=== PATIENT | female | born 1955 | race Caucasian/White ===

== ENCOUNTER → 2024-04-27 | Outpatient (CLI) | payer MEDICARE, SELFPAY ==
--- NOTE | 2024-04-27 08:59 | RAD_ITS ---
EXAM: XR Chest, 2 Views CLINICAL INDICATION: TECHNIQUE: Frontal and lateral views of the chest. COMPARISON: No relevant prior studies available. FINDINGS: LUNGS AND PLEURAL SPACES: Unremarkable. No consolidation. No pneumothorax. HEART: Unremarkable. No cardiomegaly. MEDIASTINUM: Unremarkable. Normal mediastinal contour. BONES/JOINTS: Unremarkable. No acute fracture. RAD/Chest PA and Lateral IMPRESSION: No acute cardiopulmonary process. Reading Location[facility]
[2024-04-27 10:05] LABS: EXAGEN MAILED SPECIMEN
[2024-04-27 12:51] LABS: Absolute Lymphocyte Count 1.99 X10^3/uL (0.83-4.51); Absolute Neutrophil Count 2.5 X10^3/uL (2.0-7.7); Basophil# 0.09 X10^3/uL; Basophil% 1.7 % (0-1); Eosinophil# 0.18 X10^3/uL; Eosinophils% 3.4 % (0-5); Hematocrit 43.6 % (37-47); Hemoglobin 14.1 g/dL (12.0-15.0); Lymphocyte # 1.99 X10^3/ul (0.83-4.51); Lymphocyte % 37.1 % (19-41); Mean Corp Hgb Conc 32.3 g/dL (32-36); Mean Corpuscular Hgb 29.9 pg (27.0-32.0); Mean Corpuscular Volume 92.4 fL (81-99); Mean Platelet Vol. 10.6 fl (6.2-12.0); Monocyte# 0.57 X10^3/uL; Monocyte% 10.6 % (0-10); NRBC Flagged by Analyzer 0 % (0-5); Neutrophil # 2.51 X10^3/uL (2.7-7.7); Neutrophil % 46.8 % (47-70); Platelet Count 326 K/mm3 (150-450); RBC Distribution Width CV 12.9 % (11.6-14.6); RBC Distribution Width SD 43.9 fl (35.1-43.9); Red Blood Count 4.72 M/mm3 (4.2-5.4); White Blood Count 5.4 K/mm3 (4.4-11.0)
[2024-04-27 13:10] LABS: Color, Urine Yellow (Yellow); Glucose, Dipstick Normal (Normal); Ketone-Dipstick Negative (Negative); Leukocyte Esterase-Dipstick 500 /ul (Negative); Nitrite-Dipstick Negative (Negative); Occult Blood-Urine 25 /ul (Negative); Protein-Dipstick 30 mg/dl (Negative); Urine Bilirubin Dipstick Negative (Negative); Urine Clarity Clear (Clear); Urine Urobilinogen Normal (Normal)
[2024-04-27 13:34] LABS: ALB/GLOB Ratio 1.3 RATIO (0.9-2.4); AST(SGOT) 33 U/L (<=31); Alanine Aminotransfer ALT/SGPT 17 U/L (<=34); Albumin, Serum 4.5 g/dL (3.4-4.8); Alkaline Phosphatase 99 U/L (35-104); Anion Gap 12 (5-15); BUN 18 mg/dL (4-19); BUN/Creat Ratio 18.8 RATIO (10-20); Calcium,Total 9.3 mg/dL (7.6-11.0); Carbon Dioxide 24.3 mmol/L (21.0-32.0); Chloride 101 mmol/L (98-108); Creatinine, Serum 0.95 mg/dL (0.70-1.20); EST Glomerular Filtration Rate 66 (>60); Globulin 3.4 g/dL (2.2-4.2); Glucose 89 mg/dL (70-99); Hepatitis B Surface Antigen Nonreactive (Nonreactive); Hepatitis C Antibody Nonreactive (Nonreactive); Potassium 4.1 mmol/L (3.3-5.1); Protein, Total 7.9 g/dL (5.9-8.4); Sodium Level 137 mmol/L (133-145); Total Bilirubin 0.37 mg/dL (0.00-1.30)
[2024-04-27 13:54] LABS: Hepatitis B Surface Antibody Indetermin
[2024-04-27 15:18] LABS: Protein, Urine (Random) 13.9 mg/dL (0.0-12.0); Protein:Creat Ratio 118 mg/g CRE (0-200)
[2024-04-28 16:09] LABS: Angiotensin Convert Enzyme 75 U/L (14-82)
== END | disposition home or self-care (01) ==
LOC: MTLAB 08:57
PROVIDERS: PCP Family Medicine; Referring Provider Internal Medicine Rheumatology; Visit Provider Internal Medicine Rheumatology
DX: R76.8 Other specified abnormal immunological findings in serum (principal); M06.4 Inflammatory polyarthropathy
CPT/HCPCS: 36415; 71046; 80053; 81002; 82164; 82570; 84156; 85025; 86706; 86803; 87340

== ENCOUNTER → 2024-05-13 | Outpatient (CLI) | payer MEDICARE, SELFPAY ==
[2024-05-13 12:32] LABS: EXAGEN MAILED SPECIMEN
[2024-05-13 16:21] LABS: Color, Urine Yellow (Yellow); Glucose, Dipstick Normal (Normal); Ketone-Dipstick Negative (Negative); Leukocyte Esterase-Dipstick 100 /ul (Negative); Nitrite-Dipstick Negative (Negative); Occult Blood-Urine Negative /ul (Negative); Protein-Dipstick 15 mg/dl (Negative); Urine Bilirubin Dipstick Negative (Negative); Urine Clarity Clear (Clear); Urine Urobilinogen Normal (Normal); Urine pH 6.5 (5.0 - 8.0)
[2024-05-13 16:47] LABS: Protein, Urine (Random) < 6.0 mg/dL (0.0-12.0); Protein:Creat Ratio UNABLE TO CALCULATE mg/g CRE (0-200)
== END | disposition home or self-care (01) ==
LOC: MTLAB 11:11
PROVIDERS: PCP Family Medicine; Referring Provider Internal Medicine Rheumatology; Visit Provider Internal Medicine Rheumatology
DX: R76.8 Other specified abnormal immunological findings in serum (principal); M06.4 Inflammatory polyarthropathy; M18.0 Bilateral primary osteoarthritis of first carpometacarpal joints; M47.897 Other spondylosis, lumbosacral region; K21.9 Gastro-esophageal reflux disease without esophagitis; L71.9 Rosacea, unspecified
CPT/HCPCS: 81002; 82570; 84156

== ENCOUNTER → 2024-08-11 | Outpatient (CLI) | payer MEDICARE, SELFPAY ==
[2024-08-11 10:11] LABS: Absolute Lymphocyte Count 1.68 X10^3/uL (0.83-4.51); Absolute Neutrophil Count 3.4 X10^3/uL (2.0-7.7); Basophil# 0.07 X10^3/uL; Basophil% 1.2 % (0-1); Eosinophil# 0.21 X10^3/uL; Eosinophils% 3.5 % (0-5); Hematocrit 39.5 % (37-47); Lymphocyte # 1.68 X10^3/ul (0.83-4.51); Lymphocyte % 28.1 % (19-41); Mean Corp Hgb Conc 32.9 g/dL (32-36); Mean Corpuscular Hgb 30.7 pg (27.0-32.0); Mean Corpuscular Volume 93.2 fL (81-99); Mean Platelet Vol. 8.9 fl (6.2-12.0); Monocyte# 0.63 X10^3/uL; Monocyte% 10.6 % (0-10); NRBC Flagged by Analyzer 0 % (0-5); Neutrophil # 3.35 X10^3/uL (2.7-7.7); Neutrophil % 56.1 % (47-70); Platelet Count 362 K/mm3 (150-450); RBC Distribution Width CV 14.2 % (11.6-14.6); RBC Distribution Width SD 47.5 fl (35.1-43.9); Red Blood Count 4.24 M/mm3 (4.2-5.4)
[2024-08-11 10:36] LABS: ALB/GLOB Ratio 1.4 RATIO (0.9-2.4); AST(SGOT) 33 U/L (<=31); Alanine Aminotransfer ALT/SGPT 20 U/L (<=34); Albumin, Serum 4.2 g/dL (3.4-4.8); Alkaline Phosphatase 91 U/L (35-104); Anion Gap 11 (5-15); BUN 19 mg/dL (4-19); BUN/Creat Ratio 20.4 RATIO (10-20); Calcium,Total 9.3 mg/dL (7.6-11.0); Carbon Dioxide 23.5 mmol/L (21.0-32.0); Chloride 104 mmol/L (98-108); Creatinine, Serum 0.91 mg/dL (0.70-1.20); EST Glomerular Filtration Rate 69 (>60); Globulin 2.9 g/dL (2.2-4.2); Glucose 97 mg/dL (70-99); Potassium 4.6 mmol/L (3.3-5.1); Protein, Total 7.1 g/dL (5.9-8.4); Sodium Level 138 mmol/L (133-145); Total Bilirubin 0.37 mg/dL (0.00-1.30)
== END | disposition home or self-care (01) ==
LOC: MTLAB 07:58
PROVIDERS: PCP Family Medicine; Referring Provider Internal Medicine Rheumatology; Visit Provider Internal Medicine Rheumatology
DX: M06.4 Inflammatory polyarthropathy (principal); M18.0 Bilateral primary osteoarthritis of first carpometacarpal joints; R76.8 Other specified abnormal immunological findings in serum; Z79.899 Other long term (current) drug therapy
CPT/HCPCS: 36415; 80053; 85025

== ENCOUNTER → 2024-11-11 | Outpatient (CLI) | payer MEDICARE, SELFPAY ==
[2024-11-11 12:27] LABS: Hematocrit 42.8 % (37-47); Hemoglobin 14.4 g/dL (12.0-15.0); Immature Granulocytes Count 0.030 X10^3/uL (0.0-0.0); Mean Corp Hgb Conc 33.6 g/dL (32-36); Mean Corpuscular Volume 94.5 fL (81-99); Mean Platelet Vol. 9.9 fl (6.2-12.0); NRBC Flagged by Analyzer 0 % (0-5); Platelet Count 334 K/mm3 (150-450); RBC Distribution Width CV 12.7 % (11.6-14.6); RBC Distribution Width SD 44.1 fl (35.1-43.9); Red Blood Count 4.53 M/mm3 (4.2-5.4); White Blood Count 6.4 K/mm3 (4.4-11.0)
[2024-11-11 12:41] LABS: AST(SGOT) 35 U/L (<=31); Alanine Aminotransfer ALT/SGPT 13 U/L (<=34); Albumin, Serum 4.3 g/dL (3.4-4.8); Alkaline Phosphatase 88 U/L (35-104); Anion Gap 11 (5-15); BUN 15 mg/dL (4-19); BUN/Creat Ratio 15.7 RATIO (10-20); Calcium,Total 9.3 mg/dL (7.6-11.0); Carbon Dioxide 23.1 mmol/L (21.0-32.0); Chloride 103 mmol/L (98-108); Globulin 3.0 g/dL (2.2-4.2); Glucose 89 mg/dL (70-99); Potassium 4.0 mmol/L (3.3-5.1)
== END | disposition home or self-care (01) ==
LOC: MTLAB 10:43
PROVIDERS: PCP Family Medicine; Referring Provider Internal Medicine Rheumatology; Visit Provider Internal Medicine Rheumatology
DX: M06.4 Inflammatory polyarthropathy (principal); R76.8 Other specified abnormal immunological findings in serum; M18.0 Bilateral primary osteoarthritis of first carpometacarpal joints; Z79.899 Other long term (current) drug therapy
CPT/HCPCS: 36415; 80053; 85025

== ENCOUNTER → 2025-01-02 | Outpatient (CLI) | payer MEDICARE, SELFPAY ==
--- NOTE | 2025-01-02 08:52 | US_ITS ---
PROCEDURE: ABD LIMITED W/ ELASTOGRAPHY REASON FOR EXAM: FATTY LIVER COMPARISON: None TECHNIQUE: Procedure Code: [id number] Modality: US Procedure: ABD LIMITED W/ ELASTOGRAPHY Right upper quadrant abdominal ultrasound. Bright ElastQ Imaging shear wave elastography for non-invasive assessment of liver tissue stiffness. Bright EPIQ Elite. FINDINGS: LIVER: Size: Borderline hepatomegaly. Length: 17.9 cm Echotexture: Coarsened Contour: Normal Lesions: None identified Elastography: EQI Med: 5.3 kPa EQI Med Dell: 1.3 m/s IQR/Med: 24.6 %* GALLBLADDER: No stones sludge wall thickening or tenderness. COMMON BILE DUCT: Normal measuring 2.7 mm . PANCREAS: Normal Visualized portions of the right kidney are unremarkable. No right upper quadrant ascites. US/ABD Limited w/ Elastography IMPRESSION: NO TO MILD HEPATIC FIBROSIS Borderline hepatomegaly. Fatty infiltration of the liver. Reference Values: SRU <1.37 m/s (5.7kPa): No to mild fibrosis 1.37 m/s - 2.2 m/s: Moderate to severe fibrosis >2.2 m/s (15kPa): Significant fibrosis / cirrhosis METAVIR Score F2 or higher: 1.34 m/s (5.7kPa) F3 or higher: 1.55 m/s (7.3kPa) F4: 1.80 m/s (10kPa) * If the IQR/Med is >30%, the variance in the measurements is a large and the a ccuracy of the measurement may be in question. Reading Location: [id number]
--- OUTSIDE RECORDS SUMMARY | 2025-01-02 08:53 | XMS RPT_ITS | CCD ---
Author Organization [facility] Care Team Providers Care Agricultural [employer] Inspector Name Role Phone Sue Wolf Unavailable Unavailable Robbie Laura Unavailable Unavailable Stencel, Sue Soto Unavailable Unavailable Mariela Fuentes Unavailable Unavailabl e Luciano, Sue Unavailable Unavailable Dannielle Zuniga Unavailable Unavailable Krystalcel , Sue Pascual Primary Care Provider Luciano ROBERTS, Sue Pascual Primary Care Provider SHELBY LANGLEY Attending Unavailable STENSHERWIN, SUE PASCUAL Primary Care Unavailab le STENCEL, SUE PASCUAL Primary Care Unavailab le CIDNY, ELMA ARCHIBALD Admitting Unavailab le CINDY, ELMA ARCHIBALD Attending Unavailab le RYAN, CRISTOBAL ARANGO Admitting Unavailable VINCENT, GREGOR Attending Unavailable RYANCRISTOBAL Referring Unavailable STENCEL, SUE PASCUAL Primary Care Unavailab le STENCEL, SUE PASCUAL Admitting Unavailab le ODOM, MOE Attending Unavailable RYAN, CRISTOBAL ARANGO Referring Unavailable STENCEL, SUE PASCUAL Primary Care Unavailab le STENCEL, SUE PASCUAL Admitting Unavailab le SUSANA, KEVEN Attending Unavailable RYAN, CRISTOBAL ARANGO Referring Unavailable STENCEL, SUE PASCUAL Primary Care Unavailab le STENCEL, SUE PASCUAL Admitting Unavailab le WARNES, ELIZABETH Attending Unavailable RYAN, CRISTOBAL ARANGO Referring Unavailable STENCEL, SUE PASCUAL Primary Care Unavailab le STENCEL, SUE PASCUAL Admitting Unavailab le ODOM, MOE Attending Unavailable RYANCRISTOBAL Referring Unavailable STENCEL, SUE PASCUAL Primary Care Unavailab le STENCEL, SUE PASCUAL Admitting Unavailab le ODOM, MOE Attending Unavailable RYAN, CRISTOBAL ARANGO Referring Unavailable STENCEL, SUE PASCUAL Primary Care Unavailab le STENCEL, SUE PASCUAL Admitting Unavailab le VINCENT, GREGOR Attending Unavailable RYANCRISTOBAL Referring Unavailable STENCEL, SUE PASCUAL Primary Care Unavailab le RYAN, CRISTOBAL ARANGO Admitting Unavailable STENCEL, SUE PASCUAL Primary Care Unavailab le CINDY, ELMA ARCHIBALD Attending Unavailab le CINDY, ELMA ARCHIBALD Referring Unavailab le STENSHERWIN, SUE PASCUAL Primary Care Unavailab le Luciano, Sue Soto Unavailable Unavailable Unavailable Unavailable Unavailable Sue Wolf MD Primary Care Provider Sue Wolf Primary Care Provider Sue Wolf MD Primary Care Provider Дмитрий, Juan Attending Unavailable Stencel, Dr. Sue Pascual Primary Care Unava ilable Leb, Juan Attending Unavailable Stencel, Dr. Sue Pascual Primary Care Unava ilable Stencel, Dr. Sue Pascual Referring Unava ilable Stencel, Dr. Sue Pascual Primary Care Unava ilable Stencel, Dr. Sue Pascual Attending Unava ilable Stencel, Dr. Sue Pascual Referring Unava ilable Stencel, Dr. Sue Pascual Primary Care Unava ilable Stencel, Dr. Sue Pascual Attending Unava ilable Stencel, Dr. Sue Pascual Referring Unava ilable Leb, Juan Attending Unavailable Stencel, Dr. Sue Pascual Primary Care Unava ilable Sue Wolf MD Primary Care Provider [phone] Sue Wolf MD Unavailable Sue Wolf MD Primary Care Provider [phone] SUE WOLF Primary Care Unavailable Sue Wolf MD Primary Care Provider Sue Wolf MD Primary Care Provider SUE WOLF Primary Care Unavailable BURAK MEDINA Attending Unavailable EMERSON ROSSI Referring Unavailabl e Dr. Sue Wolf MD Primary Care Provider [phone] Dr. Sylvie Orosco MD Attending Provider Dr. Sylvie Orosco MD Referring Provider Sue Wolf MD Primary Care Provider [phone] SYLVIE OROSCO Referring Unavailable STENSUE COURTNEY Primary Care Unavailable STENSUE COURTNEY Referring Unavailable STENSUE COURTNEY Primary Care Unavailable Sue Wolf MD Primary Care Provider Dr. Sue Wolf MD Primary Care Physician Kwesi ROBERTS, Dr. Mercer Attending Physician Dr. Sylvie Orosco MD Referring Provider LUCIANO, SUE PASCUAL Primary Care Unavailab le RAO, SUSSY FELDMAN Attending Unavailable RAO, SUSSY FELDMAN Admitting Unavailable STENCEL, SUE PASCUAL Primary Care Unavailab le RAO, SUSSY FELDMAN Referring Unavailable RAO, SUSSY FELDMAN Attending Unavailable STENCEL, SUE PASCUAL Primary Care Unavailab brayden Wolf MD, Sue Soto Primary Care Provider ROBBIE LAURA Attending Unavailable STENCEL, SUE Soto Primary Care Unavailable STENCEL, SUE Soto Attending Unavailable STENCEL, SUE Soto Primary Care Unavailable STENCEL, SUE Soto Attending Unavailable STENCEL, SUE Soto Primary Care Unavailable STENCEL, SUE Soto Attending Unavailable STENCEL, SUE Soto Referring Unavailable STENCEL, SUE Soto Primary Care Unavailable STENCEL, SUE Soto Attending Unavailable STENCEL, SUE Soto Primary Care Unavailable Vellanki, Sylvie Attending Unavailable Stencel, Sue Primary Care Unavailable Vellanki, Sylvie Referring Unavailable Vellanki, Sylvie Referring Unavailable Stencel, Sue Primary Care Unavailable Vellanki, Sylvie Attending Unavailable Stencel, Sue Primary Care Unavailable Stencel, Sue Attending Unavailable Stencel, Sue Referring Unavailable Stencel, Sue Primary Care Unavailable Vellanki, Sylvie Attending Unavailable Vellanki, Sylvie Referring Unavailable Stencel, Sue Primary Care Unavailable Vellanki, Sylvie Attending Unavailable Vellanki, Sylvie Referring Unavailable Medications Current Medications Medication Drug Class(es) Dates Sig (Normalized) Sig (Original) acetaminophen 500 mg oral tablet (13 sources) take 1 tablet by mouth every six hours as needed for pain acetaminophen (TYLENOL) 500 MG tablet Take 500 mg by mouth every 6 (six) hours as needed for pain . Active acetaminophen 325 mg / HYDROcodone bitartrate 5 mg oral tablet (4 sources) Opioid Agonist Start: 08-16-2020 End: 11-15-2020 HYDROcodone-Acetami nophen 5-325 MG Oral Tablet Quantity: 40 Refills: 0 Ordered: 16-Aug-2020 DO Start : 16-Aug-2020 End : 15-Nov-2020 Complete Start: 08-16-2020 End: 08-23-2020 take 1 tablet by mouth once as needed, then take 2 tablets by mouth every four hours as needed HYDROcodone-acetaminophen (NORCO) 5-325 mg per tablet Indications: Status post total replacement of right hip Take 1 (one) tablet to 2 (two) tablets by mouth every 4 (four) hours as needed 7 days . 40 tablet 0 08/16/2020 08/23/2020 Active alendronic acid 70 mg oral tablet (5 sources) Bisphosphonate Start: 08-16-2020 End: 11-15-2020 take 1 tablet by mouth every week Alendronate Sodium 70 MG Oral Tablet TAKE 1 TABLET BY MOUTH ONCE A WEEK Quantity: 4 Refills: 0 Ordered: 12-Sep-2020 DO Start : 16-Aug-2020 End : 15-Nov-2020 Complete Start: 08-16-2020 End: 09-15-2020 alendronate (FOSAMAX) 70 MG tablet Take 1 (one) tablet (70 mg total) by mouth every 7 days (full glass of water on an empty stomach). Remain upright and do not eat for next 30 min . 4 tablet 2 08/16/2020 09/15/2020 Active aspirin 325 mg delayed release oral tablet (20 sources) Platelet Aggregation Inhibitor, Nonsteroidal Anti-inflammatory Drug Start: 08-16-2020 End: 11-15-2020 Aspirin 325 MG Oral Tablet Delayed Release Quantity: 60 Refills: 0 Ordered: 16-Aug-2020 DO Start : 16-Aug-2020 End : 15-Nov-2020 Complete Start: 08-16-2020 End: 09-15-2020 take 1 tablet by mouth twice daily aspirin 325 MG EC tablet Take 1 (one) tablet (325 mg total) by mouth 2 (two) times a day . 60 tablet 0 08/16/2020 09/15/2020 Active End: 08-16-2020 take 1 tablet by mouth once daily aspirin 81 MG EC tablet Take 1 (one) tablet (81 mg total) by mouth daily . Active aspirin (ASPIR-8 1 ORAL) Take by mouth once daily. Active Aspirin 81 MG TA BS TAKE 1 TABLET DAILY. Quantity: 0 Refills: 0 Ordered: 05-Feb-2019 DO Active aspirin (ASPIR-8 1 ORAL) Take by mouth once daily. 0 Active Comment on above: Take by mouth once d aily. aspirin 81 mg / calcium carbonate 777 mg oral tablet (12 sources) Platelet Aggregation Inhibitor, Nonsteroidal Anti-inflammatory Drug take 1 tablet by mouth once daily aspirin-calcium carbonate 81 mg-300 mg calcium(777 mg) tablet Take 1 tablet by mouth once daily. Active Calcium (4 sources) Phosphate Binder, Calcium Start: CALCIUM 500 MG TAB Take one(1) tablet daily. 0 03/31/2008 Active Comment on above: Take one(1) tablet d aily. cholecalciferol 0.025 mg oral tablet (20 sources) Vitamin D Start: 021 take 2 tablets by mouth once daily cholecalciferol (Vitamin D-3) 25 MCG (1000 UT) tablet Take 2 tablets (50 mcg) by mouth once daily. 03/23/2020 Active Start: 03-23-2020 take 2 tablets by mo uth once daily Vitamin D 25 MCG (1000 UT) Oral Tablet TAKE 2 TABLET Daily Quantity: 180 Refills: 0 Ordered: 08-Dec-2021 DO Start : 23-Mar-2020 Active cholecalciferol, vitamin D3, 10 mcg/drop (400 unit/drop) Drop Take by mouth daily . 0 Active cholecalciferol, vitamin D3, (VITAMIN D3 ORAL) (4 sources) cholecalciferol, vitamin D3, (VITAMIN D3 ORAL) Take by mouth once daily. Active cholecalciferol, vitamin D3, (VITAMIN D3 ORAL) Take by mouth once daily. 0 Active Comment on above: Take by mouth once d aily. cyclobenzaprine hydrochloride 10 mg oral tablet (4 sources) Muscle Relaxant Start: 08-16-2020 End: 11-15-2020 Cyclobenzaprine HCl - 10 MG Oral Tablet Quantity: 30 Refills: 0 Ordered: 16-Aug-2020 DO Start : 16-Aug-2020 End : 15-Nov-2020 Complete Start: 08-16-2020 End: 08-26-2020 take 1 tablet by mouth three times daily as needed for muscle spasms cyclobenzaprine (FLEXERIL) 10 MG tablet Take 1 (one) tablet (10 mg total) by mouth 3 (three) times a day as needed for muscle spasms . 30 tablet 0 08/16/2020 08/26/2020 Active docusate sodium 250 mg oral capsule (20 sources) Start: 03-23-2020 docusate sodiu m 250 mg capsule Take by mouth. 03/23/2020 Active Start: 03-23-2020 SM Stool Softe ner 250 MG Oral Capsule Quantity: 0 Refills: 0 Ordered: 23-Mar-2020 DO Start : 23-Mar-2020 Active Start: 03-31-2008 docusate sodiu m(COLACE 100 MG CAP) Take one(1) tablet twice daily. 0 03/31/2008 Active take 1 capsule by [facility] once daily docusate sodium (COLACE) 100 MG capsule Take 100 mg by mouth daily . Active Comment on above: Take one(1) tablet t wice daily. doxycycline monohydrate 100 mg oral capsule (1 source) Tetracycline-class Drug Start: 11-15-19 End: 11-29-19 take 1 capsule by mouth once daily doxycycline monohydrate (MONODOX) 100 mg capsule Take 1 capsule by mouth once daily for 14 days. 14 capsule 0 11/14/2021 11/28/2021 Active Comment on above: Take 1 capsule by [facility] once daily for 14 days. erythromycin 0.005 mg/mg ophthalmic ointment (4 sources) Macrolide, Macrolide Antimicrobial Start: 11-15-19 erythromycin (ROMYCIN) 5 mg/gram (0.5 %) ophthalmic ointment Use 1 application in the right eye daily at bedtime. 3.5 g 11/14/2021 Active Comment on above: Use 1 application in the right eye daily at bedtime. fluconazole 200 mg oral tablet (2 sources) Azole Antifungal Start: 12-11-19 End: 12-18-19 take 1 tablet by mouth once daily fluconazole (Diflucan) 200 mg tablet Indications: Thrush Take 1 tablet (200 mg) by mouth once daily for 7 days. 7 tablet 1 12/10/2024 12/17/2024 Active folic acid 1 mg oral tablet (2 sources) Start: 07-04-19 take 1 tablet by mouth once daily folic acid (FOLVITE) 1 MG tablet Take 2 (two) tablets (2,000 mcg total) by mouth daily . 07/03/2024 Active gabapentin 300 mg oral capsule (20 sources) Anti-epileptic Agent Start: 08-29-19 24 End: 06-03-19 26 take 1 capsule by mouth three times daily gabapentin (Neurontin) 300 mg capsule Indications: Lumbosacral radiculopathy at L5 , Peripheral polyneuropathy Take 1 capsule (300 mg) by mouth 3 times a day. 270 capsule 3 06/02/2024 06/02/2025 Active Start: 08-07-2022 End: 08-07-2023 take 1 capsule by mouth three times daily gabapentin (Neurontin) 300 mg capsule Indications: Lumbosacral radiculopathy at L5 , Peripheral polyneuropathy Take 1 capsule (300 mg) by mouth 3 times a day. 270 capsule 3 08/07/2022 08/07/2023 Active Start: 12-03-2019 End: 11-15-2020 Gabapentin 100 MG Oral Capsu le Quantity: 360 Refills: 0 Ordered: 11-Mar-2020 DO Start : 03-Dec-2019 End : 15-Nov-2020 Complete Start: 09-08-2019 gabapentin (NE URONTIN) 300 MG capsule 300 mg 2 (two) times a day . 05/12/2020 Active Start: 09-08-2019 take 1-2 capsules by mouth at bedtime Gabapentin 100 MG Oral Capsule TAKE 1 TO 2 CAPSULES AT BEDTIME Quantity: 60 Refills: 11 Sue Wolf MD Start : 08-Sep-2019 Active Start: 09-08-2019 take 2 capsules by m outh twice daily Gabapentin 100 MG Oral Capsule take 2 po bid Quantity: 120 Refills: 3 Mariela Fuentes DO Start : 08-Sep-2019 Active take 2 capsules by m outh three times daily gabapentin (NEURONTIN) 100 mg capsule Take 200 mg by mouth three times a day. Active Comment on above: Take 100 mg by mouth daily at bedtime. Take 200 mg by mouth three times a day. hydroxychloroquine sulfate 200 mg oral tablet (20 sources) Antimalarial, Antirheumatic Agent Start: 2024 take 1 tablet by mouth twice daily hydroxychloroquine (Plaquenil) 200 mg tablet Indications: Systemic lupus erythematosus, unspecified SLE type, unspecified organ involvement status (Multi) Take 1 tablet (200 mg) by mouth 2 times a day. 180 tablet 3 12/10/2024 Active Start: 08-07-2022 End: 12-10-2024 take 1 tablet by mouth twice daily hydroxychloroquine (Plaquenil) 200 mg tablet Indications: Systemic lupus erythematosus, unspecified SLE type, unspecified organ involvement status (Multi) Take 1 tablet (200 mg) by mouth 2 times a day. 180 tablet 3 12/03/2023 12/10/2024 Discontinued (Reorder) Start: 06-15-2022 take 1 tablet by leesa th twice daily hydroxychloroquine (Plaquenil) 200 mg tablet Indications: Lupus (CMS/HCC) Take 1 tablet (200 mg) by mouth 2 times a day. 180 tablet 3 06/15/2022 Active Start: 03-31-2008 take 1 tablet by leesa th once daily hydrOXYchloroQUINE (PLAQUENIL) 200 mg tablet Take 200 mg by mouth daily . 05/12/2020 Active Start: 03-31-2008 End: 06-15-2022 hydroxychloroquine sulfate(P LAQUENIL 200 MG TAB) Take one(1) tablet twice daily. 0 03/31/2008 Active Comment on above: Take one(1) tablet t wice daily. ibuprofen 400 mg oral tablet (10 sources) Nonsteroidal Anti-inflammatory Drug Start: 04-09-2008 ibuprofen(MOTRIN 400 MG TAB) 2-3 times daily 0 04/09/2008 Active End: 08-16-2020 take 1 tablet by mouth every six hours as needed ibuprofen (ADVIL,MOTRIN) 200 MG tablet Take 200 mg by mouth every 6 (six) hours as needed for pain . 0 08/16/2020 Discontinued (Stop Taking at Discharge) Comment on above: 2-3 times daily levoFLOXacin 750 mg oral tablet (2 sources) Quinolone Antimicrobial Start: 09-28-19 End: 10-08-19 take 1 tablet by mouth once daily levoFLOXacin (Levaquin) 750 MG tablet Indications: Status post right hip replacement Take 1 (one) tablet (750 mg total) by mouth daily for 10 days . 10 tablet 0 09/27/2020 10/07/2020 Active meloxicam 7.5 mg oral tablet (20 sources) Nonsteroidal Anti-inflammatory Drug Start: 07-30-19 End: 12-03-19 take 1 tablet by mouth once daily meloxicam (MOBIC) 7.5 MG tablet Take 7.5 mg by mouth daily . 05/12/2020 Active Comment on above: Take 1 tablet by leesa th once daily. multivitamins(DAILY MULTI-VITAMIN TAB) (4 sources) Start: 03-31-19 multivitamins(DAILY MULTI-VITAMIN TAB) Take one(1) tablet daily. 0 03/31/2008 Active Comment on above: Take one(1) tablet d aily. omeprazole 20 mg delayed release oral tablet (20 sources) Proton Pump Inhibitor Start: 03-31-19 09 End: 08-04-19 21 omeprazole magnesium(PRILOSEC OTC 20 MG TAB) Indications: Erythema nodosum Take one(1) tablet daily at bedtime. 90 3 03/31/2008 Active OMEPRAZOLE ORAL Take by mouth . Active Comment on above: Take one(1) tablet d aily at bedtime. phenylephrine hydrochloride 25 mg/ml ophthalmic solution (4 sources) alpha-1 Adrenergic Agonist Start: 03-25-2024 End: 03-25-2024 PHENYLephrine 2.5 % 1 Drop (AK-DILATE, ELAINA-SYNEPHRINE) Start: 03-25-2024 End: 03-25-2024 1 Drop, BOTH EYES, DIRECT ED, Starting on Sat03/25/24 at 1030, Until Sat03/25/24 at 2229, Administer for dilation PROTECT FROM LIGHT, OPHT CLINIC MED ORDERS Start: 12-04-2022 End: 12-05-2022 PHENYLephrine 2.5 % 1 Drop ( AK-DILATE, ELAINA-SYNEPHRINE) Start: 11-14-2021 End: 11-15-2021 PHENYLephrine 2.5 % 1 Drop ( AK-DILATE, ELAINA-SYNEPHRINE) predniSONE 50 mg oral tablet (2 sources) Start: 07-15-2024 take 1 tablet by mouth once daily predniSONE (DELTASONE) 50 MG tablet Take 1 (one) tablet (50 mg total) by mouth daily . 5 tablet 07/15/2024 Active proparacaine hydrochloride 5 mg/ml ophthalmic solution (2 sources) Local Anesthetic Start: 12-04-2022 End: 12-05-2022 proparacaine 0.5 % 1 Drop (ALCAINE) Start: 11-14-2021 End: 11-15-2021 proparacaine 0.5 % 1 Drop (A LCAINE) psyllium 3400 mg powder for oral suspension (17 sources) take 1 dose by mouth two times weekly as needed psyllium (METAMUCIL) 3.4 gram packet Take 1 packet by mouth as needed 2 times a week as needed . Active triamcinolone acetonide 1 mg/ml topical cream (4 sources) Corticosteroid Start: 12-10-2024 triamcinolone (Kenalog) 0.1 % cream Indications: Rash , Thrush Apply topically 2 times a day. 80 g 11 12/10/2024 Active Start: 11-19-2024 End: 11-19-2024 40 mg, Intra-articular, Once as needed Procedure, Starting on Sari 11/19/24 at 1226, For 1 dose Start: 07-15-2024 End: 07-15-2024 40 mg, Intra-articular, Once as needed Procedure, Starting on Sat07/15/24 at 0825, For 1 dose tropicamide 10 mg/ml ophthalmic solution (4 sources) Anticholinergic Start: 03-25-2024 End: 03-25-2024 tropicamide 1 % 1 Drop (MYDRIACYL) Start: 03-25-2024 End: 03-25-2024 1 Drop, BOTH EYES, DIRECT ED, Starting on Sat03/25/24 at 1030, Until Sat03/25/24 at 2229, Administer for dilation, OPHT CLINIC MED ORDERS Start: 12-04-2022 End: 12-05-2022 tropicamide 1 % 1 Drop (MYDR IACYL) Start: 11-14-2021 End: 11-15-2021 tropicamide 1 % 1 Drop (MYDR IACYL) VITAMIN E, BULK, MISC (1 source) VITAMIN E, BULK, MISC by Miscellaneous route . Active Completed/Discontinued Medications Medication Drug Class(es) Dates Sig (Normalized) Sig (Original) amoxicillin 500 mg oral capsule (2 sources) Penicillin-class Antibacterial Start: 08-10-2021 End: 07-15-2024 amoxicillin (AMOXIL) 500 MG capsule Indications: Status post right hip replacement Take all 4 tabs one hour before your dental work . 4 capsule 08/10/2021 07/15/2024 Discontinued (Patient's Request) ciprofloxacin 250 mg oral tablet (7 sources) Quinolone Antimicrobial Start: 05-01-2021 take 1 tablet by mouth once daily Ciprofloxacin HCl - 250 MG Oral Tablet TAKE 1 TABLET EVERY 12 HOURS DAILY. Quantity: 14 Refills: 3 Ordered: 10-May-2021 Sue Wolf MD Start : 01-May-2021 Active diclofenac sodium 0.01 mg/mg topical gel (2 sources) Nonsteroidal Anti-inflammatory Drug Start: 07-24-2022 Diclofenac Sodium 1 % External Gel apply 2 gram topically QID for pain Quantity: 1 Refills: 1 Ordered: 24-Jul-2022 Juan Choe MD Start : 24-Jul-2022 Active hydroCHLOROthiazide 12.5 mg / lisinopril 10 mg oral tablet (20 sources) Thiazide Diuretic, Angiotensin Converting Enzyme Inhibitor Start: 04-07-2020 End: 07-15-2024 lisinopriL-hydroc hlorothiazide (PRINZIDE,ZESTORE TIC) 10-12.5 mg per tablet daily 1/2 tablet daily . 04/07/2020 07/15/2024 Discontinued (Patient's Request) Start: 01-28-2018 End: 06-15-2022 take 0.5 tablet by mouth once daily, then take 10-12.5 mg by mouth once lisinopril-hydrochlorothiazide (PRINZIDE,ZESTORETIC) 10-12.5 mg per tablet Take by mouth once daily. Patient reports currently only taking 1/2 daily 07/17/2018 Active Comment on above: Take by mouth once d aily. Patient reports currently only taking 1/2 daily methotrexate 2.5 mg oral tablet (2 sources) Folate Analog Metabolic Inhibitor Start: 07-04-19 End: 11-20-19 take 4 tablets by mouth every week methoTREXate (TREXALL) 2.5 MG tablet Take 4 (four) tablets (10 mg total) by mouth once a week . 07/03/2024 11/19/2024 Discontinued (Discontinued by another clinician) nitrofurantoin, macrocrystals 25 mg / nitrofurantoin, monohydrate 75 mg oral capsule (11 sources) Nitrofuran Antibacterial Start: 08-03-19 End: 08-10-19 take 1 capsule by mouth twice daily Nitrofurantoin Monohyd Macro 100 MG Oral Capsule TAKE 1 CAPSULE TWICE DAILY. Quantity: 14 Refills: 1 Ordered: 09-May-2021 Sue Wolf MD Start : 02-Aug-2020 Active Start: 02-19-2019 take 1 capsule by mo [facility] once daily Nitrofurantoin Monohyd Macro 100 MG Oral Capsule TAKE 1 CAPSULE EVERY 12 HOURS DAILY. Quantity: 10 Refills: 3 Sue Wolf Start : 19-Feb-2019 Active pantoprazole 20 mg delayed release oral tablet (7 sources) Proton Pump Inhibitor Start: 08-17-2020 End: 07-15-2024 take 1 tablet by mouth once daily in the evening pantoprazole (PROTONIX) 20 MG tablet Take 1 (one) tablet (20 mg total) by mouth daily Start: 08/17/20. 30 tablet 08/16/2020 3:37 PM EDT 08/17/2020 07/15/2024 Discontinued (Patient's Request) phenazopyridine hydrochloride 100 mg oral tablet (7 sources) Start: 05-11-2021 End: 12-08-2021 take 1 tablet by mouth three times daily after mealtime Pyridium 100 MG Oral Tablet TAKE 1 TABLET 3 TIMES DAILY AFTER MEALS. Quantity: 9 Refills: 3 Ordered: 11-May-2021 Sue Wolf MD Start : 11-May-2021 End : 08-Dec-2021 Complete sulfamethoxazole 800 mg / trimethoprim 160 mg oral tablet (12 sources) Dihydrofolate Reductase Inhibitor Antibacterial, Sulfonamide Antimicrobial Start: 05-15-2021 End: 07-24-2022 take 1 tablet by mouth twice daily Sulfamethoxazole- Trimethoprim 800-160 MG Oral Tablet TAKE 1 TABLET TWICE DAILY UNTIL FINISHED. Quantity: 14 Refills: 3 Ordered: 08-Dec-2021 Sue Wolf MD Start : 08-Dec-2021 End : 24-Jul-2022 Complete Start: 02-05-2019 take 1 tablet by [facility] twice daily Sulfamethoxazole-Trimethoprim 800-160 MG Oral Tablet TAKE 1 TABLET TWICE DAILY. Quantity: 14 Refills: 0 Omar MENAGLEN Robbie Start : 05-Feb-2019 Active Problems Active Problems Problem Classification Problem Date Documented Date Episodic/Chronic Cataract (2 sources) Bilateral senile combined form cataracts of eyes; Translations: [Combined forms of age-related cataract, bilateral] 12-04-2022 Chronic Disorders of lipid metabolism (3 sources) Mixed hyperlipidemia; Translations: [Mixed hyperlipidemia] Onset: 05-24-2023 11-28-2022 Chronic Essential hypertension (20 sources) Hypertensive disorder; Translations: [Essential (primary) hypertension] Onset: 09-17-2018 Chronic Genitourinary symptoms and ill-defined conditions (20 sources) Dysuria; Translations: [Dysuria] Onset: 06-14-2022 Resolved: 06-14-2022 06-14-2022 Episodic Immunity disorders (20 sources) Sarcoidosis; Translations: [Sarcoidosis] Onset: 06-14-2022 06-14-2022 Chronic Mycoses (5 sources) Candidiasis of mouth; Translations: [Candidal stomatitis] Onset: 11-19-2024 12-10-2024 Episodic Nutritional deficiencies (1 source) Decreased vitamin D 12-14-2024 Chronic Osteoarthritis (20 sources) Primary coxarthrosis, bilateral; Translations: [Bilateral primary osteoarthritis of hip] Onset: 06-27-2020 Chronic Other aftercare (8 sources) Drug therapy finding; Translations: [Other terminal worker (current) drug therapy] Onset: 06-07-2014 Episodic Other connective tissue disease (4 sources) History of repair of hip joint; Translations: [Presence of right artificial hip joint] Chronic Other connective tissue disease (7 sources) Foot pain; Translations: [Pain in limb] Episodic Other connective tissue disease (2 sources) Triggering of digit; Translations: [Trigger finger, right ring finger] 06-15-2022 Episodic Other connective tissue disease (4 sources) Metatarsalgia of right foot; Translations: [Metatarsalgia, right foot] 06-15-2022 Episodic Other connective tissue disease (2 sources) Hand pain; Translations: [Pain in limb] Episodic Other connective tissue disease (3 sources) Pain in right hand; Translations: [Pain in right hand] Onset: 07-24-2022 Episodic Other connective tissue disease (2 sources) Trigger finger, right ring finger; Translations: [Trigger finger, right ring finger] Onset: 07-24-2022 Episodic Other eye disorders (16 sources) Vitreous degeneration; Translations: [Vitreous degeneration, unspecified eye] Onset: 06-07-2014 06-07-2014 Chronic Other eye disorders (4 sources) Vitreous opacities; Translations: [Other vitreous opacities, unspecified eye] Onset: 06-07-2014 06-07-2014 Chronic Other eye disorders (2 sources) Bilateral posterior vitreous detachment; Translations: [Vitreous degeneration, bilateral] 12-04-2022 Chronic Other eye disorders (1 source) Bilateral vitreous floaters; Translations: [Other vitreous opacities, bilateral] 12-04-2022 Chronic Other eye disorders (1 source) Chorioretinal scar of left eye; Translations: [Unspecified chorioretinal scars, left eye] 12-04-2022 Chronic Other eye disorders (1 source) Excess skin of eyelid; Translations: [Dermatochalasis of right upper eyelid] Episodic Other eye disorders (2 sources) Dry eyes; Translations: [Dry eye syndrome of bilateral lacrimal glands] 12-04-2022 Episodic Other eye disorders (2 sources) Dermatochalasis of right upper eyelid; Translations: [Dermatochalasis] 12-04-2022 Episodic Other inflammatory condition of skin (20 sources) Lupus erythematosus; Translations: [Systemic lupus erythematosus] Onset: 09-23-2019 09-23-2019 Chronic Other inflammatory condition of skin (20 sources) Rosacea; Translations: [Rosacea] Onset: 06-14-2022 06-14-2022 Chronic Other liver diseases (4 sources) Steatosis of liver; Translations: [Fatty (change of) liver, not elsewhere classified] 12-14-2024 Chronic Other liver diseases (3 sources) Fatty (change of) liver, not elsewhere classified; Translations: [Fatty (change of) liver, not elsewhere classified] Onset: 12-14-2024 Chronic Other liver diseases (2 sources) Elevated liver enzymes level; Translations: [Abnormal levels of other serum enzymes] 06-03-2024 Episodic Other liver diseases (2 sources) Abnormal levels of other serum enzymes; Translations: [Abnormal levels of other serum enzymes] Onset: 06-02-2024 Episodic Other nervous system disorders (20 sources) Polyneuropathy; Translations: [Unspecified hereditary and idiopathic peripheral neuropathy] Onset: 06-14-2022 06-15-2022 Chronic Other nervous system disorders (2 sources) Polyneuropathy, unspecified; Translations: [Polyneuropathy, unspecified] Onset: 06-14-2022 Chronic Other nutritional; endocrine; and metabolic disorders (4 sources) Overweight in adulthood with body mass index of 25 or more but less than 30; Translations: [Overweight] Episodic Other screening for suspected conditions (not mental disorders or infectious disease) (20 sources) Decreased vitamin D; Translations: [Other abnormal blood chemistry] Onset: 04-17-2022 06-14-2022 Episodic Other skin disorders (1 source) Eruption; Translations: [Rash and other nonspecific skin eruption] 12-10-2024 Episodic Other skin disorders (2 sources) Rash and other nonspecific skin eruption; Translations: [Rash and other nonspecific skin eruption] Onset: 12-10-2024 Episodic Residual codes; unclassified (20 sources) Menopause present; Translations: [Symptomatic menopausal or female climacteric states] Episodic Rheumatoid arthritis and related disease (20 sources) Rheumatoid arthritis; Translations: [Rheumatoid arthritis of elbow] Onset: 10-26-2020 Chronic Spondylosis; intervertebral disc disorders; other back problems (20 sources) Prolapsed lumbar intervertebral disc; Translations: [Displacement of lumbar intervertebral disc without myelopathy] Onset: 06-14-2022 06-14-2022 Chronic Systemic lupus erythematosus and connective tissue disorders (20 sources) Systemic lupus erythematosus; Translations: [Systemic lupus erythematosus, unspecified] Onset: 06-07-2014 Chronic Unclassified (5 sources) Patient encounter status 06-02-2024 Past or Other Problems Problem Classification Problem Date Documented Da te Episodic/Chronic Blindness and vision defects (16 sources) Severe myopia; Translations: [Myopia, bilateral] Onset: 09-17-2018 09-17-2018 Episodic Immunizations and screening for infectious disease (20 sources) Patient encounter status; Translations: [Other specified vaccination] Onset: 05-17-2024 11-28-2022 Episodic Other aftercare (6 sources) Taking high risk medication; Translations: [Other alf (current) drug therapy] Onset: 09-23-2019 Episodic Other aftercare (1 source) Other terminal worker (current) drug therapy; Translations: [Long-term use of Plaquenil] Onset: 06-07-2014 Episodic Other connective tissue disease (20 sources) H/O: rheumatoid arthritis; Translations: [Personal history of arthritis] Resolved: 09-21-2020 Episodic Other connective tissue disease (12 sources) Pain in left foot; Translations: [Pain in left foot] Onset: 06-14-2022 06-14-2022 Episodic Other connective tissue disease (7 sources) Metatarsalgia, right foot; Translations: [Metatarsalgia, right foot] Onset: 06-15-2022 Episodic Other eye disorders (18 sources) Chalazion of right upper eyelid; Translations: [Chalazion right upper eyelid] Onset: 11-14-2021 Episodic Residual codes; unclassified (2 sources) Pain, unspecified; Translations: [Pain, unspecified] Onset: 07-15-2024 Episodic Residual codes; unclassified (2 sources) Pain Onset: 07-15-2024 Episodic Spondylosis; intervertebral disc disorders; other back problems (20 sources) Low back pain; Translations: [Lumbosacral radiculopathy] Onset: 06-14-2022 06-14-2022 Episodic Unclassified (12 sources) Onset: 06-15-2022 Resolved: 11-19-2024 06-15-2022 Urinary tract infections (20 sources) Acute cystitis; Translations: [Urinary tract infectious disease] Onset: 06-14-2022 Resolved: 06-14-2022 06-14-2022 Episodic NEGATED: Highlighted row has not occurred!Residual codes; unclassified (20 sources) Disease Episodic Results Test Name Value Interpretation Reference Range Facility CULTURE, URINE, ROUTINEon CULTURE, URINE, ROUTINE SEE NOTE Normal [facility] Comment on above: Result Comment: CULTURE, URINE, ROUTINE Micro Number: [id number] Test Status: Final Specimen Source: Not given Specimen Quality: Adequate Result: Mixed genital sofia isolated. These superficial bacteria are not indicative of a urinary tract infection. No further organism identification is warranted on this specimen. If clinically indicated, recollect clean-catch, mid-stream urine and transfer immediately to Urine Culture Transport Tube. Performed By: #### 3 95 #### [address], [address] [place] [id number] Public Message Service Supervisor: Tashi Downing MD, LG Jt Injection/Arthrocentes is: Giovanna kneeon 11-19-2024 Sussy Rao CNP 11/19/2024 12:28 PM GANGA Jt Injection/Arthrocente sis: L knee Performed by: Sussy Rao CNP Authorized by: Sussy Rao CNP Consent given by: Patient Time out: Immediately prior to the procedure a time out was called Physician or proceduralist has discussed critical or nonroutine steps, procedure duration and anticipated blood loss: Yes Supporting Documentation: Indications: Pain and diagnostic evaluation Procedure Details: Location: Knee Site: L knee Prep: patient was prepped and draped in usual sterile fashion Needle size: 22 G Approach: Anterolateral Medications: 40 mg triamcinolone acetonide 40 mg/mL Anesthetic used: Lidocaine 1% Anesthetic amount (mL): 2 Patient tolerance: Patient tolerated the procedure well with no immediate complications [facility] POCT UA Automated manually r esultedon 11-19-2024 Appearance (U) Clear Clear [facility] Work Phone: [phone] Glucose Test strip (U) [Mass/Vol] Negative NEGATIVE mg/dl [facility] Work Phone: [phone] Hemoglobin Ql (U) TRACE-Intact Abnormal NEGATIVE [facility] Work Phone: [phone] Interpretation and review of laboratory results Abnormal [facility] Work Phone: [phone] Leukocyte esterase Test strip Ql (U) SMALL (1+) Abnormal NEGATIVE [facility] Work Phone: [phone] Nitrite Ql (U) Negative NEGATIVE [facility] Work Phone: [phone] pH (U) 6.5 [pH] No Reference Range Established [facility] Work Phone: [phone] POC Bilirubin, Urine Negative NEGATIVE [facility] Work Phone: [phone] POC Color, Urine Yellow Straw, Yellow, Light-Yellow [facility] Work Phone: [phone] POC Ketones, Urine Negative NEGATIVE mg/dl [facility] Work Phone: [phone] POC Protein, Urine Negative NEGATIVE mg/dl [facility] Work Phone: [phone] POC Specific [place], Urine 1.025 1.005 - 1.035 [facility] Work Phone: [phone] POC Urobilinogen, Urine 0.2 0.2, 1.0 EU/DL [facility] Work Phone: [phone] [facility] Work Phone: [phone] Absolute lymphocyte countOrd ered By: Sylvie Orosco on 11-11-2024 Lymphocytes Auto (Unsp spec) [#/Vol] 2.04 10*3/uL 0.83-4.51 [facility] Absolute neutrophil countOrd ered By: Sylvie Orosco on 11-11-2024 Neutrophils (Bld) [#/Vol] 3.4 10*3/uL 2.0-7.7 [facility] Anion gap in Serum or Plasma Ordered By: Sylvie Orosco on 11-11-2024 Anion gap [Moles/Vol] 11 mmol/L 5- [facility] Automated lymphocyte count a s percentage of total leukocytesOrdered By: Sylvie Orosco on 11-11-2024 Lymphocytes/100 WBC Auto (Unsp spec) 32.1 % - [facility] BUN/creatinine ratioOrdered By: Sylviearmida Orosco on 11-11-2024 Urea nitrogen/Creatinine [Mass ratio] 15.7 mg/mg 10- [facility] Basophil percentageOrdered B y: Sylvie Orosco on 11-11-2024 Basophils/100 WBC (Bld) 1.3 % High 0-1 [facility] Bilirubin, totalOrdered By: Sylvie Orosco on 11-11-2024 Bilirubin [Mass/Vol] 0.34 mg/dL 0.00-1.30 [facility] CBC W/Diff, Automatedon 10-20 Absolute Lymph 2.04 X10 3/uL Normal 0.83-4.51 [facility] Comment on above: Performed By: #### L 500.4050, L100.0100 #### [facility] [address] [place], [address] Absolute Neut 3.4 X10 3/uL Normal 2.0-7.7 [facility] Comment on above: Performed By: #### L 500.4050, L100.0100 #### [facility] [address] [place], [address] Basophils/100 WBC (Bld) 1.3 % High 0-1 [facility] Comment on above: Performed By: #### L 500.4050, L100.0100 #### [facility] [address] [place], [address] Eosinophils/100 WBC (Bld) 2.7 % Normal 0-5 [facility] Comment on above: Performed By: #### L [id number], L100.0100 #### [facility] [address] [place], [address] Erythrocyte distribution width (RBC) [Ratio] 12.7 % Normal 11.6-14.6 [facility] Comment on above: Performed By: #### L [id number], L100.0100 #### [facility] [address] [place], [address] Hematocrit (Bld) [Volume fraction] 42.8 % Normal 37-47 [facility] Comment on above: Performed By: #### L [id number], L100.0100 #### [facility] [address] [place], [address] Hemoglobin (Bld) [Mass/Vol] 14.4 g/dL Normal 12.0-15.0 [facility] Comment on above: Performed By: #### L 500.4050, L100.0100 #### [facility] [address] [place], [address] IG% 0.500 Normal 0.0-0.9 [facility] Comment on above: Result Comment: IG% - Immature Granulocytes (promyelocytes, myelocytes and metamyelocytes) > 1% indicates that a LEFT SHIFT is Present. Performed By: #### L 500.4050, L100.0100 #### [facility] [address] [place], [address] Lymphocytes/100 WBC (Bld) 32.1 % Normal 19-41 [facility] Comment on above: Performed By: #### L 500.4050, L100.0100 #### [facility] [address] [place], [address] MCH (RBC) [Entitic mass] 31.8 pg Normal 27.0-32.0 [facility] Comment on above: Performed By: #### L 500.4050, L100.0100 #### [facility] [address] [place], [address] MCHC (RBC) [Mass/Vol] 33.6 g/dL Normal 32-36 [facility] Comment on above: Performed By: #### L [id number], L100.0100 #### [facility] [address] [place], [address] MCV (RBC) [Entitic vol] 94.5 fL Normal 81-99 [facility] Comment on above: Performed By: #### L [id number], L100.0100 #### [facility] [address] [place], [address] Monocytes/100 WBC (Bld) 9.6 % Normal 0-10 [facility] Comment on above: Performed By: #### L 500.4050, L100.0100 #### [facility] [address] [place], [address] Neutrophils/100 WBC (Bld) 53.8 % Normal 47-70 [facility] Comment on above: Performed By: #### L 500.4050, L100.0100 #### [facility] [address] [place], [address] Nucleated RBC (Bld) [#/Vol] 0 10*3/uL Normal 0-5 [facility] Comment on above: Performed By: #### L 500.4050, L100.0100 #### [facility] [address] [place], [address] Platelet mean volume (Bld) [Entitic vol] 9.9 fL Normal 6.2-12.0 [facility] Comment on above: Performed By: #### L 500.4050, L100.0100 #### [facility] [address] [place], [address] Platelets (Bld) [#/Vol] 334 10*3/uL Normal 150-450 [facility] Comment on above: Performed By: #### L [id number], L100.0100 #### [facility] [address] [place], [address] RBC (Bld) [#/Vol] 4.53 10*6/uL Normal 4.2-5.4 [facility] Comment on above: Performed By: #### L 500.4050, L100.0100 #### [facility] [address] [place], [address] RDW SD 44.1 fl High 35.1-43.9 [facility] Comment on above: Performed By: #### L 500.4050, L100.0100 #### [facility] [address] [place], [address] WBC (Bld) [#/Vol] 6.4 10*3/uL Normal 4.4-11.0 [facility] Comment on above: Performed By: #### L 500.4050, L100.0100 #### [facility] [address] [place], [address] Carbon dioxide, total [Moles /volume] in Central venous bloodOrdered By: Sylvie Orosco on 11-11-2024 CO2 [Moles/Vol] 23.1 mmol/L 21.0-32.0 [facility] Chloride assayOrdered By: Gregg Orosco on 11-11-2024 Chloride [Moles/Vol] 103 mmol/L 98-108 [facility] Comprehensive Metabolic Prof ilon 11-11-2024 Albumin [Mass/Vol] 4.3 g/dL Normal 3.4-4.8 [facility] Comment on above: Performed By: #### L 500.4050, L100.0100 #### [facility] [address] [place], [address] Albumin/Globulin [Mass ratio] 1.5 {ratio} Normal 0.9-2.4 [facility] Comment on above: Performed By: #### L 500.4050, L100.0100 #### [facility] [address] [place], [address] ALK PHOS 88 U/L Normal 35-104 [facility] Comment on above: Performed By: #### L 500.4050, L100.0100 #### [facility] [address] [place], [address] ALT [Catalytic activity/Vol] 13 U/L Normal <=34 [facility] Comment on above: Performed By: #### L 500.4050, L100.0100 #### [facility] [address] [place], [address] AST [Catalytic activity/Vol] 35 U/L High <=31 [facility] Comment on above: Performed By: #### L 500.4050, L100.0100 #### [facility] [address] [place], [address] Bilirubin [Mass/Vol] 0.34 mg/dL Normal 0.00-1.30 [facility] Comment on above: Performed By: #### L 500.4050, L100.0100 #### [facility] [address] [place], [address] BUN/CRE 15.7 RATIO Normal 10-20 [facility] Comment on above: Performed By: #### L 500.4050, L100.0100 #### [facility] [address] [place], [address] Calcium [Mass/Vol] 9.3 mg/dL Normal 7.6-11.0 [facility] Comment on above: Performed By: #### L 500.4050, L100.0100 #### [facility] [address] [place], [address] Chloride [Moles/Vol] 103 mmol/L Normal 98-108 [facility] Comment on above: Performed By: #### L 500.4050, L100.0100 #### [facility] [address] [place], [address] CO2 [Moles/Vol] 23.1 mmol/L Normal 21.0-32.0 [facility] Comment on above: Performed By: #### L 500.4050, L100.0100 #### [facility] [address] [place], [address] Creatinine [Mass/Vol] 0.93 mg/dL Normal 0.70-1.20 [facility] Comment on above: Performed By: #### L 500.4050, L100.0100 #### [facility] [address] [place], [address] GAP 11 Normal 5-15 [facility] Comment on above: Performed By: #### L 500.4050, L100.0100 #### [facility] [address] [place], [address] GFR/1.73 sq M.predicted among non-blacks MDRD (S/P/Bld) [Vol rate/Area] 67 mL/min/{1.73_m2} Normal >60 [facility] Comment on above: Result Comment: mL/m in/1.73m2 CKD-EPI Creatinine Equation (2020) Performed By: #### L 500.4050, L100.0100 #### [facility] [address] [place], [address] Globulin (S) [Mass/Vol] 3.0 g/dL Normal 2.2-4.2 [facility] Comment on above: Performed By: #### L 500.4050, L100.0100 #### [facility] [address] [place], [address] Glucose [Mass/Vol] 89 mg/dL Normal 70-99 [facility] Comment on above: Performed By: #### L 500.4050, L100.0100 #### [facility] [address] [place], [address] Potassium [Moles/Vol] 4.0 mmol/L Normal 3.3-5.1 [facility] Comment on above: Performed By: #### L 500.4050, L100.0100 #### [facility] [address] [place], [address] Sodium [Moles/Vol] 137 mmol/L Normal 133-145 [facility] Comment on above: Performed By: #### L 500.4050, L100.0100 #### [facility] [address] [place], [address] T PROT 7.3 g/dL Normal 5.9-8.4 [facility] Comment on above: Performed By: #### L 500.4050, L100.0100 #### [facility] [address] [place], [address] Urea nitrogen [Mass/Vol] 15 mg/dL Normal 4-19 [facility] Comment on above: Performed By: #### L 500.4050, L100.0100 #### [facility] [address] [place], [address] Eosinophil percentageOrdered By: Sylvie Orosco on 11-11-2024 Eosinophils/100 WBC (Bld) 2.7 % 0-5 [facility] Erythrocyte distribution wid th ratioOrdered By: Sylvie Orosco on 11-11-2024 Erythrocyte distribution width (RBC) [Ratio] 12.7 % 11.6-14.6 [facility] Erythrocyte distribution wid th standard deviationOrdered By: Sylvie Orosco on 11-11-2024 Erythrocyte distribution width (RBC) [Ratio] 44.1 fl High 35.1-43.9 [facility] Glomerular filtration rate ( GFR) estimation/1.73 sq m using serum, plasma, or whole bOrdered By: Sylvie Orosco on 11-11-2024 GFR/1.73 sq M.predicted among non-blacks MDRD (S/P/Bld) [Vol rate/Area] 67 mL/min/{1.73_m2} >60 [facility] Comment on above: mL/min/1.73m2 CKD-EP I Creatinine Equation (2020) Hematocrit Auto (Bld) [Volum e fraction]Ordered By: Sylvie Orosco on 11-11-2024 Hematocrit (Bld) [Volume fraction] 42.8 % 37-47 [facility] Hemoglobin measurementOrdere d By: Sylvie Orosco on 11-11-2024 Hemoglobin (Bld) [Mass/Vol] 14.4 g/dL 12.0-15.0 [facility] Immature granulocytes/100 WB C Auto (Bld)Ordered By: Sylvie Orosco on 11-11-2024 Immature granulocytes/100 WBC (Bld) 0.500 % 0.0-0.9 [facility] Comment on above: IG% - Immature Granu locytes (promyelocytes, myelocytes and metamyelocytes) > 1% indicates that a LEFT SHIFT is Present. Laboratory - Chemistry and C hemistry - challengeOrdered By: Sylvie Orosco on 11-11-2024 AST [Catalytic activity/Vol] 35 U/L High <32 [facility] MCV (mean corpuscular volume ) determinationOrdered By: Sylvie Orosco on 11-11-2024 MCV (RBC) [Entitic vol] 94.5 fL 81-99 [facility] Mean corpuscular hemoglobin (MCH) determinationOrdered By: Sylvie Orosco on 11-11-2024 MCH (RBC) [Entitic mass] 31.8 pg 27.0-32.0 [facility] Mean corpuscular hemoglobin concentration (MCHC) determinationOrdered By: Sylvie Orosco on 11-11-2024 MCHC (RBC) [Mass/Vol] 33.6 g/dL 32-36 [facility] Mean platelet volume determi nationOrdered By: Sylvie Orosco on 11-11-2024 Platelet mean volume (Bld) [Entitic vol] 9.9 fL 6.2-12.0 [facility] Monocyte percentageOrdered B y: Sylvie Orosco on 11-11-2024 Monocytes/100 WBC (Bld) 9.6 % 0-10 [facility] Neutrophil percentageOrdered By: Sylvie Orosco on 11-11-2024 Neutrophils/100 WBC (Bld) 53.8 % 47-70 [facility] Nucleated red blood cell per centageOrdered By: Sylvie Orosco on 11-11-2024 Nucleated RBC/100 WBC (Bld) [Ratio] 0 % 0-5 [facility] Platelet countOrdered By: Gregg Orosco on 11-11-2024 Platelets (Bld) [#/Vol] 334 10*3/uL 150-450 [facility] Potassium measurement (mass/ volume)Ordered By: Sylvie Orosco on 11-11-2024 Potassium (Unsp spec) [Mass/Vol] 4.0 mmol/L 3.3-5.1 [facility] RBC Auto (Bld) [#/Vol]Ordere d By: Sylvie Orosco on 11-11-2024 RBC (Bld) [#/Vol] 4.53 10*6/uL 4.2-5.4 [facility] Serum creatinine measurement (mass/volume)Ordered By: Sylvie Orosco on 11-11-2024 Creatinine [Mass/Vol] 0.93 mg/dL 0.70-1.20 [facility] Serum globulin measurementOr dered By: Sylvie Orosco on 11-11-2024 Globulin (S) [Mass/Vol] 3.0 g/dL 2.2-4.2 [facility] Serum glucose measurement (m ass/volume)Ordered By: Sylvie Orosco on 11-11-2024 Glucose [Mass/Vol] 89 mg/dL 70-99 [facility] Serum or plasma alanine valdivia otransferase (ALT) measurementOrdered By: Sylvie Orosco on 11-11-2024 ALT [Catalytic activity/Vol] 13 U/L <35 [facility] Serum or plasma albumin laura urement (mass/volume)Ordered By: Sylvie Orosco on 11-11-2024 Albumin [Mass/Vol] 4.3 g/dL 3.4-4.8 [facility] Serum or plasma albumin/glob ulin mass ratioOrdered By: Sylvie Orosco on 11-11-2024 Albumin/Globulin [Mass ratio] 1.5 {ratio} 0.9-2.4 [facility] Serum or plasma alkaline ghada sphatase measurementOrdered By: Sylvie Orosco on 11-11-2024 ALP [Catalytic activity/Vol] 88 U/L 35-104 [facility] Serum or plasma calcium laura urement (mass/volume)Ordered By: Sylvie Orosco on 11-11-2024 Calcium [Mass/Vol] 9.3 mg/dL 7.6-11.0 [facility] Serum or plasma urea nitroge n measurement (mass/volume)Ordered By: Sylvie Orosco on 11-11-2024 Urea nitrogen [Mass/Vol] 15 mg/dL 4-19 [facility] Sodium levelOrdered By: Yan Orosco on 11-11-2024 Sodium [Moles/Vol] 137 mmol/L 133-145 [facility] Total proteinOrdered By: Vic Orosco on 11-11-2024 Protein [Mass/Vol] 7.3 g/dL 5.9-8.4 [facility] White blood cell (WBC) count Ordered By: Sylvie Orosco on 11-11-2024 WBC (Bld) [#/Vol] 6.4 10*3/uL 4.4-11.0 [facility] Absolute lymphocyte countOrd ered By: Sylvie Orosco on 08-11-2024 Lymphocytes Auto (Unsp spec) [#/Vol] 1.68 10*3/uL 0.83-4.51 [facility] Absolute neutrophil countOrd ered By: Sylvie Orosco on 08-11-2024 Neutrophils (Bld) [#/Vol] 3.4 10*3/uL 2.0-7.7 [facility] Anion gap in Serum or Plasma Ordered By: Sylvie Orosco on 08-11-2024 Anion gap [Moles/Vol] 11 mmol/L 5-15 [facility] Automated lymphocyte count a s percentage of total leukocytesOrdered By: Sylvie Orosco on 08-11-2024 Lymphocytes/100 WBC Auto (Unsp spec) 28.1 % 19-41 [facility] BUN/creatinine ratioOrdered By: Sylvie Orosco on 08-11-2024 Urea nitrogen/Creatinine [Mass ratio] 20.4 mg/mg High 10-20 [facility] Basophil percentageOrdered B y: Sylvie Orosco on 08-11-2024 Basophils/100 WBC (Bld) 1.2 % High 0-1 [facility] Bilirubin, totalOrdered By: Sylvie Orosco on 08-11-2024 Bilirubin [Mass/Vol] 0.37 mg/dL 0.00-1.30 [facility] CBC W/Diff, Automatedon 07-20 Absolute Lymph 1.68 X10 3/uL Normal 0.83-4.51 [facility] Comment on above: Performed By: #### L 3890.6202, L3890.6301, L500.4050, L400.2010, L100.0100, L501.0900, L3100.6900, L3890.6102 #### [facility] [address] [place], [address] Absolute Neut 3.4 X10 3/uL Normal 2.0-7.7 [facility] Comment on above: Performed By: #### L 3890.6202, L3890.6301, L500.4050, L400.2010, L100.0100, L501.0900, L3100.6900, L3890.6102 #### [facility] [address] [place], [address] Basophils/100 WBC (Bld) 1.2 % High 0-1 [facility] Comment on above: Performed By: #### L 3890.6202, L3890.6301, L500.4050, L400.2010, L100.0100, L501.0900, L3100.6900, L3890.6102 #### [facility] [address] [place], [address] Eosinophils/100 WBC (Bld) 3.5 % Normal 0-5 [facility] Comment on above: Performed By: #### L 3890.6202, L3890.6301, L500.4050, L400.2010, L100.0100, L501.0900, L3100.6900, L3890.6102 #### [facility] [address] [place], [address] Erythrocyte distribution width (RBC) [Ratio] 14.2 % Normal 11.6-14.6 [facility] Comment on above: Performed By: #### L 3890.6202, L3890.6301, L500.4050, L400.2010, L100.0100, L501.0900, L3100.6900, L3890.6102 #### [facility] [address] [place], [address] Hematocrit (Bld) [Volume fraction] 39.5 % Normal 37-47 [facility] Comment on above: Performed By: #### L 3890.6202, L3890.6301, L500.4050, L400.2010, L100.0100, L501.0900, L3100.6900, L3890.6102 #### [facility] [address] [place], [address] Hemoglobin (Bld) [Mass/Vol] 13.0 g/dL Normal 12.0-15.0 [facility] Comment on above: Performed By: #### L 3890.6202, L3890.6301, L500.4050, L400.2010, L100.0100, L501.0900, L3100.6900, L3890.6102 #### [facility] [address] [place], [address] IG% 0.500 Normal 0.0-0.9 [facility] Comment on above: Result Comment: IG% - Immature Granulocytes (promyelocytes, myelocytes and metamyelocytes) > 1% indicates that a LEFT SHIFT is Present. Performed By: #### L 3890.6202, L3890.6301, L500.4050, L400.2011, L100.0100, L501.0900, L3100.6900, L3890.6102 #### [facility] [address] [place], [address] Lymphocytes/100 WBC (Bld) 28.1 % Normal 19-41 [facility] Comment on above: Performed By: #### L 3890.6202, L3890.6301, L500.4050, L400.2010, L100.0100, L501.0900, L3100.6900, L3890.6102 #### [facility] [address] [place], [address] MCH (RBC) [Entitic mass] 30.7 pg Normal 27.0-32.0 [facility] Comment on above: Performed By: #### L 3890.6202, L3890.6301, L500.4050, L400.2010, L100.0100, L501.0900, L3100.6900, L3890.6102 #### [facility] [address] [place], [address] MCHC (RBC) [Mass/Vol] 32.9 g/dL Normal 32-36 [facility] Comment on above: Performed By: #### L 3890.6202, L3890.6301, L500.4050, L400.2011, L100.0100, L501.0900, L3100.6900, L3890.6102 #### [facility] [address] [place], [address] MCV (RBC) [Entitic vol] 93.2 fL Normal 81-99 [facility] Comment on above: Performed By: #### L 3890.6202, L3890.6301, L500.4050, L400.2011, L100.0100, L501.0900, L3100.6900, L3890.6102 #### [facility] [address] [place], [address] Monocytes/100 WBC (Bld) 10.6 % High 0-10 [facility] Comment on above: Performed By: #### L 3890.6202, L3890.6301, L500.4050, L400.2010, L100.0100, L501.0900, L3100.6900, L3890.6102 #### [facility] [address] [place], [address] Neutrophils/100 WBC (Bld) 56.1 % Normal 47-70 [facility] Comment on above: Performed By: #### L 3890.6202, L3890.6301, L500.4050, L400.2011, L100.0100, L501.0900, L3100.6900, L3890.6102 #### [facility] [address] [place], [address] Nucleated RBC (Bld) [#/Vol] 0 10*3/uL Normal 0-5 [facility] Comment on above: Performed By: #### L 3890.6202, L3890.6301, L500.4050, L400.2010, L100.0100, L501.0900, L3100.6900, L3890.6102 #### [facility] [address] [place], [address] Platelet mean volume (Bld) [Entitic vol] 8.9 fL Normal 6.2-12.0 [facility] Comment on above: Performed By: #### L 3890.6202, L3890.6301, L500.4050, L400.2011, L100.0100, L501.0900, L3100.6900, L3890.6102 #### [facility] [address] [place], [address] Platelets (Bld) [#/Vol] 362 10*3/uL Normal 150-450 [facility] Comment on above: Performed By: #### L 3890.6202, L3890.6301, L500.4050, L400.2011, L100.0100, L501.0900, L3100.6900, L3890.6102 #### [facility] [address] [place], [address] RBC (Bld) [#/Vol] 4.24 10*6/uL Normal 4.2-5.4 [facility] Comment on above: Performed By: #### L 3890.6202, L3890.6301, L500.4050, L400.2010, L100.0100, L501.0900, L3100.6900, L3890.6102 #### [facility] [address] [place], [address] RDW SD 47.5 fl High 35.1-43.9 [facility] Comment on above: Performed By: #### L 3890.6202, L3890.6301, L500.4050, L400.2010, L100.0100, L501.0900, L3100.6900, L3890.6102 #### [facility] [address] [place], [address] WBC (Bld) [#/Vol] 6.0 10*3/uL Normal 4.4-11.0 [facility] Comment on above: Performed By: #### L 3890.6202, L3890.6301, L500.4050, L400.2010, L100.0100, L501.0900, L3100.6900, L3890.6102 #### [facility] [address] [place], [address] Carbon dioxide, total [Moles /volume] in Central venous bloodOrdered By: Sylvie Orosco on 08-11-2024 CO2 [Moles/Vol] 23.5 mmol/L 21.0-32.0 [facility] Chloride assayOrdered By: Gregg Orosco on 08-11-2024 Chloride [Moles/Vol] 104 mmol/L 98-108 [facility] Comprehensive Metabolic Prof ilon 08-11-2024 Albumin [Mass/Vol] 4.2 g/dL Normal 3.4-4.8 [facility] Comment on above: Performed By: #### L 3890.6202, L3890.6301, L500.4050, L400.2010, L100.0100, L501.0900, L3100.6900, L3890.6102 #### [facility] [address] [place], [address] Albumin/Globulin [Mass ratio] 1.4 {ratio} Normal 0.9-2.4 [facility] Comment on above: Performed By: #### L 3890.6202, L3890.6301, L500.4050, L400.2010, L100.0100, L501.0900, L3100.6900, L3890.6102 #### [facility] [address] [place], [address] ALK PHOS 91 U/L Normal 35-104 [facility] Comment on above: Performed By: #### L 3890.6202, L3890.6301, L500.4050, L400.2010, L100.0100, L501.0900, L3100.6900, L3890.6102 #### [facility] [address] [place], [address] ALT [Catalytic activity/Vol] 20 U/L Normal <=34 [facility] Comment on above: Performed By: #### L 3890.6202, L3890.6301, L500.4050, L400.2011, L100.0100, L501.0900, L3100.6900, L3890.6102 #### [facility] [address] [place], [address] AST [Catalytic activity/Vol] 33 U/L High <=31 [facility] Comment on above: Performed By: #### L 3890.6202, L3890.6301, L500.4050, L400.2010, L100.0100, L501.0900, L3100.6900, L3890.6102 #### [facility] [address] [place], [address] Bilirubin [Mass/Vol] 0.37 mg/dL Normal 0.00-1.30 [facility] Comment on above: Performed By: #### L 3890.6202, L3890.6301, L500.4050, L400.2010, L100.0100, L501.0900, L3100.6900, L3890.6102 #### [facility] [address] [place], [address] BUN/CRE 20.4 RATIO High 10-20 [facility] Comment on above: Performed By: #### L 3890.6202, L3890.6301, L500.4050, L400.2010, L100.0100, L501.0900, L3100.6900, L3890.6102 #### [facility] [address] [place], [address] Calcium [Mass/Vol] 9.3 mg/dL Normal 7.6-11.0 [facility] Comment on above: Performed By: #### L 3890.6202, L3890.6301, L500.4050, L400.2010, L100.0100, L501.0900, L3100.6900, L3890.6102 #### [facility] [address] [place], [address] Chloride [Moles/Vol] 104 mmol/L Normal 98-108 [facility] Comment on above: Performed By: #### L 3890.6202, L3890.6301, L500.4050, L400.2011, L100.0100, L501.0900, L3100.6900, L3890.6102 #### [facility] [address] [place], [address] CO2 [Moles/Vol] 23.5 mmol/L Normal 21.0-32.0 [facility] Comment on above: Performed By: #### L 3890.6202, L3890.6301, L500.4050, L400.2011, L100.0100, L501.0900, L3100.6900, L3890.6102 #### [facility] [address] [place], [address] Creatinine [Mass/Vol] 0.91 mg/dL Normal 0.70-1.20 [facility] Comment on above: Performed By: #### L 3890.6202, L3890.6301, L500.4050, L400.2010, L100.0100, L501.0900, L3100.6900, L3890.6102 #### [facility] [address] [place], [address] GAP 11 Normal 5-15 [facility] Comment on above: Performed By: #### L 3890.6202, L3890.6301, L500.4050, L400.2011, L100.0100, L501.0900, L3100.6900, L3890.6102 #### [facility] [address] [place], [address] GFR/1.73 sq M.predicted among non-blacks MDRD (S/P/Bld) [Vol rate/Area] 69 mL/min/{1.73_m2} Normal >60 [facility] Comment on above: Result Comment: mL/m in/1.73m2 CKD-EPI Creatinine Equation (2020) Performed By: #### L 3890.6202, L3890.6301, L500.4050, L400.2011, L100.0100, L501.0900, L3100.6900, L3890.6102 #### [facility] [address] [place], [address] Globulin (S) [Mass/Vol] 2.9 g/dL Normal 2.2-4.2 [facility] Comment on above: Performed By: #### L 3890.6202, L3890.6301, L500.4050, L400.2010, L100.0100, L501.0900, L3100.6900, L3890.6102 #### [facility] [address] [place], [address] Glucose [Mass/Vol] 97 mg/dL Normal 70-99 [facility] Comment on above: Performed By: #### L 3890.6202, L3890.6301, L500.4050, L400.2010, L100.0100, L501.0900, L3100.6900, L3890.6102 #### [facility] [address] [place], [address] Potassium [Moles/Vol] 4.6 mmol/L Normal 3.3-5.1 [facility] Comment on above: Performed By: #### L 3890.6202, L3890.6301, L500.4050, L400.2010, L100.0100, L501.0900, L3100.6900, L3890.6102 #### [facility] [address] [place], [address] Sodium [Moles/Vol] 138 mmol/L Normal 133-145 [facility] Comment on above: Performed By: #### L 3890.6202, L3890.6301, L500.4050, L400.2011, L100.0100, L501.0900, L3100.6900, L3890.6102 #### [facility] [address] [place], [address] T PROT 7.1 g/dL Normal 5.9-8.4 [facility] Comment on above: Performed By: #### L 3890.6202, L3890.6301, L500.4050, L400.2011, L100.0100, L501.0900, L3100.6900, L3890.6102 #### [facility] [address] [place], [address] Urea nitrogen [Mass/Vol] 19 mg/dL Normal 4-19 [facility] Comment on above: Performed By: #### L 3890.6202, L3890.6301, L500.4050, L400.2010, L100.0100, L501.0900, L3100.6900, L3890.6102 #### [facility] [address] [place], [address] Eosinophil percentageOrdered By: Sylvie Orosco on 08-11-2024 Eosinophils/100 WBC (Bld) 3.5 % 0-5 [facility] Erythrocyte distribution wid th ratioOrdered By: Sylvie Orosco on 08-11-2024 Erythrocyte distribution width (RBC) [Ratio] 14.2 % 11.6-14.6 [facility] Erythrocyte distribution wid th standard deviationOrdered By: Sylvie Orosco on 08-11-2024 Erythrocyte distribution width (RBC) [Ratio] 47.5 fl High 35.1-43.9 [facility] Glomerular filtration rate ( GFR) estimation/1.73 sq m using serum, plasma, or whole bOrdered By: Sylvie Orosco on 08-11-2024 GFR/1.73 sq M.predicted among non-blacks MDRD (S/P/Bld) [Vol rate/Area] 69 mL/min/{1.73_m2} >60 [facility] Comment on above: mL/min/1.73m2 CKD-EP I Creatinine Equation (2020) Hematocrit Auto (Bld) [Volum e fraction]Ordered By: Sylvie Orosco on 08-11-2024 Hematocrit (Bld) [Volume fraction] 39.5 % 37-47 [facility] Hemoglobin measurementOrdere d By: Sylvie Orosco on 08-11-2024 Hemoglobin (Bld) [Mass/Vol] 13.0 g/dL 12.0-15.0 [facility] Immature granulocytes/100 WB C Auto (Bld)Ordered By: Sylvie Orosco on 08-11-2024 Immature granulocytes/100 WBC (Bld) 0.500 % 0.0-0.9 [facility] Comment on above: IG% - Immature Granu locytes (promyelocytes, myelocytes and metamyelocytes) > 1% indicates that a LEFT SHIFT is Present. Laboratory - Chemistry and C hemistry - challengeOrdered By: Sylvie Orosco on 08-11-2024 AST [Catalytic activity/Vol] 33 U/L High <32 [facility] MCV (mean corpuscular volume ) determinationOrdered By: Sylvie Orosco on 08-11-2024 MCV (RBC) [Entitic vol] 93.2 fL 81-99 [facility] Mean corpuscular hemoglobin (MCH) determinationOrdered By: Sylvie Orosco on 08-11-2024 MCH (RBC) [Entitic mass] 30.7 pg 27.0-32.0 [facility] Mean corpuscular hemoglobin concentration (MCHC) determinationOrdered By: Sylvie Orosco on 08-11-2024 MCHC (RBC) [Mass/Vol] 32.9 g/dL 32-36 [facility] Mean platelet volume determi nationOrdered By: Sylvie Orosco on 08-11-2024 Platelet mean volume (Bld) [Entitic vol] 8.9 fL 6.2-12.0 [facility] Monocyte percentageOrdered B y: Sylvie Orosco on 08-11-2024 Monocytes/100 WBC (Bld) 10.6 % High 0-10 [facility] Neutrophil percentageOrdered By: Sylvie Orosco on 08-11-2024 Neutrophils/100 WBC (Bld) 56.1 % 47-70 [facility] Nucleated red blood cell per centageOrdered By: Sylvie Orosco on 08-11-2024 Nucleated RBC/100 WBC (Bld) [Ratio] 0 % 0-5 [facility] Platelet countOrdered By: Gregg Orosco on 08-11-2024 Platelets (Bld) [#/Vol] 362 10*3/uL 150-450 [facility] Potassium measurement (mass/ volume)Ordered By: Sylvie Orosco on 08-11-2024 Potassium (Unsp spec) [Mass/Vol] 4.6 mmol/L 3.3-5.1 [facility] RBC Auto (Bld) [#/Vol]Ordere d By: Sylvie Orosco on 08-11-2024 RBC (Bld) [#/Vol] 4.24 10*6/uL 4.2-5.4 [facility] Serum creatinine measurement (mass/volume)Ordered By: Sylvie Orosco on 08-11-2024 Creatinine [Mass/Vol] 0.91 mg/dL 0.70-1.20 [facility] Serum globulin measurementOr dered By: Sylvie Orosco on 08-11-2024 Globulin (S) [Mass/Vol] 2.9 g/dL 2.2-4.2 [facility] Serum glucose measurement (m ass/volume)Ordered By: Sylvie Orosco on 08-11-2024 Glucose [Mass/Vol] 97 mg/dL 70-99 [facility] Serum or plasma alanine valdivia otransferase (ALT) measurementOrdered By: Sylvie Orosco on 08-11-2024 ALT [Catalytic activity/Vol] 20 U/L <35 [facility] Serum or plasma albumin laura urement (mass/volume)Ordered By: Sylvie Orosco on 08-11-2024 Albumin [Mass/Vol] 4.2 g/dL 3.4-4.8 [facility] Serum or plasma albumin/glob ulin mass ratioOrdered By: Sylvie Orosco on 08-11-2024 Albumin/Globulin [Mass ratio] 1.4 {ratio} 0.9-2.4 [facility] Serum or plasma alkaline ghada sphatase measurementOrdered By: Sylvie Orosco on 08-11-2024 ALP [Catalytic activity/Vol] 91 U/L 35-104 [facility] Serum or plasma calcium laura urement (mass/volume)Ordered By: Sylvie Orosco on 08-11-2024 Calcium [Mass/Vol] 9.3 mg/dL 7.6-11.0 [facility] Serum or plasma urea nitroge n measurement (mass/volume)Ordered By: Sylvie Orosco on 08-11-2024 Urea nitrogen [Mass/Vol] 19 mg/dL 4-19 [facility] Sodium levelOrdered By: Yan Orosco on 08-11-2024 Sodium [Moles/Vol] 138 mmol/L 133-145 [facility] Total proteinOrdered By: Vic Orosco on 08-11-2024 Protein [Mass/Vol] 7.1 g/dL 5.9-8.4 [facility] White blood cell (WBC) count Ordered By: Sylvie Orosco on 08-11-2024 WBC (Bld) [#/Vol] 6.0 10*3/uL 4.4-11.0 [facility] LG Jt Injection/Arthrocentes is: L kneeon 07-15-2024 Sussy Rao CNP 07/20/2024 4:40 PM LG Jt Injection/Arthrocente sis: L knee Performed by: Sussy Rao CNP Authorized by: Sussy Rao CNP Consent given by: Patient Time out: Immediately prior to the procedure a time out was called Physician or proceduralist has discussed critical or nonroutine steps, procedure duration and anticipated blood loss: Yes Supporting Documentation: Indications: Pain and diagnostic evaluation Procedure Details: Location: Knee Site: L knee Prep: patient was prepped and draped in usual sterile fashion Needle size: 22 G Approach: Anterolateral Medications: 40 mg triamcinolone acetonide 40 mg/mL Anesthetic used: Lidocaine 1% Anesthetic amount (mL): 2 Patient tolerance: Patient tolerated the procedure well with no immediate complications [facility] XR KNEE LEFT 4+ VIEWS (SPECI FY VIEWS IN COMMENTS)on 07-15-2024 XR KNEE LEFT 4+ VIEWS (SPECIFY VIEWS IN COMMENTS) EXAMINATION: XR KNEE LEFT 4+ VIEWS (SPECIFY VIEWS IN COMMENTS) 07/15/2024 8:19 am HISTORY: ORDERING SYSTEM PROVIDED HISTORY: Pain, TECHNOLOGIST PROVIDED HISTORY: Illness/Other Reason for exam: Posterior left knee pain x 6 days after getting out of a car and knee locking up. Cancer History: u Surgery, RadiationHistory: u Encounter Type: Initial Additional signs and symptoms: None ORDERING SYSTEM PROVIDED DIAGNOSIS CODES: R52 Pain COMPARISON: None. FINDINGS: Four views of the left knee were obtained including standing views of both knees. There is mild joint space narrowing with marginal osteophyte formation, lateral greater than medial. Articular surface appears smooth in contour. No acute fracture or dislocation. The patella is appropriately positioned. There is suggestion of small joint effusion. Mild degenerative changes in the right knee. IMPRESSION: Tricompartmental osteoarthritis of the left knee with lateral compartment predominance. Suspected small joint effusion. [facility]/madeline Workstation ID: [id number] Dictated by: BENJAMIN COOK on SatJuly 15, 2024 3:10:46 PM EDT Transcribed by: JING NICKERSON on SatJuly 15, 2024 3:56:49 PM EDT Finalized by: BENJAMIN COOK on SatJuly 15, 2024 4:02:18 PM EDT Normal [facility] Comment on above: Order Comment: Injur y/Trauma or Illness?:Illness/Other How long have you had these symptoms (acute/chronic)?:Acute Reason for exam?:Posterior left knee pain x 6 days after getting out of a car and knee locking up. History of cancer?:u Surgeries, chemotherapy, or radiation?:u Type of Exam?:Initial Additional signs and symptoms?:None COMPREHENSIVE METABOLIC PANE Rajinder 06-27-2024 Albumin [Mass/Vol] 4.3 g/dL Normal 3.6-5.1 [facility] Comment on above: Order Comment: FASTI NG:YES FASTING: YES Performed By: #### 1 0231 #### [facility] [address], [address] [place] [address] Public Message Service Supervisor: Tashi Downing MD Albumin/Globulin [Mass ratio] 1.6 {ratio} Normal 1.0-2.5 [facility] Comment on above: Order Comment: FASTI NG:YES FASTING: YES Performed By: #### 1 0231 #### [facility] [address], [address] [place] [address] Public Message Service Supervisor: Tashi Downing MD ALP [Catalytic activity/Vol] 77 U/L Normal 37-153 [facility] Comment on above: Order Comment: FASTI NG:YES FASTING: YES Performed By: #### 1 0231 #### [facility] [address], [address] [place] [address] Public Message Service Supervisor: Tashi Downing MD ALT [Catalytic activity/Vol] 14 U/L Normal 6-29 [facility] Comment on above: Order Comment: FASTI NG:YES FASTING: YES Performed By: #### 1 0231 #### [facility] [place] [address] Public Message Service Supervisor: Tashi Downing MD AST [Catalytic activity/Vol] 28 U/L Normal 10-35 [facility] Comment on above: Order Comment: FASTI NG:YES FASTING: YES Performed By: #### 1 0231 #### [facility] [place] [address] Public Message Service Supervisor: Tashi Downing MD Bilirubin [Mass/Vol] 0.4 mg/dL Normal 0.2-1.2 [facility] Comment on above: Order Comment: FASTI NG:YES FASTING: YES Performed By: #### 1 0231 #### [facility] [place] [address] Public Message Service Supervisor: Tashi Downing MD BUN/CREATININE RATIO SEE NOTE: Normal 6-22 [facility] Comment on above: Order Comment: FASTI NG:YES FASTING: YES Result Comment: Not Reported: BUN and Creatinine are within reference range. Performed By: #### 1 0231 #### [facility] [address], [address] [place] [address] Public Message Service Supervisor: Tashi Downing MD Calcium [Mass/Vol] 9.1 mg/dL Normal 8.6-10.4 [facility] Comment on above: Order Comment: FASTI NG:YES FASTING: YES Performed By: #### 1 0231 #### [facility] [address], [address] [place] [address] Public Message Service Supervisor: Tashi Downing MD Chloride [Moles/Vol] 105 mmol/L Normal 98-110 [facility] Comment on above: Order Comment: FASTI NG:YES FASTING: YES Performed By: #### 1 0231 #### [facility] [address], [address] [place] [address] Public Message Service Supervisor: Tashi Downing MD CO2 [Moles/Vol] 25 mmol/L Normal 20-32 [facility] Comment on above: Order Comment: FASTI NG:YES FASTING: YES Performed By: #### 1 0231 #### [facility] [address], [address] [place] [address] Public Message Service Supervisor: Tashi Downing MD Creatinine [Mass/Vol] 0.86 mg/dL Normal 0.50-1.[address] [facility] Comment on above: Order Comment: FASTI NG:YES FASTING: YES Performed By: #### 1 0231 #### [facility] [place] [address] Public Message Service Supervisor: Tashi Downing MD GFR/1.73 sq M.predicted among non-blacks MDRD (S/P/Bld) [Vol rate/Area] 74 mL/min/{1.73_m2} Normal > OR = 60 [facility] Comment on above: Order Comment: FASTI NG:YES FASTING: YES Performed By: #### 1 0231 #### [facility] [address], [address] [place] [address] Public Message Service Supervisor: Tashi Downing MD Globulin (S) [Mass/Vol] 2.7 g/dL Normal 1.9-3.7 [facility] Comment on above: Order Comment: FASTI NG:YES FASTING: YES Performed By: #### 1 0231 #### [facility] [address], [address] [place], [place] [address] Public Message Service Supervisor: Tashi Downing MD Glucose [Mass/Vol] 84 mg/dL Normal 65-99 [facility] Comment on above: Order Comment: FASTI NG:YES FASTING: YES Result Comment: Fasting reference interval Performed By: #### 1 0231 #### [facility] [address], [address] [place] [address] Public Message Service Supervisor: Tashi Downing MD Potassium [Moles/Vol] 4.6 mmol/L Normal 3.5-5.[address] [facility] Comment on above: Order Comment: FASTI NG:YES FASTING: YES Performed By: #### 1 0231 #### [facility] [address], [address] [place] [address] Public Message Service Supervisor: Tashi Downing MD Protein [Mass/Vol] 7.0 g/dL Normal 6.1-8.1 [facility] Comment on above: Order Comment: FASTI NG:YES FASTING: YES Performed By: #### 1 0231 #### [facility] [address], [address] [place] [address] Public Message Service Supervisor: Tashi Downing MD Sodium [Moles/Vol] 140 mmol/L Normal 135-146 [facility] Comment on above: Order Comment: FASTI NG:YES FASTING: YES Performed By: #### 1 0231 #### [facility] [place] [address] Public Message Service Supervisor: Tashi Downing MD Urea nitrogen [Mass/Vol] 16 mg/dL Normal 7-25 [facility] Comment on above: Order Comment: FASTI NG:YES FASTING: YES Performed By: #### 1 0231 #### [facility] [place] [address] Public Message Service Supervisor: Tashi Downing MD DBT Breast - bilateralon Suggestion of slight left nipple retraction. No associated mass lesion. Clinical correlation is recommended. BI-RADS CATEGORY: BI-RADS Category: 2 Benign. Recommendation: Clinical Follow-up and Continued Annual Screening. Recommended Date: 1 Year. Laterality: Bilateral. For any future breast imaging appointments, please call [phone] MACRO: None Signed by: Luis Fernando Guzman 06/09/2024 2:28 PM Dictation workstation: [id number] Interpreted By: Luis Fernando Guzman, STUDY: BI MAMMO BILATERAL SCREENING TOMOSYNTHESIS; 06/09/2024 10:03 am ACCESSION NUMBER(S): [id number] ORDERING CLINICIAN: SUE WOLF INDICATION: Screening. ,Z12.39 Encounter for other screening for malignant neoplasm of breast,Z12.31 Encounter for screening mammogram for malignant neoplasm of breast COMPARISON: 06/07/2021, 04/17/2022 FINDINGS: 2D and tomosynthesis images were reviewed at 1 mm slice thickness. Density: There are scattered areas of fibroglandular density. No suspicious masses or calcifications are identified. There is slight retraction of the left nipple on both the CC and MLO projections compared to the previous examination. This may be positional but should be correlated with clinical examination. No skin thickening. CAD was utilized. [facility] Luis Fernando Guzman MD - 06/09/2024 Interpreted By: Luis Fernando Guzman, STUDY: BI MAMMO BILATERAL SCREENING TOMOSYNTHESIS; 06/09/2024 10:03 am ACCESSION NUMBER(S): [id number] ORDERING CLINICIAN: SUE WOLF INDICATION: Screening. ,Z12.39 Encounter for other screening for malignant neoplasm of breast,Z12.31 Encounter for screening mammogram for malignant neoplasm of breast COMPARISON: 06/07/2021, 04/17/2022 FINDINGS: 2D and tomosynthesis images were reviewed at 1 mm slice thickness. Density: There are scattered areas of fibroglandular density. No suspicious masses or calcifications are identified. There is slight retraction of the left nipple on both the CC and MLO projections compared to the previous examination. This may be positional but should be correlated with clinical examination. No skin thickening. CAD was utilized. IMPRESSION: Suggestion of slight left nipple retraction. No associated mass lesion. Clinical correlation is recommended. BI-RADS CATEGORY: BI-RADS Category: 2 Benign. Recommendation: Clinical Follow-up and Continued Annual Screening. Recommended Date: 1 Year. Laterality: Bilateral. For any future breast imaging appointments, please call [phone] MACRO: None Signed by: Luis Fernando Guzman 06/09/2024 2:28 PM Dictation workstation: [id number] [facility] Work Phone: Radiology Study observation (narrative) [facility] Work Phone: DBT Breast - bilateralOrdere d By: Luis Fernando Guzman on 06-09-2024 [facility] Work Phone: US Liver limitedon 5 Hepatic steatosis. Otherwise, grossly unremarkable right upper quadrant ultrasound. MACRO: None Signed by: Ryan Shaw 06/03/2024 6:14 AM Dictation workstation: [id number] [facility] Interpreted By: Ryan Shaw, STUDY: US ABDOMEN LIMITED LIVER; 06/02/2024 11:52 am INDICATION: Signs/Symptoms:ELEVAT ED LIVER ENZYME. ,R74.8 Abnormal levels of other serum enzymes COMPARISON: None. ACCESSION NUMBER(S): [id number] ORDERING CLINICIAN: SYLVIE OROSCO TECHNIQUE: Multiple images of the right upper quadrant were obtained. FINDINGS: LIVER: The liver measures 12.3 cm and is diffusely echogenic in appearance, consistent with diffuse fatty infiltration. The resulting increased beam attenuation thereby limiting evaluation of the liver for focal lesions. Within the limitations, no focal lesions are seen. GALLBLADDER: The gallbladder is nondistended, and demonstrates no evidence of gallstones, wall thickening or surrounding fluid. The gallbladder wall thickness is 0.1 cm. Sonographic Steen's sign is negative. BILE DUCTS: No evidence of intra or extrahepatic biliary dilatation is identified; the common bile duct measures 0.4 cm. PANCREAS: The visualized pancreas is unremarkable in appearance. RIGHT KIDNEY: The right kidney measures 10.9 cm in length. No hydronephrosis or renal calculi are seen. [facility] Ryan Shaw MD - 06/03/2024 Interpreted By: Ryan Shaw, STUDY: US ABDOMEN LIMITED LIVER; 06/02/2024 11:52 am INDICATION: Signs/Symptoms:ELEVAT ED LIVER ENZYME. ,R74.8 Abnormal levels of other serum enzymes COMPARISON: None. ACCESSION NUMBER(S): [id number] ORDERING CLINICIAN: SYLVIE OROSCO TECHNIQUE: Multiple images of the right upper quadrant were obtained. FINDINGS: LIVER: The liver measures 12.3 cm and is diffusely echogenic in appearance, consistent with diffuse fatty infiltration. The resulting increased beam attenuation thereby limiting evaluation of the liver for focal lesions. Within the limitations, no focal lesions are seen. GALLBLADDER: The gallbladder is nondistended, and demonstrates no evidence of gallstones, wall thickening or surrounding fluid. The gallbladder wall thickness is 0.1 cm. Sonographic Steen's sign is negative. BILE DUCTS: No evidence of intra or extrahepatic biliary dilatation is identified; the common bile duct measures 0.4 cm. PANCREAS: The visualized pancreas is unremarkable in appearance. RIGHT KIDNEY: The right kidney measures 10.9 cm in length. No hydronephrosis or renal calculi are seen. IMPRESSION: Hepatic steatosis. Otherwise, grossly unremarkable right upper quadrant ultrasound. MACRO: None Signed by: Ryan Shaw 06/03/2024 6:14 AM Dictation workstation: [id number] [facility] Work Phone: US Liver limitedOrdered By: Ryan Shaw on 06-03-2024 [facility] Work Phone: US ABDOMEN LIMITED LIVERon 0 06-02-2024 US ABDOMEN LIMITED LIVER Interpreted By: Ryan Shaw, STUDY: US ABDOMEN LIMITED LIVER; 06/02/2024 11:52 am INDICATION: Signs/Symptoms:ELEVAT ED LIVER ENZYME. ,R74.8 Abnormal levels of other serum enzymes COMPARISON: None. ACCESSION NUMBER(S): [id number] ORDERING CLINICIAN: SYLVIE OROSCO TECHNIQUE: Multiple images of the right upper quadrant were obtained. FINDINGS: LIVER: The liver measures 12.3 cm and is diffusely echogenic in appearance, consistent with diffuse fatty infiltration. The resulting increased beam attenuation thereby limiting evaluation of the liver for focal lesions. Within the limitations, no focal lesions are seen. GALLBLADDER: The gallbladder is nondistended, and demonstrates no evidence of gallstones, wall thickening or surrounding fluid. The gallbladder wall thickness is 0.1 cm. Sonographic Steen's sign is negative. BILE DUCTS: No evidence of intra or extrahepatic biliary dilatation is identified; the common bile duct measures 0.4 cm. PANCREAS: The visualized pancreas is unremarkable in appearance. RIGHT KIDNEY: The right kidney measures 10.9 cm in length. No hydronephrosis or renal calculi are seen. IMPRESSION: Hepatic steatosis. Otherwise, grossly unremarkable right upper quadrant ultrasound. MACRO: None Signed by: Ryan Shaw 06/03/2024 6:14 AM Dictation workstation: [id number] [facility] Liver limitedon Radiology Study observation (narrative) [facility] Work Phone: Bilirubin Test strip Ql (U)O rdered By: Sylvie Orosco on 05-13-2024 Bilirubin Ql (U) Negative Negative [facility] Creatinine Unsp time (U) [Ma ss/Vol]Ordered By: Sylvie Orosco on 05-13-2024 Creatinine (U) [Mass/Vol] 47.50 mg/dL 28.00-217.00 [facility] EXAGENon 05-13-2024 EXAGEN MAILED SPECIMEN Normal [facility] Comment on above: Performed By: #### L 3890.6202, L3890.6301, L500.4050, L400.2011, L100.0100, L501.0900, L3100.6900, L3890.6102 #### [facility] [address] [place] [address]. [place], [address] Glucose Ql (U)Ordered By: Gregg Orosco on 05-13-2024 Urine Glucose (UA) Normal mg/dl Normal [facility] Ketones Test strip Ql (U)Ord ered By: Sylvie Orosco on 05-13-2024 Ketones Ql (U) Negative Negative [facility] Miscellaneous procedureOrder ed By: Sylvie Orosco on 05-13-2024 Miscellaneous Test Comment MAILED SPECIMEN [facility] Nitrite Test strip Ql (U)Ord ered By: Sylvie Orosco on 05-13-2024 Nitrite Ql (U) Negative Negative [facility] Protein (U) [Mass/Vol]Ordere d By: Sylvie Orosco on 05-13-2024 Urine Random Total Protein < 6.0 mg/dL 0.0-12.0 [facility] Protein Test strip Ql (U)Ord ered By: Sylvie Orosco on 05-13-2024 Protein Ql (U) 15 mg/dl High Negative [facility] Protein+Creatinine Ratio,Uri neon 05-13-2024 PROT:CRE RATIO UNABLE TO CALCULATE Normal 0-200 [facility] Comment on above: Performed By: #### L 3890.6202, L3890.6301, L500.4050, L400.2010, L100.0100, L501.0900, L3100.6900, L3890.6102 #### [facility] [address] [place], [address] PROTEIN,UR.RAN. < 6.0 Normal 0.0-12.0 [facility] Comment on above: Performed By: #### L 3890.6202, L3890.6301, L500.4050, L400.2010, L100.0100, L501.0900, L3100.6900, L3890.6102 #### [facility] [address] [place], [address] UR CREAT 47.50 mg/dL Normal 28.00-217.00 [facility] Comment on above: Performed By: #### L 3890.6202, L3890.6301, L500.4050, L400.2010, L100.0100, L501.0900, L3100.6900, L3890.6102 #### [facility] [address] [place], [address] Protein/Creatinine (U) [Mass ratio]Ordered By: Sylvie Orosco on 05-13-2024 Urine Protein/Creatinine Ratio UNABLE TO CALCULATE mg/g CRE 0-200 [facility] Random urine creatinine laura urement (mass/volume)Ordered By: Sylvie Orosco on 05-13-2024 Creatinine Unsp time (U) [Mass/Vol] 47.50 mg/dL 28.00-217.00 [facility] Urinalysis, Routine (Dipstic k)on 05-13-2024 BILIRUBIN URINE Negative Normal Negative [facility] Comment on above: Order Comment: Urine , Random Performed By: #### L 3890.6202, L3890.6301, L500.4050, L400.2011, L100.0100, L501.0900, L3100.6900, L3890.6102 #### [facility] [address] [place], [place], [id number] Clarity (U) Clear Normal Clear [facility] Comment on above: Order Comment: Urine , Random Performed By: #### L 3890.6202, L3890.6301, L500.4050, L400.2010, L100.0100, L501.0900, L3100.6900, L3890.6102 #### [facility] [address] [place], [place], [id number] Color (U) Yellow Normal Yellow [facility] Comment on above: Order Comment: Urine , Random Performed By: #### L 3890.6202, L3890.6301, L500.4050, L400.2010, L100.0100, L501.0900, L3100.6900, L3890.6102 #### [facility] [address] [place], [place], [id number] GLUCOSE, UR Normal Normal Normal [facility] Comment on above: Order Comment: Urine , Random Performed By: #### L 3890.6202, L3890.6301, L500.4050, L400.2010, L100.0100, L501.0900, L3100.6900, L3890.6102 #### [facility] [address] [place], [address] KETONE UR Negative Normal Negative [facility] Comment on above: Order Comment: Urine , Random Performed By: #### L 3890.6202, L3890.6301, L500.4050, L400.2010, L100.0100, L501.0900, L3100.6900, L3890.6102 #### [facility] [address] [place], [address] LEUK ESTERASE 100 /ul Abnormal Negative [facility] Comment on above: Order Comment: Urine , Random Performed By: #### L 3890.6202, L3890.6301, L500.4050, L400.2011, L100.0100, L501.0900, L3100.6900, L3890.6102 #### [facility] [address] [place], [address] Nitrite Ql (U) Negative Normal Negative [facility] Comment on above: Order Comment: Urine , Random Performed By: #### L 3890.6202, L3890.6301, L500.4050, L400.2010, L100.0100, L501.0900, L3100.6900, L3890.6102 #### [facility] [address] [place], [address] OCCULT BLOOD-UR Negative Normal Negative [facility] Comment on above: Order Comment: Urine , Random Performed By: #### L 3890.6202, L3890.6301, L500.4050, L400.2010, L100.0100, L501.0900, L3100.6900, L3890.6102 #### [facility] [address] [place], [address] pH UR 6.5 Normal 5.0 - 8.0 [facility] Comment on above: Order Comment: Urine , Random Performed By: #### L 3890.6202, L3890.6301, L500.4050, L400.2011, L100.0100, L501.0900, L3100.6900, L3890.6102 #### [facility] [address] [place], [address] PROT DIPSTX 15 mg/dl Abnormal Negative [facility] Comment on above: Order Comment: Urine , Random Performed By: #### L 3890.6202, L3890.6301, L500.4050, L400.2011, L100.0100, L501.0900, L3100.6900, L3890.6102 #### [facility] [address] [facility], [address] SP.GR. DIPSTX 1.010 Normal 1.002-1.030 [facility] Comment on above: Order Comment: Urine , Random Performed By: #### L 3890.6202, L3890.6301, L500.4050, L400.2011, L100.0100, L501.0900, L3100.6900, L3890.6102 #### [facility] [address] [place], [address] UROBILI Normal Normal Normal [facility] Comment on above: Order Comment: Urine , Random Performed By: #### L 3890.6202, L3890.6301, L500.4050, L400.2010, L100.0100, L501.0900, L3100.6900, L3890.6102 #### [facility] [address] [place], [place], [address] Urine blood detectionOrdered By: Sylvie Orosco on 05-13-2024 Urine Occult Blood Negative Negative [facility] Urine clarityOrdered By: Vic Orosco on 05-13-2024 Clarity (U) Clear Clear [facility] Urine color determinationOrd ered By: Sylvie Orosco on 05-13-2024 Color (U) Yellow Yellow [facility] Urine glucose detectionOrder ed By: Sylvie Orosco on 05-13-2024 Glucose Ql (U) Normal mg/dl Normal [facility] Urine leukocyte esterase det ection by dipstickOrdered By: Sylvie Orosco on 05-13-2024 Leukocyte esterase Test strip Ql (U) 100 /ul High Negative [facility] Urine pHOrdered By: Sylvie dunlap on 05-13-2024 pH (U) 6.5 [pH] 5.0 - 8.0 [facility] Urine protein measurement (m ass/volume)Ordered By: Sylvie Orosco on 05-13-2024 Protein (U) [Mass/Vol] mg/dL 0.0-12.[address] [facility] Urine protein/creatinine mas s ratioOrdered By: Sylvie Orosco on 05-13-2024 Protein/Creatinine (U) [Mass ratio] UNABLE TO CALCULATE mg/g CRE 0-200 [facility] Urine specific gravity measu rementOrdered By: [facility] on 05-13-2024 Specific gravity (U) [Rel density] 1.010 1.002-1.030 [facility] Urine urobilinogen measureme ntOrdered By: Sylviearmida Orosco on 05-13-2024 Urobilinogen Ql (U) Normal mg/dl Normal [facility] Urobilinogen Ql (U)Ordered B y: Sylvie Orosco on 05-13-2024 Urine Urobilinogen Normal mg/dl Normal [facility] Angiotensin Convert Enzymeon 04-28-2024 ANGIOT-CONV.ENZ 75 U/L Normal 14-82 [facility] Comment on above: Result Comment: Perf ormed at: - [facility] [address] [id number] Tax Agent: Pelon Garcia PhD, Phone: [phone] Performed By: #### L 3890.6202, L3890.6301, L500.4050, L400.2011, L100.0100, L501.0900, L3100.6900, L3890.6102 #### [facility] [address] [place], [address] Absolute lymphocyte countOrd ered By: Sylvie Orsoco on 04-27-2024 Lymphocytes Auto (Unsp spec) [#/Vol] 1.99 10*3/uL 0.83-4.51 [facility] Absolute neutrophil countOrd ered By: Sylvie Orosco on 04-27-2024 Neutrophils (Bld) [#/Vol] 2.5 10*3/uL 2.0-7.7 [facility] Anion gap in Serum or Plasma Ordered By: Sylvie Orosco on 04-27-2024 Anion gap [Moles/Vol] 12 mmol/L 07-02 [facility] Automated lymphocyte count a s percentage of total leukocytesOrdered By: Sylvie Orosco on 04-27-2024 Lymphocytes/100 WBC Auto (Unsp spec) 37.1 % [facility] BUN/creatinine ratioOrdered By: [facility] Kwesi on 04-27-2024 Urea nitrogen/Creatinine [Mass ratio] 18.8 mg/mg 12-07 [facility] Basophil percentageOrdered B y: Sylvie Orosco on 04-27-2024 Basophils/100 WBC (Bld) 1.7 % High 0- [facility] Bilirubin Test strip Ql (U)O rdered By: Sylvie Orosco on 04-27-2024 Bilirubin Ql (U) Negative Negative [facility] Bilirubin, totalOrdered By: Sylvie Orosco on 04-27-2024 Bilirubin [Mass/Vol] 0.37 mg/dL 0.00-1.30 [facility] CBC W/Diff, Automatedon 04-18 Absolute Lymph 1.99 X10 3/uL Normal 0.83-4.51 [facility] Comment on above: Performed By: #### L 3890.6202, L3890.6301, L500.4050, L400.2010, L100.0100, L501.0900, L3100.6900, L3890.6102 #### [facility] [address] [place], [address] Absolute Neut 2.5 X10 3/uL Normal 2.0-7.7 [facility] Comment on above: Performed By: #### L 3890.6202, L3890.6301, L500.4050, L400.2010, L100.0100, L501.0900, L3100.6900, L3890.6102 #### [facility] [address] [place], [address] Basophils/100 WBC (Bld) 1.7 % High 0-1 [facility] Comment on above: Performed By: #### L 3890.6202, L3890.6301, L500.4050, L400.2011, L100.0100, L501.0900, L3100.6900, L3890.6102 #### [facility] [address] [place], [address] Eosinophils/100 WBC (Bld) 3.4 % Normal 0-5 [facility] Comment on above: Performed By: #### L 3890.6202, L3890.6301, L500.4050, L400.2010, L100.0100, L501.0900, L3100.6900, L3890.6102 #### [facility] [address] [place], [address] Erythrocyte distribution width (RBC) [Ratio] 12.9 % Normal 11.6-14.6 [facility] Comment on above: Performed By: #### L 3890.6202, L3890.6301, L500.4050, L400.2010, L100.0100, L501.0900, L3100.6900, L3890.6102 #### [facility] [address] [place], [address] Hematocrit (Bld) [Volume fraction] 43.6 % Normal 37-47 [facility] Comment on above: Performed By: #### L 3890.6202, L3890.6301, L500.4050, L400.2010, L100.0100, L501.0900, L3100.6900, L3890.6102 #### [facility] [address] [place], [address] Hemoglobin (Bld) [Mass/Vol] 14.1 g/dL Normal 12.0-15.0 [facility] Comment on above: Performed By: #### L 3890.6202, L3890.6301, L500.4050, L400.2011, L100.0100, L501.0900, L3100.6900, L3890.6102 #### [facility] [address] [place], [address] IG% 0.400 Normal 0.0-0.9 [facility] Comment on above: Result Comment: IG% - Immature Granulocytes (promyelocytes, myelocytes and metamyelocytes) > 1% indicates that a LEFT SHIFT is Present. Performed By: #### L 3890.6202, L3890.6301, L500.4050, L400.2011, L100.0100, L501.0900, L3100.6900, L3890.6102 #### [facility] [address] [place], [address] Lymphocytes/100 WBC (Bld) 37.1 % Normal 19-41 [facility] Comment on above: Performed By: #### L 3890.6202, L3890.6301, L500.4050, L400.2011, L100.0100, L501.0900, L3100.6900, L3890.6102 #### [facility] [address] [place], [address] MCH (RBC) [Entitic mass] 29.9 pg Normal 27.0-32.0 [facility] Comment on above: Performed By: #### L 3890.6202, L3890.6301, L500.4050, L400.2011, L100.0100, L501.0900, L3100.6900, L3890.6102 #### [facility] [address] [place], [address] MCHC (RBC) [Mass/Vol] 32.3 g/dL Normal 32-36 [facility] Comment on above: Performed By: #### L 3890.6202, L3890.6301, L500.4050, L400.2010, L100.0100, L501.0900, L3100.6900, L3890.6102 #### [facility] [address] [place], [address] MCV (RBC) [Entitic vol] 92.4 fL Normal 81-99 [facility] Comment on above: Performed By: #### L 3890.6202, L3890.6301, L500.4050, L400.2010, L100.0100, L501.0900, L3100.6900, L3890.6102 #### [facility] [address] [place], [address] Monocytes/100 WBC (Bld) 10.6 % High 0-10 [facility] Comment on above: Performed By: #### L 3890.6202, L3890.6301, L500.4050, L400.2010, L100.0100, L501.0900, L3100.6900, L3890.6102 #### [facility] [address] [place], [address] Neutrophils/100 WBC (Bld) 46.8 % Low 47-70 [facility] Comment on above: Performed By: #### L 3890.6202, L3890.6301, L500.4050, L400.2010, L100.0100, L501.0900, L3100.6900, L3890.6102 #### [facility] [address] [place], [address] Nucleated RBC (Bld) [#/Vol] 0 10*3/uL Normal 0-5 [facility] Comment on above: Performed By: #### L 3890.6202, L3890.6301, L500.4050, L400.2010, L100.0100, L501.0900, L3100.6900, L3890.6102 #### [facility] [address] [place], [address] Platelet mean volume (Bld) [Entitic vol] 10.6 fL Normal 6.2-12.0 [facility] Comment on above: Performed By: #### L 3890.6202, L3890.6301, L500.4050, L400.2011, L100.0100, L501.0900, L3100.6900, L3890.6102 #### [facility] [address] [place], [address] Platelets (Bld) [#/Vol] 326 10*3/uL Normal 150-450 [facility] Comment on above: Performed By: #### L 3890.6202, L3890.6301, L500.4050, L400.2010, L100.0100, L501.0900, L3100.6900, L3890.6102 #### [facility] [address] [place], [address] RBC (Bld) [#/Vol] 4.72 10*6/uL Normal 4.2-5.4 [facility] Comment on above: Performed By: #### L 3890.6202, L3890.6301, L500.4050, L400.2010, L100.0100, L501.0900, L3100.6900, L3890.6102 #### [facility] [address] [place], [address] RDW SD 43.9 fl Normal 35.1-43.9 [facility] Comment on above: Performed By: #### L 3890.6202, L3890.6301, L500.4050, L400.2010, L100.0100, L501.0900, L3100.6900, L3890.6102 #### [facility] [address] [place], [address] WBC (Bld) [#/Vol] 5.4 10*3/uL Normal 4.4-11.0 [facility] Comment on above: Performed By: #### L 3890.6202, L3890.6301, L500.4050, L400.2011, L100.0100, L501.0900, L3100.6900, L3890.6102 #### [facility] [address] [place], [address] Carbon dioxide, total [Moles /volume] in Central venous bloodOrdered By: Sylvie Orosco on 04-27-2024 CO2 [Moles/Vol] 24.3 mmol/L 21.0-32.0 [facility] Chest PA and Lateralon 04-27 Chest PA and Lateral [facility] Services [address] [place], [place] [address] Chest PA and Lateral MR#: [id number] Acct: [id number] Name: MELI FARIAS Rep #: [id number] : [id number] F [id number] From: Timmy Leon MD PCP: Dr. Sue Wolf MD Status: REG CLI Study: Chest PA and Lateral Date of Exam: 04/27/24 Exam# [id number] Ordering Dr: Sylvie Orosco MD EXAM: XR Chest, 2 Views CLINICAL INDICATION: TECHNIQUE: Frontal and lateral views of the chest. COMPARISON: No relevant prior studies available. FINDINGS: LUNGS AND PLEURAL SPACES: Unremarkable. No consolidation. No pneumothorax. HEART: Unremarkable. No cardiomegaly. MEDIASTINUM: Unremarkable. Normal mediastinal contour. BONES/JOINTS: Unremarkable. No acute fracture. RAD/Chest PA and Lateral IMPRESSION: No acute cardiopulmonary process. Reading Location: [facility]- CC: Dr. Sue Wolf MD; Dr. 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 Comment on above: Performed By: #### L 3890.6202, L3890.6301, L500.4050, L400.2011, L100.0100, L501.0900, L3100.6900, L3890.6102 #### [facility] [address] [place], [address] Albumin/Globulin [Mass ratio] 1.3 {ratio} Normal 0.9-2.4 [facility] Comment on above: Performed By: #### L 3890.6202, L3890.6301, L500.4050, L400.2010, L100.0100, L501.0900, L3100.6900, L3890.6102 #### [facility] [address] [place], [address] ALK PHOS 99 U/L Normal 35-104 [facility] Comment on above: Performed By: #### L 3890.6202, L3890.6301, L500.4050, L400.2010, L100.0100, L501.0900, L3100.6900, L3890.6102 #### [facility] [address] [place], [address] ALT [Catalytic activity/Vol] 17 U/L Normal <=34 [facility] Comment on above: Performed By: #### L 3890.6202, L3890.6301, L500.4050, L400.2010, L100.0100, L501.0900, L3100.6900, L3890.6102 #### [facility] [address] [place], [address] AST [Catalytic activity/Vol] 33 U/L High <=31 [facility] Comment on above: Performed By: #### L 3890.6202, L3890.6301, L500.4050, L400.2010, L100.0100, L501.0900, L3100.6900, L3890.6102 #### [facility] [address] [place], [address] Bilirubin [Mass/Vol] 0.37 mg/dL Normal 0.00-1.30 [facility] Comment on above: Performed By: #### L 3890.6202, L3890.6301, L500.4050, L400.2010, L100.0100, L501.0900, L3100.6900, L3890.6102 #### [facility] [address] [place], [address] BUN/CRE 18.8 RATIO Normal 10-20 [facility] Comment on above: Performed By: #### L 3890.6202, L3890.6301, L500.4050, L400.2010, L100.0100, L501.0900, L3100.6900, L3890.6102 #### [facility] [address] [place], [address] Calcium [Mass/Vol] 9.3 mg/dL Normal 7.6-11.0 [facility] Comment on above: Performed By: #### L 3890.6202, L3890.6301, L500.4050, L400.2010, L100.0100, L501.0900, L3100.6900, L3890.6102 #### [facility] [address] [place], [address] Chloride [Moles/Vol] 101 mmol/L Normal 98-108 [facility] Comment on above: Performed By: #### L 3890.6202, L3890.6301, L500.4050, L400.2011, L100.0100, L501.0900, L3100.6900, L3890.6102 #### [facility] [address] [place], [address] CO2 [Moles/Vol] 24.3 mmol/L Normal 21.0-32.0 [facility] Comment on above: Performed By: #### L 3890.6202, L3890.6301, L500.4050, L400.2011, L100.0100, L501.0900, L3100.6900, L3890.6102 #### [facility] [address] [place], [address] Creatinine [Mass/Vol] 0.95 mg/dL Normal 0.70-1.20 [facility] Comment on above: Performed By: #### L 3890.6202, L3890.6301, L500.4050, L400.2010, L100.0100, L501.0900, L3100.6900, L3890.6102 #### [facility] [address] [place], [address] GAP 12 Normal 5-15 [facility] Comment on above: Performed By: #### L 3890.6202, L3890.6301, L500.4050, L400.2010, L100.0100, L501.0900, L3100.6900, L3890.6102 #### [facility] [address] [place], [address] GFR/1.73 sq M.predicted among non-blacks MDRD (S/P/Bld) [Vol rate/Area] 66 mL/min/{1.73_m2} Normal >60 [facility] Comment on above: Result Comment: mL/m in/1.73m2 CKD-EPI Creatinine Equation (2020) Performed By: #### L 3890.6202, L3890.6301, L500.4050, L400.2010, L100.0100, L501.0900, L3100.6900, L3890.6102 #### [facility] [address] [place], [address] Globulin (S) [Mass/Vol] 3.4 g/dL Normal 2.2-4.2 [facility] Comment on above: Performed By: #### L 3890.6202, L3890.6301, L500.4050, L400.2011, L100.0100, L501.0900, L3100.6900, L3890.6102 #### [facility] [address] [place], [address] Glucose [Mass/Vol] 89 mg/dL Normal 70-99 [facility] Comment on above: Performed By: #### L 3890.6202, L3890.6301, L500.4050, L400.2010, L100.0100, L501.0900, L3100.6900, L3890.6102 #### [facility] [address] [place], [address] Potassium [Moles/Vol] 4.1 mmol/L Normal 3.3-5.1 [facility] Comment on above: Performed By: #### L 3890.6202, L3890.6301, L500.4050, L400.2010, L100.0100, L501.0900, L3100.6900, L3890.6102 #### [facility] [address] [place], [address] Sodium [Moles/Vol] 137 mmol/L Normal 133-145 [facility] Comment on above: Performed By: #### L 3890.6202, L3890.6301, L500.4050, L400.2010, L100.0100, L501.0900, L3100.6900, L3890.6102 #### [facility] [address] [place], [address] T PROT 7.9 g/dL Normal 5.9-8.4 [facility] Comment on above: Performed By: #### L 3890.6202, L3890.6301, L500.4050, L400.2010, L100.0100, L501.0900, L3100.6900, L3890.6102 #### [facility] [address] [place], [address] Urea nitrogen [Mass/Vol] 18 mg/dL Normal 4-19 [facility] Comment on above: Performed By: #### L 3890.6202, L3890.6301, L500.4050, L400.2011, L100.0100, L501.0900, L3100.6900, L3890.6102 #### [facility] [address] [place], [address] Creatinine Unsp time (U) [Ma ss/Vol]Ordered By: Sylvie Orosco on 04-27-2024 Creatinine (U) [Mass/Vol] 118.00 mg/dL 28-217 [facility] EXAGENon 04-27-2024 EXAGEN MAILED SPECIMEN Normal [facility] Comment on above: Performed By: #### L 3890.6202, L3890.6301, L500.4050, L400.2010, L100.0100, L501.0900, L3100.6900, L3890.6102 #### [facility] [address] [place], [address] Eosinophil percentageOrdered By: Sylvie Orosco on 04-27-2024 Eosinophils/100 WBC (Bld) 3.4 % 0-5 [facility] Erythrocyte distribution wid th ratioOrdered By: Sylvie Orosco on 04-27-2024 Erythrocyte distribution width (RBC) [Ratio] 12.9 % 11.6-14.6 [facility] Erythrocyte distribution wid th standard deviationOrdered By: Sylvie Orosco on 04-27-2024 Erythrocyte distribution width (RBC) [Entitic vol] 43.9 fL 35.1-43.9 [facility] Erythrocyte distribution width (RBC) [Ratio] 43.9 fl 35.1-43.9 [facility] GFR/1.73 sq M.predicted marisol g non-blacks MDRD (S/P/Bld) [Vol rate/Area]Ordered By: Sylvie Orosco on 04-27-2024 Estimated GFR (MDRD) Non-Af Amer 66 >60 [facility] Comment on above: mL/min/1.73m2 CKD-EP I Creatinine Equation (2020) Glomerular filtration rate ( GFR) estimation/1.73 sq m using serum, plasma, or whole bOrdered By: Sylvie Orosco on 04-27-2024 GFR/1.73 sq M.predicted among non-blacks MDRD (S/P/Bld) [Vol rate/Area] 66 mL/min/{1.73_m2} >60 [facility] Comment on above: mL/min/1.73m2 CKD-EP I Creatinine Equation (2020) Glucose Ql (U)Ordered By: Gregg Orosco on 04-27-2024 Urine Glucose (UA) Normal mg/dl Normal [facility] HBV surface Ab Ql (S)Ordered By: Sylvie Orosco on 04-27-2024 Hepatitis B Surface Antibody Indetermin [facility] Comment on above: <8.5 mIU/mL: Non-[place] ctive8.5<= x <11.5 mIU/mL: Indeterminate>=11.5 mIU/mL: Reactive Non Reactive: Inconsistent with immunity less than <10 mIU/mL Reactive: Consistent with immunity greater than or equal to 10 mIU/mL HBV surface Ag Ql (S)Ordered By: Sylvie Orosco on 04-27-2024 Hepatitis B Surface Antigen Non-Reactive Nonreactive [facility] Comment on above: Reactive: Presumptiv e evidence of HBV. Repeatedly reactive samples must be confirmed using a neutralization test ([employer] HBsAg Confirmatory Test)Non-Reactive: HBsAg not detected; does not exclude the possibility of exposure to HBV Hematocrit Auto (Bld) [Volum e fraction]Ordered By: Sylvie Orosco on 04-27-2024 Hematocrit (Bld) [Volume fraction] 43.6 % 37-47 [facility] Hemoglobin measurementOrdere d By: Sylvie Orosco on 04-27-2024 Hemoglobin (Bld) [Mass/Vol] 14.1 g/dL 12.0-15.0 [facility] Hepatitis C antibodyOrdered By: Sylvie Orosco on 04-27-2024 Hepatitis C Antibody Non-Reactive Nonreactive [facility] Comment on above: Reactive: Presumptiv e evidence of antibodies to HCV. Follow CDC recommendations for supplemental testing.Non-Reactive: Antibodies to HCV were not detected; does not exclude the possibility of exposure to HCVReactive Results are presumptive evidence of antibodies to HCV. Follow CDC recommendations for supplemental testing.Order confirmation testing: HCV Quant by PCR testing - HCVPCR #[id number] Non Reactive: < 0.8 Equivocal: >/= 0.8 to < 1.0 Reactive: >/= 1.0The CDC requires that a reactive/equivocal HCV antibody result be sent out for confirmation. HCV Quant by PCR testing. Immature granulocytes/100 WB C Auto (Bld)Ordered By: Sylvie Orosco on 04-27-2024 Immature granulocytes/100 WBC (Bld) 0.400 % 0.0-0.9 [facility] Comment on above: IG% - Immature Granu locytes (promyelocytes, myelocytes and metamyelocytes) > 1% indicates that a LEFT SHIFT is Present. Ketones Test strip Ql (U)Ord ered By: Sylvie Orosco on 04-27-2024 Ketones Ql (U) Negative Negative [facility] L3890.6102on 04-27-2024 HEP B Surf Ag Non-Reactive Normal Nonreactive [facility] Comment on above: Result Comment: Reac tive: Presumptive evidence of HBV. Repeatedly reactive samples must be confirmed using a neutralization test ([employer] HBsAg Confirmatory Test) Non-Reactive: HBsAg not detected; does not exclude the possibility of exposure to HBV Performed By: #### L 3890.6202, L3890.6301, L500.4050, L400.2011, L100.0100, L501.0900, L3100.6900, L3890.6102 #### [facility] [address] [place], [address] L3890.6202on 04-27-2024 HEP B Surf Ab Indetermin Normal [facility] Comment on above: Result Comment: <8.5 mIU/mL: Non-Reactive 8.5<= x <11.5 mIU/mL: Indeterminate >=11.5 mIU/mL: Reactive Non Reactive: Inconsistent with immunity less than <10 mIU/mL Reactive: Consistent with immunity greater than or equal to 10 mIU/mL Performed By: #### L 3890.6202, L3890.6301, L500.4050, L400.2011, L100.0100, L501.0900, L3100.6900, L3890.6102 #### [facility] [address] [place], [address] L3890.6301on 04-27-2024 Hepatitis C Ab Non-Reactive Normal Nonreactive [facility] Comment on above: Result Comment: Reac tive: Presumptive evidence of antibodies to HCV. Follow CDC recommendations for supplemental testing. Non-Reactive: Antibodies to HCV were not detected; does not exclude the possibility of exposure to HCV Reactive Results are presumptive evidence of antibodies to HCV. Follow CDC recommendations for supplemental testing. Order confirmation testing: HCV Quant by PCR testing - HCVPCR #[id number] Non Reactive: < 0.8 Equivocal: >/= 0.8 to < 1.0 Reactive: >/= 1.0 The CDC requires that a reactive/equivocal HCV antibody result be sent out for confirmation. HCV Quant by PCR testing. Performed By: #### L 3890.6202, L3890.6301, L500.4050, L400.2011, L100.0100, L501.0900, L3100.6900, L3890.6102 #### [facility] [address] [place], [address] Laboratory - Chemistry and C hemistry - challengeOrdered By: Sylvie Orosco on 04-27-2024 AST [Catalytic activity/Vol] 33 U/L High <32 [facility] - Microbiology an d Antimicrobial susceptibilityOrdered By: Sylvie Orosco on 04-27-2024 HBV surface Ag Ql (S) Non-Reactive Nonreactive [facility] Comment on above: Reactive: Presumptiv e evidence of HBV. Repeatedly reactive samples must be confirmed using a neutralization test ([employer] HBsAg Confirmatory Test)Non-Reactive: HBsAg not detected; does not exclude the possibility of exposure to HBV Lymphocytes Auto (Unsp spec) [#/Vol]Ordered By: Sylvie Orosco on 04-27-2024 Lymphocytes (Bld) [#/Vol] 1.99 10*3/uL 0.83-4.51 [facility] Lymphocytes/100 WBC Auto (Un sp spec)Ordered By: Sylvie Orosco on 04-27-2024 Lymphocytes/100 WBC (Bld) 37.1 % 19-41 [facility] MCV (mean corpuscular volume ) determinationOrdered By: Sylvie Orosco on 04-27-2024 MCV (RBC) [Entitic vol] 92.4 fL 81-99 [facility] Mean corpuscular hemoglobin (MCH) determinationOrdered By: Sylvie Orosco on 04-27-2024 MCH (RBC) [Entitic mass] 29.9 pg 27.0-32.0 [facility] Mean corpuscular hemoglobin concentration (MCHC) determinationOrdered By: Sylvie Orosco on 04-27-2024 MCHC (RBC) [Mass/Vol] 32.3 g/dL 32-36 [facility] Mean platelet volume determi nationOrdered By: Sylvie Orosco on 04-27-2024 Platelet mean volume (Bld) [Entitic vol] 10.6 fL 6.2-12.0 [facility] Miscellaneous procedureOrder ed By: Sylvie Orosco on 04-27-2024 Miscellaneous Test Comment MAILED SPECIMEN [facility] Monocyte percentageOrdered B y: Sylvie Orosco on 04-27-2024 Monocytes/100 WBC (Bld) 10.6 % High 0-10 [facility] Neutrophil percentageOrdered By: Sylvie Orosco on 04-27-2024 Neutrophils/100 WBC (Bld) 46.8 % Low 47-70 [facility] Nitrite Test strip Ql (U)Ord ered By: Sylvie Orosco on 04-27-2024 Nitrite Ql (U) Negative Negative [facility] Nucleated red blood cell per centageOrdered By: Sylvie Orosco on 04-27-2024 Nucleated RBC/100 WBC (Bld) [Ratio] 0 % 0-5 [facility] Platelet countOrdered By: Gregg Orosco on 04-27-2024 Platelets (Bld) [#/Vol] 326 10*3/uL 150-450 [facility] Potassium (Unsp spec) [Mass/ Vol]Ordered By: Sylvie Orosco on 04-27-2024 Potassium [Moles/Vol] 4.1 mmol/L 3.3-5.1 [facility] Potassium measurement (mass/ volume)Ordered By: Sylvie Orosco on 04-27-2024 Potassium (Unsp spec) [Mass/Vol] 4.1 mmol/L 3.3-5.1 [facility] Protein Test strip Ql (U)Ord ered By: Sylvie Orosco on 04-27-2024 Protein Ql (U) 30 mg/dl High Negative [facility] Protein+Creatinine Ratio,Uri neon 04-27-2024 PROT:CRE RATIO 118 mg/g CRE Normal 0-200 [facility] Comment on above: Performed By: #### L 3890.6202, L3890.6301, L500.4050, L400.2010, L100.0100, L501.0900, L3100.6900, L3890.6102 #### [facility] [address] [place], [address] Protein (U) [Mass/Vol] 13.9 mg/dL High 0.0-12.[address] [facility] Comment on above: Performed By: #### L 3890.6202, L3890.6301, L500.4050, L400.2010, L100.0100, L501.0900, L3100.6900, L3890.6102 #### [facility] [address] [place], [address] UR CREAT 118.00 mg/dL Normal 28-217 [facility] Comment on above: Performed By: #### L 3890.6202, L3890.6301, L500.4050, L400.2010, L100.0100, L501.0900, L3100.6900, L3890.6102 #### [facility] [address] [place], [address] Protein/Creatinine (U) [Mass ratio]Ordered By: Sylvie Orosco on 04-27-2024 Urine Protein/Creatinine Ratio 118 mg/g CRE 0-200 [facility] RBC Auto (Bld) [#/Vol]Ordere d By: Sylvie Orosco on 04-27-2024 RBC (Bld) [#/Vol] 4.72 10*6/uL 4.2-5.4 [facility] Random urine creatinine laura urement (mass/volume)Ordered By: Sylvie Orosco on 04-27-2024 Creatinine Unsp time (U) [Mass/Vol] 118.00 mg/dL 28-217 [facility] Serum creatinine measurement (mass/volume)Ordered By: Sylvie Orosco on 04-27-2024 Creatinine [Mass/Vol] 0.95 mg/dL 0.70-1.20 [facility] Serum globulin measurementOr dered By: Sylvie Orosco on 04-27-2024 Globulin (S) [Mass/Vol] 3.4 g/dL 2.2-4.2 [facility] Serum glucose measurement (m ass/volume)Ordered By: Sylvie Orosco on 04-27-2024 Glucose [Mass/Vol] 89 mg/dL 70-99 [facility] Serum hepatitis B virus surf ashia antibody detectionOrdered By: Sylvie Orosco on 04-27-2024 HBV surface Ab Ql (S) Indetermin [facility] Comment on above: <8.5 mIU/mL: Non-[place] ctive8.5<= x <11.5 mIU/mL: Indeterminate>=11.5 mIU/mL: Reactive Non Reactive: Inconsistent with immunity less than <10 mIU/mL Reactive: Consistent with immunity greater than or equal to 10 mIU/mL Serum or plasma alanine valdivia otransferase (ALT) measurementOrdered By: Sylvie Orosco on 04-27-2024 ALT [Catalytic activity/Vol] 17 U/L <35 [facility] Serum or plasma albumin laura urement (mass/volume)Ordered By: Sylvie Orosco on 04-27-2024 Albumin [Mass/Vol] 4.5 g/dL 3.4-4.8 [facility] Serum or plasma albumin/glob ulin mass ratioOrdered By: Sylvie Orosco on 04-27-2024 Albumin/Globulin [Mass ratio] 1.3 {ratio} 0.9-2.4 [facility] Serum or plasma alkaline ghada sphatase measurementOrdered By: Sylvie Orosco on 04-27-2024 ALP [Catalytic activity/Vol] 99 U/L 35-104 [facility] Serum or plasma angiotensin converting enzyme measurement (enzymatic activity/volume)Ordered By: Sylvie Orosco on 04-27-2024 Angiotensin converting enzyme [Catalytic activity/Vol] 75 U/L 14-82 [facility] Comment on above: Performed at: [place] [id number] Director: Pelon Garcia PhD, Phone: [phone] Serum or plasma calcium laura urement (mass/volume)Ordered By: Sylvie Orosco on 04-27-2024 Calcium [Mass/Vol] 9.3 mg/dL 7.6-11.0 [facility] Serum or plasma urea nitroge n measurement (mass/volume)Ordered By: Sylvie Orosco on 04-27-2024 Urea nitrogen [Mass/Vol] 18 mg/dL 4-19 [facility] Sodium levelOrdered By: Yan Orosco on 04-27-2024 Sodium [Moles/Vol] 137 mmol/L 133-145 [facility] Total proteinOrdered By: Vic Orosco on 04-27-2024 Protein [Mass/Vol] 7.9 g/dL 5.9-8.4 [facility] Urinalysis, Routine (Dipstic k)on 04-27-2024 BILIRUBIN URINE Negative Normal Negative [facility] Comment on above: Order Comment: Urine , Random Performed By: #### L 3890.6202, L3890.6301, L500.4050, L400.2011, L100.0100, L501.0900, L3100.6900, L3890.6102 #### [facility] [address] [place], [address] Clarity (U) Clear Normal Clear [facility] Comment on above: Order Comment: Urine , Random Performed By: #### L 3890.6202, L3890.6301, L500.4050, L400.2011, L100.0100, L501.0900, L3100.6900, L3890.6102 #### [facility] [address] [place], [address] Color (U) Yellow Normal Yellow [facility] Comment on above: Order Comment: Urine , Random Performed By: #### L 3890.6202, L3890.6301, L500.4050, L400.2011, L100.0100, L501.0900, L3100.6900, L3890.6102 #### [facility] [address] [place], [address] GLUCOSE, UR Normal Normal Normal [facility] Comment on above: Order Comment: Urine , Random Performed By: #### L 3890.6202, L3890.6301, L500.4050, L400.2010, L100.0100, L501.0900, L3100.6900, L3890.6102 #### [facility] [address] [place], [address] KETONE UR Negative Normal Negative [facility] Comment on above: Order Comment: Urine , Random Performed By: #### L 3890.6202, L3890.6301, L500.4050, L400.2010, L100.0100, L501.0900, L3100.6900, L3890.6102 #### [facility] [address] [place], [address] LEUK ESTERASE 500 /ul Abnormal Negative [facility] Comment on above: Order Comment: Urine , Random Performed By: #### L 3890.6202, L3890.6301, L500.4050, L400.2011, L100.0100, L501.0900, L3100.6900, L3890.6102 #### [facility] [address] [place], [address] Nitrite Ql (U) Negative Normal Negative [facility] Comment on above: Order Comment: Urine , Random Performed By: #### L 3890.6202, L3890.6301, L500.4050, L400.2011, L100.0100, L501.0900, L3100.6900, L3890.6102 #### [facility] [address] [place], [address] OCCULT BLOOD-UR 25 /ul Abnormal Negative [facility] Comment on above: Order Comment: Urine , Random Performed By: #### L 3890.6202, L3890.6301, L500.4050, L400.2010, L100.0100, L501.0900, L3100.6900, L3890.6102 #### [facility] [address] [place], [address] pH UR 7.0 Normal 5.0 - 8.0 [facility] Comment on above: Order Comment: Urine , Random Performed By: #### L 3890.6202, L3890.6301, L500.4050, L400.2010, L100.0100, L501.0900, L3100.6900, L3890.6102 #### [facility] [address] [place], [address] PROT DIPSTX 30 mg/dl Abnormal Negative [facility] Comment on above: Order Comment: Urine , Random Performed By: #### L 3890.6202, L3890.6301, L500.4050, L400.2010, L100.0100, L501.0900, L3100.6900, L3890.6102 #### [facility] [address] [place], [address] SP.GR. DIPSTX 1.010 Normal 1.002-1.030 [facility] Comment on above: Order Comment: Urine , Random Performed By: #### L 3890.6202, L3890.6301, L500.4050, L400.2011, L100.0100, L501.0900, L3100.6900, L3890.6102 #### [facility] [address] [place], [place], [address] UROBILI Normal Normal Normal [facility] Comment on above: Order Comment: Urine , Random Performed By: #### L 3890.6202, L3890.6301, L500.4050, L400.2011, L100.0100, L501.0900, L3100.6900, L3890.6102 #### [facility] [address] [place], [place], [address] Urine blood detectionOrdered By: Sylvie Orosco on 04-27-2024 Urine Occult Blood 25 /ul High Negative [facility] Urine clarityOrdered By: Vic Orosco on 04-27-2024 Clarity (U) Clear Clear [facility] Urine color determinationOrd ered By: Sylvie Orosco on 04-27-2024 Color (U) Yellow Yellow [facility] Urine glucose detectionOrder ed By: Sylvie Orosco on 04-27-2024 Glucose Ql (U) Normal mg/dl Normal [facility] Urine leukocyte esterase det ection by dipstickOrdered By: Sylvie Orosco on 04-27-2024 Leukocyte esterase Test strip Ql (U) 500 /ul High Negative [facility] Urine pHOrdered By: Sylvie dunlap on 04-27-2024 pH (U) 7.0 [pH] 5.0 - 8.0 [facility] Urine protein measurement (m ass/volume)Ordered By: Sylvie Orosco on 04-27-2024 Protein (U) [Mass/Vol] 13.9 mg/dL High 0.0-12.[address] [facility] Urine protein/creatinine mas s ratioOrdered By: Sylvie Orosco on 04-27-2024 Protein/Creatinine (U) [Mass ratio] 118 mg/g CRE 0-200 [facility] Urine specific gravity measu rementOrdered By: Sylvie Orosco on 04-27-2024 Specific gravity (U) [Rel density] 1.010 1.002-1.030 [facility] Urine urobilinogen measureme ntOrdered By: Sylvie Orosco on 04-27-2024 Urobilinogen Ql (U) Normal mg/dl Normal [facility] Urobilinogen Ql (U)Ordered B y: Sylvie Orosco on 04-27-2024 Urine Urobilinogen Normal mg/dl Normal [facility] White blood cell (WBC) count Ordered By: Sylvie Orosco on 04-27-2024 WBC (Bld) [#/Vol] 5.4 10*3/uL 4.4-11.0 [facility] OCT MACULA CIRRUS OU (BOTH E YES)on 03-25-2024 [facility] Radiology Study observation (narrative) [facility] VISUAL FIELD 10-2 OU (BOTH E YES)on 03-25-2024 [facility] Radiology Study observation (narrative) [facility] NICKO CASCADE(NICKO,IFA W/RFL AN D REFL 11 AB CASCADE)on 03-19-2024 NICKO SCREEN, IFA Positive Abnormal NEGATIVE [facility] Comment on above: Result Comment: NICKO IFA is a first line screen for detecting the presence of up to approximately 150 autoantibodies in various autoimmune diseases. A positive NICKO IFA result is suggestive of autoimmune disease and reflexes to titer, pattern and the 3 tiered Multiplex 11 Antibody Beadle. Testing in the Beadle stops at the first positive result, and does not preclude additional positive results. Further laboratory testing may be considered if clinically indicated. For additional information, please refer to http://education.[employer]/faq/EJC885 (This link is being provided for informational/ educational purposes only.) Performed By: #### 1 0231 #### [facility] [address], [address] [place] [address] Public Message Service Supervisor: Tashi Downing MD ANTINUCLEAR ANTIBODIES TITER AND PATTERNon 03-19-2024 NICKO PATTERN Nuclear, Speckled Abnormal [facility] Comment on above: Result Comment: Spec kled pattern is associated with mixed connective tissue disease (MCTD), systemic lupus erythematosus (SLE), Sjogren's syndrome, dermatomyositis, and systemic sclerosis/polymyositis overlap. AC-2,4,5,29: Speckled International Consensus on NICKO Patterns (https://doi.org/10.1515/ygoz-9251-1832) Performed By: #### 1 0231 #### [facility] of [address], [address] [place] [address] Public Message Service Supervisor: Tashi Downing MD NICKO TITER 1:80 High [facility] Comment on above: Result Comment: A lo w level NICKO titer may be present in pre-clinical autoimmune diseases and normal individuals. Reference Range <1:40 Negative 1:40-1:80 Low Antibody Level >1:80 Elevated Antibody Level Performed By: #### 1 0231 #### [facility] of [address], [address] [place] [address] Public Message Service Supervisor: Tashi Downing MD C-REACTIVE PROTEINon 025 CRP [Mass/Vol] mg/L Normal <8.0 [facility] Comment on above: Performed By: #### 9 2665, 809, %IN9, 1759, 7600, 34974, [address], %78922, 905, %15826, 4420, 4418, %82728 #### [facility] of [address], [address] [place] [address] Public Message Service Supervisor: Tashi Downing MD CBC (H/H, RBC, INDICES, WBC, PLT)on 03-19-2024 Erythrocyte distribution width (RBC) [Ratio] 12.3 % Normal 11.0-15.0 [facility] Comment on above: Performed By: #### 9 2665, 809, %IN9, 1759, 7600, [address]1234, [address], %82232, 905, %71892, 4420, 4418, %00569 #### [facility] [address], [address] [place], [place] [address] Public Message Service Supervisor: Tashi Downing MD Hematocrit (Bld) [Volume fraction] 44.8 % Normal 35.0-45.0 [facility] Comment on above: Performed By: #### 9 2665, 809, %IN9, 1759, 7600, 26110, 25268, %13559, 905, %71652, 4420, 4418, %98930 #### [facility] [place] [address] Public Message Service Supervisor: Tashi Downing MD Hemoglobin (Bld) [Mass/Vol] 14.7 g/dL Normal 11.7-15.5 [facility] Comment on above: Performed By: #### 9 2665, 809, %IN9, 1759, 7600, 33881, 78358, %75072, 905, %10419, 4420, 4418, %95381 #### [facility] [place] [address] Public Message Service Supervisor: Tashi Downing MD MCH (RBC) [Entitic mass] 30.1 pg Normal 27.0-33.0 [facility] Comment on above: Performed By: #### 9 2665, 809, %IN9, 1759, 7600, 93032, 56399, %87158, 905, %71092, 4420, 4418, %92427 #### [facility] [place] [address] Public Message Service Supervisor: Tashi Downing MD MCHC (RBC) [Mass/Vol] 32.8 g/dL Normal 32.0-36.[address] [facility] Comment on above: Result Comment: For adults, a slight decrease in the calculated MCHC value (in the range of 30 to 32 g/dL) is most likely not clinically significant; however, it should be interpreted with caution in correlation with other red cell parameters and the patient's clinical condition. Performed By: #### 9 2665, 809, %IN9, 1759, 7600, 05323, 58213, %60428, 905, %98071, 4420, 4418, %12270 #### [facility] [place] [address] Public Message Service Supervisor: Tashi Downing MD MCV (RBC) [Entitic vol] 91.8 fL Normal 80.0-100.0 [facility] Comment on above: Performed By: #### 9 2665, 809, %IN9, 1759, 7600, 16767, 82520, %82427, 905, %67773, 4420, 4418, %04907 #### [facility] [place] [phone] Public Message Service Supervisor: Tashi Downing MD Platelet mean volume (Bld) [Entitic vol] 9.3 fL Normal 7.5-12.5 [facility] Comment on above: Performed By: #### 9 2665, 809, %IN9, 1759, 7600, 83305, 16013, %57510, 905, %66317, 4420, 4418, %45579 #### [facility] [address] Public Message Service Supervisor: Tashi Downing MD Platelets (Bld) [#/Vol] 390 10*3/uL Normal 140-400 [facility] Comment on above: Performed By: #### 9 2665, 809, %IN9, 1759, 7600, 97883, 72663, %01898, 905, %71658, 4420, 4418, %05788 #### [facility] [place] [phone] Public Message Service Supervisor: Tashi Downing MD RBC (Bld) [#/Vol] 4.88 10*6/uL Normal 3.80-5.10 [facility] Comment on above: Performed By: #### 9 2665, 809, %IN9, 1759, 7600, 03528, 09757, %96402, 905, %65033, 4420, 4418, %38440 #### [facility] [place] [phone] Public Message Service Supervisor: Tashi Downing MD WBC (Bld) [#/Vol] 5.7 10*3/uL Normal 3.8-10.8 [facility] Comment on above: Performed By: #### 9 2665, 809, %IN9, 1759, 7600, 88114, 19493, %95528, 905, %85690, 4420, 4418, %18644 #### [facility] [place] [address] Public Message Service Supervisor: Tashi Downing MD COMPREHENSIVE METABOLIC PANE L W/ANION GAPon 03-19-2024 Albumin [Mass/Vol] 4.6 g/dL Normal 3.6-5.1 [facility] Comment on above: Performed By: #### 9 2665, 809, %IN9, 1759, 7600, 53753, 14585, %07684, 905, %21272, 4420, 4418, %89874 #### [facility] [place] [address] Public Message Service Supervisor: Tashi Downing MD ALP [Catalytic activity/Vol] 89 U/L Normal 37-153 [facility] Comment on above: Performed By: #### 9 2665, 809, %IN9, 1759, 7600, 44035, 02590, %81838, 905, %97970, 4420, 4418, %42282 #### [facility] [place] [address] Public Message Service Supervisor: Tashi Downing MD ALT [Catalytic activity/Vol] 13 U/L Normal 6-29 [facility] Comment on above: Performed By: #### 9 2665, 809, %IN9, 1759, 7600, 11025, 48680, %43816, 905, %79426, 4420, 4418, %29730 #### [facility] [place] [address] Public Message Service Supervisor: Tashi Downing MD AST [Catalytic activity/Vol] 22 U/L Normal 10-35 [facility] Comment on above: Performed By: #### 9 2665, 809, %IN9, 1759, 7600, 84508, 66997, %05174, 905, %11877, 4420, 4418, %46569 #### [facility] [address], [address] [place] [address] Public Message Service Supervisor: Tashi Downing MD Bilirubin [Mass/Vol] 0.4 mg/dL Normal 0.2-1.2 [facility] Comment on above: Performed By: #### 9 2665, 809, %IN9, 1759, 7600, 46930, 30896, %89769, 905, %08066, 4420, 4418, %89905 #### [facility] [place] [address] Public Message Service Supervisor: Tashi Downing MD Calcium [Mass/Vol] 9.4 mg/dL Normal 8.6-10.4 [facility] Comment on above: Performed By: #### 9 2665, 809, %IN9, 1759, 7600, 86713, 04272, %77885, 905, %37886, 4420, 4418, %65377 #### [facility] [place] [address] Public Message Service Supervisor: Tashi Downing MD Chloride [Moles/Vol] 102 mmol/L Normal 98-110 [facility] Comment on above: Performed By: #### 9 2665, 809, %IN9, 1759, 7600, 81781, 90393, %64948, 905, %02998, 4420, 4418, %54571 #### [facility] [place] [address] Public Message Service Supervisor: Tashi Downing MD CO2 [Moles/Vol] 30 mmol/L Normal 20-32 [facility] Comment on above: Performed By: #### 9 2665, 809, %IN9, 1759, 7600, 76049, 00725, %83405, 905, %62943, 4420, 4418, %77795 #### [facility] [place] [address] Public Message Service Supervisor: Tashi Downing MD Creatinine [Mass/Vol] 0.84 mg/dL Normal 0.50-1.[address] [facility] Comment on above: Performed By: #### 9 2665, 809, %IN9, 1759, 7600, 24574, 89331, %30704, 905, %97535, 4420, 4418, %27731 #### [facility] [address], [address] [place] [address] Public Message Service Supervisor: Tashi Downing MD ELECTROLYTE BALANCE 5 mmol/L (calc) Low 7-17 [facility] Comment on above: Performed By: #### 9 2665, 809, %IN9, 1759, 7600, 21631, 10187, %14938, 905, %81698, 4420, 4418, %90680 #### [facility] [place] [address] Public Message Service Supervisor: Tashi Downing MD GFR/1.73 sq M.predicted among non-blacks MDRD (S/P/Bld) [Vol rate/Area] 76 mL/min/{1.73_m2} Normal > OR = 60 [facility] Comment on above: Performed By: #### 9 2665, 809, %IN9, 1759, 7600, 86129, 92957, %90380, 905, %84324, 4420, 4418, %50866 #### [facility] [place] [address] Public Message Service Supervisor: Tashi Downing MD Glucose [Mass/Vol] 93 mg/dL Normal 65-99 [facility] Comment on above: Result Comment: Fasting reference interval Performed By: #### 9 2665, 809, %IN9, 1759, 7600, 45175, 77913, %45130, 905, %16317, 4420, 4418, %46054 #### [facility] [place] [address] Public Message Service Supervisor: Tashi Downing MD Potassium [Moles/Vol] 4.9 mmol/L Normal 3.5-5.[address] [facility] Comment on above: Performed By: #### 9 2665, 809, %IN9, 1759, 7600, 03648, 78552, %93996, 905, %20061, 4420, 4418, %72028 #### [facility] [place] [address] Public Message Service Supervisor: Tashi Downing MD Protein [Mass/Vol] 7.4 g/dL Normal 6.1-8.1 [facility] Comment on above: Performed By: #### 9 2665, 809, %IN9, 1759, 7600, 70496, 85516, %22268, 905, %78013, 4420, 4418, %45207 #### [facility] [place] [address] Public Message Service Supervisor: Tashi Downing MD Sodium [Moles/Vol] 137 mmol/L Normal 135-146 [facility] Comment on above: Performed By: #### 9 2665, 809, %IN9, 1759, 7600, 12403, 75522, %49475, 905, %93067, 4420, 4418, %43412 #### [facility] [place] [address] Public Message Service Supervisor: Tashi Downing MD Urea nitrogen [Mass/Vol] 17 mg/dL Normal 7-25 [facility] Comment on above: Performed By: #### 9 2665, 809, %IN9, 1759, 7600, 18969, 11020, %23582, 905, %98833, 4420, 4418, %63483 #### [facility] [place] [address] Public Message Service Supervisor: Tashi Downing MD CYCLIC CITRULLINATED PEPTIDE (CCP) AB (IGG)on 03-19-2024 CYCLIC CITRULLINATED PEPTIDE (CCP) AB (IGG) <16 Normal [facility] Comment on above: Result Comment: Refe rence Range Negative: <20 Weak Positive: 20-39 Moderate Positive: 40-59 Strong Positive: >59 Performed By: #### 9 2665, 809, %IN9, 1759, 7600, 79136, 92665, %40702, 905, %07866, 4420, 4418, %45500 #### [facility] [address], [address] [place] [address] Public Message Service Supervisor: Tashi Downing MD INTERPRETATIONon 03-19-2024 INTERPRETATION Normal [facility] Comment on above: Result Comment: Cent romere B antibody is associated with the CREST Syndrome: calcinosis, Raynaud's phenomenon, esophageal dysmotility, sclerodactyly, and telangiectasias. Performed By: #### 1 0231 #### [facility] [address], [address] [place], [place] [id number] Public Message Service Supervisor: Tashi Downing MD LIPID PANEL, STANDARDon 02-20 Cholesterol [Mass/Vol] 224 mg/dL High <200 [facility] Comment on above: Order Comment: FASTI NG:YES FASTING: YES Performed By: #### 9 2665, 809, %IN9, 1759, 7600, 70252, 40912, %69829, 905, %51290, 4420, 4418, %69986 #### [facility] of [address], [address] [place] [address] Public Message Service Supervisor: Tashi Downing MD Cholesterol in HDL [Mass/Vol] 56 mg/dL Normal > OR = 50 [facility] Comment on above: Order Comment: FASTI NG:YES FASTING: YES Performed By: #### 9 2665, 809, %IN9, 1759, 7600, 24013, 82456, %21724, 905, %36673, 4420, 4418, %47199 #### [facility] [address], [address] [place] [phone] Public Message Service Supervisor: Tashi Downing MD Cholesterol in LDL [Mass/Vol] 147 mg/dL High [facility] Comment on above: Order Comment: FASTI NG:YES FASTING: YES Result Comment: Refe rence range: <100 Desirable range <100 mg/dL for primary prevention; <70 mg/dL for patients with CHD or diabetic patients with > or = 2 CHD risk factors. LDL-C is now calculated using the Deacon-Lovett calculation, which is a validated novel method providing better accuracy than the Friedewald equation in the estimation of LDL-C. Deacon SS et al. FABBY. 2013;310(19): 8461-6076 (http://education.[employer]/faq/XLP399) Performed By: #### 9 2665, 809, %IN9, 1759, 7600, 82611, 11377, %16211, 905, %44042, 4420, 4418, %30884 #### [facility] [address], [address] [place] [address] Public Message Service Supervisor: Tashi Downing MD Cholesterol.total/Rosanna sterol in HDL [Mass ratio] 4.0 {ratio} Normal <5.0 [facility] Comment on above: Order Comment: FASTI NG:YES FASTING: YES Performed By: #### 9 2665, 809, %IN9, 1759, 7600, 42953, 76784, %42485, 905, %05294, 4420, 4418, %97907 #### [facility] [address], [address] [place] [address] Public Message Service Supervisor: Tashi Downing MD NON HDL CHOLESTEROL 168 mg/dL (calc) High <130 [facility] Comment on above: Order Comment: FASTI NG:YES FASTING: YES Result Comment: For patients with diabetes plus 1 major ASCVD risk factor, treating to a non-HDL-C goal of <100 mg/dL (LDL-C of <70 mg/dL) is considered a therapeutic option. Performed By: #### 9 2665, 809, %IN9, 1759, 7600, 26892, 06154, %26284, 905, %81555, 4420, 4418, %40368 #### [facility] [address], [address] [place] [address] Public Message Service Supervisor: Tashi Downing MD Triglyceride [Mass/Vol] 97 mg/dL Normal <150 [facility] Comment on above: Order Comment: FASTI NG:YES FASTING: YES Performed By: #### 9 2665, 809, %IN9, 1759, 7600, 33999, 73961, %58798, 905, %22331, 4420, 4418, %74990 #### [facility] [place] [address] Public Message Service Supervisor: Tashi Downing MD RHEUMATOID FACTORon 03-19-19 RHEUMATOID FACTOR <10 Normal <14 [facility] Comment on above: Performed By: #### 9 2665, 809, %IN9, 1759, 7600, 52437, 68629, %00351, 905, %41982, 4420, 4418, %89850 #### [facility] [place] [address] Public Message Service Supervisor: Tashi Downing MD SED RATE BY MODIFIED WESTERG RENon 03-19-2024 SED RATE BY MODIFIED WESTERGREN 9 mm/h Normal < OR = 30 [facility] Comment on above: Performed By: #### 9 2665, 809, %IN9, 1759, 7600, 09176, 76726, %01514, 905, %05781, 4420, 4418, %66929 #### [facility] [place] [address] Public Message Service Supervisor: Tashi Downing MD TIER 1on 03-19-2024 CHROMATIN (NUCLEOSOMAL) ANTIBODY <1.0 NEG Normal <1.0 NEG [facility] Comment on above: Performed By: #### 1 0231 #### [facility] [place] [address] Public Message Service Supervisor: Tashi Downing MD DNA (DS) ANTIBODY <1 Normal [facility] Comment on above: Result Comment: IU/m L Interpretation < or = 4 Negative 5-9 Indeterminate > or = 10 Positive Performed By: #### 1 0231 #### [facility] [place] [address] Public Message Service Supervisor: Tashi Dowinng MD STUDENT ACCOUNTS COORDINATOR ANTIBODY <1.0 NEG Normal <1.0 NEG [facility] Comment on above: Performed By: #### 1 0231 #### [facility] of [place] [address] Public Message Service Supervisor: Tashi Downing MD SM ANTIBODY <1.0 NEG Normal <1.0 NEG [facility] Comment on above: Performed By: #### 1 0231 #### [facility] [place] [address] Public Message Service Supervisor: Tashi Downing MD SM/STUDENT ACCOUNTS COORDINATOR ANTIBODY <1.0 NEG Normal <1.0 NEG [facility] Comment on above: Performed By: #### 1 0231 #### [facility] [place] [address] Public Message Service Supervisor: Tashi Downing MD [facility] 203-19-2024 ERASMO-1 ANTIBODY <1.0 NEG Normal <1.0 NEG [facility] Comment on above: Performed By: #### 1 0231 #### [facility] [place] [address] Public Message Service Supervisor: Tashi Downing MD SCL-70 ANTIBODY <1.0 NEG Normal <1.0 NEG [facility] Comment on above: Performed By: #### 1 0231 #### [facility] [place] [address] Public Message Service Supervisor: Tashi Downing MD SJOGREN'S ANTIBODY (SS-A) <1.0 NEG Normal <1.0 NEG [facility] Comment on above: Performed By: #### 1 0231 #### [facility] [place] [address] Public Message Service Supervisor: Tashi Downing MD SJOGREN'S ANTIBODY (SS-B) <1.0 NEG Normal <1.0 NEG [facility] Comment on above: Performed By: #### 1 0231 #### [facility] [place] [address] Public Message Service Supervisor: Tashi Downing MD TIER 303-19-2024 CENTROMERE B ANTIBODY 2.8 POS Abnormal <1.[address] [facility] Comment on above: Performed By: #### 1 0231 #### [facility] [address], [address] [place] [phone] Public Message Service Supervisor: Tashi Downing MD RIBOSOMAL P ANTIBODY <1.0 NEG Normal <1.0 NEG [facility] Comment on above: Result Comment: ANTIBODY PREVALENCE IN TIER 3 Tier 3 antibodies target centromere B and ribosomal P. Centromere B antibody is present in 27% systemic sclerosis (scleroderma), 66% CREST syndrome (Calcinosis, Raynaud's phenomenon, Esophageal dysmotility, Sclerodactyly, and Telangiectasia), 3% to 12% systemic lupus erythematosus (SLE), 7% mixed connective tissue disease (MCTD)(typically with features of polymyositis) and <2% Sjogren's syndrome, polymyositis and normal blood donors. Ribosomal P antibody is present in 9% to 30% SLE and is associated with neurological manifestations, 7% MCTD and <2% Sjogren's syndrome, systemic sclerosis, polymyositis and normal blood donors. The [facility] does not rule out autoimmune disease characterized by other autoantibody specificities such as rheumatoid arthritis, autoimmune hepatitis, primary biliary cholangitis, autoimmune thyroiditis, Ponder's disease, pernicious anemia, autoimmune neuropathies, vasculitis, celiac disease and bullous disease. Please contact your local [facility] laboratory if you are interested in additional testing. Performed By: #### 1 0231 #### [facility] [address], [address] [place], [place] [phone] Public Message Service Supervisor: Tashi Downing MD URIC ACIDon 03-19-2024 Urate [Mass/Vol] 4.6 mg/dL Normal 2.5-7.0 [facility] Comment on above: Result Comment: Ther apeutic target for gout patients: <6.0 mg/dL Performed By: #### 9 2665, 809, %IN9, 1759, 7600, 30254, 75732, %24322, 905, %72528, 4420, 4418, %64357 #### [facility] [address], [address] [place] [phone] Public Message Service Supervisor: Tashi Downing MD CBC panel Auto (Bld)on 05-23 Erythrocyte distribution width (RBC) [Ratio] 13.5 % Normal 11.5-14.5 [facility] Comment on above: Performed By: #### 5 8410-2 #### [facility] ([id number]) [facility] ([facility]) [address] [place] [address] Hematocrit (Bld) [Volume fraction] 45.5 % Normal 36.0-46.0 [facility] Comment on above: Performed By: #### 5 8410-2 #### [facility] AW[facility] ([id number]) [facility] ([facility]) [address] [place] [address] Hemoglobin (Bld) [Mass/Vol] 14.5 g/dL Normal 12.0-16.0 [facility] Comment on above: Performed By: #### 5 8410-2 #### [facility] (62349) [facility] ([facility]) [address] [place] [address] 27846 MCH (RBC) [Entitic mass] 29.8 pg Normal 26.0-34.0 [facility] Comment on above: Performed By: #### 5 8410-2 #### [facility] AW[facility] ([id number]) [facility] ([facility]) [address] [place] [address] MCHC (RBC) [Mass/Vol] 31.9 g/dL Low 32.0-36.0 [facility] Comment on above: Performed By: #### 5 8410-2 #### VJ AWAD (24531) [facility] ([facility]) [address] [place] [address] MCV (RBC) [Entitic vol] 93 fL Normal 80-100 U [facility] Comment on above: Performed By: #### 5 8410-2 #### VJ AWAD ([id number]) [facility] ([facility]) [address] [place] [address] 74157 Nucleated RBC/100 WBC (Bld) [Ratio] 0.0 /100 WBCs Normal 0.0-0.0 [facility] Comment on above: Performed By: #### 5 8410-2 #### [facility]J AWAD (61036) [facility] ([facility]) [address] [place] [address] Platelets (Bld) [#/Vol] 361 x10*3/uL Normal 150-450 [facility] Comment on above: Performed By: #### 5 8410-2 #### [facility] AWAD ([id number]) [facility] ([facility]) [address] [place] [address] RBC (Bld) [#/Vol] 4.87 x10*6/uL Normal 4.00-5.20 [facility] Comment on above: Performed By: #### 5 8410-2 #### VJ AWAD (57232) [facility] ([facility]) [address] [place] [address] WBC (Bld) [#/Vol] 6.3 x10*3/uL Normal 4.4-11.3 [facility] Comment on above: Performed By: #### 5 8410-2 #### VJ AWAD ([id number]) [facility] ([facility]) [address] [place] [address] Comprehensive metabolic 2000 panelon 05-24-2023 Albumin BCP dye [Mass/Vol] 4.6 g/dL Normal 3.4-5.0 [facility] Comment on above: Performed By: #### 2 4323-8 #### VJ AWAD ([id number]) [facility] ([facility]) [address] [place] [address] ALP [Catalytic activity/Vol] 91 U/L Normal 33-136 [facility] Comment on above: Performed By: #### 2 4323-8 #### [facility] AWAD (64627) [facility] ([facility]) [address] [place] [address] ALT With P-5'-P [Catalytic activity/Vol] 14 U/L Normal 7-45 [facility] Comment on above: Result Comment: Isamar ents treated with Sulfasalazine may generate falsely decreased results for ALT. Performed By: #### 2 0073-8 #### [facility] AWAD ([id number]) [facility] ([facility]) [address] [place] [address] Anion gap [Moles/Vol] 12 mmol/L Normal 10-20 [facility] Comment on above: Performed By: #### 2 4323-8 #### VJ AWAD ([id number]) [facility] ([facility]) [address] [place] [address] AST With P-5'-P [Catalytic activity/Vol] 26 U/L Normal 9-39 [facility] Comment on above: Performed By: #### 2 4323-8 #### VJ AWAD ([id number]) [facility] ([facility]) [address] [place] [address] Bilirubin [Mass/Vol] 0.4 mg/dL Normal 0.0-1.2 [facility] Comment on above: Performed By: #### 2 4322-8 #### VJ AWAD ([id number]) [facility] ([facility]) [address] [place] [address] Calcium [Mass/Vol] 9.4 mg/dL Normal 8.6-10.3 [facility] Comment on above: Performed By: #### 2 432-8 #### VJ AWAD ([id number]) [facility] ([facility]) [address] [place] [address] Chloride [Moles/Vol] 103 mmol/L Normal 98-107 [facility] Comment on above: Performed By: #### 2 432-8 #### VJ AWAD (62912) [facility] ([facility]) [address] [place] [address] CO2 [Moles/Vol] 28 mmol/L Normal 21-32 [facility] Comment on above: Performed By: #### 2 4323-8 #### VJ AWAD ([id number]) [facility] ([facility]) [address] [place] [address] Creatinine [Mass/Vol] 0.86 mg/dL Normal 0.50-1.05 [facility] Comment on above: Performed By: #### 2 4323-8 #### VJ AWAD (10223) [facility] ([facility]) [address] [place] [address] Glomerular filtration rate/1.73 sq M.predicted 74 mL/min/1.73m*2 Normal >60 [facility] Comment on above: Result Comment: Calc ulations of estimated GFR are performed using the 2020 CKD-EPI Study Refit equation without the race variable for the IDMS-Traceable creatinine methods. https://jasn.asnjournals.org/content/early//ASN.2020 634134 Performed By: #### 2 4323-8 #### VJ AWAD ([id number]) [facility] ([facility]) [address] [place] [address] Glucose [Mass/Vol] 89 mg/dL Normal 74-99 [facility] Comment on above: Performed By: #### 2 4323-8 #### VJ AWAD (51376) [facility] ([facility]) [address] [place] [address] Potassium [Moles/Vol] 4.6 mmol/L Normal 3.5-5.3 [facility] Comment on above: Performed By: #### 2 4323-8 #### VJ AWAD ([id number]) [facility] ([facility]) [address] [place] [address] 20344 Protein [Mass/Vol] 7.3 g/dL Normal 6.4-8.2 [facility] Comment on above: Performed By: #### 2 4323-8 #### VJ AWAD ([id number]) [facility] ([facility]) [address] [place] [address]43[address] Sodium [Moles/Vol] 138 mmol/L Normal 136-145 [facility] Comment on above: Performed By: #### 2 4323-8 #### VJ AWAD ([id number]) [facility] ([facility]) [address] [place] [address] 43656 Urea nitrogen [Mass/Vol] 13 mg/dL Normal 6-23 [facility] Comment on above: Performed By: #### 2 4323-8 #### VJ AWAD (77457) [facility] ([facility]) [address] [place] [address] Lipid 1996 panelon 4 Cholesterol [Mass/Vol] 208 mg/dL High 0-199 [facility] Comment on above: Result Comment: Age Desirable Borderline High High 0-19 Y 0 - 169 170 - 199 >/= 200 20-24 Y 0 - 189 190 - 224 >/= 225 >24 Y 0 - 199 200 - 239 >/= 240 All ranges are based on fasting samples. Specific therapeutic targets will vary based on patient-specific cardiac risk. Pediatric guidelines reference:Pediatrics 2011, 128(S5).Adult guidelines reference: NCEP ATPIII Guidelines,FABBY 2001, 258:2486-97 Venipuncture immediately after or during the administration of Metamizole may lead to falsely low results. Testing should be performed immediately prior to Metamizole dosing. Performed By: #### 2 4331-1 #### VJ AWAD (77029) [facility] ([facility]) [facility] [place] [address] Cholesterol in HDL [Mass/Vol] 51.0 mg/dL Normal [facility] Comment on above: Result Comment: Age Very Low Low Normal High 0-19 Y < 35 < 40 40-45 ---- 20-24 Y ---- < 40 >45 ---- >24 Y ---- < 40 40-60 >60 Performed By: #### 2 4331-1 #### VJ AWAD ([id number]) [facility] ([facility]) [facility] [place] [address] Cholesterol in LDL [Mass/Vol] 131 mg/dL High <=99 [facility] Comment on above: Result Comment: Near Borderline AGE Desirable Optimal High High Very High 0-19 Y 0 - 109 --- 110-129 >/= 130 ---- 20-24 Y 0 - 119 --- 120-159 >/= 160 ---- >24 Y 0 - 99 100-129 130-159 160-189 >/=190 Performed By: #### 2 4331-1 #### VJ AWAD ([id number]) [facility] ([facility]) [facility] [place] [address] Cholesterol in VLDL [Mass/Vol] 26 mg/dL Normal 0-40 [facility] Comment on above: Performed By: #### 2 4331-1 #### VJ AWAD ([id number]) [facility] ([facility]) [address] [place] [address] CHOLESTEROL/HDL RATIO 4.1 Normal [facility] Comment on above: Result Comment: Ref Values Desirable < 3.4 High Risk > 5.0 Performed By: #### 2 4331-1 #### VJ AWAD ([id number]) [facility] ([facility]) [address] [place] [address] NON HDL CHOLESTEROL 157 mg/dL High 0-149 [facility] Comment on above: Result Comment: Age Desirable Borderline High High Very High 0-19 Y 0 - 119 120 - 144 >/= 145 >/= 160 20-24 Y 0 - 149 150 - 189 >/= 190 ---- >24 Y 30 mg/dL above LDL Cholesterol goal Performed By: #### 2 4331-1 #### VJ AWAD ([id number]) [facility] ([facility]) [address] [place] [address] Triglyceride [Mass/Vol] 128 mg/dL Normal 0-149 [facility] Comment on above: Result Comment: Age Desirable Borderline High High Very High 0 D-90 D 19 - 174 ---- ---- ---- 91 D- 9 Y 0 - 74 75 - 99 >/= 100 ---- 10-19 Y 0 - 89 90 - 129 >/= 130 ---- 20-24 Y 0 - 114 115 - 149 >/= 150 ---- >24 Y 0 - 149 150 - 199 200- 499 >/= 500 Venipuncture immediately after or during the administration of Metamizole may lead to falsely low results. Testing should be performed immediately prior to Metamizole dosing. Performed By: #### 2 4331-1 #### ZABALA RITESH ([id number]) [facility] ([facility]) [address] [place] [address] CT for calcium scoring WO co ntrast and CTA W contrast IV Heart and coronary arterieson 12-05-2022 1. Coronary artery calcium score of 0*. *Coronary artery calcium scoring may be helpful in predicting the risk for future coronary heart disease events. According to the [employer] Clinical Expert Consensus Task Force, such testing provides important prognostic information in patients with more than one coronary heart disease risk factor. The coronary artery calcium score correlates with the annual risk of a non-fatal myocardial infarction or coronary heart disease . Coronary artery score Annual Risk 0-99 0.4% 100-399 1.3% >400 2.4% These three breakpoints correspond to lower, intermediate and high risk states for future coronary events. Such information should be used, along with appropriate clinical judgment, to make decisions regarding the intensity of risk factor management strategies to treat blood lipids and to modify other non-lipid coronary risk factors. Reference: [place] P et al. Circulation. 2007; 115:402-426 MACRO: None Signed by: Luis Fernando Guzman 12/05/2022 2:12 PM Dictation workstation: [id number] Interpreted By: Luis Fernando Guzman, STUDY: CT CARDIAC SCORING WO IV CONTRAST; 12/05/2022 1:46 pm INDICATION: Signs/Symptoms:screen for cardiovascular disease. COMPARISON: None. ACCESSION NUMBER(S): [id number] ORDERING CLINICIAN: SUE WOLF TECHNIQUE: Using prospective ECG gating, CT scan of the coronary arteries was performed without intravenous contrast. Coronary calcium scoring was performed according to the method of Agatston. FINDINGS: The score and distribution of calcium in the coronary arteries is as follows: LM 0 LAD 0 LCx 0 RCA 0 Total 0 The visualized mid/lower ascending thoracic aorta measures 3.3 cm in diameter. The heart is normal in size. No pericardial effusion is present. Multiple small nonenlarged mediastinal lymph nodes are seen at the level of the lenin and distal paratracheal region. The visualized segments of the lungs are normally expanded. The visualized subdiaphragmatic structures appear intact. A small hiatal hernia is present. MMODAL Luis Fernando Guzman MD - 12/05/2022 Interpreted By: Luis Fernando Guzman, STUDY: CT CARDIAC SCORING WO IV CONTRAST; 12/05/2022 1:46 pm INDICATION: Signs/Symptoms:screen for cardiovascular disease. COMPARISON: None. ACCESSION NUMBER(S): [id number] ORDERING CLINICIAN: SUE WOLF TECHNIQUE: Using prospective ECG gating, CT scan of the coronary arteries was performed without intravenous contrast. Coronary calcium scoring was performed according to the method of Agatston. FINDINGS: The score and distribution of calcium in the coronary arteries is as follows: LM 0 LAD 0 LCx 0 RCA 0 Total 0 The visualized mid/lower ascending thoracic aorta measures 3.3 cm in diameter. The heart is normal in size. No pericardial effusion is present. Multiple small nonenlarged mediastinal lymph nodes are seen at the level of the lenin and distal paratracheal region. The visualized segments of the lungs are normally expanded. The visualized subdiaphragmatic structures appear intact. A small hiatal hernia is present. IMPRESSION: 1. Coronary artery calcium score of 0*. *Coronary artery calcium scoring may be helpful in predicting the risk for future coronary heart disease events. According to the [place] [employer] Clinical Expert Consensus Task Force, such testing provides important prognostic information in patients with more than one coronary heart disease risk factor. The coronary artery calcium score correlates with the annual risk of a non-fatal myocardial infarction or coronary heart disease . Coronary artery score Annual Risk 0-99 0.4% 100-399 1.3% >400 2.4% These three breakpoints correspond to lower, intermediate and high risk states for future coronary events. Such information should be used, along with appropriate clinical judgment, to make decisions regarding the intensity of risk factor management strategies to treat blood lipids and to modify other non-lipid coronary risk factors. Reference: [place] P et al. Circulation. 2007; 115:402-426 MACRO: None Signed by: Luis Fernando Guzman 12/05/2022 2:12 PM Dictation workstation: [id number] [facility] Work Phone: Radiology Study observation (narrative) [facility] Work Phone: CT for calcium scoring WO co ntrast and CTA W contrast IV Heart and coronary arteriesOrdered By: Luis Fernando Guzman on 12-05-2022 [facility] Work Phone: HAND MIN 3 VIEWSon 3 HAND MIN 3 VIEWS Patient Name: MELI FARIAS STUDY: Right WRIST COMPLT; MIN 3 VIEWS; HAND MIN 3 VIEWS; 07/24/2022 8:03 am INDICATION: pain M79.641: Pain of right hand. COMPARISON: None. ACCESSION NUMBER(S): [id number]; [id number] ORDERING CLINICIAN: JUAN CHOE FINDINGS: Severe narrowing of the 1st carpometacarpal metacarpal joint is noted with associated sclerosis and spur formation. Narrowing of the radiocarpal joint is noted degenerative changes are seen at the triscaphe joint. Narrowing of the distal and proximal interphalangeal joints as well as metacarpophalangeal joints is also noted. No acute fracture or is seen IMPRESSION: Degenerative changes of the wrist, most severely affecting the 1st carpometacarpal joint. Electronically signed by: PARMJIT PHELAN MD [facility] Initial Visit (Orthopaedic S urgery)on 07-24-2022 Initial Visit (Orthopaedic Surgery) Diagnoses/Problems Assessed Pain of right hand (729.5) (M79.641) *Orders Pain of right hand Start: Diclofenac Sodium 1 % External Gel; apply 2 gram topically QID for pain Xray Hand Min 3 View; Status:Resulted - Preliminary; Done: 24Jul2022 08:03AM Laterality : Right Radiologist to Determine Optimal Study : Y What are the patient's signs and symptoms? : pain Xray Wrist Complete Min 3 View; Status:Resulted - Preliminary; Done: 24Jul2022 08:03AM Laterality : Right Radiologist to Determine Optimal Study : Y What are the patient's signs and symptoms? : pain Pain of right hand (729.5) (M79.641) Patient Discussion/Summary Assessment: Right hand pain. Ring finger stenosing tenosynovitis Plan: -Voltaren gel -She takes Mobic on a daily basis for her rheumatoid arthritis. -Avoidance of at risk activity. She felt that using a push mower may have aggravated this. I suggested using padded gloves or having someone else do this activity. Follow-up on a as needed basis. We talked about the risks of surgery versus injection versus other treatment options and she understands these. Her was with her and I were able to answer all of their questions. Chief Complaint PATIENT PRESENTS TO OFFICE FOR : Right Ring Trigger finger ONSET: 3 YRS DOI / DOS: NA IMPROVED: NO PAIN: 10 UPON USE PAIN MEDS TAKEN: GABAPENTIN ROM: NORM ICE / HEAT APPLIED: NO BRACE WORN: NO LAST INJECTION: NO REFERRAL: DR SALAS ACCOMPANIED BY: TWIN History of Present Illness 67-year-old female who comes in today for evaluation of her right ring finger. She describes pain over the A1 karely area with no locking of the finger. She points to the area of the A1 karely as where she is having the most pain. This was worse last week and has improved. She comes in today for evaluation but states if her hand was feeling the way it is now she may not have come. Active Problems Problems Acute cystitis with hematuria (595.0) (N30.01) Burning with urination (788.1) (R30.0) Dysuria (788.1) (R30.0) Encounter for immunization (V03.89) (Z23) Hypertension (401.9) (I10) Left foot pain (729.5) (M79.672) Low back pain (724.2) (M54.50) Low vitamin D level (790.6) (R79.89) Lumbosacral radiculopathy at L5 (724.4) (M54.17) Lumbosacral stenosis (724.02) (M48.07) Lupus (710.0) (M32.9) Menopause (627.2) (Z78.0) Other screening mammogram (V76.12) (Z12.31) Overweight with body mass index (BMI) of 29 to 29.9 in adult (278.02,V85.25) (E66.3,Z68.29) Peripheral polyneuropathy (356.9) (G62.9) Prolapsed lumbar disc (722.10) (M51.26) Rosacea (695.3) (L71.9) Sarcoidosis (135) (D86.9) Screening for breast cancer (V76.10) (Z12.39) Screening for colon cancer (V76.51) (Z12.11) UTI (urinary tract infection) (599.0) (N39.0) Past Medical History Problems History of rheumatoid arthritis (V13.4) (Z87.39) Resolved Date: 21 Sep 2020 Surgical History Problems History of Bladder surgery History of Epidural steroid injection Managed By: Ari Velasquez (Pain Medicine) Bilat L5 TFESI History of Hip replacement R hip 08-16-20 History of Hysterectomy History of Oral surgery History of Toe tenotomy right side Family History Mother Family history of leukemia (V16.6) (Z80.6) Father Family history of cerebrovascular accident (CVA) (V17.1) (Z82.3) Family history of coronary artery disease (V17.3) (Z82.49) Family history of hypertension (V17.49) (Z82.49) Family history of malignant neoplasm of skin (V16.8) (Z80.8) Family history of pulmonary fibrosis (V17.6) (Z83.6) Sister Family history of hypertension (V17.49) (Z82.49) Brother Family history of coronary artery disease (V17.3) (Z82.49) Family history of myocardial infarction (V17.3) (Z82.49) Social History Problems Minimum alcohol consumption Never chewed tobacco (V49.89) (Z78.9) Never smoked tobacco (V49.89) (Z78.9) Patient has healthcare proxy and living will (V49.89) (Z78.9) Allergies No Known Drug Allergies Recorded By: Abida Vega; 12/11/2018 2:51:06 PM Current Meds Medication NameInstruction Aspirin 81 MG TABSTAKE 1 TABLET DAILY. Gabapentin 300 MG Oral CapsuleTake 1 capsule twice daily Hydroxychloroquine Sulfate 200 MG Oral TabletTAKE 1 TABLET TWICE DAILY. Lisinopril-hydroCHLOR Othiazide 10-12.5 MG Oral TabletTAKE 0.5 TABLET Daily Meloxicam 7.5 MG Oral TabletTake 1 tablets daily. SM Stool Softener 250 MG Oral Capsule Vitamin D 25 MCG (1000 UT) Oral TabletTAKE 2 TABLET Daily Vitals Vital Signs Recorded: 24Jul2022 08:34AM Oswuttvpdbp64.1 F Lpxxvz326 lb BMI Vjitexmpef92.54 kg/m2 BSA Calculated2 Physical Exam Right wrist/hand: Skin healthy and intact Minimal fullness overlying the A1 karely of the ring finger. Most of her pain is distal to this at the metacarpal head area. Some minimal swelling is felt. She states she had a more discrete mass and swelling a week ago that this has disappeared. No locking of (more content not included)... Normal [facility] No Panel Informationon 07-24 Please click on the link to view the study images Normal [facility] Orthopedics and Sports [facility] [address] Work Phone: [phone] Radiologyon 07-24-2022 XR Hand 3 Views Please click on the link to view the study images Normal [facility] Orthopedics and Sports [facility] [address] Work Phone: [phone] XR Hand 3 Views Normal [facility] Orthopedics [facility] 300 Work Phone: [phone] XR Wrist - bilateral 3 Views Please click on the link to view the study images Normal [facility] Orthopedics [facility] Sports [facility] 300 Work Phone: [phone] XR Wrist - bilateral 3 Views Normal [facility] Sports [facility] 300 Work Phone: [phone] WRIST COMPLT MIN 3 VIEWSon 0 07-24-2022 WRIST COMPLT MIN 3 VIEWS Patient Name: MELI FARIAS STUDY: Right WRIST COMPLT; MIN 3 VIEWS; HAND MIN 3 VIEWS; 07/24/2022 8:03 am INDICATION: pain M79.641: Pain of right hand. COMPARISON: None. ACCESSION NUMBER(S): [id number]; [id number] ORDERING CLINICIAN: JUAN CHOE FINDINGS: Severe narrowing of the 1st carpometacarpal metacarpal joint is noted with associated sclerosis and spur formation. Narrowing of the radiocarpal joint is noted degenerative changes are seen at the triscaphe joint. Narrowing of the distal and proximal interphalangeal joints as well as metacarpophalangeal joints is also noted. No acute fracture or is seen IMPRESSION: Degenerative changes of the wrist, most severely affecting the 1st carpometacarpal joint. Electronically signed by: PARMJIT PHELAN MD [facility] FOOT COMPLETE, MIN 3 VIEWSon 06-15-2022 FOOT COMPLETE, MIN 3 VIEWS Patient Name: MELI FARIAS STUDY: FOOT; COMPLETE, MIN 3 VIEWS; 06/15/2022 9:40 am INDICATION: tarsal metatarsal fulllness. COMPARISON: None. ACCESSION NUMBER(S): [id number] ORDERING CLINICIAN: SUE WOLF FINDINGS: Right foot, three views There is no fracture. There is no dislocation. There is mild osteophytosis and sclerosis in the tarsometatarsal articulations. There is a prominent accessory navicular IMPRESSION: Mild midfoot osteoarthritis. No acute abnormality Electronically signed by: DULCE MOREJON MD Normal [facility] CBCon 06-04-2022 Erythrocyte distribution width (RBC) [Ratio] 13.2 % Normal 11.5 - 14.5 [facility] Comment on above: Performed By: #### C BC #### [place] [address] Hematocrit (Bld) [Volume fraction] 43.4 % Normal 36.0 - 46.0 [facility] Comment on above: Performed By: #### C BC #### [place] [id number] Hemoglobin (Bld) [Mass/Vol] 14.2 g/dL Normal 12.0 - 16.0 [facility] Comment on above: Performed By: #### C BC #### [address] [address] MCHC (RBC) [Mass/Vol] 32.7 g/dL Normal 32.0 - 36.0 [facility] Comment on above: Performed By: #### C BC #### [address] [address] MCV (RBC) [Entitic vol] 91 fL Normal 80 - 100 [facility] Comment on above: Performed By: #### C BC #### [address] [address] Platelets (Bld) [#/Vol] 341 10*3/uL Normal 150 - 450 [facility] Comment on above: Performed By: #### C BC #### [address] [address] RBC 4.76 x10E12/L Normal 4.00 - 5.20 [facility] Comment on above: Performed By: #### C BC #### [address] [address] WBC (Bld) [#/Vol] 5.9 10*3/uL Normal 4.4 - 11.3 [facility] [place] Comment on above: Performed By: #### C BC #### [address] [address] COMPREHENSIVE PANELon 2022 Albumin [Mass/Vol] 4.2 g/dL Normal 3.4 - 5.0 [facility] [place] Comment on above: Performed By: #### C MP #### [address] [address] ALP [Catalytic activity/Vol] 79 U/L Normal 33 - 136 [facility] Comment on above: Performed By: #### C MP #### [address] [address] ALT [Catalytic activity/Vol] 14 U/L Normal 7 - 45 [facility] Comment on above: Result Comment: Isamar ents treated with Sulfasalazine may generate falsely decreased results for ALT. Performed By: #### C MP #### [address] [address] Anion gap [Moles/Vol] 12 mmol/L Normal 10 - 20 [facility] Comment on above: Performed By: #### C MP #### [address] [address] AST [Catalytic activity/Vol] 23 U/L Normal 9 - 39 [facility] Comment on above: Performed By: #### C MP #### [address] [address] Bilirubin [Mass/Vol] 0.4 mg/dL Normal 0.0 - 1.2 [facility] [place] Comment on above: Performed By: #### C MP #### [address] [address] Calcium [Mass/Vol] 9.3 mg/dL Normal 8.6 - 10.3 [facility] [place] Comment on above: Performed By: #### C MP #### [address] [address] Creatinine [Mass/Vol] 0.81 mg/dL Normal 0.50 - 1.05 [facility] Comment on above: Performed By: #### C MP #### [address] [address] GFR/1.73 sq M.predicted among non-blacks MDRD (S/P/Bld) [Vol rate/Area] 80 mL/min/{1.73_m2} Normal >90 [facility] Comment on above: Result Comment: CALC ULATIONS OF ESTIMATED GFR ARE PERFORMED USING THE 2020 CKD-EPI STUDY REFIT EQUATION WITHOUT THE RACE VARIABLE FOR THE IDMS-TRACEABLE CREATININE METHODS. https://jasn.asnjournals.org/content/early//ASN.2020 477291 Performed By: #### C MP #### [address] [address] Glucose [Mass/Vol] 97 mg/dL Normal 74 - 99 [facility] [place] Comment on above: Performed By: #### C MP #### [address] [address] HCO3 (Bld) [Moles/Vol] 24 mmol/L Normal 21 - 32 [facility] Comment on above: Performed By: #### C MP #### [address] [address] Protein [Mass/Vol] 6.5 g/dL Normal 6.4 - 8.2 [facility] [place] Comment on above: Performed By: #### C MP #### [address] [address] Urea nitrogen [Mass/Vol] 18 mg/dL Normal 6 - 23 [facility] Comment on above: Performed By: #### C MP #### [address] [address] Chloride [Moles/Vol] 106 mmol/L Normal 98 - 107 [facility] [place] Comment on above: Performed By: #### C MP #### [address] [address] Potassium [Moles/Vol] 4.5 mmol/L Normal 3.5 - 5.3 [facility] Comment on above: Performed By: #### C MP #### [address] [address] Sodium [Moles/Vol] 137 mmol/L Normal 136 - 145 [facility] [place] Comment on above: Performed By: #### C MP #### [address] [address] Mamm - Screening Mammogram w / Tomosynthesison 04-17-2022 MG Breast Screening Normal [facility] Work Phone: Office Visit (Primary Care T xt/Forms)on 12-08-2021 Follow-up visit Diagnoses/Problems Assessed Dysuria (788.1) (R30.0) Hypertension (401.9) (I10) Lupus (710.0) (M32.9) Peripheral polyneuropathy (356.9) (G62.9) Other screening mammogram (V76.12) (Z12.31) Overweight with body mass index (BMI) of 29 to 29.9 in adult (278.02,V85.25) (E66.3,Z68.29) Orders Dysuria Start: Sulfamethoxazole-Trim ethoprim 800-160 MG Oral Tablet; TAKE 1 TABLET TWICE DAILY UNTIL FINISHED Other screening mammogram Complete Blood Count; Status:Active; Requested for:08Dec2021; Comprehensive Metabolic Panel; Status:Active; Requested for:08Dec2021; Mamm - Screening Mammogram w/ Tomosynthesis; Status:Hold For - Scheduling; Requested for:08Dec2021; Radiologist to Determine Optimal Study : Y What are the patient's signs and symptoms ? : Annual Screening Mammogram Patient Discussion/Summary 6 month appointment and labs. mmg in feb Chief Complaint 6 MO FU History of Present Illness LE sees eye and treated sandra, also had ana tub on breast which has cleared concomitant and reviewed staph HTN-Takes and tolerates meds without side effects. No alcohol. no tobacco. some exercise. low salt. Reviewed recommendation for 150 minutes of exercise per week including 2 days of weight training if over age 50 neuropathy 300 bid, generally effective. getting up toward knee but not in fingers, tho fingers were more sensitive to heat while derrell. feeti worse in am for a few steps Review of Systems General-no fatigue weight to within 10 pounds ENT no problems with vision swallowing Cardiac no chest pains palpitations change in exercise tolerance or capacity Pulmonary no cough shortness of breath GI no heartburn or abdominal pain Musculoskeletal no joint pains Active Problems Problems Acute cystitis with hematuria (595.0) (N30.01) Burning with urination (788.1) (R30.0) Dysuria (788.1) (R30.0) Encounter for immunization (V03.89) (Z23) Hypertension (401.9) (I10) Left foot pain (729.5) (M79.672) Low back pain (724.2) (M54.50) Low vitamin D level (790.6) (R79.89) Lumbosacral radiculopathy at L5 (724.4) (M54.17) Lumbosacral stenosis (724.02) (M48.07) Lupus (710.0) (M32.9) Menopause (627.2) (Z78.0) Peripheral polyneuropathy (356.9) (G62.9) Prolapsed lumbar disc (722.10) (M51.26) Rosacea (695.3) (L71.9) Sarcoidosis (135) (D86.9) Screening for breast cancer (V76.10) (Z12.39) Screening for colon cancer (V76.51) (Z12.11) UTI (urinary tract infection) (599.0) (N39.0) Past Medical History Problems History of rheumatoid arthritis (V13.4) (Z87.39) Surgical History Problems History of Bladder surgery History of Epidural steroid injection History of Hip replacement History of Hysterectomy History of Oral surgery History of Toe tenotomy Family History Mother Family history of leukemia (V16.6) (Z80.6) Father Family history of cerebrovascular accident (CVA) (V17.1) (Z82.3) Family history of coronary artery disease (V17.3) (Z82.49) Family history of hypertension (V17.49) (Z82.49) Family history of malignant neoplasm of skin (V16.8) (Z80.8) Family history of pulmonary fibrosis (V17.6) (Z83.6) Sister Family history of hypertension (V17.49) (Z82.49) Brother Family history of coronary artery disease (V17.3) (Z82.49) Family history of myocardial infarction (V17.3) (Z82.49) Social History Problems Minimum alcohol consumption Never chewed tobacco (V49.89) (Z78.9) Never smoked tobacco (V49.89) (Z78.9) Patient has healthcare proxy and living will (V49.89) (Z78.9) Current Meds Medication NameInstruction Aspirin 81 MG TABSTAKE 1 TABLET DAILY. Gabapentin 300 MG Oral CapsuleTake 1 capsule twice daily Hydroxychloroquine Sulfate 200 MG Oral TabletTAKE 1 TABLET TWICE DAILY. Lisinopril-hydroCHLOR Othiazide 10-12.5 MG Oral TabletTAKE 0.5 TABLET Daily Meloxicam 7.5 MG Oral TabletTake 1 tablets daily. SM Stool Softener 250 MG Oral Capsule Vitamin D 25 MCG (1000 UT) Oral TabletTAKE 2 TABLET Daily Allergies Medication No Known Drug Allergies Vitals Vital Signs Recorded: 08Dec2021 08:42AM Heart Rate: 61 Systolic: 120 Diastolic: 78 Height: 5 ft 7 in Weight: 191 lb BMI Calculated: 29.92 kg/m2 BSA Calculated: 1.98 Tobacco Use: b) No Falls Screening (Age 18+): a) No falls within the last year O2 Saturation: 98 Physical Exam General: Alert, No acute distress. Appears stated age Eye: Pupils are equal, round and reactive to light, Extraocular movements are intact, Normal conjunctiva. Neck: Supple, Non-tender, No carotid bruit, No jugular venous distention, No lymphadenopathy, No thyromegaly. Respiratory: Lungs are clear to auscultation, Respirations are non-labored, Breath sounds are equal. Cardiovascular: Normal rate, Regular rhythm, No murmur. Gastrointestinal: Soft, Non-tender, No organomegaly. No solid or pulsatile mass Integumentary: Warm, Dry. No concerning lesions on exposed areas Neurologic: Alert, Oriented. Gross and (more content not included)... Normal [employer] Tobacco Screening.on Fall risk assessment a) No falls within the last year [facility] Work Phone: [phone] Tobacco use status CPHS b) No M -[facility] Work Phone: Radiologyon 06-08-2021 XR Foot 2 Views Normal [facility] Work Phone: [phone] Tobacco Screening.on 022 Adult depression screening assessment No [facility] Work Phone: Fall risk assessment a) No falls within the last year [facility] Work Phone: Tobacco use status CPHS b) No M [facility] Work Phone: [phone] Uric Acid, Serumon Urate [Mass/Vol] 4.8 mg/dL 2.3 - 6.7 [place] [facility] Work Phone: [phone] Comment on above: Venipuncture immedia tely after or during the administration of Metamizole may lead to falsely low results. Testing should be performed immediately prior to Metamizole dosing. Laboratory - Chemistry and C hemistry - challengeon 05-24-2021 Albumin BCP dye [Mass/Vol] 4.3 g/dL 3.4 - 5.0 [facility] Work Phone: [phone] ALP [Catalytic activity/Vol] 77 U/L 33 - 136 [facility] Work Phone: [phone] ALT With P-5'-P [Catalytic activity/Vol] 17 U/L 7 - 45 [facility] Work Phone: Comment on above: Patients treated wit h Sulfasalazine may generate falsely decreased results for ALT. Anion gap [Moles/Vol] 10 mmol/L 10 - 20 [facility] Work Phone: AST With P-5'-P [Catalytic activity/Vol] 27 U/L 9 - 39 [facility] Work Phone: [phone] Bilirubin [Mass/Vol] 0.4 mg/dL 0.0 - 1.2 - [facility] Work Phone: Calcium [Mass/Vol] 9.5 mg/dL 8.6 - 10.3 -[facility] ical [facility] Work Phone: Chloride [Moles/Vol] 101 mmol/L 98 - 107 -[facility] Work Phone: CO2 [Moles/Vol] 29 mmol/L 21 - 32 -[facility] l [facility] Work Phone: Creatinine [Mass/Vol] 0.91 mg/dL See Below [facility] Work Phone: [phone] Comment on above: Reference Range: 0.5 0 - 1.05 Glucose [Mass/Vol] 92 mg/dL 74 - 99 -[facility] Work Phone: [phone] Potassium [Moles/Vol] 5.0 mmol/L 3.5 - 5.3 - [facility] Work Phone: Protein [Mass/Vol] 7.2 g/dL 6.4 - 8.2 -[facility] Work Phone: Sodium [Moles/Vol] 135 mmol/L below low threshold 136 - 145 [facility] Work Phone: Urea nitrogen [Mass/Vol] 17 mg/dL 6 - 23 [facility] Work Phone: [phone] Laboratory - Hematology and Cell countson 05-24-2021 Erythrocyte distribution width (RBC) [Ratio] 13.0 % See Below [facility] Work Phone: Comment on above: Reference Range: 11. 5 - 14.5 Hematocrit (Bld) [Volume fraction] 40.2 % See Below [facility] Work Phone: Comment on above: Reference Range: 36. 0 - 46.0 Hemoglobin (Bld) [Mass/Vol] 13.8 g/dL See Below [facility] Work Phone: [phone] Comment on above: Reference Range: 12. 0 - 16.0 MCHC (RBC) [Mass/Vol] 34.4 g/dL See Below [facility] Work Phone: [phone] Comment on above: Reference Range: 32. 0 - 36.0 MCV (RBC) [Entitic vol] 90 fL 80 - 100 M -[facility] Work Phone: [phone] Platelets (Bld) [#/Vol] 351 10*3/uL 150 - 450 [facility] Work Phone: [phone] RBC (Bld) [#/Vol] 4.49 {x10E12/L} See Below [facility] Work Phone: [phone] Comment on above: Reference Range: 4.0 0 - 5.20 WBC (Bld) [#/Vol] 4.8 10*3/uL 4.4 - 11.3 [facility] Work Phone: Lipid Panelon 05-24-2021 Cholesterol [Mass/Vol] 212 mg/dL above hig h threshold 0 - 199 [facility] Work Phone: [phone] Comment on above: . AGE DESIRABLE BORD MARYCHUY HIGH HIGH 0-19 Y 0 - 169 170 - 199 >/= 200 20-24 Y 0 - 189 190 - 224 >/= 225 >24 Y 0 - 199 200 - 239 >/= 240 All ranges are based on fasting samples. Specific therapeutic targets will vary based on patient-specific cardiac risk.. Pediatric guidelines reference:Pediatrics 2011, 128(S5). Adult guidelines reference: NCEP ATPIII Guidelines, FABBY 2001, 258:2486-97. Venipuncture immediately after or during the administration of Metamizole may lead to falsely low results. Testing should be performed immediately prior to Metamizole dosing. Cholesterol in HDL [Mass/Vol] 49.0 mg/dL [facility] Work Phone: Comment on above: . AGE VERY LOW LOW N ORMAL HIGH 0-19 Y < 35 < 40 40-45 ---- 20-24 Y ---- < 40 >45 ---- >24 Y ---- < 40 40-60 >60. Cholesterol in LDL [Mass/Vol] 139 mg/dL above high threshold 0 - 99 [facility] Work Phone: [phone] Comment on above: . NEAR BORD AGE ISADORA RABLE OPTIMAL HIGH HIGH VERY HIGH 0-19 Y 0 - 109 --- 110-129 >/= 130 ---- 20-24 Y 0 - 119 --- 120-159 >/= 160 ---- >24 Y 0 - 99 100-129 130-159 160-189 >/=190. Cholesterol.total/Rosanna sterol in HDL [Mass ratio] 4.3 {ratio} [facility] Work Phone: [phone] Comment on above: REF VALUESDESIRABLE < 3.4HIGH RISK > 5.0 Triglyceride [Mass/Vol] 119 mg/dL 0 - 149 M [facility] Work Phone: [phone] Comment on above: . AGE DESIRABLE BORD MARYCHUY HIGH HIGH VERY HIGH 0 D-90 D 19 - 174 ---- ---- ----91 D- 9 Y 0 - 74 75 - 99 >/= 100 ---- 10-19 Y 0 - 89 90 - 129 >/= 130 ---- 20-24 Y 0 - 114 115 - 149 >/= 150 ---- >24 Y 0 - 149 150 - 199 200- 499 >/= 500. Venipuncture immediately after or during the administration of Metamizole may lead to falsely low results. Testing should be performed immediately prior to Metamizole dosing. Lipid Panel 24 mg/dL 0 - 40 [facility] Work Phone: [phone] No Panel Informationon 05-24 70 {mL/min/1.73m2} >90 [employer] [facility] Work Phone: Comment on above: CALCULATIONS OF CHELLE MATED GFR ARE PERFORMED USING THE 2020 CKD-EPI STUDY REFIT EQUATION WITHOUT THE RACE VARIABLE FOR THE IDMS-TRACEABLE CREATININE METHODS.https://jasn.asnjournals.org/content/early/ ASN.4513578656 Vitamin D 25-Hydroxyon 05-24 25-hydroxyvitamin D3 [Mass/Vol] 38 ng/mL [facility] Work Phone: [phone] Comment on above: .DEFICIENCY: < 20 NG /MLINSUFFICIENCY: 20-29 NG/MLSUFFICIENCY: 30-100 NG/MLTHIS ASSAY ACCURATELY QUANTIFIES THE SUM OFVITAMIN D3, 25-HYDROXY AND VIT D2,25-HYDROXY. Cult, Urineon 05-11-2021 Bacteria identified Cx Nom (U) Abnormal [facility] Work Phone: [phone] IO UA (automated w/o microsc opy)on 05-09-2021 Protein (U) [Mass/Vol] 30 mg/dL [facility] Work Phone: [phone] IO UA (automated w/o microscopy) (+)small - 15 [facility] Work Phone: IO UA (automated w/o microscopy) Positive [facility] Work Phone: IO UA (automated w/o microscopy) Normal (0.2-1.0 mg/dl) [facility] Work Phone: IO UA (automated w/o microscopy) 6.0 1 [facility] Work Phone: IO UA (automated w/o microscopy) 1.020 1 [facility] Work Phone: IO UA (automated w/o microscopy) Negative [facility] Work Phone: IO UA (automated w/o microscopy) Clear [facility] Work Phone: IO UA (automated w/o microscopy) Yellow [facility] Work Phone: Mamm - Screening Mammogram w / Tomosynthesison 03-13-2021 MG Breast Screening Normal [facility] Work Phone: No Panel Informationon 12-09 Please click on the link to view the study images Normal [facility] Work Phone: Falls Risk Screeningon 12-08 Fall risk assessment a) No falls within the last year [facility] Work Phone: Tobacco use status CPHS b) No M -[facility] Work Phone: Coding Summary.on 08-26-2020 Coding Summary. CD:[id number] G h0bWw+PGhlYWQ+MH8XQWC cW28skOAenX2TG1xMJR4A QTTMPPYEPD4GLJ3ddON7B OoiP2OpxrHb RuddfCAjHZ34GOc7VUC6u XhzWJnpnV9cmDTxH0y3Qf RdEI84tF39GSstDTUqVtP 3LjZpbjsgbWFy J1hpCdChbGKtVri+PHRhY mxlIHdpZHRoPScxMDAlJy JhdXcuCZ8wGn8iKWDjQEJ vbGxhcHNlOiBj u7lcJVAvWRtzUR5zzPoaV 8MtmGJ1GJQct2i9Vf72cC I+TLEbUMM9oTrdAOgyr47 1MaBok9rlRCB9 iGDtYTlhHUK0S83gd0L1N WHyZQIkOKB5gLF0oY2sqP pfvkdaW8MspIEiJtK5JVR 7zAFftE6uhCbj whnwtJ6rWvg+M19LLV3AE QEKET5SPcl5J8ZyBdzvuA I+LH03QVRwLY38vEGjzTB db6hcmKu4OdFp BQZaRAM5mWcuDOfwl4CjJ HEjE30toAOse0E9XRJlgP nqlPOpPvUidWB8aY4uBLz gavymx8tmlaow Osxku2nuio97dR17N49dT DkiEHUvFDS0PWMlPOLqcM qfgj5sfN2uQb8+DDeqr1j hy6spvJn6PxBt MAYaqtUnlVmaLXP7w3TzS f95A8CczGwwk1ZkCef7iv 85cGZgt2R7mST7UXhoYQP ygS0rHYrmWuF2 HORzRuMkhJ24jFVbHRxwA s4yzUsznShvDG7yOCVyvg zqBSAytK7iZBRseZCsmMh tGY4iPEIomzlx g723KuMmDUP5SSAikMHcD 7ZdxB9zNrLlKATtULCeC0 ZopVSvJUttN581QKiuCgG 5WAKpcfPjQ4Kj WEQodIbcTwN7d2B0Ec6Ix 6FabjwgASK3KLsmVZQ2Mn O2MiAmPyW0X4MbGuo0SKI sbGilRM6dL9Rf PBCafgejausogSN2OOFdO UJnhJ70dNVqHXifQe9se7 Q3f249RPAwLMQcgT99Kl8 udDogMTBwdCBU aW2uzsjae6xslqcwDnYbL PNgDZq8HMx3RITmmNbaUf VvCOZ2YlA3KQZ4kCBybQ2 zjTlxiwtrlW5w Oyc+W29jqQ0iMRH8IHL0r bbmZKQmogQvEP73IY13L3 RyPjwvdGFibGU+PGRpdiB caYboGW4jKdOu i8rtn7SlNAbgS2JpSEAyR TdeVjq9SDCnOLY5zEP6hD 5qYGFvDPjvq1V2gFR1B6T kcgNdec7ph4ps XXEvTNkrW62kuTUlu7P9R KPtmYW9CIDasYocOfTsoG 93Oyc+XAEtmUxzc5YoHyq qt3bbw7nhkXz5 LoMbXSAqbyWydNfgVAB2k 1PeXe17E48gMBqaTLVkPE JfFZNwAEFpcVqcvh6xtH2 wIi8+PGNvbCB3 oJP6eB5uAHTtJdH4PPahU 531LaJaoVWfJjkkh2ith3 xtdBk0UpOgADJpkpJltHx pFMR1a7PoPh99 Q92bBShpNCWhGQNcOSYeF WDmjXnpfz9bfN5nVc3+PC 0jt5xtfd02wP16qRX+PHR lTHL5uVviCCgr WXMmhK1bTSgyUfG2RODjV vXvwG61tQUuJObjFq9zcE snlNjlTT9rNNMlqjjaz19 1CzGdl8pfMQVt aMGhZXgjEKE6H22jn4P7C KUsZLZwIHE2sLS5hF9ntY lnbjogbGVmdDsgdmVydGl cKJysOXabG209 IHRvcDsnPlBhdGllbnQgT sMfCEc5C8VaTab8BUVlvK zmLX6itMIbGWijJl0yxKu qnJqlWY7hNDJu xhxvr738XvLjt6yyXWEtx LDcPNchGZI4Q25wb9Z6KD BrUGOfFHR1hJW9vS0hpZu nbjogbGVmdDsg fbPntSzkKHpaRIedS224T HRvcDsnPkJpcnRoIERhdG R2MF62RR26pSGkv7K6sUN 0R1EdHIKmjpkw eppxkLK2SHJfFSKhuT33W b7kdOfqRi4bDPOaJZJ3IS AxxBHxQ8HijT1pVmYcTVB lAOKhG9FrsJEq PPgxK353HYbjFrZ8CPTev lCaL8PxFGWklUdbOkW8q7 B1Pw0FZ5F6ND15PE10sDV da5K7wHD0Y1Oq PAPdjbevndaavNX0WYLiB NGblU93Vr2anEvxCg8oFA RrHLR5TURvsSDsO2ShgH7 yOiAjMDAwMDAw B3YkoUWxVMkyE916QNkjC yJ3PEMtmiQcY6AxVXQuwX cgWsH9h2G7Pa8IUQh5DL4 6WC44iSKbu5H1 iZI9Z6SfBBNrnicezdtav ZO2PGJdATIxiN84Zq0auO czHi6nNGCbFUP2ZTPknWE yU3YfhL4pWjNy VVWnSCGhX6LpvWQlJJhjW 444WZgbJaH7NCEytqToD6 DuALZgxRypGwK8k5Y1Bb2 TJONbGG34AAW7 xIC9NL82CK98T6OxOpcjx GFibGU+PHRhYmxlIHdpZH RoPScxMDAlJyBzdHlsZT0 vYo7zWBWtXHQm aPxkeRWmGuOeh6wcSJMyL LwuJG4blFxmF5EltRY3XP Cja5k7Fx07Q64yY8AoaOF +CPCutPD2eFI4 iC8fSbFkVmS4BHldW355M tCjsWTdEysve2eio8fxiU r6NdE5FUPdbnRhaZyzECC 2l7VgRg81W88m IHdpZHRoPSIxNSUiIHZhb Upibq0cdI6cXw7+PGNvbC C1ySO0eS6mWgPxDiL3JRl sZ964TeYhkVOu Blxxj4mtv2lpcAk4QuVfH MDeksCmtFuzLBL2i5OdXj 76A2XumScrp6RnHpl4mb2 5tWMtq5U2mDK9 F9WvGVPrmwutrPEssTyeD N2xTPBknjjeKJMlcA2kTI AbR4n4GgOoQsN5GOzzM7J lxnG7GPKxrNAw HCscBAM7O10ou0Q1VMVkV GMjVQI4rTM6jH6zrInevh ogbGVmdDsgdmVydGljYWw jTFulB146DXVv cLjjKHRwvV6pUVEicYQlk BguRZ4sMLTvwafwCaYRRV MBCAMLFQWTRQIFPJ18UE4 0rRUrx1U0nXX1 B8WyUTJlcywlmxzozFJ6G CKyKDGdtI95zBOaPZsfNf 6gd0W0w268TDYwWCAazB8 0Sg0exPmiDTMl rAZPzT0zhhokj6jmewujN wKhCOTkUQd7ZCy0ZHDukB riXiUiBRF5HmA1KIY9fWQ ywM5qdUuhehak qM8vCtd+AQFoLqUwHDt9V jwvdGQ+ZWBnLES1rYexQY ehEQTtmM9bHCXjU6b8CfJ wSeZ5PUchA8Pk NHKrcltpXa55pC8mRrWcK rM7VWeoE8OgnjH3NIGviI GeMYetGMV3F48ou2K8GXR gDVZrRHD7yEM6 eH4otLozsrcomVOgkCxij uRgsIhqVPwuYAlmQ087KL NrnVbeGgJ0NJdcINMdGS7 4PZ02xSJfo6Z0 gNR9J4AbSNPgdxyaeclwe ID9DDIlLJDdpR91yLUvFG csKe5ra8E7g819QEVrATB idA98Nf4xlPdz DTBctFESuL9edfaht2rbb hjlJyVcNFMfAEk3KKh9RC RdiFtuNvBiVAZ5EkZ3OAO 8nECwzX5yoBsc qoapgS2lEri+RmVtYWxlP M30YE58lKEee5F2zHI9W2 QsVEMsuhgjtwftcNI3TYB zPTJnaQ82dSUf WXsyLo5rg3I0b687YRZaS BHyoT72Fc8vwApyWEFnjE QMkQ3zfzckv9fltihbCrX dRZLbXSw1QOh4 ATXuzAjiHeWjOSX0MrT8G JI3aKPjkT5jvUiotejnaR 9wOyc+XARtFLHcv4Fff4S iLE44EQ58J5Ew PjwvdGFibGU+PHRhYmxlI HdpZHRoPScxMDAlJyBzdH fzQX6cSb0vMPNuICIriZh mgJZpUiZas3yv XSSzPNcgQH5xvKclA5Snx EY3BKUsc3k0Mw26H42vY6 JvdXA+BFHjuSO7fZL8aL5 uPvDyEaB6UEbh W024JqGggDJcKkeuq0rgn 7hwnNt3JzAkHAGlyuIazX kaLAF7e7MhWx26S96uSLi pZHRoPSIyMCUi UQKhhPgzwv8yhV0mMd4+P HNleZJ9eMN2bJ4iGrLxRs Q4ZMcqU002UuTzqDWqNve rT62yV6ElxSS+ MDTmLwo8PPRsvSfpFD4oc ZJyNFusFv3qKOI6CjLqZn VjVSkcW4HrJBTgyahjunk qeAL6NGPoFEOi sL72Fi4vnBrlYq4nFKMcR BQ4RXCacLPfS9ZlbO9kZs XrYUYhXORnV5UweDBvKPn dT496JAhrFuI8 EVIkqhSuL4RuLGNmdEtgS tD7i8T6Un0WzTzyqKLmZH 0sYrBqOIe1A6ZnGrq8GTL bqLdeQB5wmHBd LTzlPg9tvAfehZoqWW3xA OCzqysrt486ToPpp9doLM BlaXLuOOwiKIW0K01by1X 1RDCkLGNnJOQ1 rKT7zI6hbAejldfibGUjw DsgdmVydGljYWwtYWxpZ2 46OMHrhKefZnJCMnb5A8B xDwp5LNByhEqz AK3moECtDGzdYk6wqKyoj ZvhVU1iPUCpquutv163Dy Rkc7dpVIUkdJJbVJjoIAX 4A58sl2U0CHLp YNUyHNV3qZA9qP2puCfye jogbGVmdDsgdmVydGljYW bfHQukP363XFAmfEdtDl1 DZeq2S6TpVfs3 QUDvtMktEO9bmYSjZXcqN j5txAsuhPhkJK7mLIXaao xkf404VnBim2otWDJkeDY iDOugUAG9P69t i5J3MUJeXOTjHNH9dNX4l E9hkBdlprjhiUOvsUllqo HepLpiHCoiCSacH816FBQ vcDsnPlBheWVy OjwvdGQ+TZ32co70R7NyG wjzWju1PRPaVQX0gDM7yH 0eECLrGFouy9R6wNV9Y7L ffnLfbn8nm3ma YXBz (more content not included)... Normal [facility] BMPon 08-19-2020 Anion gap [Moles/Vol] 16 mmol/L Normal 6-16 [facility] Comment on above: Performed By: #### 1 [id number], [id number] #### [facility] [address] [place] [address] Calcium [Mass/Vol] 8.9 mg/dL Normal 8.9-11.1 [facility] Comment on above: Performed By: #### 1 [id number], [id number] #### [facility] [address] [place] [address] Chloride [Moles/Vol] 95 mmol/L Low 101-111 [facility] Comment on above: Performed By: #### 1 [id number], [id number] #### [facility] [address] [place] [address] CO2 [Moles/Vol] 25 mmol/L Normal 21-31 [facility] Comment on above: Performed By: #### 1 [id number], [id number] #### [facility] [address] [place] [address] Creatinine [Mass/Vol] 0.8 mg/dL Normal 0.5-1.3 [facility] Comment on above: Performed By: #### 1 [id number], [id number] #### [facility] [address] [place] [address] Glucose [Mass/Vol] 113 mg/dL Normal 55-199 [facility] Comment on above: Result Comment: If t his glucose result represents a fasting glucose, interpretation should refer to the following reference range: 55-99 mg/dL Performed By: #### 1 [id number], [id number] #### [facility] [address] [place] [address] Potassium [Moles/Vol] 3.6 mmol/L Normal 3.5-5.3 [facility] Comment on above: Performed By: #### 1 [id number], [id number] #### [facility] [address] [place] [address] Sodium [Moles/Vol] 132 mmol/L Low 135-145 [facility] Comment on above: Performed By: #### 1 [id number], [id number] #### [facility] [address] [place] [id number] Urea nitrogen [Mass/Vol] 11 mg/dL Normal 5-21 [facility] Comment on above: Performed By: #### 1 [id number], [id number] #### [facility] [address] [place] [address] Urea nitrogen/Creatinine [Mass ratio] 14 No Units Normal 10-20 [facility] Comment on above: Performed By: #### 1 [id number], [id number] #### [facility] [address] [place] [address] Physician Orderon 08-19-2020 Physician Order [id number]# 1.00CD:127 Normal [facility] UA With Cult Reflexon 2020 Bilirubin Ql (U) Negative Normal Negative [facility] Comment on above: Performed By: #### 1 [id number] #### [facility] [address] [place] [address] Clarity (U) CLEAR Normal Clear [facility] Comment on above: Performed By: #### 1 [id number] #### [facility] [address] [place] [address] Color (U) YELLOW Normal Yellow [facility] Comment on above: Performed By: #### 1 [id number] #### [facility] [address] [place] [address] Epithelial cells.squamous LM.HPF (Urine sed) [#/Area] 0-2 Normal 0-2 [facility] Comment on above: Performed By: #### 1 [id number] #### [facility] [address] [place] [address] Glucose Test strip (U) [Mass/Vol] Negative Normal Negative [facility] Comment on above: Performed By: #### 1 [id number] #### [facility] [address] [place] [address] Hemoglobin Ql (U) Negative Normal Negative [facility] Comment on above: Performed By: #### 1 [id number] #### [facility] [address] [place] [address] Ketones (U) [Mass/Vol] Negative Normal Negative [facility] Comment on above: Performed By: #### 1 [id number] #### [facility] [address] [place] [address] Yeguada.plasma/Yeguada. RBC (Bld) [Mass ratio] 0-3 Normal 0-3 [facility] Comment on above: Performed By: #### 1 [id number] #### [facility] [address] [place] [address] Nitrite Ql (U) Negative Normal Negative [facility] Comment on above: Performed By: #### 1 [id number] #### [facility] [address] [place] [address] pH (U) 5.5 [pH] Normal 5.0-9.0 [facility] Comment on above: Performed By: #### 1 [id number] #### [facility] [address] [place] [address] Protein (U) [Mass/Vol] Negative Normal Negative [facility] Comment on above: Performed By: #### 1 [id number] #### [facility] [address] [place] [address] Specific gravity (U) [Rel density] <=1.005 Normal 1.005-1.030 [facility] Comment on above: Performed By: #### 1 [id number] #### [facility] [address] [place] [address] Type of Urine collection method Clean Catch Normal [facility] Comment on above: Performed By: #### 1 [id number] #### [facility] [address] [place] [address] Urobilinogen Qn (U) 0.2 {Toby'U}/dL Normal 0.0-1.0 [facility] Comment on above: Performed By: #### 1 [id number] #### [facility] [address] [place] [address] WBC Auto Ql (U) Negative Normal Negative [facility] Comment on above: Performed By: #### 1 [id number] #### [facility] [address] [place] [address] WBC LM.HPF (Urine sed) [#/Area] 0-5 Normal 0-5 [facility] Comment on above: Performed By: #### 1 [id number] #### [facility] [address] [place] [address] eGFRon 08-19-2020 GFR/1.73 sq M.predicted among blacks MDRD (S/P/Bld) [Vol rate/Area] mL/min/{1.73_m2} Normal >=59 [facility] Comment on above: Order Comment: Order added by Discern Expert. Result Comment: eGFR is race adjusted. AA=. Performed By: #### 1 [id number], [id number] #### [facility] [address] [place] [address] GFR/1.73 sq M.predicted among non-blacks MDRD (S/P/Bld) [Vol rate/Area] mL/min/{1.73_m2} Normal >=59 [facility] Comment on above: Order Comment: Order added by Discern Expert. 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 Kidney failure is indicated at less than 15 mL/min/1.73m2. Performed By: #### 1 [id number], [id number] #### [facility] [address] [place] [address] XR HIP RIGHT 2-3 VIEWS (ROUT INE)on 08-16-2020 XR HIP RIGHT 2-3 VIEWS (ROUTINE) EXAMINATION: RIGHT HIP RADIOGRAPHS HISTORY: Rt. 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 CHANDRA History of cancer?:u Surgeries, chemotherapy, or radiation?:u M16.11 Primary osteoarthritis of right hip COMPARISON: CT right hip 08/11/2020 TECHNIQUE: 2 views were performed of the right hip. FINDINGS: There is a right total hip arthroplasty in place. There is no acute fracture or dislocation. There is a large surgical wound in the soft tissues laterally. IMPRESSION: Satisfactory postop appearance of a right total hip arthroplasty.. Workstation ID: [id number] Dictated by: BENJAMIN VIGIL on SatAug 17, 2020 11:22:36 AM EDT Transcribed by: BENJAMIN VIGIL on SatAug 17, 2020 11:22:36 AM EDT Finalized by: BENJAMIN VIGIL on SatAug 17, 2020 11:22:36 AM EDT [facility] Comment on above: Order Comment: Injur y/Trauma or Illness?:Illness/Other How long have you had these symptoms (acute/chronic)?:Chronic Reason for exam?:S/P Rt. CHANDRA History of cancer?:u Surgeries, chemotherapy, or radiation?:u Type of Exam?:Subsequent/Follow-up Additional signs and symptoms?:UN CT HIP RIGHT WITHOUT CONTRAS Ton 08-11-2020 CT HIP RIGHT WITHOUT CONTRAST EXAMINATION: CT HIP RIGHT WITHOUT CONTRAST HISTORY: ORDERING SYSTEM PROVIDED HISTORY: Hip DJD, replacement planning; pre operative for upcoming Rt THR scheduled for 08/16/20, TECHNOLOGIST PROVIDED HISTORY: Illness/Other Reason for exam: right hip djd. pre-op for robotic surgery Encounter Type: Initial Additional signs and symptoms: n/a ORDERING SYSTEM PROVIDED DIAGNOSIS CODES: M16.11 Primary osteoarthritis of right hip COMPARISON: 06/08/2020 radiographs. TECHNIQUE: Axial CT imaging of the pelvis and knees without contrast. Aniceto protocol. Dose reduction techniques were achieved by using automated exposure control and/or adjustment of mA and/or kV according to patient size and/or use of iterative reconstruction technique. FINDINGS: Pelvis: No acute fracture. Severe right hip joint space narrowing with superolateral migration of the femoral head, [id number] appearance, subchondral sclerosis, subchondral cystic changes and osteophytic spurring, compatible with severe osteoarthritis. Mild left hip joint space narrowing with minimal osteophytic spurring. Minimal osteophytic spurring of the sacroiliac joints. Severe discogenic disease and facet arthropathy of the visualized lower lumbar spine. Fatty atrophy of the bilateral gluteus minimus muscles. Otherwise pelvic muscle bulk is maintained. Right hip joint effusion is suggested. Limited evaluation of the pelvic viscera reveals no acute abnormality. Knees: No acute fracture. Mild lateral tilting of the patella seen bilaterally. Mild subchondral cystic changes at the left suprapatellar apex. Joint spaces otherwise appear preserved. No significant joint effusions. Muscle bulk appears normal. IMPRESSION: Severe right hip osteoarthritis. [employer] Workstation ID: [id number] Dictated by: SANTOSH CREWS on SatAug 11, 2020 11:12:57 AM EDT Transcribed by: SERAFIN DALE on SatAug 11, 2020 11:30:10 AM EDT Finalized by: SANTOSH CREWS on SatAug 11, 2020 10:09:11 PM EDT Normal [facility] Comment on above: Order Comment: Injur y/Trauma or Illness?:Illness/Other How long have you had these symptoms (acute/chronic)?:Acute Reason for exam?:right hip djd. pre-op for robotic surgery Type of Exam?:Initial Additional signs and symptoms?:n/a CT Hip Right Without Contras tOrdered By: Elma White on 08-11-2020 Severe right hip osteoarthritis. [employer] Workstation ID: [id number] [facility] [place] EXAMINATION: CT HIP RIGHT WITHOUT CONTRAST HISTORY: ORDERING SYSTEM PROVIDED HISTORY: Hip DJD, replacement planning; pre operative for upcoming Rt THR scheduled for 08/16/20, TECHNOLOGIST PROVIDED HISTORY: Illness/Other Reason for exam: right hip djd. pre-op for robotic surgery Encounter Type: Initial Additional signs and symptoms: n/a ORDERING SYSTEM PROVIDED DIAGNOSIS CODES: M16.11 Primary osteoarthritis of right hip COMPARISON: 06/08/2020 radiographs. TECHNIQUE: Axial CT imaging of the pelvis and knees without contrast. Aniceto protocol. Dose reduction techniques were achieved by using automated exposure control and/or adjustment of mA and/or kV according to patient size and/or use of iterative reconstruction technique. FINDINGS: Pelvis: No acute fracture. Severe right hip joint space narrowing with superolateral migration of the femoral head, jwxs-[id number]-tfev appearance, subchondral sclerosis, subchondral cystic changes and osteophytic spurring, compatible with severe osteoarthritis. Mild left hip joint space narrowing with minimal osteophytic spurring. Minimal osteophytic spurring of the sacroiliac joints. Severe discogenic disease and facet arthropathy of the visualized lower lumbar spine. Fatty atrophy of the bilateral gluteus minimus muscles. Otherwise pelvic muscle bulk is maintained. Right hip joint effusion is suggested. Limited evaluation of the pelvic viscera reveals no acute abnormality. Knees: No acute fracture. Mild lateral tilting of the patella seen bilaterally. Mild subchondral cystic changes at the left suprapatellar apex. Joint spaces otherwise appear preserved. No significant joint effusions. Muscle bulk appears normal. [facility] [place] Interface, Rad In Armaan Speechq - 08/11/2020 10:11 PM EDT EXAMINATION: CT HIP RIGHT WITHOUT CONTRAST HISTORY: ORDERING SYSTEM PROVIDED HISTORY: Hip DJD, replacement planning; pre operative for upcoming Rt THR scheduled for 08/16/20, TECHNOLOGIST PROVIDED HISTORY: Illness/Other Reason for exam: right hip djd. pre-op for robotic surgery Encounter Type: Initial Additional signs and symptoms: n/a ORDERING SYSTEM PROVIDED DIAGNOSIS CODES: M16.11 Primary osteoarthritis of right hip COMPARISON: 06/08/2020 radiographs. TECHNIQUE: Axial CT imaging of the pelvis and knees without contrast. Aniceto protocol. Dose reduction techniques were achieved by using automated exposure control and/or adjustment of mA and/or kV according to patient size and/or use of iterative reconstruction technique. FINDINGS: Pelvis: No acute fracture. Severe right hip joint space narrowing with superolateral migration of the femoral head, ybnx-sh-ezyl appearance, subchondral sclerosis, subchondral cystic changes and osteophytic spurring, compatible with severe osteoarthritis. Mild left hip joint space narrowing with minimal osteophytic spurring. Minimal osteophytic spurring of the sacroiliac joints. Severe discogenic disease and facet arthropathy of the visualized lower lumbar spine. Fatty atrophy of the bilateral gluteus minimus muscles. Otherwise pelvic muscle bulk is maintained. Right hip joint effusion is suggested. Limited evaluation of the pelvic viscera reveals no acute abnormality. Knees: No acute fracture. Mild lateral tilting of the patella seen bilaterally. Mild subchondral cystic changes at the left suprapatellar apex. Joint spaces otherwise appear preserved. No significant joint effusions. Muscle bulk appears normal. IMPRESSION: Severe right hip osteoarthritis. /[facility] Workstation ID: [id number] [facility] Metabolic Panelon 11-12-2019 Albumin [Mass/Vol] 4.3 g/dL 3.4 - 5.0 [facility] Work Phone: Protein [Mass/Vol] 7.1 g/dL 6.4 - 8.2 [facility] Work Phone: Otheron 11-12-2019 Arsenic (Bld) [Mass/Vol] <10.0 <=12.0 [facility] Work Phone: Comment on above: INTERPRETIVE INFORMA TION: Arsenic, BloodElevated results may be due to skin or collection-related contamination, including the use of a noncertified metal-free collection/transport tube. If contamination concerns exist due to elevated levels of blood arsenic, confirmation with a second specimen collected in a certified metal-free tube is recommended. Potentially toxic ranges for blood arsenic: Greater than or equal to 600 ug/L.Blood arsenic is for the detection of recent exposure poisoning only. Blood arsenic levels in healthy subjects vary considerably with exposure to arsenic in the diet and the environment. A 24-hour urine arsenic is useful for the detection of chronic exposure. Test developed and characteristics determined by [employer]. See Compliance Statement B: [employer]/ Lead (Bld) [Mass/Vol] ug/dL <=4.9 [facility] dmitri Anderson Work Phone: Comment on above: INTERPRETIVE INFORMA TION: Lead, Blood (Venous)Elevated results may be due to skin or collection-related contamination, including the use of a noncertified lead-free tube. If contamination concerns exist due to elevated levels of blood lead, confirmation with a second specimen collected in a certified lead-free tube is recommended.Information sources for reference intervals and interpretive comments include the CDC Response to the 2012 Advisory Committee on Childhood Lead Poisoning Prevention Report and the Recommendations for Medical Management of Adult Lead Exposure, Environmental Health Perspectives, 2007. Thresholds and time intervals for retesting, medical evaluation, and response vary by state and regulatory body. Contact your State Department of Health and/or applicable regulatory agency for specific guidance on medical management recommendations. Age Concentration CommentAll ages 5-9.9 ug/dL Adverse health effects are possible, particularly in children under 6 years of age and women. Discuss health risks associated with continued lead exposure. For children and women who are or may become , reduce lead exposure. All ages 10-19.9 ug/dL Reduced lead exposure and increased biological monitoring are recommended.All ages 20-69.9 ug/dL Removal from lead exposure and prompt medical evaluation are recommended. Consider chelation therapy when concentrations exceed 50 ug/dL and symptoms of lead toxicity are present.Less than 19 Greater than Critical. Immediate medicalyears of age 44.9 ug/dL evaluation is recommended. Consider chelation therapy when symptoms of lead toxicity are present.Greater than 19 Greater than Critical. Immediate medicalyears of age 69.9 ug/dL evaluation is recommended Consider chelation therapy when symptoms of lead toxicity are present.Test developed and characteristics determined by [employer]. See Compliance Statement B: [employer]/CS Mercury (Bld) [Mass/Vol] <2.5 <=10.0 [facility] dmitri Brightont Work Phone: Comment on above: INTERPRETIVE INFORMA TION: Mercury, BloodElevated results may be due to skin or collection-related contamination, including the use of a noncertified metal-free collection/transport tube. If contamination concerns exist due to elevated levels of blood mercury, confirmation with a second specimen collected in a certified metal-free tube is recommended.Blood mercury levels predominantly reflect recent exposure and are most useful in the diagnosis of acute poisoning as blood mercury concentrations rise sharply and fall quickly over several days after ingestion. Blood concentrations in unexposed individuals rarely exceed 20 ug/L. The provided reference interval relates to inorganic mercury concentrations. Dietary and non-occupational exposure to organic mercury forms may contribute to an elevated total mercury result. Clinical presentation after toxic exposure to organic mercury may include dysarthria, ataxia and constricted vision cao with mercury blood concentrations from 20 to 50 ug/L. Test developed and characteristics determined by [employer]. See Compliance Statement B: [employer]/CSPerformed By: [id number] [place], [place] [address]Fheifttqru Director: Anna Gay MD 0.3 g/dL 0.2 - 0.6 [facility] Work Phone: 0.7 g/dL 0.5 - 1.2 [facility] Work Phone: 1.1 g/dL 0.5 - 1.4 [facility] Work Phone: NORMAL [facility] Work Phone: Comment on above: No monoclonal protei ns detected by immunofixation. NONE DETECTED [facility] Work Phone: Path Review Monica 11-12-2019 Path Review YAIR LINARES [facility] Work Phone: Comment on above: By her/his signature above, the Pathologist listed as making the final interpretation certifies that she/he has personally reviewed this case. IO UA (automated w/o microsc opy)on 02-20-2019 Protein (U) [Mass/Vol] Negative Negative MP -[facility] [employer] Work Phone: IO UA (automated w/o microscopy) Normal (0.2-1.0 mg/dl) Normal -[facility] Work Phone: IO UA (automated w/o microscopy) (+)small - 15 Negative [facility] Work Phone: [phone] IO UA (automated w/o microscopy) 6.5 5.0-8.0 [facility] Work Phone: IO UA (automated w/o microscopy) Clear Clear -[facility] Work Phone: [phone] IO UA (automated w/o microscopy) Negative Normal [facility] Work Phone: [phone] IO UA (automated w/o microscopy) 1.020 1.000-1.030 [facility] Work Phone: [phone] IO UA (automated w/o microscopy) Yellow Colorless-Yel low [facility] Work Phone: [phone] IO UA (automated w/o microscopy) Trace Negative [facility] Work Phone: [phone] Cult, Urineon 02-05-2019 Bacteria identified Cx Nom (U) PATIENT: MELI FARIAS LOCATION: [facility]#: [id number] : 57 AGE: SEX: F ORDERED BY: LASHELL LAURA: URINE COLLECTED: 02/05/19 09:45ANTIBIOTICS AT RENATO.: RECEIVED : 02/05/19 18:34SITE: Clean Catch/Voided R E S U L T S URINE CULTURE,BACTERIAL FINAL 02/07/19 09:24 ISOLATE1 : Klebsiella pneumoniae >100,000 CFU/ML __Organism Kl pneum Antibiotic BP INTRP __Ampicillin R Amox/Clavulanate S Cefazolin S Ciprofloxacin S Nitrofurantoin S Gentamicin S Levofloxacin S Piperc/Tazobact S Trimeth/Sulfa S Tetracycline R S=SUSC EPTIBLE I=INTERMEDIATE R=RESISTANT SDD=SUSCEPTIBLE DOSE DEPENDENT NS=NONSUSCEPTIBLEX=RE PORTED IN ERROR Abnormal -[facility] Work Phone: [phone] IO UA (automated w/o microsc opy)on 02-05-2019 Protein (U) [Mass/Vol] Negative Negative -[facility] Work Phone: [phone] IO UA (automated w/o microscopy) Negative Negative -[facility] Work Phone: [phone] IO UA (automated w/o microscopy) 1.025 1.000-1.030 -[facility] Work Phone: [phone] IO UA (automated w/o microscopy) Yellow Colorless-Yel low -[facility] Work Phone: [phone] IO UA (automated w/o microscopy) 6.0 5.0-8.0 -[facility] Work Phone: [phone] IO UA (automated w/o microscopy) (+)small - 15 Negative -[facility] Work Phone: [phone] IO UA (automated w/o microscopy) Normal (0.2-1.0 mg/dl) Normal -[facility] Work Phone: IO UA (automated w/o microscopy) Positive Negative [facility] Work Phone: IO UA (automated w/o microscopy) Cloudy Clear [facility] Work Phone: MA Mamm Screen w/CAD if perf and 3D Bilon 02-14-2018 Bilirubin.direct mass conc Exam Date/Time: 02/14/2018 10:13 EST Reason for Exam: SCREENING 3D;Screening Report STUDY: Digital mammography screening with meir; 02/14/2018 10:13 am ACCESSION NUMBER(S): [id number] ORDERING CLINICIAN: Sue Wolf INDICATION: Screening. COMPARISON: Comparison is made to prior digital mammograms dated104/09/2016 and 01/26/2016 FINDINGS: CC and MLO 2D digital mammograms and digital breast tomosynthesis images were obtained of the bilateral breasts. 3-D volume images were reconstructed in 4 views at an independent workstation as 1 mm slices through the breasts in both the CC and MLO projections. There are areas of scattered fibroglandular tissue. No discrete mass or focal asymmetry is identified. No suspicious microcalcifications or foci of architectural distortion are seen. There has been no significant change. This study was interpreted with CAD. IMPRESSION: No mammographic evidence of malignancy. BI-RADS CATEGORY: Category: 1 - Negative. Recommendation: Normal Interval Follow-up, Over Age 40. Recall Interval: 12 Months. Breast Density: Scattered Fibroglandular Density. FINAL REPORT Dictated: 02/14/2018 11:54 am Oliver Lucero MD Signed (Electronic Signature): 02/14/2018 11:54 am Signed by: Oliver Lucero MD Technologist: ERLINDA Assessment: BI-RADS Category 1-Negative Recommendation: Normal interval follow-up Normal [facility] No Panel Information [facility] Vital Signs Date Time Vital Sign Value Performing Clinician Facility 12-14-2024 09:20-0400 Body mass index (BMI) [Ratio] 27.88 kg/m2 Sue Wolf MD Work Phone: [facility] 12-14-2024 09:20-0400 Body weight 80.74 kg Sue Wolf MD Work Phone: [facility] 12-14-2024 09:20-0400 Diastolic blood pressure 80 mm[Hg] Sue Wolf MD Work Phone: [facility] 12-14-2024 09:20-0400 Heart rate 72 /min Sue Wolf MD Work Phone: [facility] 12-14-2024 09:20-0400 SaO2% (BldA) [Mass fraction] 98 % Sue Wolf MD Work Phone: [facility] 12-14-2024 09:20-0400 Systolic blood pressure 136 mm[Hg] Sue Wolf MD Work Phone: [facility] 12-10-2024 10:57-0400 Body mass index (BMI) [Ratio] 27.72 kg/m2 Sue Wolf MD Work Phone: [facility] 12-10-2024 10:57-0400 Body weight 80.29 kg Sue Wolf MD Work Phone: [facility] 12-10-2024 10:57-0400 Heart rate 66 /min Sue Wolf MD Work Phone: [facility] 12-10-2024 10:57-0400 SaO2% (BldA) [Mass fraction] 97 % Sue Wolf MD Work Phone: [facility] 11-19-2024 13:44-0400 Body height 170.2 cm Robbie Wood PHYSICS TECHNICIAN-[employer]CH[employer] Work Phone: [facility] 11-19-2024 13:44-0400 Body mass index (BMI) [Ratio] 28.19 kg/m2 Robbie Wood PHYSICS TECHNICIAN-[employer] ARCHIT[employer] Work Phone: [facility] 11-19-2024 13:44-0400 Body weight 81.65 kg Robbie Wood PHYSICS TECHNICIAN-[employer] ARCHIT[employer] Work Phone: [facility] 11-19-2024 13:44-0400 Diastolic blood pressure 74 mm[Hg] Robbie Wood PHYSICS TECHNICIAN-[employer] ARCHITECT Work Phone: [facility] 11-19-2024 13:44-0400 Heart rate 71 /min Robbie Laura APRN-[employer]CH[employer] Work Phone: [facility] 11-19-2024 13:44-0400 SaO2% (BldA) [Mass fraction] 98 % Robbie Laura APRN-[employer]CH[employer] Work Phone: [facility] 11-19-2024 13:44-0400 Systolic blood pressure 122 mm[Hg] Robbie Laura APRN-[employer] ARCHIT[employer] Work Phone: [facility] 11-19-2024 11:12-0400 Body height 172.7 cm Sussy Rao CNP Work Phone: [facility] [place] 11-19-2024 11:12-0400 Body mass index (BMI) [Ratio] 28.13 kg/m2 Sussy Rao CNP Work Phone: [facility] [place] 11-19-2024 11:12-0400 Body weight 83.92 kg Sussy Rao CNP Work Phone: [facility] [place] 07-15-2024 08:12-0400 Body height 172.7 cm Sussy Rao CNP Work Phone: [facility] [place] 07-15-2024 08:12-0400 Body mass index (BMI) [Ratio] 28.13 kg/m2 Sussy Rao CNP Work Phone: [facility] [place] 07-15-2024 08:12-0400 Body weight 83.92 kg Sussy Rao CNP Work Phone: [facility] [place] Comment on above: stated 06-09-2024 10:08-0400 Body height 170.2 cm [facility] 06-09-2024 10:08-0400 Body mass index (BMI) [Ratio] 29.59 kg/m2 [facility] 06-09-2024 10:08-0400 Body weight 85.73 kg [facility] 06-02-2024 08:40-0400 Body mass index (BMI) [Ratio] 29.6 kg/m2 Sue Wolf MD Work Phone: [facility] 06-02-2024 08:40-0400 Body weight 85.73 kg Sue Wolf MD Work Phone: [facility] 06-02-2024 08:40-0400 Diastolic blood pressure 72 mm[Hg] Sue Wolf MD Work Phone: [facility] 06-02-2024 08:40-0400 Heart rate 63 /min Sue Wolf MD Work Phone: [facility] 06-02-2024 08:40-0400 SaO2% (BldA) [Mass fraction] 96 % Sue Wolf MD Work Phone: [facility] 06-02-2024 08:40-0400 Systolic blood pressure 120 mm[Hg] Sue Wolf MD Work Phone: [phone] [place] [address] 03-17-2024 08:32-0500 Body mass index (BMI) [Ratio] 29.44 kg/m2 Sue Wolf MD Work Phone: [facility] 03-17-2024 08:32-0500 Body weight 85.28 kg Sue Wolf MD Work Phone: [facility] 03-17-2024 08:32-0500 Diastolic blood pressure 72 mm[Hg] Sue Wolf MD Work Phone: [facility] 03-17-2024 08:32-0500 Heart rate 74 /min Sue Wolf MD Work Phone: [facility] 03-17-2024 08:32-0500 SaO2% (BldA) [Mass fraction] 97 % Sue Wolf MD Work Phone: [facility] 03-17-2024 08:32-0500 Systolic blood pressure 128 mm[Hg] Sue Wolf MD Work Phone: [phone] [place] [address] 12-03-2023 08:53-0400 Body height 170.2 cm Sue Wolf MD Work Phone: [facility] 12-03-2023 08:53-0400 Body mass index (BMI) [Ratio] 28.66 kg/m2 Sue Wolf MD Work Phone: [facility] 12-03-2023 08:53-0400 Body weight 83.01 kg Sue Wolf MD Work Phone: [facility] 12-03-2023 08:53-0400 Diastolic blood pressure 80 mm[Hg] Sue Wolf MD Work Phone: [facility] 12-03-2023 08:53-0400 Heart rate 68 /min Sue Wolf MD Work Phone: [facility] 12-03-2023 08:53-0400 SaO2% (BldA) [Mass fraction] 97 % Sue Wolf MD Work Phone: [facility] 12-03-2023 08:53-0400 Systolic blood pressure 140 mm[Hg] Sue Wolf MD Work Phone: [facility] 05-31-2023 08:52-0400 Body height 170.2 cm Sue Wolf MD Work Phone: [facility] 05-31-2023 08:52-0400 Body mass index (BMI) [Ratio] 29.62 kg/m2 Sue Wolf MD Work Phone: [facility] 05-31-2023 08:52-0400 Body weight 85.78 kg Sue Wolf MD Work Phone: [facility] 05-31-2023 08:52-0400 Diastolic blood pressure 72 mm[Hg] Sue Wolf MD Work Phone: [facility] 05-31-2023 08:52-0400 Heart rate 63 /min Sue Wolf MD Work Phone: [facility] 05-31-2023 08:52-0400 SaO2% (BldA) [Mass fraction] 96 % Sue Wolf MD Work Phone: [facility] 05-31-2023 08:52-0400 Systolic blood pressure 140 mm[Hg] Sue Wolf MD Work Phone: [facility] 11-28-2022 08:13-0400 Body height 170.2 cm Sue Wolf MD Work Phone: [facility] 11-28-2022 08:13-0400 Body mass index (BMI) [Ratio] 30.62 kg/m2 Sue Wolf MD Work Phone: [facility] 11-28-2022 08:13-0400 Body weight 88.68 kg Sue Wolf MD Work Phone: [facility] 11-28-2022 08:13-0400 Diastolic blood pressure 76 mm[Hg] Sue Wolf MD Work Phone: [facility] 11-28-2022 08:13-0400 Heart rate 62 /min Sue Wolf MD Work Phone: [facility] 11-28-2022 08:13-0400 SaO2% (BldA) [Mass fraction] 96 % Sue Wolf MD Work Phone: [facility] 11-28-2022 08:13-0400 Systolic blood pressure 134 mm[Hg] Sue Wolf MD Work Phone: [facility] 07-24-2022 08:34-0400 Body mass index (BMI) [Ratio] 30.54 kg/m2 Sue Wolf Work Phone: [facility] [address] Work Phone: 07-24-2022 08:34-0400 Body surface area Derived from formula 2 m2 uSe Wolf Work Phone: [facility] [address] Work Phone: 07-24-2022 08:34-0400 Body temperature 97.1 [degF] Sue Wolf Work Phone: [facility] [address] Work Phone: 07-24-2022 08:34-0400 Body weight 88.45 kg Sue Wolf Work Phone: [facility] [address] Work Phone: 06-15-2022 08:28-0400 Body height 170.2 cm Sue Wolf MD Work Phone: [facility] 06-15-2022 08:28-0400 Body mass index (BMI) [Ratio] 30.43 kg/m2 Sue Wolf MD Work Phone: [facility] 06-15-2022 08:28-0400 Body weight 88.13 kg Sue Wolf MD Work Phone: [facility] 06-15-2022 08:28-0400 Diastolic blood pressure 64 mm[Hg] Sue Wolf MD Work Phone: [facility] 06-15-2022 08:28-0400 Heart rate 65 /min Sue Wolf MD Work Phone: [facility] 06-15-2022 08:28-0400 SaO2% (BldA) [Mass fraction] 95 % Sue Wolf MD Work Phone: [facility] 06-15-2022 08:28-0400 Systolic blood pressure 126 mm[Hg] Sue Wolf MD Work Phone: [facility] 12-08-2021 08:42-0400 Body height 170.18 cm Sue Wolf Work Phone: [facility] Work Phone: 12-08-2021 08:42-0400 Body mass index (BMI) [Ratio] 29.92 kg/m2 Sue Wolf Work Phone: [facility] Work Phone: 12-08-2021 08:42-0400 Body surface area Derived from formula 1.98 m2 Sue Wolf Work Phone: [facility] Work Phone: 12-08-2021 08:42-0400 Body weight 86.64 kg Sue Wolf Work Phone: [facility] Work Phone: 12-08-2021 08:42-0400 Diastolic blood pressure 78 mm[Hg] Sue Ricecel Work Phone: [facility] Work Phone: 12-08-2021 08:42-0400 Heart rate 61 /min Sue Wolf Work Phone: [facility] Work Phone: 12-08-2021 08:42-0400 SaO2% (BldA) [Mass fraction] 98 % Sue Wolf Work Phone: [facility] Work Phone: 12-08-2021 08:42-0400 Systolic blood pressure 120 mm[Hg] Sue Wolf Work Phone: [facility] Work Phone: 06-08-2021 08:50-0400 Body height 170.18 cm Sue Wolf Work Phone: [facility] Work Phone: 06-08-2021 08:50-0400 Body mass index (BMI) [Ratio] 30.57 kg/m2 Sue Wolf Work Phone: [facility] Work Phone: 06-08-2021 08:50-0400 Body surface area Derived from formula 2 m2 Sue Wolf Work Phone: [facility] Work Phone: 06-08-2021 08:50-0400 Body weight 88.54 kg Sue Wolf Work Phone: [facility] Work Phone: 06-08-2021 08:50-0400 Diastolic blood pressure 70 mm[Hg] Sue Wolf Work Phone: -[facility] Work Phone: 06-08-2021 08:50-0400 Heart rate 76 /min Sue Wolf Work Phone: -[facility] Work Phone: 06-08-2021 08:50-0400 SaO2% (BldA) [Mass fraction] 98 % Sue Wolf Work Phone: [facility] Work Phone: 06-08-2021 08:50-0400 Systolic blood pressure 130 mm[Hg] Sue Wolf Work Phone: [facility] Work Phone: 01-02-2021 09:45-0500 Body height 170.18 cm Sue Wolf Work Phone: [facility] Work Phone: 01-02-2021 09:45-0500 Body mass index (BMI) [Ratio] 29.45 kg/m2 Sue Wolf Work Phone: [facility] Work Phone: 01-02-2021 09:45-0500 Body surface area Derived from formula 1.97 m2 Sue Wolf Work Phone: [facility] Work Phone: 01-02-2021 09:45-0500 Body temperature 98.1 [degF] Sue Rciecel Work Phone: [facility] Work Phone: 01-02-2021 09:45-0500 Body weight 85.28 kg Sue Wolf Work Phone: [facility] Work Phone: 01-02-2021 09:45-0500 Diastolic blood pressure 89 mm[Hg] Sue Ricecel Work Phone: [facility] Work Phone: 01-02-2021 09:45-0500 Heart rate 76 /min Sue Soto Stencel Work Phone: [facility] Work Phone: 01-02-2021 09:45-0500 Respiratory rate 16 /min Sue Soto Stencel Work Phone: [facility] Work Phone: 01-02-2021 09:45-0500 Systolic blood pressure 126 mm[Hg] Sue Soto Stencel Work Phone: [facility] Work Phone: 12-08-2020 08:23-0400 Body height 170.18 cm Sue Wolf Work Phone: [facility] Work Phone: 12-08-2020 08:23-0400 Body mass index (BMI) [Ratio] 29.38 kg/m2 Sue Wolf Work Phone: [facility] Work Phone: 12-08-2020 08:23-0400 Body surface area Derived from formula 1.97 m2 Sue Wolf Work Phone: [facility] Work Phone: 12-08-2020 08:23-0400 Body temperature 97.7 [degF] Sue Ricecel Work Phone: [facility] Work Phone: 12-08-2020 08:23-0400 Body weight 85.08 kg Sue Ricecel Work Phone: [facility] Work Phone: 12-08-2020 08:23-0400 Diastolic blood pressure 72 mm[Hg] Sue Wolf Work Phone: [facility] Work Phone: 12-08-2020 08:23-0400 Heart rate 72 /min Sue Wolf Work Phone: [facility] Work Phone: 12-08-2020 08:23-0400 SaO2% (BldA) [Mass fraction] 96 % Sue Wolf Work Phone: [facility] Work Phone: 12-08-2020 08:23-0400 Systolic blood pressure 136 mm[Hg] Sue Wolf Work Phone: [facility] Work Phone: 11-15-2020 11:08-0400 Body mass index (BMI) [Ratio] 29.98 kg/m2 Sue Ricecel Work Phone: [facility] Work Phone: 11-15-2020 11:08-0400 Body surface area Derived from formula 1.98 m2 Sue Wolf Work Phone: [facility] Work Phone: 11-15-2020 11:08-0400 Body temperature 98 [degF] Sue Ricecel Work Phone: [facility] Work Phone: 11-15-2020 11:08-0400 Body weight 86.82 kg Sue Ricecel Work Phone: [facility] Work Phone: 11-15-2020 11:08-0400 Diastolic blood pressure 85 mm[Hg] Sue Ricecel Work Phone: [facility] Work Phone: 11-15-2020 11:08-0400 Heart rate 67 /min Sue Soto Stencel Work Phone: [facility] Work Phone: 11-15-2020 11:08-0400 Respiratory rate 16 /min Sue Brittany Stencel Work Phone: [facility] Work Phone: 11-15-2020 11:08-0400 Systolic blood pressure 145 mm[Hg] Sue Soto Stencel Work Phone: [facility] Work Phone: 09-30-2020 13:09-0400 Body height 172.7 cm Elma White MD Work Phone: [facility] 09-30-2020 13:09-0400 Body mass index (BMI) [Ratio] 28.28 kg/m2 Elma White MD Work Phone: [facility] 09-30-2020 13:09-0400 Body weight 84.37 kg Elma White MD Work Phone: [facility] 09-21-2020 09:44-0400 Body height 170.18 cm Sue Wolf Work Phone: [facility]Gvmmtpdlwwwf[facility] [address] [place] Work Phone: 09-21-2020 09:44-0400 Body mass index (BMI) [Ratio] 29.6 kg/m2 Sue Soot Stencel Work Phone: WS-Bjkldfmqujor[facility]Exf [facility] [address] [place] Work Phone: 09-21-2020 09:44-0400 Body surface area Derived from formula 1.97 m2 Sue Soto Stencel Work Phone: JH[facility]Bfqusgnybqmm[facility]Zhu [facility] [address] [place] Work Phone: 09-21-2020 09:44-0400 Body temperature 98.1 [degF] Sue Soto Stencel Work Phone: SE-Psstcgtnlgkp-Doy [facility] [address] [place] Work Phone: 09-21-2020 09:44-0400 Body weight 85.73 kg Sue D Stencel Work Phone: LF-Ygtjhhtowhce-Goc [facility] [address] [place] Work Phone: 09-21-2020 09:44-0400 Diastolic blood pressure 74 mm[Hg] Use D Stencel Work Phone: MC-Czzecikohmte-Jiv [facility] [address] [place] Work Phone: 09-21-2020 09:44-0400 Systolic blood pressure 122 mm[Hg] Sue D Stencel Work Phone: RP-Guqedutmmqym-Arn [facility] [address] [place] Work Phone: 08-04-2020 08:50-0400 Body height 172.7 cm Elma White MD Work Phone: [facility] 08-04-2020 08:50-0400 Body mass index (BMI) [Ratio] 28.43 kg/m2 Elma White MD Work Phone: [facility] 08-04-2020 08:50-0400 Body weight 84.82 kg Elma White MD Work Phone: [facility] 08-04-2020 08:50-0400 Diastolic blood pressure 79 mm[Hg] Elma White MD Work Phone: [facility] 08-04-2020 08:50-0400 Heart rate 78 /min Elma White MD Work Phone: [facility] 08-04-2020 08:50-0400 Systolic blood pressure 127 mm[Hg] Elma White MD Work Phone: [facility] 08-03-2020 10:33-0400 Diastolic blood pressure 87 mm[Hg] Page Washington MD Work Phone: [facility] 08-03-2020 10:33-0400 Systolic blood pressure 131 mm[Hg] Page Washington MD Work Phone: [facility] 08-03-2020 09:50-0400 Heart rate 73 /min Page Washington MD Work Phone: [facility] 08-03-2020 09:50-0400 SaO2% (BldA) [Mass fraction] 96 % Page Washington MD Work Phone: [facility] 08-03-2020 09:39-0400 Body height 172.7 cm Page Washington MD Work Phone: [facility] 08-03-2020 09:39-0400 Body mass index (BMI) [Ratio] 28.43 kg/m2 Page Washington MD Work Phone: [facility] 08-03-2020 09:39-0400 Body weight 84.82 kg Page Washington MD Work Phone: [facility] 02-05-2019 11:04-0500 BMI (Body Mass Index) 28.91 kg/m2 Sue Ricesherwin [facility] Work Phone: 02-05-2019 11:04-0500 Body weight 83.72 kg Sue Ricesherwin [employer] [facility] Work Phone: 02-05-2019 11:04-0500 BP Diastolic 70 mm[Hg] Sue Wolf [facility] Work Phone: Comment on above: Location: [place]; 02-05-2019 11:04-0500 BP Systolic 122 mm[Hg] Sue Ricesherwin [employer] [facility] Work Phone: Comment on above: Location: [place]; 02-05-2019 11:04-0500 BSA (Body Surface Area) 1.95 m2 Sue Ricesherwin [employer] [facility] Work Phone: 02-05-2019 11:04-0500 Height 170.18 cm Sue Wolf [facility] Work Phone: 02-05-2019 11:04-0500 Pulse (Heart Rate) 62 /min Sue Krystalsherwin [facility] Work Phone: 02-05-2019 11:04-0500 Pulse Oximetry 98 % Sue Krystalsherwin [facility] Work Phone: Encounters Encounter Date Encounter Type Care Provider Facility Start: [facility] Start: 12-14-2024 End: 12-14-2024 Office outpatient visit 15 minutes Sue Wolf MD Work Phone: [facility] Comment on above: 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, unspecified laterality (Multi) (Primary Dx); Low vitamin D level; Systemic lupus erythematosus, unspecified SLE type, unspecified organ involvement status (Multi); Fatty liver Start: 12-14-2024 End: 12-14-2024 ambulatory [facility] Start: 12-10-2024 End: 12-10-2024 Office outpatient visit 15 minutes Sue Wolf MD Work Phone: [facility] Comment on above: Rash (Primary Dx); Systemic lupus erythematosus, unspecified SLE type, unspecified organ involvement status (Multi); Thrush Start: 12-10-2024 End: 12-10-2024 ambulatory [facility] Start: 11-19-2024 End: 11-19-2024 Office outpatient visit 15 minutes [facility] [employer] Work Phone: [facility] Comment on above: Urinary frequency Start: 11-19-2024 End: 11-19-2024 ambulatory [facility] Start: 11-19-2024 End: 11-19-2024 Patient encounter procedure Sussy Rao CNP Work Phone: [facility] Comment on above: Primary osteoarthrit is of left knee (Primary Dx) Start: 11-19-2024 End: 11-19-2024 ambulatory SUSSY GÓMEZCOCK [facility] Amb[facility] Start: 11-11-2024 End: 11-11-[address] Sue Wolf MD Work Phone: -[facility] Start: 11-11-2024 End: 11-11-[address] Sylvie Orosco MD -Laboratory [place] Work Phone: Start: 11-11-2024 End: 11-11-2024 ambulatory Sylvie Orosco Facility:[facility] Start: 08-11-2024 End: 08-11-[address] Sue Wolf MD Work Phone: -[facility] [place] Start: 08-11-2024 End: 08-11-[address] Sylvie Orosco MD -Laboratory [place] Work Phone: Start: 08-11-2024 End: 08-11-2024 ambulatory Sue Wolf Facility:[facility] Start: 07-15-2024 End: 07-15-2024 Office outpatient new 45 minutes Sussy Rao [facility] Work Phone: [facility] Comment on above: Primary osteoarthrit is of left knee (Primary Dx) Start: 07-15-2024 End: 07-19-2024 ambulatory SUSSY RAO [facility] Amb[facility] Start: 06-09-2024 End: 06-09-2024 Subsequent hospital visit by physician Syed Bendero [facility] Comment on above: Encounter for screen ing breast examination; Encounter for screening mammogram for malignant neoplasm of breast Start: 06-09-2024 End: 06-09-2024 ambulatory SUE WOLF [facility] Start: 06-02-2024 End: 06-02-2024 Subsequent hospital visit by physician Syed Ultrasound [facility] Comment on above: Elevated liver enzym es Start: 06-02-2024 End: 06-02-2024 [facility] Start: 06-02-2024 End: 06-02-2024 Assay of hemosiderin, quant Sue Wolf MD Work Phone: [facility] Work Phone: Start: 06-02-2024 End: 06-02-2024 Patient encounter procedure Sue Wolf MD Work Phone: [facility] Comment on above: Routine general medi leann examination at health care facility (Primary Dx); Systemic lupus erythematosus, unspecified SLE type, unspecified organ involvement status (Multi); Metatarsalgia of right foot; 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 Sue Wolf MD Work Phone: [facility] Work Phone: Start: 05-13-2024 End: 05-13-[address] Sylvie Orosco MD -Laboratory, [place] Work Phone: Start: 05-13-2024 End: 05-13-2024 [facility] Start: 04-27-2024 End: 04-27-[address] Sue Wolf MD Work Phone: [facility] Work Phone: Start: 04-27-2024 End: 04-27-[address] Sylvie Orosco MD -Laboratory, [place] Work Phone: Start: 04-27-2024 End: 04-27-2024 ambulatory Sylvie Orosco Facility:[facility] Start: 03-25-2024 End: 03-25-2024 ambulatory SUE WOLF Facility:[facility] Start: 03-25-2024 End: 03-25-2024 Patient encounter procedure Burak Medina OD Work Phone: Ophthalmology Comment on above: Long-term use of Min quenil (Primary Dx); Combined form of senile cataract of both eyes; Posterior vitreous detachment of both eyes; Dry eyes, bilateral; Dermatochalasis of both upper eyelids Start: 03-17-2024 End: 03-17-2024 Office outpatient visit 25 minutes Sue Wolf MD Work Phone: [facility] Comment on above: 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, unspecified laterality (Multi) (Primary Dx); Primary hypertension Start: 03-17-2024 End: 03-17-2024 [facility]ulatory [facility] Start: 12-03-2023 End: 12-03-2023 Office outpatient visit 25 minutes Sue Wolf MD Work Phone: [facility] Comment on above: Systemic lupus eryth ematosus, unspecified SLE type, unspecified organ involvement status (Multi) (Primary Dx); Lupus; Metatarsalgia of right foot; 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 Comment on above: Encounter for subseq uent annual wellness visit (AWV) in Medicare patient (Primary Dx); Lupus (Multi) Start: 05-24-2023 End: 05-25-2023 ambulatory SUE WOLF [facility] Start: 12-05-2022 End: 12-05-2022 Subsequent hospital visit by physician Syed [address] Comment on above: Screening for cardio vascular condition Start: 12-04-2022 End: 12-04-2022 Patient encounter procedure Emerson Rossi OD Work Phone: Ophthalmology Comment on above: Long-term use of Min quenil (Primary Dx); Dry eyes, bilateral; Combined form of senile cataract of both eyes; Posterior vitreous detachment of both eyes; Floaters, bilateral; Chorioretinal scar of left eye; Dermatochalasis of both upper eyelids Start: 11-28-2022 End: 11-28-2022 Office outpatient visit 25 minutes Sue Wolf MD Work Phone: [facility] Comment on above: Mixed hyperlipidemia (Primary Dx); Trigger ring finger of right hand; Metatarsalgia of right foot; Lupus (CMS/HCC); Screening for cardiovascular condition Start: 07-25-2022 Chart Update Sue courtney Work Phone: [facility] Work Phone: Start: 07-24-2022 Office outpatient ne w 45 minutes Sue Wolf Work Phone: [facility] Work Phone: Start: 07-24-2022 ambulatory Juan Leb Facility:[id number] Start: 06-15-2022 ambulatory Juan Leb Facility:[id number] Start: 06-15-2022 End: 06-15-2022 Assay of hemosiderin, quant Sue Wolf MD Work Phone: [facility] Work Phone: Start: 06-15-2022 End: 06-15-2022 Patient encounter procedure Sue Wolf MD Work Phone: [facility] Comment on above: Routine general medi leann examination at 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 Sue Aleman Facility:[id number] Start: 12-08-2021 Office outpatient vi sit 25 minutes Sue Wolf Work Phone: [facility] Work Phone: Start: 12-08-[address] 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, unspecified laterality (HCC); Systemic lupus erythematosus, unspecified SLE type, unspecified organ involvement status (HCC); Essential hypertension Start: 08-10-2021 Khalif daniels LPN [facility] Comment on above: Status post right hi p replacement (Primary Dx) Start: 06-15-2021 AUDIT Sue Soto Sten sherwin Work Phone: [facility] Work Phone: Start: 06-08-2021 Chart Update Sue Soto Sten sherwin Work Phone: [facility] Work Phone: Start: 06-08-2021 Office outpatient vi sit 25 minutes Sue Ricecel Work Phone: [facility] Work Phone: Start: 05-24-2021 Chart Update Sue Soto Sten sherwin Work Phone: [facility] Work Phone: Start: 05-15-2021 AUDIT Sue Soto Sten sherwin Work Phone: [facility] Work Phone: Start: 05-11-2021 AUDIT Sue Soto Sten sherwin Work Phone: [facility] Work Phone: Start: 05-10-2021 AUDIT Sue Soto Sten sherwin Work Phone: [facility] Work Phone: Start: 05-09-2021 AUDIT Sue Soto Sten sherwin Work Phone: [facility] Work Phone: Start: 05-09-2021 Patient encounter procedure Sue Ricecel Work Phone: [facility] Work Phone: Start: 05-01-2021 AUDIT Sue Soto Sten sherwin Work Phone: [facility] Work Phone: Start: 03-14-2021 Chart Update Sue Rice sherwin Work Phone: [facility] Work Phone: Start: 01-02-2021 Patient encounter procedure Sue Ricecel Work Phone: [facility] Work Phone: [facility], Status: Pen, Time: 8:45 AM Sue Ricecel Work Phone: [facility] Work Phone: Start: 12-08-2020 Office outpatient vi sit 25 minutes Sue Ricecel Work Phone: [facility] Work Phone: Start: 11-15-2020 Patient encounter procedure Sue Ricecel Work Phone: [facility] Work Phone: Start: 09-30-2020 End: 09-30-2020 Postop follow up visit related to original px Elma White MD Work Phone: [facility] Comment on above: Status post right hi p replacement (Primary Dx) Start: 09-26-2020 End: 09-26-2020 Khalif Cardozo LPN [facility] Comment on above: Status post right hi p replacement (Primary Dx) Start: 09-21-2020 Office outpatient vi sit 15 minutes Sue Soto Stencel Work Phone: [facility] [address] [place] Work Phone: Start: 09-01-2020 End: 09-01-2020 Postop follow up visit related to original px Elma White MD Work Phone: [facility] Comment on above: Status post right hi p replacement (Primary Dx) Start: 08-18-2020 End: 08-18-2020 Documentation procedure Elena Cardozo LPN [facility] Start: 08-16-2020 End: 08-16-2020 ambulatory Shelby Langley RN [facility] Start: 08-16-2020 End: 08-16-2020 Documentation procedure Shelby Langley RN [facility] Start: 08-11-2020 End: 08-12-2020 ambulatory ELMA WHITE [facility] Start: 08-11-2020 End: 08-11-2020 Subsequent hospital visit by physician Elma White MD Work Phone: [facility] CT Scan Comment on above: Arrived Start: 08-04-2020 End: 08-04-2020 Orders Only Elma White MD Work Phone: [facility] Comment on above: Primary osteoarthrit is of right hip (Primary Dx) Start: 08-04-2020 End: 08-04-2020 Office outpatient visit 15 minutes Elma White MD Work Phone: [facility] Comment on above: Primary osteoarthrit is of right hip (Primary Dx) Start: 08-03-2020 End: 08-03-2020 Documentation procedure Elena Cardozo LPN [facility] Start: 08-03-2020 End: 08-03-2020 Office consultation new/estab patient 60 min Elma White MD Work Phone: [facility] Comment on above: Primary osteoarthrit is of right hip; Preop cardiovascular exam Start: 08-03-2020 End: 08-03-2020 Patient encounter status Elma White MD Work Phone: [facility] Work Phone: Start: 07-29-2020 End: 07-29-2020 Orders Only Elma White MD Work Phone: [facility] Comment on above: Primary osteoarthrit is of right hip (Primary Dx) Start: 07-28-2020 End: 08-01-2020 ambulatory CIRSTOBAL RYAN [facility] Start: 07-27-2020 End: 07-31-2020 ambulatory [facility] Start: 07-27-2020 End: 07-27-2020 Office outpatient visit 10 minutes Cristobal Ryan MD Work Phone: [facility] Comment on above: Primary osteoarthrit is of both hips (Primary Dx) Start: 07-25-2020 End: 07-29-2020 ambulatory [facility] Start: 07-25-2020 End: 07-25-2020 ambulatory Sue Wolf MD Work Phone: [facility] Comment on above: Primary osteoarthrit is of both hips (Primary Dx) Start: 07-22-2020 End: 07-26-2020 [facility] Start: 07-22-2020 End: 07-22-2020 ambulatory Sue Wolf MD Work Phone: [facility] Comment on above: Primary osteoarthrit is of both hips (Primary Dx) Start: 07-20-2020 End: 07-24-2020 [facility] Start: 07-20-2020 End: 07-20-2020 ambulatory Sue Wolf MD Work Phone: [facility] Comment on above: Primary osteoarthrit is of both hips (Primary Dx) Start: 07-14-2020 End: 07-18-2020 [facility] Start: 07-14-2020 End: 07-14-2020 ambulatory Sue Wolf MD Work Phone: [facility] Comment on above: Primary osteoarthrit is of both hips (Primary Dx) Start: 07-11-2020 End: 07-15-2020 ambulatory [facility] Start: 07-11-2020 End: 07-11-2020 ambulatory Sue Wolf MD Work Phone: [facility] Comment on above: Primary osteoarthrit is of both hips (Primary Dx) Start: 07-05-2020 End: 07-09-2020 ambulatory CRISTOBAL RYAN [facility] Start: 06-27-2020 End: 06-27-2020 Orders Only Kat Galvan LPN [facility] Comment on above: Primary osteoarthrit is of both hips (Primary Dx) Primary osteoarthrit is of right hip (Primary Dx); Primary osteoarthritis of both hips; Hypertension, unspecified type Start: 06-27-2020 End: 06-27-2020 Office outpatient visit 15 minutes Cristobal Ryan MD Work Phone: [facility] Comment on above: Primary osteoarthrit is of both hips (Primary Dx) Start: 06-08-2020 End: 06-08-2020 Office outpatient new 30 minutes Cristobal Ryan MD Work Phone: [facility] Comment on above: Primary osteoarthrit is of both hips (Primary Dx) Start: 12-03-2019 Patient encounter procedure Mariela Fuentes [facility] [facility] Work Phone: Start: 12-01-2019 Patient encounter procedure Mariela Fuentes Q[facility] 200 Work Phone: Start: 11-27-2019 Patient encounter procedure Dannielle [facility] Work Phone: Start: 11-24-2019 Patient encounter procedure [facility] Work Phone: Start: 11-20-2019 Patient encounter procedure [facility]ielle [facility] Work Phone: Start: 11-18-2019 Patient encounter procedure Dannielle [facility] Work Phone: Start: 11-11-2019 Patient encounter procedure Mariela Fuentes [facility] 200 Work Phone: Start: 09-08-2019 Patient encounter procedure Mariela Fuentes [facility] 200 Work Phone: Start: 06-12-2019 Patient encounter procedure Mariela Alfredo HD-Fbgielqrq-Zlmknyfgd 200 Work Phone: Start: 02-05-2019 Patient encounter procedure [facility] Work Phone: Start: 12-11-2018 Patient encounter procedure Sue [facility] Work Phone: Procedures Date Procedure Procedure Detail Performing Clinician Start: 11-19-2024 Urnls dip stick/tabl et rgnt auto w/o microscopy Robbie Laura APRN-[facility] [employer]CH[employer] Work Phone: Start: 11-19-2024 Arthrocentesis aspir &/inj major jt/bursa w/o us Sussy Rao [facility] Work Phone: Start: 07-15-2024 Arthrocentesis aspir &/inj major jt/bursa w/o us Sussy Rao [facility] [employer] Work Phone: Start: 06-09-2024 End: 06-09-2024 Screening digital breast tomosynthesis bi Sue Wolf MD Work Phone: Start: 06-02-2024 Us abdominal real ti me w/image limited Sylvie Orosco MD Work Phone: Start: 05-13-[address] Wilder Wolf MD Work Phone: Start: 05-13-2024 Urnls dip stick/tabl et reagent auto microscopy Dr. Sue Wolf MD Work Phone: Start: 04-27-[address] Wilder Wolf MD Work Phone: Start: 04-27-2024 Hepatitis C antibody measurement Dr. Sue Wolf MD Work Phone: Comment on above: Reactive: Presumptiv e evidence of antibodies to HCV. Follow CDC recommendations for supplemental testing.Non-Reactive: Antibodies to HCV were not detected; does not exclude the possibility of exposure to HCVReactive Results are presumptive evidence of antibodies to HCV. Follow CDC recommendations for supplemental testing.Order confirmation testing: HCV Quant by PCR testing - HCVPCR #[id number] Non Reactive: < 0.8 Equivocal: >/= 0.8 to < 1.0 Reactive: >/= 1.0The CDC requires that a reactive/equivocal HCV antibody result be sent out for confirmation. HCV Quant by PCR testing. Start: 04-27-2024 Urnls dip stick/tabl et reagent auto microscopy Dr. Sue Wolf MD Work Phone: Start: 04-27-2024 X-ray of chest, PA a nd lateral views Dr. Sue Wolf MD Work Phone: Start: 03-25-2024 End: 03-25-2024 Computerized ophthalmic imaging retina Burak Matazachery OD Work Phone: Start: 03-17-2024 Lipid 1996 panel - S greg or Plasma Burak Marlenezachery OD Work Phone: Start: 05-24-2023 CBC panel - Blood by Automated count SUE WOLF Start: 05-24-2023 Comprehensive metabo lic 2000 panel - Serum or Plasma SUE WOLF Start: 05-24-2023 Lipid panel SUE CALDERON Start: 05-24-2023 Lipid 1996 panel - S greg or Plasma Sue Wolf MD Work Phone: Start: 12-05-2022 Ct heart no contrast quant eval coronry calcium Sue Wolf MD Work Phone: Start: 12-04-2022 End: 12-04-2022 Computerized ophthalmic imaging retina Emerson Rossi OD Work Phone: Start: 04-17-2022 Mammography Sue Calderon MD Work Phone: Start: 11-14-2021 Camera fundoscopy Nikos Christianson MD Work Phone: Start: 11-14-2021 Computerized ophthal ines imaging retina Elie Hamilton MD Work Phone: Start: 11-14-2021 VISUAL FIELD 10-2 OU (BOTH EYES) Elie Hamilton MD Work Phone: Start: 05-24-2021 Lipid 1996 panel - S greg or Plasma Sue Wolf MD Work Phone: Start: 12-09-2020 Epidural steroid injection Sue Wolf Work Phone: Comment on above: Bilat L5 TFESI; Start: 08-11-2020 Ct lower extremity w /o contrast material Elma White MD Work Phone: Start: 07-19-2020 Colonoscopy Sue Calderon MD Work Phone: Start: 11-11-2019 EMG and Nerve Conduction Dannielle Zuniga Start: 11-11-2019 Heavy Metals Panel, Blood Dannielle Zuniga Start: 11-11-2019 Protein Electrophore sis + IF Serum Dannielle Zuniga Division of tendon of foot Essie gricel Brittany Wolf Work Phone: Comment on above: right side; Hysterectomy Sue Wolf Operation on bladder Sue Wolf Operation on mouth Sue Wolf Work Phone: Prosthetic arthropla sty of the hip Sue Wolf Work Phone: Comment on above: R hip 08-16-20; Total replacement of hip Ines marlenemehdi Wolf Work Phone: Comment on above: R hip 08-16-20; Plan of Treatment Date Care Activity Detail Author Start: 01-09-2031 RSV High Risk: (Elderly (60+) or Population) (1 - 1-dose 75+ series) RSV High Risk: (Elderly (60+) or Population) (1 - 1-dose 75+ series) [facility] Start: 01-09-2031 RSV Vaccine (1 - 1-dose 75+ series) RSV Vaccine (1 - 1-dose 75+ series) [facility] Start: 07-19-2030 Screening for malignant neoplasm of colon [facility] Start: 03-17-2029 Lipid panel [facility] Start: 05-23-2028 Lipid panel Lipid Panel [facility] Start: 03-17-2027 Diabetes Screening Diabetes Screenin g [facility] Start: 05-24-2026 Lipid 1996 panel - Serum or Plasma Lipid Screening [facility] Start: 05-24-2026 Lipid panel Lipid Panel [facility] Start: 05-23-2026 Diabetes mellitus screening Diabetes Screening [facility] Start: 06-16-2025 End: 06-16-2025 Patient encounter procedure 06/16/2025 9:20 AM EDT Office Visit [address] [address] Sue Wolf MD [address] [address] [facility] Start: 06-09-2025 Screening for malignant neoplasm of breast Mammogram [facility] Start: 06-03-2025 Medicare Annual Wellness Visit Medicare Annual Wellness Visit (AWV) [facility] Start: 06-02-2025 Medicare Wellness Visit Medicare Wellness Visit [facility] Start: 03-30-2025 End: 03-30-2025 Patient encounter procedure 03/30/2025 10:00 AM EST Office Visit [facility] [address] [place] [address] Burak Medina, OD [address] [place] [address] plaquinel 1 year Ophthalmology Comment on above: plaquinel 1 year Start: 12-14-2024 End: 12-14-2025 Fibroscan (Liver Elastography) GI Fibroscan (Liver Elastography) GI GI Routine Fatty liver Expected: 12/14/2024, Expires: 12/14/[address] [facility] Service Area Work Phone: Comment on above: Expected: 12/14/2024 , Expires: 12/14/2025 Start: 12-14-2024 End: 12-14-2025 US Liver limited US abdomen limited liver Imaging Routine Fatty liver Expected: 12/14/2024, Expires: 12/14/2025 [facility] Work Phone: Comment on above: Expected: 12/14/2024 , Expires: 12/14/2025 Start: 12-14-2024 End: 12-14-2024 Patient encounter procedure 12/14/2024 9:20 AM EDT Office Visit [address] [id number] Sue Wolf MD [address] [id number] [facility] Start: 11-19-2024 End: 11-26-2024 Bacteria identified in Urine by Culture Urine Culture Microbiology Routine Urinary frequency Expected: 11/19/2024 (Approximate), Expires: 11/26/[address] [facility] Service Area Work Phone: Comment on above: Expected: 11/19/2024 (Approximate), Expires: 11/26/2024 Start: 10-19-2024 COVID-19 Vaccine ( season) COVID-19 Vaccine ( season) [facility] Start: 10-19-2024 COVID-19 Vaccine ( season) COVID-19 Vaccine ( season) [facility] Start: 10-19-2024 Influenza vaccination [facility] Start: 09-18-2024 Influenza vaccination Influenza Vacc ine (#1) [facility] Start: 06-09-2024 End: 06-09-2024 Patient encounter procedure 06/09/2024 10:00 AM EDT Appointment [facility] [address] [facility] [address] [place] [address] [facility] Start: 06-02-2024 End: 08-02-2025 DBT Breast - bilateral BI mammo bilateral screening tomosynthesis Imaging Routine Encounter for screening breast examination Encounter for screening mammogram for malignant neoplasm of breast Expected: 06/02/2024, Expires: 08/02/[address] [facility] Service Area Work Phone: Comment on above: Expected: 06/02/2024 , Expires: 08/02/2025 Start: 06-02-2024 End: 06-02-2024 Patient encounter procedure 06/02/2024 8:40 AM EDT Office Visit [place] [id number] [facility] [address] [place] [phone] Sue Wolf MD [address] [place] [address] [facility] Start: 05-31-2024 Medicare Annual Wellness Visit Medicare Annual Wellness Visit (AWV) [facility] Start: 03-17-2024 End: 03-17-2025 C reactive protein [Mass/volume] in Serum or Plasma C-Reactive Protein Lab Routine 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, unspecified laterality (Multi) Expected: 03/17/2024 (Approximate), Expires: 03/17/2025 [facility] Work Phone: Comment on above: Expected: 03/17/2024 (Approximate), Expires: 03/17/2025 Start: 03-17-2024 End: 03-17-2025 CBC panel - Blood by Automated count CBC Lab Routine 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, unspecified laterality (Multi) Expected: 03/17/2024 (Approximate), Expires: 03/17/2025 [facility] Work Phone: Comment on above: Expected: 03/17/2024 (Approximate), Expires: 03/17/2025 Start: 03-17-2024 End: 03-17-2025 Comprehensive metabolic 2000 panel - Serum or Plasma Comprehensive Metabolic Panel Lab Routine 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, unspecified laterality (Multi) Expected: 03/17/2024 (Approximate), Expires: 03/17/2025 [facility] Work Phone: Comment on above: Expected: 03/17/2024 (Approximate), Expires: 03/17/2025 Start: 03-17-2024 End: 03-17-2025 Cyclic citrullinated peptide IgG Ab [Units/volume] in Serum or Plasma Citrulline Antibody, IgG Lab Routine 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, unspecified laterality (Multi) Expected: 03/17/2024 (Approximate), Expires: 03/17/2025 [facility] Work Phone: Comment on above: Expected: 03/17/2024 (Approximate), Expires: 03/17/2025 Start: 03-17-2024 End: 03-17-2025 Erythrocyte sedimentation rate Sedimentation Rate Lab Routine 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, unspecified laterality (Multi) Expected: 03/17/2024 (Approximate), Expires: 03/17/2025 [facility] Work Phone: Comment on above: Expected: 03/17/2024 (Approximate), Expires: 03/17/2025 Start: 03-17-2024 End: 03-17-2025 Lipid 1996 panel - Serum or Plasma Lipid Panel Lab Routine Primary hypertension Expected: 03/17/2024 (Approximate), Expires: 03/17/2025 [facility] Work Phone: Comment on above: Expected: 03/17/2024 (Approximate), Expires: 03/17/2025 Start: 03-17-2024 End: 03-17-2025 Nuclear Ab [Presence] in Serum by Hep2 substrate NICKO with Reflex to CHICO Lab Routine 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, unspecified laterality (Multi) Expected: 03/17/2024 (Approximate), Expires: 03/17/[address] [facility] Service Area Work Phone: Comment on above: Expected: 03/17/2024 (Approximate), Expires: 03/17/2025 Start: 03-17-2024 End: 03-17-2025 Rheumatoid factor [Units/volume] in Serum by Nephelometry Rheumatoid Factor Lab Routine 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, unspecified laterality (Multi) Expected: 03/17/2024 (Approximate), Expires: 03/17/2025 [facility] Work Phone: Comment on above: Expected: 03/17/2024 (Approximate), Expires: 03/17/2025 Start: 03-17-2024 End: 03-17-2025 Urate [Mass/volume] in Serum or Plasma Uric Acid Lab Routine 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, unspecified laterality (Multi) Expected: 03/17/2024 (Approximate), Expires: 03/17/2025 [facility] Work Phone: Comment on above: Expected: 03/17/2024 (Approximate), Expires: 03/17/2025 Start: 02-19-2024 Advance Directive Discussion Advance Directive Discussion [facility] Start: 12-03-2023 End: 12-02-2024 CBC panel - Blood by Automated count CBC Lab Routine Primary hypertension Expected: 12/03/2023 (Approximate), Expires: 12/02/[address] [facility] Service Area Work Phone: Comment on above: Expected: 12/03/2023 (Approximate), Expires: 12/02/2024 Start: 12-03-2023 End: 12-02-2024 Comprehensive metabolic 2000 panel - Serum or Plasma Comprehensive Metabolic Panel Lab Routine Primary hypertension Expected: 12/03/2023 (Approximate), Expires: 12/02/2024 [facility] Work Phone: Comment on above: Expected: 12/03/2023 (Approximate), Expires: 12/02/2024 Start: 12-03-2023 End: 12-02-2024 Lipid 1996 panel - Serum or Plasma Lipid Panel Lab Routine Primary hypertension Expected: 12/03/2023 (Approximate), Expires: 12/02/2024 [facility] Work Phone: Comment on above: Expected: 12/03/2023 (Approximate), Expires: 12/02/2024 Start: 12-03-2023 End: 12-03-2023 Patient encounter procedure 12/03/2023 8:40 AM EDT Office Visit [facility] [address] [place] [phone] Sue Wolf MD [address] [place] [address] [facility] Start: 10-20-2023 COVID-19 Vaccine () COVID-19 Vaccine () [facility] Start: 10-20-2023 COVID-19 Vaccine () COVID-19 Vaccine () [facility] Start: 10-20-2023 COVID-19 Vaccine ( season) COVID-19 Vaccine () [facility] Start: 10-20-2023 Influenza vaccination [facility] Start: 06-17-2023 Medicare Annual Wellness Visit Medicare Annual Wellness Visit (AWV) [facility] Start: 05-31-2023 End: 05-31-2023 Patient encounter procedure 05/31/2023 8:40 AM EDT Office Visit [facility] [address] [place] [address] Sue Wolf MD [address] [place] [address] [facility] Start: 04-17-2023 Screening for malignant neoplasm of breast [facility] Start: 12-05-2022 End: 12-05-2022 Patient encounter procedure 12/05/2022 2:00 PM EDT Appointment [address] [address] [facility] Start: 11-28-2022 End: 11-29-2023 CBC panel - Blood by Automated count CBC Lab Routine Metatarsalgia of right foot Lupus (CMS/HCC) Expected: 11/28/2022 (Approximate), Expires: 11/29/[address] [facility] Service Area Work Phone: Comment on above: Expected: 11/28/2022 (Approximate), Expires: 11/29/2023 Start: 11-28-2022 End: 11-29-2023 Comprehensive metabolic 2000 panel - Serum or Plasma Comprehensive Metabolic Panel Lab Routine Metatarsalgia of right foot Lupus (CMS/HCC) Expected: 11/28/2022 (Approximate), Expires: 11/29/2023 [facility] Work Phone: Comment on above: Expected: 11/28/2022 (Approximate), Expires: 11/29/2023 Start: 11-28-2022 End: 10-11-2024 CT for calcium scoring WO contrast and CTA W contrast IV Heart and coronary arteries CT cardiac scoring wo IV contrast Imaging Routine Screening for cardiovascular condition Expected: 11/28/2022, Expires: 11/29/2023 [facility] Work Phone: Comment on above: Expected: 11/28/2022 , Expires: 11/29/2023 Start: 11-28-2022 End: 11-29-2023 Lipid 1996 panel - Serum or Plasma Lipid Panel Lab Routine Lupus (CMS/HCC) Mixed hyperlipidemia Expected: 11/28/2022 (Approximate), Expires: 11/29/2023 [facility] Work Phone: Comment on above: Expected: 11/28/2022 (Approximate), Expires: 11/29/2023 Start: 11-19-2022 End: 11-19-2022 Patient encounter procedure 11/19/2022 8:00 AM EDT Office Visit [facility] [address] [place] [address] Sue Wolf MD [address] [place], [place] [id number] [facility] Start: 10-19-2022 Covid-19 Vaccine ( season) Covid-19 Vaccine ( season) [facility] Start: 10-19-2022 COVID-19 Vaccine ( season) COVID-19 Vaccine ( season) [facility] Start: 10-19-2022 Influenza vaccination Influenza Vacc ine (#1) [facility] Start: 06-15-2022 End: 06-16-2023 XR Foot - right [address] [facility] Service Area Work Phone: Comment on above: Expected: 06/15/2022 , Expires: 06/16/2023 Start: 06-15-2022 EPV, Provider: Sue Wolf, Status: Pen, Time: 8:20 AM EPV, Provider: Sue Wolf, Status: Pen, Time: 8:20 AM [facility] Work Phone: Start: 03-20-2022 Administration of herpes zoster vaccine Zoster Vaccines (2 of 2) [facility] Start: 03-20-2022 Shingrix Vaccine (2 of 2) Shingrix Vaccine (2 of 2) [facility] Start: 03-20-2022 Zoster Vaccines (2 o f 2) Zoster Vaccines (2 of 2) [facility] Start: 02-18-2022 Advance Directive Discussion Advance Directive Discussion [facility] Start: 02-18-2022 COVID-19 Vaccine (4 - Booster for Moderna series) COVID-19 Vaccine (4 - Booster for Moderna series) [facility] Start: 02-18-2022 COVID-19 Vaccine (4 - Moderna series) COVID-19 Vaccine (4 - Moderna series) [facility] Start: 02-18-2022 Depression Assessment Depression Ass essment [facility] Start: 12-20-2021 DTaP/Tdap/Td Vaccine s (2 - Td or Tdap) DTaP/Tdap/Td Vaccines (2 - Td or Tdap) [facility] Start: 12-20-2021 Tetanus vaccination Tetanus: Every 1 0yrs [facility] Start: 12-20-2021 Urine microalbumin profile DTaP,Tdap,Td Vaccine (2 - Td or Tdap) [facility] Start: 12-15-2021 Screening for osteoporosis Bone Density Scan [facility] Start: 12-08-2021 EPV, Provider: Sue Wolf, Status: Pen, Time: 8:40 AM EPV, Provider: Sue Wolf, Status: Pen, Time: 8:40 AM [facility] Work Phone: Start: 10-19-2021 Influenza vaccination [facility] Start: 07-19-2021 Screening for malignant neoplasm of colon [facility] Start: 06-08-2021 EPV, Provider: Sue Wolf, Status: Pen, Time: 8:40 AM EPV, Provider: Sue Wolf, Status: Pen, Time: 8:40 AM [facility] Work Phone: Start: 02-18-2021 ADVANCE DIRECTIVE DISCUSSION ADVANCE DIRECTIVE DISCUSSION [facility] Start: 02-18-2021 DEPRESSION ASSESSMENT DEPRESSION ASS ESSMENT [facility] Start: 01-09-2021 BONE DENSITY BONE DENSITY [facility] Start: 01-09-2021 Bone Density Screening Bone Density Screening [facility] Start: 01-09-2021 Fall risk assessment Falls Risk Asse ssment [facility] Start: 01-09-2021 Pneumococcal Vaccine : 65+ (1 - PCV) Pneumococcal Vaccine: 65+ (1 - PCV) [facility] Start: 01-09-2021 Pneumococcal Vaccine : 65+ Years (1 - PCV) Pneumococcal Vaccine: 65+ Years (1 - PCV) [facility] Start: 01-09-2021 Pneumococcal Vaccine : 65+ Years (1 of 1 - PCV) Pneumococcal Vaccine: 65+ Years (1 of 1 - PCV) [facility] Start: 01-09-2021 Pneumococcal Vaccine : Age 65+ (1 - PCV) Pneumococcal Vaccine: Age 65+ (1 - PCV) [facility] Start: 01-09-2021 Screening for osteoporosis Bone Density Screening [facility] Start: 01-02-2021 FUV, Provider: Ari Velasquez, Status: Pen, Time: 9:45 AM FUV, Provider: Ari Velasquez, Status: Pen, Time: 9:45 AM [facility] Work Phone: Start: 12-08-2020 EPV, Provider: Sue Wolf, Status: Pen, Time: 8:20 AM EPV, Provider: Sue Wolf, Status: Pen, Time: 8:20 AM [facility] [address] [place] Work Phone: Start: 10-26-2020 COVID-19 Vaccine (3 - Booster for Moderna series) COVID-19 Vaccine (3 - Booster for Moderna series) [facility] Start: 10-19-2020 Influenza vaccination [facility] Start: 09-30-2020 End: 09-30-2020 Follow-up encounter [facility] Start: 09-01-2020 End: 09-01-2020 Follow-up encounter 09/01/2020 Follow-Up Sports Medicine Elma White MD [address] [place] [address] [phone] [facility] Start: 08-23-2020 End: 08-23-2020 Admission to same day surgery center 08/23/2020 Surgery Cristobal Ryan MD [address] [place] [address] [phone] RIGHT TOTAL HIP REPLACEMENT [facility] Comment on above: RIGHT TOTAL HIP REPL ACEMENT Start: 08-23-2020 Subsequent hospital visit by physician 08/23/2020 Hospital Encounter Cristobal Ryan MD [address] [place] [address] [phone] [facility] Start: 08-16-2020 End: 08-16-2020 Admission to same day surgery center 08/16/2020 Surgery Cristobal Ryan MD [address] [place] [address] [place] [address] [phone] RIGHT TOTAL HIP REPLACEMENT [facility] Per[facility] Comment on above: RIGHT TOTAL HIP REPL ACEMENT Start: 08-16-2020 Subsequent hospital visit by physician [facility] Start: 08-16-2020 End: 08-16-2020 Admission to same day surgery center 08/16/2020 Surgery Elma White MD [address] [place] [address] [phone] Right Total Hip Replacement Robotic [facility] Per[facility] Comment on above: Right Total Hip Repl acement Robotic Start: 08-16-2020 Subsequent hospital visit by physician 08/16/2020 Hospital Encounter Elma White MD [address] [place] [address] [phone] [facility] Periop Start: 08-15-2020 End: 08-15-2020 Patient encounter procedure 08/15/2020 Surgical Consult Sports Medicine Cristobal Ryan MD [address] [place] [address] [phone] [facility] Start: 08-10-2020 End: 08-10-2020 Patient encounter procedure 08/10/2020 Surgical Consult Sports Medicine Cristobal Ryan MD [address] [place] [address] [phone] [facility] Physicians Start: 08-04-2020 End: 08-04-2020 Patient encounter procedure [facility] CT Scan Start: 07-28-2020 End: 07-28-2020 Patient encounter procedure [facility] Preadmission Testing Start: 07-27-2020 End: 07-27-2020 Patient encounter procedure 07/27/2020 Office Visit Sports Medicine Cristobal Ryan [place] [address] [address] [phone] [facility] Physicians Start: 07-27-2020 End: 07-27-2020 ambulatory 07/27/2020 Treatment Rehabilitation Sue Wolf MD [address] [place], [place] [id number] Gregor Thompson, PT [facility] Start: 07-25-2020 End: 07-25-2020 ambulatory 07/25/2020 Treatment Rehabilitation Sue Wolf MD [address] [place], [place] [phone] Moe Odom MANAGER STORY [facility] Start: 07-22-2020 End: 07-22-2020 ambulatory 07/22/2020 Treatment Rehabilitation Sue Wolf MD [address] [place] [phone] Moe Odom PTA [facility] Start: 07-20-2020 End: 07-20-2020 ambulatory 07/20/2020 Treatment Rehabilitation Sue Wolf MD [address] [place] [phone] Elizabeth Jack MANAGER STORY [facility] Start: 07-14-2020 End: 07-14-2020 ambulatory 07/14/2020 Treatment Rehabilitation Stencel, Sue Pascual MD [address] [place] [address] [phone] Keven Bacon PTA [facility] Start: 10-20-2019 Influenza vaccination Sequenti al Influenza Vaccine (#1) [facility] Start: 2016 Hepatitis B Vaccines (1 of 3 - Risk 3-dose series) Hepatitis B Vaccines (1 of 3 - Risk 3-dose series) [facility] Start: 2016 Respiratory Syncytia l Virus Immunization: Risk, 60-74 Risk, or 75+ (1 - Risk 60-74 years 1-dose series) Respiratory Syncytial Virus Immunization: Risk, 60-74 Risk, or 75+ (1 - Risk 60-74 years 1-dose series) [facility] Start: 2016 RSV High Risk: (Elderly (60+) or Population) (1 - Risk 60-74 years 1-dose series) RSV High Risk: (Elderly (60+) or Population) (1 - Risk 60-74 years 1-dose series) [facility] Start: 2016 RSV patient s and/or patients aged 60+ years (1 - 1-dose 60+ series) RSV patients and/or patients aged 60+ years (1 - 1-dose 60+ series) [facility] Start: 2016 RSV Vaccine (1 - 1-dose 60+ series) RSV Vaccine (1 - 1-dose 60+ series) [facility] Start: 03-31-2011 DIABETES SCREEN [facility]EN [facility] Start: 03-31-2011 Diabetes Screening Diabetes Screenin g [facility] Start: 05-05-2008 LIPID SCREEN LIPID SCREEN [facility] Start: 01-09-2006 Administration of herpes zoster vaccine Zoster Vaccines (1 of 2) [facility] Start: 01-09-2006 Pneumococcal vaccination Pneumococcal Vaccine (1 of 1 - PCV) [facility] Start: 01-09-2006 Pneumococcal Vaccine : 50+ (1 of 1 - PCV) Pneumococcal Vaccine: 50+ (1 of 1 - PCV) [facility] Start: 01-09-2006 Screening for malignant neoplasm of colon [facility] Start: 01-09-2001 COLOGUARD (FIT-DNA) COLOGUARD (FIT-D NA) [facility] Start: 01-09-2001 Colonoscopy COLONOSCOPY [facility] Start: 01-09-2001 COLORECTAL CANCER SCREENING COLORECTAL CANCER SCREENING [facility] Start: 01-09-[address] COLONOGRAPHY [facility] Start: 01-09-2001 FECAL OCCULT BLOOD FECAL OCCULT BLOO D [facility] Start: 01-09-2001 Screening for malignant neoplasm of colon [facility] Start: 01-09-2001 SIGMOIDOSCOPY SIGMOIDOSCOPY [facility] Start: 1996 Mammography [facility] Start: 1996 Screening for malignant neoplasm of breast Mammogram [facility] Start: 1996 [facility] Start: 01-09-1978 DTaP/Tdap/Td Vaccine s (1 - Tdap) DTaP/Tdap/Td Vaccines (1 - Tdap) [facility] Start: 01-09-1975 Hepatitis A Vaccines (1 of 2 - Risk 2-dose series) Hepatitis A Vaccines (1 of 2 - Risk 2-dose series) [facility] Start: 01-09-1975 Pneumococcal Vaccine : Age 50+ (1 of 2 - PCV) Pneumococcal Vaccine: Age 50+ (1 of 2 - PCV) [facility] Start: 01-09-1975 SHINGRIX VACCINE (1 of 2) SHINGRIX VACCINE (1 of 2) [facility] Start: 01-09-1975 Urine microalbumin profile [facility] Start: 01-09-1974 ANNUAL PCP TEAM CHRONIC DISEASE VISIT ANNUAL PCP TEAM CHRONIC DISEASE VISIT [facility] Start: 01-09-1974 Anxiety Screening Anxiety Screening [facility] Start: 01-09-1974 BP CONTROLLED (<130/80) BP CONTROLLED (<130/80) [facility] Start: 01-09-1974 Depression Screening Depression Scre ening [facility] Start: 01-09-1974 Diabetes mellitus screening Diabetes Screening [facility] Start: 01-09-1974 Hepatitis C screening Hepatitis C Sc [facility] Start: 01-09-1974 HEPATITIS C SCREENING [facility] Start: 01-09-1974 HIV SCREENING HIV SCREENING [facility] Start: 01-09-1971 HIV screening HIV Screening [facility] Start: 1968 Depression screening using PHQ-9 (Patient Health Questionnaire 9) score [facility] Start: 01-09-1967 Screening for malignant neoplasm of cervix Cervical Cancer Screening [facility] Start: 01-09-1962 PNEUMOCOCCAL: 65+ (1 - PCV) PNEUMOCOCCAL: 65+ (1 - PCV) [facility] Start: 01-09-1959 History and physical examination, annual for health maintenance Wellness Visit [facility] Start: 01-09-1957 MMR Vaccines (1 of 1 - Standard series) MMR Vaccines (1 of 1 - Standard series) [facility] Start: 1956 COVID-19 VACCINE (#1) COVID-19 VACCI NE (#1) [facility] Start: 1956 Medicare Annual Wellness Visit Medicare Annual Wellness Visit (AWV) [facility] Start: 1956 Screening for malignant neoplasm of cervix Pap Smear [facility] Start: 1956 Screening for malignant neoplasm of colon [facility] Start: 1956 Screening for osteoporosis Dexa Scan [facility] Start: 1956 Screening mammography [facility] Start: 1956 Tetanus vaccination Tetanus: Every 1 0yrs [facility] End: 06-27-2021 12 lead ECG ECG 12 Lead ECG Routine Primary osteoarthritis of right hip Hypertension, unspecified type 1 Occurrences starting 06/27/2020 until 06/27/2021 [facility] Comment on above: 1 Occurrences starti ng 06/27/2020 until 06/27/2021 End: 06-27-2021 Basic metabolic 2000 panel - Serum or Plasma Basic metabolic panel Lab Routine Primary osteoarthritis of right hip Hypertension, unspecified type 1 Occurrences starting 06/27/2020 until 06/27/2021 [facility] Comment on above: 1 Occurrences starti ng 06/27/2020 until 06/27/2021 End: 06-27-2021 Complete blood count with white cell differential, manual CBC and differential Lab Routine Primary osteoarthritis of right hip Hypertension, unspecified type 1 Occurrences starting 06/27/2020 until 06/27/2021 [facility] Comment on above: 1 Occurrences starti ng 06/27/2020 until 06/27/2021 End: 07-29-2021 CT Hip Right Without Contrast CT Hip Right Without Contrast Imaging Routine Primary osteoarthritis of right hip 1 Occurrences starting 07/29/2020 until 07/29/2021 [facility] Comment on above: 1 Occurrences starti ng 07/29/2020 until 07/29/2021 End: 06-27-2021 Incentive spirometry - Initial Instruction Incentive spirometry - Initial Instruction Respiratory Care Routine Primary osteoarthritis of right hip 1 Occurrences starting 06/27/2020 until 06/27/2021 [facility] Comment on above: 1 Occurrences starti ng 06/27/2020 until 06/27/2021 End: 06-27-2021 Methicillin resistant Staphylococcus aureus [Presence] in Unspecified specimen by Organism specific culture MRSA Culture/Screen Microbiology Routine Primary osteoarthritis of right hip 1 Occurrences starting 06/27/2020 until 06/27/2021 [facility] Comment on above: 1 Occurrences starti ng 06/27/2020 until 06/27/2021 End: 06-27-2021 Urinalysis Urinalysis Lab Routine Primary osteoarthritis of right hip Hypertension, unspecified type 1 Occurrences starting 06/27/2020 until 06/27/2021 [facility] Comment on above: 1 Occurrences starti ng 06/27/2020 until 06/27/2021 QS-Fbyrdmjxg-Tf insbur g 200 Work Phone: [facility] NEGATED: Highlighted row has been ruled out! Planned Goals not documented WF-Jfwfnexlw-Atdwpuhx g 200 Work Phone: Immunizations Immunization Date Immunization Notes Care Provider Crys teresa 01-23-2022 zoster vaccine recombinant Sue Wolf Work Phone: [facility] 300 Work Phone: 12-24-2021 Fluzone High-Dose Quadrivalent 0.7 ML Intramuscular Suspension Prefilled Syringe Sue Wolf Work Phone: [facility] 300 Work Phone: 12-24-2021 Moderna COVID-19 Biv al Booster 50 MCG/0.5ML Intramuscular Suspension Sue Wolf Work Phone: [facility] 300 Work Phone: 12-24-2021 influenza virus vaccine, unspecified formulation Sue Wolf MD Work Phone: [facility] Work Phone: 02-01-2021 Moderna COVID-19 Vaccine 100 MCG/0.5ML Intramuscular Suspension Sue Wolf Work Phone: [facility] 05-26-2020 Moderna COVID-19 Vaccine 100 MCG/0.5ML Intramuscular Suspension Sue Wolf Work Phone: [facility] Comment on above: Series: 04-28-2020 Moderna COVID-19 Vaccine 100 MCG/0.5ML Intramuscular Suspension Sue Wolf Work Phone: [facility] Comment on above: Series: 12-21-2011 tetanus toxoid, redu leyda diphtheria toxoid, and acellular pertussis vaccine, adsorbed Sue Wolf MD Work Phone: [facility] Work Phone: Payers Date Payer Category Payer Self-pay 2024 Medicare PPO [facility] [employer] PPO [id number] 2022 Medicare (Managed Care) [facility] MEDIC[facility] .[id number] 2022 Private Health Insurance [id number] 2021 Medicare [id number] 2021 Private Health Insurance [id number] 2020 Unknown [employer] BCBS OUT OF STATE [facility] [id number] 2020-Present [id number] [id number]. 7.3.893228.315 2020 Unknown [id number] 2020 Unknown 1956 Unknown [id number] 2.16.840.1.027544.3.579.2. 903 1956 Unknown [id number] 2.16.840.1.789790.3.579.2. 1956 Unknown [id number] 2.16.840.1.293952.3.579.2. 903 1956 Unknown [id number] 2.16.840.1.244457.3.579.2. 1956 Unknown [id number] 2.16.840.1.263063.3.579.2. 903 1956 Unknown [id number] 2.16.840.1.839690.3.579.2. 90 1956 Unknown [id number] 2.16.840.1.836302.3.579.2. 90 1956 Unknown [id number] 2.16.840.1.988471.3.579.2. 90 1956 Unknown [id number] 2.16.840.1.894163.3.579.2. 903 1956 Unknown [id number] 2.16.840.1.397423.3.579.2. 90 1956 Unknown [id number] 2.16.840.1.221546.3.579.2. 903 1956 Unknown [id number] 2.16.840.1.208807.3.579.2. 1068 1956 Unknown [id number] 2.16.840.1.808955.3.579.2. 1068 1956 Unknown [id number] 2.16.840.1.729970.3.579.2. 1068 1956 Unknown [id number] 2.16.840.1.276510.3.579.2. 356 1956 Unknown [id number] 2.16.840.1.970778.3.579.2. 356 1956 Unknown [id number] 2.16.840.1.328378.3.579.2. 1244 1956 Unknown [id number] 2.16.840.1.903777.3.579.2. 1242 1956 Unknown [id number] 2.16.840.1.800902.3.579.2. 1242 1956 Unknown [id number] 2.16.840.1.818964.3.579.2. 903 1956 Unknown [id number] 2.16.840.1.702822.3.579.2. 90 1956 Unknown [id number] 2.16.840.1.410910.3.579.2. 903 1956 Unknown [id number] 2.16.840.1.477332.3.579.2. 1243 1956 Unknown [id number] 2.16.840.1.293547.3.579.2. 1244 1956 Unknown [id number] 2.16.840.1.290894.3.579.2. 1243 1956 Unknown [id number] 2.16.840.1.124718.3.579.2. 1244 1956 Unknown [id number] 2.16.840.1.103574.3.579.2. 1244 Unknown [id number] 2.16.840.1.663511.3.579.2. 462 Unknown [id number] 2.16.840.1.581541.3.579.2. 462 Unknown [id number] 2.16.840.1.007065.3.579.2. 462 Unknown [id number] 2.16.840.1.046480.3.579.2. 462 Unknown [id number] 2.16.840.1.690100.3.579.2. 462 Social History Date Type Detail Facility Start: 06-08-2020 End: 11-28-2022 Tobacco smoking status NHIS Never smoker [facility] Start: 06-08-2020 End: 11-28-2022 Tobacco use and exposure Never used [facility] Start: 06-08-2020 End: 10-01-2020 Alcohol intake Ex-drinker (finding) [facility] Start: 1955 Sex Assigned At Not on file [facility] Start: 11-04-2021 End: 06-09-2024 Exposure to SARS-CoV-2 (event) Not sure [facility] Start: 08-03-2020 Alcohol Comment rarely less th an once in 6 months [facility] Start: 06-07-2020 End: 11-19-2024 Minimum alcohol consumption Minimum alcohol consumption MV-Zgvsvlizbjmz-Fnfv on [address] [place] Work Phone: Start: 06-27-2020 History SDOH Alcohol Frequency 99 [facility] Start: 11-14-2021 End: 11-19-2024 Alcohol intake Current drinker of alcohol (finding) [facility] Start: 06-15-2022 End: 12-14-2024 Alcohol intake Lifetime non-drinker (finding) [facility] Work Phone: Start: 06-15-2022 End: 11-19-2024 Tobacco use panel [facility] Work Phone: Start: 01-13-2022 National Score (1-100), lower number is lower risk Not on file [facility] Tobacco smoking status NHIS Unknown if ever smoked [facility] Work Phone: Start: 01-13-2022 End: 05-07-2024 Sex Female (finding) [facility] Start: 1955 Sex Assigned At Female [facility] Start: 06-06-2020 Gender identity Identifies as female gender (finding) [facility] Start: 06-06-2020 Sexual orientation Heterosexual (fin ding) [facility] NEGATED: Highlighted row - - [facility] Work Phone: NEGATED: Highlighted rowStart: JOANNA History of tobacco use Passive smoker [facility] Work Phone: Medical Equipment Procedure Code Equipment Code Equipment Origin al Text Equipment Identifier Dates Shell Brayan 52mm 5 hl Clusterhole Mata Psl Trident Ii - [id number] , [id number] FDA Start: 08-16-2020 Trident X3 10 De gree Poly Insert [id number], [id number] FDA Start: 08-16-2020 Head 36mm/-5 Fem V40 Biolox Delta - [id number] , [id number] FDA Start: 08-16-2020 Stem 127deg Sz6 Fem Accolade Ii - [id number] , [id number] FDA Start: 08-16-2020 Functional Status Date Assessment Result Facility 12-14-2024 Functional status 136/80 [facility] Work Phone: 12-14-2024 Vital signs 72 12/14/2024 9: 20 AM EDT Vero Crowe, [facility] 12-14-2024 [facility] Work Phone: 12-10-2024 Vital signs 66 12/10/2024 10 :57 AM EDT Vero Crowe, [facility] Work Phone: 12-10-2024 Functional status [facility] 12-10-2024 [facility] Work Phone: 11-19-2024 Functional status 122/74 [facility] Work Phone: 11-19-2024 Vital signs 71 11/19/2024 1: 44 PM EDT Tracie Duran, [facility] Work Phone: 11-19-2024 Patient Health Questionnaire 2 item (PHQ-2) [Reported] [facility] Work Phone: 11-19-2024 [facility] Work Phone: 06-02-2024 Patient Health Questionnaire 2 item (PHQ-2) [Reported] [facility] Work Phone: NEGATED: Highlighted row Functional performance Functional status health issues are not documented [facility] Work Phone: Mental Status Date Assessment Result Facility NEGATED: Highlighted row Cognitive function [Interpretation] Cognitive status health issues are not documented [facility] Work Phone: Clinical Notes 03-23-2020 to 12-14-2024 Sue Wolf MD - 12/14/2024 9:20 AM Alexus Wolf MD - 12/10/2024 10:40 AM NICK Petersen - 11/19/2024 2:00 PM EDTPatient InstructionsPatient Instructions Note Date & Type Note Facility 12-14-2024 History of Present illness Narrative Subjective Patient ID: Sonal Farias is a 69 y.o. female who presents for Follow-up (6 mo). HPI Since the last office visit there have been no interval operations, hospitalizations, important illnesses or injuries. Uti- resolving, rash in axilla improved Found to have fatty liver, LFTs nl. Recommend elastography to stratify risk Review of Systems General-no fatigue weight to within 10 pounds ENT no problems with vision swallowing Cardiac no chest pains palpitations change in exercise tolerance or capacity Pulmonary no cough shortness of breath GI no heartburn or abdominal pain Musculoskeletal no joint pains Objective BP 136/80 Pulse 72 Wt 80.7 kg (178 lb) SpO2 98% BMI 27.88 kg/m Physical Exam General: Alert, No acute distress. Appears stated age Eye: Pupils are equal, round and reactive to light, Extraocular movements are intact, Normal conjunctiva. Neck: Supple, Non-tender, No carotid bruit, No jugular venous distention, No lymphadenopathy, No thyromegaly. Respiratory: Lungs are clear to auscultation, Respirations are non-labored, Breath sounds are equal. Cardiovascular: Normal rate, Regular rhythm, No murmur. Gastrointestinal: Soft, Non-tender, No organomegaly. No solid or pulsatile mass Integumentary: Warm, Dry. No concerning lesions on exposed areas Neurologic: Alert, Oriented. Gross and fine motor intact, CN 2-12 intact Psychiatric: Cooperative, Appropriate mood & affect. 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 female who presents for Rash (Left armpit x1 mo). HPI Has toopical ringworm clotrimazole and has grown considerably Now with satellites and burning. Will use Diflucan and triamcinolone. One of the patches could perhaps be a herald patch as the others appear to be in Ivett's lines so possibility of tenia versicolor is raised Also is felt that the mouth is irritated and wonders if she has thrush again Review of Systems Objective Pulse 66 Wt 80.3 kg (177 lb) SpO2 97% BMI 27.72 kg/m Physical Exam As described above there is a 1 cm plus patch with several 3 mm satellites in the axillary area in the Ivett's lines Assessment/Plan Problem List Items Addressed This Visit ICD-10-CM Systemic lupus erythematosus (Multi) M32.9 Relevant Medications hydroxychloroquine (Plaquenil) 200 mg tablet Other Visit Diagnoses Codes Rash - Primary R21 Relevant Medications triamcinolone (Kenalog) 0.1 % cream Thrush B37.0 Relevant Medications triamcinolone (Kenalog) 0.1 % cream fluconazole (Diflucan) 200 mg tablet documented in this encounter [facility] Work Phone: 11-19-2024 History of Present illness Narrative Subjective Patient ID: Sonal Farias is a 69 y.o. female who presents for Urinary Frequency (Symptoms x 1 mo. States she has tried abx over the past month but sx return ). Sonal comes to the office, with her , to discuss ongoing urinary tract symptoms for >1MO. Sx have improved since being on antibiotics but have not completely resolved. + urinary urgency & frequency + chilling Last antibiotic: end of Oct took bactrim IO UA: Blood trace, protein trace, leuks small, NIT: negative Urinary Frequency This is a recurrent problem. The current episode started more than 1 month ago. The problem occurs intermittently. The problem has been unchanged. The quality of the pain is described as aching. The pain is mild. There has been no fever. She is Sexually active. There is No history of pyelonephritis. Associated symptoms include chills, frequency and urgency. Pertinent negatives include no discharge, flank pain, hematuria, hesitancy, nausea, possible or vomiting. She has tried antibiotics (Cranberry supplementation) for the symptoms. The treatment provided no relief. Review of Systems Constitutional: Positive for chills. Gastrointestinal: Negative for nausea and vomiting. Genitourinary: Positive for frequency and urgency. Negative for flank pain, hematuria and hesitancy. Objective BP 122/74 Pulse 71 Ht 1.702 m (5' 7) Wt 81.6 kg (180 lb) SpO2 98% BMI 28.19 kg/m Physical Exam Vitals reviewed. Constitutional: Appearance: She is obese. Cardiovascular: Rate and Rhythm: Normal rate and regular rhythm. Heart sounds: Murmur heard. Systolic murmur is present. Abdominal: General: Abdomen is flat. Bowel sounds are decreased. Palpations: Abdomen is soft. Tenderness: There is no abdominal tenderness. There is no right CVA tenderness or left CVA tenderness. Musculoskeletal: Right lower leg: No edema. Left lower leg: No edema. Skin: General: Skin is warm and dry. Capillary Refill: Capillary refill takes less than 2 seconds. Neurological: Mental Status: She is alert. Assessment/Plan Problem List Items Addressed This Visit None Visit Diagnoses Codes Urinary frequency R35.0 Relevant Orders POCT UA Automated manually resulted (Completed) Urine Culture documented in this encounter [facility] Work Phone: 11-19-2024 Instructions NICK Jacob - 11/19/2024 2:00 PM EDT We will send your urine for a culture and notify you when those results are available in the meantime please ensure you are drinking plenty of fluids and you may take cranberry supplementation to help with your symptoms. documented in this encounter [facility] Work Phone: 11-19-2024 History of Present illness Narrative Associated Order(s): LG Jt Injection/Arthrocentesis: L knee Post-Procedure Diagnose(s): Primary osteoarthritis of left knee 11/19/24 Meli Farias 1955 Chief Complaint Patient presents with Left Knee - Follow-up HISTORY of Present Illness: Meli Farias is a 69 y.o. year old female that presents today with Follow-up of the Left Knee . Meli Farias has had injections in the past. Last injection to right/left knee was 07/15/24 and they tolerated well. They have been treated w/ oral medications & injections. Patient denies new injury to the knees. The following portions of the patient's history were reviewed and updated as appropriate: allergies, current medications, past surgical history and problem list PAST MEDICAL HISTORY The patient's Medications, Allergies, Past Surgical History, Medical History, Family History and Social History were reviewed and can be found in their online medical record, and I have reviewed this information with Meli Farias at the time of their visit. They are significant for Past Medical History: Diagnosis Date Arthritis GERD (gastroesophageal reflux disease) occasional Heart murmur Hypertension Lupus Neuropathy PONV (postoperative nausea and vomiting) Sarcoid IMAGING Notes: none new today. Reviewed from last visit. IMPRESSION And PLAN: Cortisone injection today. Will follow up in 3 months if effective. Call if no improvement in 10 days. 1. Primary osteoarthritis of left knee LG Jt Injection/Arthrocentesis: L knee Performed by: Sussy Rao CNP Authorized by: Sussy Rao CNP Consent given by: Patient Time out: Immediately prior to the procedure a time out was called Physician or proceduralist has discussed critical or nonroutine steps, procedure duration and anticipated blood loss: Yes Supporting Documentation: Indications: Pain and diagnostic evaluation Procedure Details: Location: Knee Site: L knee Prep: patient was prepped and draped in usual sterile fashion Needle size: 22 G Approach: Anterolateral Medications: 40 mg triamcinolone acetonide 40 mg/mL Anesthetic used: Lidocaine 1% Anesthetic amount (mL): 2 Patient tolerance: Patient tolerated the procedure well with no immediate complications Sussy Rao CNP documented in this encounter [facility] [place] 11-19-2024 Note 11/19/24 Meli Farias 1955 Chief Complaint Patient presents with - Left Knee - Follow-up HISTORY of Present Illness: Meli Farias is a 69 y.o. year old female that presents today with Follow-up of the Left Knee . Meli Farias has had injections in the past. Last injection to right/left knee was 07/15/24 and they tolerated well. They have been treated w/ oral medications & injections. Patient denies new injury to the knees. The following portions of the patient's history were reviewed and updated as appropriate: allergies, current medications, past surgical history and problem list PAST MEDICAL HISTORY The patient's Medications, Allergies, Past Surgical History, Medical History, Family History and Social History were reviewed and can be found in their online medical record, and I have reviewed this information with Meli Farias at the time of their visit. They are significant for Past Medical History: Diagnosis Date - Arthritis - GERD (gastroesophageal reflux disease) occasional - Heart murmur - Hypertension - Lupus - Neuropathy - PONV (postoperative nausea and vomiting) - Sarcoid IMAGING Notes: none new today. Reviewed from last visit. IMPRESSION And PLAN: Cortisone injection today. Will follow up in 3 months if effective. Call if no improvement in 10 days. 1. Primary osteoarthritis of left knee LG Jt Injection/Arthrocentesis: L knee Performed by: Sussy Rao CNP Authorized by: Sussy Rao CNP Consent given by: Patient Time out: Immediately prior to the procedure a time out was called Physician or proceduralist has discussed critical or nonroutine steps, procedure duration and anticipated blood loss: Yes Supporting Documentation: Indications: Pain and diagnostic evaluation Procedure Details: Location: Knee Site: L knee Prep: patient was prepped and draped in usual sterile fashion Needle size: 22 G Approach: Anterolateral Medications: 40 mg triamcinolone acetonide 40 mg/mL Anesthetic used: Lidocaine 1% Anesthetic amount (mL): 2 Patient tolerance: Patient tolerated the procedure well with no immediate complications Sussy Rao CNP AUTHENTICATED BY SUSSY RAO, ON 11/19/2024 12:28:21 [facility] 07-15-2024 Note Meli Farias 1955 CC: 69 y.o. is a she with left knee pain. Chief Complaint Patient presents with Left Knee - Pain . HPI: Knee Pain: Patient presents to the office today with left knee pain. She does report 6-8 years ago she had the left knee lock up on her. It ended up snapping at one point then felt much better. This pain started about 6 days ago without any known injury. She had been riding in a car and went to get out and reports pain in the back of the knee as well as that locking up again. She does report some improvement at today's visit. She cannot recall anything specific that she had been doing prior to this incident. She does reports she had just been doing some cleaning but again cannot recall one specific injury. PMH: Allergies[1] Current Medications[2] Past Medical History: Diagnosis Date Arthritis GERD (gastroesophageal reflux disease) occasional Heart murmur Hypertension Lupus Neuropathy PONV (postoperative nausea and vomiting) Sarcoid Past Surgical History: Procedure Laterality Date ARTHROPLASTY HIP ROBOTIC ANICETO Right 08/16/2020 Procedure: Right Total Hip Replacement Robotic; Surgeon: Elma White MD; Location: Main OR; Service: Ortho-Robotics CT COLONOSCOPY 03/04/2022 CT COLONOSCOPY FOOT SURGERY HYSTERECTOMY (CERVIX REMOVED) MOUTH SURGERY TOTAL HIP ARTHROPLASTY Right Social History[3] The patient's past medical history, surgical history, social history, family history, medications and allergies were reviewed with the patient today and are available in the chart for further review. ROS: Review of Systems Constitutional: Negative for activity change and fatigue. HENT: Negative for congestion, hearing loss and trouble swallowing. Eyes: Negative for visual disturbance. Respiratory: Negative for chest tightness and shortness of breath. Cardiovascular: Negative for chest pain and palpitations. Gastrointestinal: Negative for abdominal pain, diarrhea, nausea and vomiting. Endocrine: Negative for polydipsia, polyphagia and polyuria. Genitourinary: Negative for decreased urine volume, difficulty urinating and hematuria. Musculoskeletal: Positive for arthralgias, joint swelling and myalgias. Skin: Negative for color change, rash and wound. Allergic/Immunologic: Negative for immunocompromised state. Neurological: Negative for dizziness, weakness, light-headedness and numbness. Hematological: Does not bruise/bleed easily. Psychiatric/Behavioral: Negative for confusion and sleep disturbance. The patient is not nervous/anxious. PE: Physical Exam Constitutional: Appearance: She is well-developed. HENT: Head: Normocephalic. Eyes: Pupils: Pupils are equal, round, and reactive to light. Cardiovascular: Rate and Rhythm: Normal rate and regular rhythm. Pulmonary: Effort: Pulmonary effort is normal. Breath sounds: Normal breath sounds. Abdominal: General: Bowel sounds are normal. Palpations: Abdomen is soft. Musculoskeletal: General: Tenderness present. No deformity or signs of injury. Normal range of motion. Cervical back: Normal range of motion and neck supple. Left knee: Effusion present. Instability Tests: Medial Erma test positive. Lateral Erma test negative. Skin: General: Skin is warm and dry. Neurological: Mental Status: She is alert and oriented to person, place, and time. ORTHO: Left Knee Exam Tenderness The patient is experiencing tenderness in the lateral joint line and LCL. Range of Motion Extension: normal Flexion: 120 Tests Erma: Medial - positive Lateral - negative Varus: negative Valgus: negative Drawer: Anterior - negative Other Erythema: absent Scars: absent Sensation: normal Pulse: present Swelling: mild Effusion: effusion present Imaging: L Knee: Tricompartmental osteoarthritis of the left knee with lateral compartment predominance. Suspected small joint effusion. Assessment/Plan: After examination and reviewing of the patient x-ray images, we discussed treatment options for the knee. I did offer her an injection which she gladly accepted. I did this without complications and she tolerated this well. If there is no improvement after 2 weeks, we can start her in a course of outpatient physical therapy. She is to continue with otc pain medications as needed. Diagnosis: Problem List Items Addressed This Visit None LG Jt Injection/Arthrocentesis: L knee Performed by: Sussy Rao CNP Authorized by: Sussy Rao CNP Consent given by: Patient Time out: Immediately prior to the procedure a time out was called Physician or proceduralist has discussed critical or nonroutine steps, procedure duration and anticipated blood loss: Yes Supporting Documentation: Indications: Pain and diagnostic evaluation Procedure Details: Location: Knee Site: L knee Prep: patient was prepped and draped in usual ster (more content not included)... [facility] 07-15-2024 History of Present illness Narrative Associated Order(s): LG Jt Injection/Arthrocentesis: L knee Post-Procedure Diagnose(s): Primary osteoarthritis of left knee Meli Fountain Dinora 1955 CC: 69 y.o. is a she with left knee pain. Chief Complaint Patient presents with Left Knee - Pain . HPI: Knee Pain: Patient presents to the office today with left knee pain. She does report 6-8 years ago she had the left knee lock up on her. It ended up snapping at one point then felt much better. This pain started about 6 days ago without any known injury. She had been riding in a car and went to get out and reports pain in the back of the knee as well as that locking up again. She does report some improvement at today's visit. She cannot recall anything specific that she had been doing prior to this incident. She does reports she had just been doing some cleaning but again cannot recall one specific injury. PMH: Allergies[1] Current Medications[2] Past Medical History: Diagnosis Date Arthritis GERD (gastroesophageal reflux disease) occasional Heart murmur Hypertension Lupus Neuropathy PONV (postoperative nausea and vomiting) Sarcoid Past Surgical History: Procedure Laterality Date ARTHROPLASTY HIP ROBOTIC ANICETO Right 08/16/2020 Procedure: Right Total Hip Replacement Robotic; Surgeon: Elma White MD; Location: [facility]; Service: Ortho-Robotics CT COLONOSCOPY 03/04/2022 CT COLONOSCOPY FOOT SURGERY HYSTERECTOMY (CERVIX REMOVED) MOUTH SURGERY TOTAL HIP ARTHROPLASTY Right Social History[3] The patient's past medical history, surgical history, social history, family history, medications and allergies were reviewed with the patient today and are available in the chart for further review. ROS: Review of Systems Constitutional: Negative for activity change and fatigue. HENT: Negative for congestion, hearing loss and trouble swallowing. Eyes: Negative for visual disturbance. Respiratory: Negative for chest tightness and shortness of breath. Cardiovascular: Negative for chest pain and palpitations. Gastrointestinal: Negative for abdominal pain, diarrhea, nausea and vomiting. Endocrine: Negative for polydipsia, polyphagia and polyuria. Genitourinary: Negative for decreased urine volume, difficulty urinating and hematuria. Musculoskeletal: Positive for arthralgias, joint swelling and myalgias. Skin: Negative for color change, rash and wound. Allergic/Immunologic: Negative for immunocompromised state. Neurological: Negative for dizziness, weakness, light-headedness and numbness. Hematological: Does not bruise/bleed easily. Psychiatric/Behavioral: Negative for confusion and sleep disturbance. The patient is not nervous/anxious. PE: Physical Exam Constitutional: Appearance: She is well-developed. HENT: Head: Normocephalic. Eyes: Pupils: Pupils are equal, round, and reactive to light. Cardiovascular: Rate and Rhythm: Normal rate and regular rhythm. Pulmonary: Effort: Pulmonary effort is normal. Breath sounds: Normal breath sounds. Abdominal: General: Bowel sounds are normal. Palpations: Abdomen is soft. Musculoskeletal: General: Tenderness present. No deformity or signs of injury. Normal range of motion. Cervical back: Normal range of motion and neck supple. Left knee: Effusion present. Instability Tests: Medial Erma test positive. Lateral Erma test negative. Skin: General: Skin is warm and dry. Neurological: Mental Status: She is alert and oriented to person, place, and time. ORTHO: Left Knee Exam Tenderness The patient is experiencing tenderness in the lateral joint line and LCL. Range of Motion Extension: normal Flexion: 120 Tests Erma: Medial - positive Lateral - negative Varus: negative Valgus: negative Drawer: Anterior - negative Other Erythema: absent Scars: absent Sensation: normal Pulse: present Swelling: mild Effusion: effusion present Imaging: L Knee: Tricompartmental osteoarthritis of the left knee with lateral compartment predominance. Suspected small joint effusion. Assessment/Plan: After examination and reviewing of the patient x-ray images, we discussed treatment options for the knee. I did offer her an injection which she gladly accepted. I did this without complications and she tolerated this well. If there is no improvement after 2 weeks, we can start her in a course of outpatient physical therapy. She is to continue with otc pain medications as needed. Diagnosis: Problem List Items Addressed This Visit None LG Jt Injection/Arthrocentesis: L knee Performed by: Sussy Rao CNP Authorized by: Sussy Rao CNP Consent given by: Patient Time out: Immediately prior to the procedure a time out was called Physician or proceduralist has discussed critical or nonroutine steps, procedure duration and anticipated blood loss: Yes Supporting Documentation: Indications: Pain and diagnostic evaluation Procedure Details: Location: Knee Site: L knee Prep: patient was prepped and draped in usual sterile fashion Needle size: 22 G Approach: Anterolateral Medications: 40 mg triamcinolone acetonide 40 mg/mL Anesthetic used: Lidocaine 1% Anesthetic amount (mL): 2 Patient tolerance: Patient tolerated the procedure well with no immediate complications Follow Up: No follow-ups on file. Sussy Rao CNP [1] No Known Allergies [2] Current Outpatient Medications: gabapentin (NEURONTIN) 300 MG capsule, 300 mg 2 (two) times a day ., Disp: , Rfl: meloxicam (MOBIC) 7.5 MG tablet, Take 7.5 mg by mouth daily ., Disp: , Rfl: OMEPRAZOLE ORAL, Take by mouth ., Disp: , Rfl: acetaminophen (TYLENOL) 500 MG tablet, Take 500 mg by mouth every 6 (six) hours as needed for pain ., Disp: , Rfl: cholecalciferol, vitamin D3, 1,000 unit tablet, Take 2,000 Units by mouth daily ., Disp: , Rfl: docusate sodium (COLACE) 100 MG capsule, Take 100 mg by mouth daily ., Disp: , Rfl: folic acid (FOLVITE) 1 MG tablet, Take 2 (two) tablets (2,000 mcg total) by mouth daily ., Disp: , Rfl: hydrOXYchloroQUINE (PLAQUENIL) 200 mg tablet, Take 200 mg by mouth daily ., Disp: , Rfl: methoTREXate (TREXALL) 2.5 MG tablet, Take 4 (four) tablets (10 mg total) by mouth once a week ., Disp: , Rfl: psyllium (METAMUCIL) 3.4 gram packet, Take 1 packet by mouth as needed 2 times a week as needed ., Disp: , Rfl: [3] Social History Socioeconomic History Marital status: Tobacco Use Smoking status: Never Smokeless tobacco: Never Vaping Use Vaping status: Never Used Substance and Sexual Activity Alcohol use: Yes Drug use: Not Currently documented in this encounter [facility] 06-02-2024 Evaluation + Plan note Associated Problem(s): Systemic lupus erythematosus (Multi) Orders: Follow Up In Primary Care [facility] Work Phone: 06-02-2024 Evaluation + Plan note Associated Problem(s): 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 [facility] Work Phone: 06-02-2024 Evaluation + Plan note Associated Problem(s): Peripheral polyneuropathy Orders: gabapentin (Neurontin) 300 mg capsule; Take 1 capsule (300 mg) by mouth 3 times a day. [facility] Work Phone: 06-02-2024 History of Present illness Narrative Subjective Reason for Visit: Meli Farias is an 69 y.o. female here for a Medicare Wellness visit. Past Medical, Surgical, and Family History reviewed and updated in chart. Reviewed all medications by prescribing practitioner or clinical pharmacist (such as prescriptions, OTCs, herbal therapies and supplements) and documented in the medical record. HPI Since the last office visit there have been no interval operations, hospitalizations, important illnesses or injuries. RA - Sees Dr. Orosco, HC increased to 400mg; waiting to start methotrexate until abdominal/liver ultrasound obtained Wearing boot for posterior tibial tendinitis Has radiculopathy from lumbar disc as well as neuropathy managed effectively with gabapentin Patient Care Team: Sue Wolf MD as PCP - [facility] rheumatology Review of Systems General-no fatigue weight to within 10 pounds ENT no problems with vision swallowing Cardiac no chest pains palpitations change in exercise tolerance or capacity Pulmonary no cough shortness of breath GI no heartburn or abdominal pain Musculoskeletal boot on right foot joint pains Objective Vitals: BP 120/72 Pulse 63 Wt 85.7 kg (189 lb) SpO2 96% BMI 29.60 kg/m Physical Exam General: Alert, No acute distress. Appears stated age Eye: Pupils are equal, round and reactive to light, Extraocular movements are intact, Normal conjunctiva. Neck: Supple, Non-tender, No carotid bruit, No jugular venous distention, No lymphadenopathy, No thyromegaly. Respiratory: Lungs are clear to auscultation, Respirations are non-labored, Breath sounds are equal. Cardiovascular: Normal rate, Regular rhythm, No murmur. Gastrointestinal: Soft, Non-tender, No organomegaly. No solid or pulsatile mass Integumentary: Warm, Dry. No concerning lesions on exposed areas Neurologic: Alert, Oriented. Gross and fine motor intact, CN 2-12 intact Psychiatric: Cooperative, Appropriate mood & affect. Assessment & Plan Systemic lupus erythematosus, unspecified SLE type, unspecified organ involvement status (Multi) Orders: Follow Up In Primary Care Metatarsalgia of right foot Orders: Follow Up In Primary Care 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, unspecified laterality (Multi) Orders: Follow Up In Primary Care Primary hypertension Orders: Follow Up In Primary Care Lumbosacral radiculopathy at L5 Orders: gabapentin (Neurontin) 300 mg capsule; Take 1 capsule (300 mg) by mouth 3 times a day. Peripheral polyneuropathy Orders: gabapentin (Neurontin) 300 mg capsule; Take 1 capsule (300 mg) by mouth 3 times a day. 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 Associated Problem(s): Peripheral polyneuropathy Orders: gabapentin (Neurontin) 300 mg capsule; Take 1 capsule (300 mg) by mouth 3 times a day. documented in this encounter [facility] Work Phone: 04-27-2024 Radiology Diagnostic study note [facility] Imaging Services [address] [place] [id number] Chest PA and Lateral MR#: [id number] Acct: [id number] Name: MELI FARIAS Rep #: [id number] 1 : 1955 F 69 From: Cihkis Leon MD PCP: Dr. Sue Wolf MD Status: RE G CLI Study:Chest PA and Lateral Date of Exam: 04/27/24 Exam# [id number] Ordering Dr: Sylvie Orosco MD EXAM: XR Chest, 2 Views CLINICAL INDICATION: TECHNIQUE: Frontal and lateral views of the chest. COMPARISON: No relevant prior studies available. FINDINGS: LUNGS AND PLEURAL SPACES: Unremarkable. No consolidation. No pneumothorax. HEART: Unremarkable. No cardiomegaly. MEDIASTINUM: Unremarkable. Normal mediastinal contour. BONES/JOINTS: Unremarkable. No acute fracture. RAD/Chest PA and Lateral IMPRESSION: No acute cardiopulmonary process. [facility] CC: Dr. Sue Wolf MD; Dr. Sylvie Orosco MD ~ Grape Crusher: Signed [facility] 03-25-2024 Note Date of Procedure 03/25/2024. Cement Sprayer Helper Information Flat Bed Knitter: RE. Reliability Right Eye Good. Left Eye Good. Interpretation Right Eye Nasal step defect. Left Eye Normal. Interval Change Right Eye Stable. Left Eye Stable. [facility] 03-25-2024 Note Date of Procedure 03/25/2024. Cement Sprayer Helper Information Flat Bed Knitter: RE. OCT Macula Interpretation Right Eye Normal without fluid. Left Eye Normal without fluid. Interval Change Right Eye Stable. Left Eye Stable. [facility] 03-25-2024 Note HNO ID: [id number] Author: BURAK MEDINA, ZOHRA Service: ? Author Type: LEAD SPRINKLER Type: Progress Notes Filed: 03/25/2024 11:11 Note Text: ASSESSMENT/PLAN: 1. Long-term use of Plaquenil - ICD9: V58.69, ICD10: Z79.899 (primary diagnosis) - VISUAL FIELD 10-2 OU (BOTH EYES) Good reliability in both eyes. OD: ? Nasal step, non repeatable defects. OS: within normal limits - OCT MACULA CIRRUS OU (BOTH EYES) Normal foveal contour in both eyes. Educate patient on findings and recommend yearly monitoring for now. 2. Combined form of senile cataract of both eyes - ICD9: 366.19, ICD10: H25.813 Educate patient on ultraviolet protection and yearly eye exams. Return to clinic sooner with changes in vision, or increase in glare with night time driving. 3. Posterior vitreous detachment of both eyes - ICD9: 379.21, ICD10: H43.813 Educate patient on signs and symptoms of retinal detachment and to return to clinic with increase in flashes/floaters, or decrease in peripheral vision. Monitor. 4. Dry eyes, bilateral - ICD9: 375.15, ICD10: H04.123 Recommend over the counter artificial tears twice a day, or more as needed for dry/ tired eyes. Good brands of tears are Systane, Refresh, Soothe, Blink, or Thereatears. Avoid drops for red eyes. Preservative free tears are best when using more than four times per day. Recommend taking breaks from computer/phone every 20-30 minutes, and to remember to blink when using electronics. 5. Dermatochalasis of both eyes: Patient reports no complications. Monitor yearly and return to clinic sooner with an increase in symptoms. Return to clinic with increase in symptoms, otherwise monitor yearly. Burak Medina, OD March 25, 2024 11:10 AM [facility] 03-25-2024 History of Present illness Narrative ASSESSMENT/PLAN: 1. Long-term use of Plaquenil - ICD9: V58.69, ICD10: Z79.899 (primary diagnosis) - VISUAL FIELD 10-2 OU (BOTH EYES) Good reliability in both eyes. OD: ? Nasal step, non repeatable defects. OS: within normal limits - OCT MACULA CIRRUS OU (BOTH EYES) Normal foveal contour in both eyes. Educate patient on findings and recommend yearly monitoring for now. 2. Combined form of senile cataract of both eyes - ICD9: 366.19, ICD10: H25.813 Educate patient on ultraviolet protection and yearly eye exams. Return to clinic sooner with changes in vision, or increase in glare with night time driving. 3. Posterior vitreous detachment of both eyes - ICD9: 379.21, ICD10: H43.813 Educate patient on signs and symptoms of retinal detachment and to return to clinic with increase in flashes/floaters, or decrease in peripheral vision. Monitor. 4. Dry eyes, bilateral - ICD9: 375.15, ICD10: H04.123 Recommend over the counter artificial tears twice a day, or more as needed for dry/ tired eyes. Good brands of tears are Systane, Refresh, Soothe, Blink, or Thereatears. Avoid drops for red eyes. Preservative free tears are best when using more than four times per day. Recommend taking breaks from computer/phone every 20-30 minutes, and to remember to blink when using electronics. 5. Dermatochalasis of both eyes: Patient reports no complications. Monitor yearly and return to clinic sooner with an increase in symptoms. Return to clinic with increase in symptoms, otherwise monitor yearly. Burak Medina OD March 25, 2024 11:10 AM documented in this encounter [facility] 03-17-2024 History of Present illness Narrative Subjective Patient ID: Sonal Farias is a 69 y.o. female who presents for neuropathy in feet. HPI Patient known with lupus and rheumatoid arthritis. Has neuropathy in feet takes Neurontin 900. Plaquenil 200 meloxicam 7.5. Over the last years noticed increasing pain in the foot especially upon wakening or with a heavy activity burden. Reviewed differential as degenerative joint disease versus progression of lupus/rheumatoid arthritis. She has not been under rheumatologic care for many years. At this point would refer to Dr. Dat herrera to determine whether this is degenerative or whether she needs to step up on her the DMA RD therapy. HTN-Takes and tolerates meds without side effects. No alcohol. no tobacco. no exercise. low salt. Reviewed recommendation for 150 minutes of exercise per week including 2 days of weight training if over age 50 Review of Systems Denies chest pains palpitations cough shortness of breath. Objective BP 128/72 Pulse 74 Wt 85.3 kg (188 lb) SpO2 97% BMI 29.44 kg/m Physical Exam Heart regular. Lungs clear. Lower extremities monofilament testing intact at 3 points on feet. Pulses are normal. Position sense is normal, [id number] normal. 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 female who presents for Follow-up (6 mo). HPI Since the last office visit there have been no interval operations, hospitalizations, important illnesses or injuries. Patient with SLE, has been stable for 30 years, continues on Plaquenil. Previous evaluation for inflammatory arthritis was evaluated at [facility] and not felt to have rheumatoid. Continues on meloxicam daily Peripheral polyneuropathy is stable continues on gabapentin 300 3 times daily Review of Systems General-no fatigue weight to within 10 pounds ENT no problems with vision swallowing Cardiac no chest pains palpitations change in exercise tolerance or capacity Pulmonary no cough shortness of breath GI no heartburn or abdominal pain Musculoskeletal no joint pains Objective BP 140/80 Pulse 68 Ht 1.702 m (5' 7) Wt 83 kg (183 lb) SpO2 97% BMI 28.66 kg/m Physical Exam General: Alert, No acute distress. Appears stated age Eye: Pupils are equal, round and reactive to light, Extraocular movements are intact, Normal conjunctiva. Neck: Supple, Non-tender, No carotid bruit, No jugular venous distention, No lymphadenopathy, No thyromegaly. Respiratory: Lungs are clear to auscultation, Respirations are non-labored, Breath sounds are equal. Cardiovascular: Normal rate, Regular rhythm, No murmur. Gastrointestinal: Soft, Non-tender, No organomegaly. No solid or pulsatile mass Integumentary: Warm, Dry. No concerning lesions on exposed areas Neurologic: Alert, Oriented. Gross and fine motor intact, CN 2-12 intact. Monofilament testing is intact to ankle Psychiatric: Cooperative, Appropriate mood & affect. 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 female who presents for Medicare Annual Wellness Visit Subsequent (Rev labs). HPI Since the last office visit there have been no interval operations, hospitalizations, important illnesses or injuries. Known lupus Ermias 1 in am and 2 hs, sleeps well. Nocturia Joint pains migrate shoulder andkles nd iknees, feet, palindromic Sees ophth annually GERD-Takes PPI prn with occ breakthrough symptoms. Reviewed dietary, caffeine, tobacco, alcohol, and NSAID avoidance. No dyspepsia, dysphagia, reflux, melena, or abdominal pain. Review of Systems General-no fatigue weight to within 10 pounds ENT no problems with vision swallowing Cardiac no chest pains palpitations change in exercise tolerance or capacity Pulmonary no cough shortness of breath GI no heartburn or abdominal pain Musculoskeletal multiple joint pains Objective BP 140/72 Pulse 63 Ht 1.702 m (5' 7) Wt 85.8 kg (189 lb 1.6 oz) SpO2 96% BMI 29.62 kg/m Physical Exam General: Alert, No acute distress. Appears stated age Eye: Pupils are equal, round and reactive to light, Extraocular movements are intact, Normal conjunctiva. Neck: Supple, Non-tender, No carotid bruit, No jugular venous distention, No lymphadenopathy, No thyromegaly. Respiratory: Lungs are clear to auscultation, Respirations are non-labored, Breath sounds are equal. Cardiovascular: Normal rate, Regular rhythm, No murmur. Gastrointestinal: Soft, Non-tender, No organomegaly. No solid or pulsatile mass Integumentary: Warm, Dry. No concerning lesions on exposed areas Neurologic: Alert, Oriented. Gross and fine motor intact, CN 2-12 intact Psychiatric: Cooperative, Appropriate mood & affect. Assessment/Plan Problem List Items Addressed This Visit ICD-10-CM Lupus (Multi) M32.9 Relevant Orders Follow Up In Primary Care Encounter for subsequent annual wellness visit (AWV) in Medicare patient - Primary Z00.00 documented in this encounter [facility] Work Phone: 12-04-2022 Instructions Emerson Rossi, OD - 12/04/2022 2:23 PM EDT ASSESSMENT/PLAN: 1. Long-term use of Plaquenil - ICD9: V58.69, ICD10: Z79.899 (primary diagnosis) Hydroxychloroquine use - Indication: Lupus - no signs of toxicity today on exam - OCT (12/04/2022): normal - Visual Field 10-2 (12/04/2022): normal - has been using plaquenil 200 mg twice daily - The recommended dosage is the lower of 5 mg/kg/day based on real body weight or 6.5 mg/kg/day based on ideal body weight as described in the most recent AAO plaquenil screening guidelines - Risk factors for toxicity include daily dose and duration of use, renal disease, tamoxifen use, history of retinal or macular disease - she is 86.1 kg which gives a maximum safe ophthalmic dose of 430.5 mg daily by real body weight. Males: IBW = 50 kg + 2.3 kg for each inch over 5 feet. Females: IBW = 45.5 kg + 2.3 kg for each inch over 5 feet. 2. Dry eyes, bilateral - ICD9: 375.15, ICD10: H04.123 Recommended the use of artificial tears up to four times per day to maintain good vision and comfort. Discussed contacting the office if there is a change in comfort or vision. Suggested the use of Systane Complete 3. Combined form of senile cataract of both eyes - ICD9: 366.19, ICD10: H25.813 Mild cataract in both eyes. Well tolerated at this time. Discussed possible future affect on daily activities to watch for. Monitor as instructed. 4. Posterior vitreous detachment of both eyes - ICD9: 379.21, ICD10: H43.813 5. Floaters, bilateral - ICD9: 379.24, ICD10: H43.393 Vitreal floaters stable both eyes. Retinas flat and intact with no apparent retinal tear or traction. Discussed symptoms of retinal tear/detachment and if seen patient will return to clinic without delay. 6. 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 7. Dermatochalasis of both upper eyelids - ICD9: 374.87, ICD10: H02.831, H02.834 Continue to monitor. Recommended yearly exam for Plaquenil documented in this encounter [facility] 12-04-2022 History of Present illness Narrative ASSESSMENT/PLAN: 1. Long-term use of Plaquenil - ICD9: V58.69, ICD10: Z79.899 (primary diagnosis) Hydroxychloroquine use - Indication: Lupus - no signs of toxicity today on exam - OCT (12/04/2022): normal - Visual Field 10-2 (12/04/2022): normal - has been using plaquenil 200 mg twice daily - The recommended dosage is the lower of 5 mg/kg/day based on real body weight or 6.5 mg/kg/day based on ideal body weight as described in the most recent AAO plaquenil screening guidelines - Risk factors for toxicity include daily dose and duration of use, renal disease, tamoxifen use, history of retinal or macular disease - she is 86.1 kg which gives a maximum safe ophthalmic dose of 430.5 mg daily by real body weight. Males: IBW = 50 kg + 2.3 kg for each inch over 5 feet. Females: IBW = 45.5 kg + 2.3 kg for each inch over 5 feet. 2. Dry eyes, bilateral - ICD9: 375.15, ICD10: H04.123 Recommended the use of artificial tears up to four times per day to maintain good vision and comfort. Discussed contacting the office if there is a change in comfort or vision. Suggested the use of Systane Complete 3. Combined form of senile cataract of both eyes - ICD9: 366.19, ICD10: H25.813 Mild cataract in both eyes. Well tolerated at this time. Discussed possible future affect on daily activities to watch for. Monitor as instructed. 4. Posterior vitreous detachment of both eyes - ICD9: 379.21, ICD10: H43.813 5. Floaters, bilateral - ICD9: 379.24, ICD10: H43.393 Vitreal floaters stable both eyes. Retinas flat and intact with no apparent retinal tear or traction. Discussed symptoms of retinal tear/detachment and if seen patient will return to clinic without delay. 6. 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 7. Dermatochalasis of both upper eyelids - ICD9: 374.87, ICD10: H02.831, H02.834 Continue to monitor. Recommended yearly exam for Plaquenil Emerson Rossi, OD I have confirmed and edited as necessary the relevant ophthalmic history, ROS, and the neuro exam findings as obtained by others. documented in this encounter [facility] 11-28-2022 History of Present illness Narrative Subjective Patient ID: Sonal Farias is a 67 y.o. female who presents for 6 MO F/U. HPI Since the last office visit there have been no interval operations, hospitalizations, important illnesses or injuries. SLE achy jpoint,somefatigue, flushes with heat. 30 yr stable. Last rheum a co yrs ago was stable. Nhad rthr doing well. A lot of foot pain and neuropathy. Hurts first in am then ok, and in pm ache if very active. Increased to 1 jacquie amand 2pm discussed further increases as symptoms require. Does not feel Mobic needs to be increased from 7.5-15 CT for risk stratification Review of Systems General-no fatigue weight to within 10 pounds ENT no problems with vision swallowing Cardiac no chest pains palpitations change in exercise tolerance or capacity Pulmonary no cough shortness of breath GI no heartburn or abdominal pain Musculoskeletal no joint pains Objective BP 134/76 Pulse 62 Ht 1.702 m (5' 7) Wt 88.7 kg (195 lb 8 oz) SpO2 96% BMI 30.62 kg/m Physical Exam General: Alert, No acute distress. Appears stated age Eye: Pupils are equal, round and reactive to light, Extraocular movements are intact, Normal conjunctiva. Neck: Supple, Non-tender, No carotid bruit, No jugular venous distention, No lymphadenopathy, No thyromegaly. Respiratory: Lungs are clear to auscultation, Respirations are non-labored, Breath sounds are equal. Cardiovascular: Normal rate, Regular rhythm, No murmur. Gastrointestinal: Soft, Non-tender, No organomegaly. No solid or pulsatile mass Integumentary: Warm, Dry. No concerning lesions on exposed areas Neurologic: Alert, Oriented. Gross and fine motor intact, CN 2-12 intact Psychiatric: Cooperative, Appropriate mood & affect. Assessment/Plan Problem List Items Addressed This Visit ICD-10-CM Lupus (CMS/HCC) M32.9 Relevant Medications meloxicam (Mobic) 7.5 mg tablet Other Relevant Orders CBC Comprehensive Metabolic Panel Lipid Panel Follow Up In Primary Care Other Visit Diagnoses Codes Mixed hyperlipidemia - Primary E78.2 Relevant Orders Lipid Panel Trigger ring finger of right hand M65.341 Metatarsalgia of right foot M77.41 Relevant Medications meloxicam (Mobic) 7.5 mg tablet Other Relevant Orders CBC Comprehensive Metabolic Panel Screening for cardiovascular condition Z13.[address] cardiac scoring wo IV contrast documented in this encounter [facility] Work Phone: 07-22-2022 History of Present illness Narrative 67-year-old female who comes in today for evaluation of her right ring finger. She describes pain over the A1 karely area with no locking of the finger. She points to the area of the A1 karely as where she is having the most pain. This was worse last week and has improved. She comes in today for evaluation but states if her hand was feeling the way it is now she may not have come. [facility] [address] Work Phone: 06-15-2022 History of Present illness Narrative Subjective Reason for Visit: Meli Farias is an 67 y.o. female here for a Medicare Wellness visit. Past Medical, Surgical, and Family History reviewed and updated in chart. Reviewed all medications by prescribing practitioner or clinical pharmacist (such as prescriptions, OTCs, herbal therapies and supplements) and documented in the medical record. HPI Stopprf bp rx for low readings as she had systolics of 90. Lisinopril HCT was discontinued Sle occasionally some minor skin flaring or joint stiffness is maintained on hydroxychloroquine. PN-neuropathy on gabapentin 300 twice daily, reviews that after hardly work she will have more pain in the feet reviewed the usual 900 1800 range with positive effect. She has the option to increase to 900 a day or she can flex dose on days when she is having more pain I have ordered for her. Continues on Mobic Gerd having some symptoms of feeling like there is something in her throat no hoarseness no dysphagia for solids or liquids, no odynophagia. Little to no alcohol caffeine nicotine. Is on a nonsteroidal. She notes that if she eats late in the evening she has reflux including regurgitation which wakes her at night. I reviewed the differential and recommend that we take a PPI daily for the next 60 days if not improved would refer for either EGD or ENT eval of the feeling in the throat Right hand 4th digit with a large palpable nodule on the flexor tendon but she has no triggering at this point. Reviewed that it would be na ve for me I think a single injection of cortisone would resolve and I have referred her to orthopedic surgery Right foot feels that she has a larger mass over the tarsal metatarsal area than on the left foot. Also notes the left foot is cooler than the right foot. Does have a family history of peripheral vascular disease has no claudication Patient Care Team: Sue Wolf MD as PCP - General Review of Systems general-no fatigue weight to within 10 pounds ENT no problems with vision swallowing Cardiac no chest pains palpitations change in exercise tolerance or capacity Pulmonary no cough shortness of breath GI n recent onset heartburn with no abdominal pain Musculoskeletal joint pains as noted above Objective Vitals: BP 126/64 Pulse 65 Ht 1.702 m (5' 7) Wt 88.1 kg (194 lb 4.8 oz) SpO2 95% BMI 30.43 kg/m Physical Exam general: Alert, No acute distress. Appears stated age Eye: Pupils are equal, round and reactive to light, Extraocular movements are intact, Normal conjunctiva. Neck: Supple, Non-tender, No carotid bruit, No jugular venous distention, No lymphadenopathy, No thyromegaly. Respiratory: Lungs are clear to auscultation, Respirations are non-labored, Breath sounds are equal. Cardiovascular: Normal rate, Regular rhythm, No murmur. Gastrointestinal: Soft, Non-tender, No organomegaly. No solid or pulsatile mass Integumentary: Warm, Dry. No concerning lesions on exposed areas Neurologic: Alert, Oriented. Gross and fine motor intact, CN 2-12 intact Psychiatric: Cooperative, Appropriate mood & affect. Left fourth digit on palmar aspect about a 4 mm nodule pedal pulses are palpable both feet skin on the left foot appears slightly irregular compared to right foot temperatures are equal and there does not appear to be asymmetry to the contour of the dorsum of the foot at the tarsometatarsal region and midline to laterally. 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 Start: Warm compresses at bedtime Right Eye. If you have any questions please contact our office at [phone]. After office hours or on the weekend, please call Dr. Hamilton on his cell phone at [phone]. documented in this encounter [facility] 12-11-2021 History of Present illness Narrative ASSESSMENT/PLAN: 1. Chalazion of right upper eyelid - ICD9: 373.2, ICD10: H00.11 (primary diagnosis) Current Ophthalmic Meds erythromycin (ROMYCIN) 5 mg/gram (0.5 %) ophthalmic ointment Use 1 application in the right eye daily at bedtime. Start: Warm compresses at bedtime Right Eye. 2. High risk medication use - ICD9: V58.69, ICD10: Z79.899 3. Long-term use of Plaquenil - ICD9: V58.69, ICD10: Z79.899 Hydroxychloroquine use Indication: Lupus, Rheumatoid Arthritis No signs of toxicity today on exam OCT (11/14/2021): normal Visual Field 10-2 (11/14/2021): normal Patient has been using plaquenil 200 mg daily for 30 years The recommended dosage is the lower of 5 mg/kg/day based on real body weight as described in the most recent AAO plaquenil screening guidelines Risk factors for toxicity include daily dose and duration of use, renal disease, tamoxifen use, history of retinal or macular disease She is 86.1kg which gives a maximum safe ophthalmic dose of 430.5 mg daily The latest guidelines can incorrectly dose patients who are overweight or obese, so in these cases it is useful to take into account the ideal body weight for dosing Elie Hamilton MD I have confirmed and edited as necessary the relevant ophthalmic history, review of systems, surgical history, and ophthalmological examination findings as obtained by the ophthalmic technical staff. I have seen and examined Meli Farias. I have discussed the examination findings, diagnosis, and treatment options with Meli Farias and/or her family. I have also reviewed and agree with the assessment and plan as stated above and agree with all its relevant components. I gave the patient the opportunity to ask questions about the findings, diagnosis, and treatment options. documented in this encounter [facility] 11-14-2021 History of Present illness Narrative ASSESSMENT/PLAN: 1. High risk medication use - ICD9: V58.69, ICD10: Z79.899 (primary diagnosis) 2. Long-term use of Plaquenil - ICD9: V58.69, ICD10: Z79.899 Under the care of Dr. Wolf Hydroxychloroquine use - Indication: Lupus, Rheumatoid Arthritis - no signs of toxicity today on exam - OCT (11/14/2021): normal - Visual Field 10-2 (11/14/2021): normal - has been using plaquenil 200 mg daily for 30 years - The recommended dosage is the lower of 5 mg/kg/day based on real body weight or 6.5 mg/kg/day based on ideal body weight as described in the most recent AAO plaquenil screening guidelines - Risk factors for toxicity include daily dose and duration of use, renal disease, tamoxifen use, history of retinal or macular disease - she is 86.1kg which gives a maximum safe ophthalmic dose of 430.5 mg daily - The latest guidelines can incorrectly dose patients who are overweight or obese, so in these cases it is useful to take into account the ideal body weight for dosing 3. Chalazion of right upper eyelid - ICD9: 373.2, ICD10: H00.11 Current Ophthalmic Meds erythromycin (ROMYCIN) 5 mg/gram (0.5 %) ophthalmic ointment Use 1 application in the right eye daily at bedtime. Begin Warm compresses at bedtime Doxycycline 100 mg take one capsule with food for 14 days. Follow up in 3 weeks for follow up 4. Dermatochalasis both upper eyelids Monitor/stable 5. 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 Systemic lupus erythematosus, unspecified SLE type, unspecified organ involvement status (HCC) - ICD9: 710.0, ICD10: M32.9 Under the care of Dr. Wolf 7. Essential Hypertension Continue care with Dr. Luciano Hamilton MD I have confirmed and edited as necessary the relevant ophthalmic history, review of systems, surgical history, and ophthalmological examination findings as obtained by the ophthalmic technical staff. I have seen and examined Meli Farias. I have discussed the examination findings, diagnosis, and treatment options with Meli Farias and/or her family. I have also reviewed and agree with the assessment and plan as stated above and agree with all its relevant components. I gave the patient the opportunity to ask questions about the findings, diagnosis, and treatment options. documented in this encounter [facility] 11-14-2021 Instructions Elie Hamilton MD - 11/14/2021 3:37 PM EDT Current Ophthalmic Meds erythromycin (ROMYCIN) 5 mg/gram (0.5 %) ophthalmic ointment Use 1 application in the right eye daily at bedtime. Begin: Warm compresses at bedtime on right eye for 10-15 minutes. Doxycycline 100 Mg, take one capsule by mouth daily with food for 14 days. If you have any questions please contact our office at [phone]. After office hours or on the weekend, please call Dr. Hamilton on his cell phone at [phone]. documented in this encounter [facility] 01-02-2021 History of Present illness Narrative On a scale of 0 to 10, the patient rates the pain at 2.Pain Location: Low Back Pain.Pain Quality: Aching, Sharp and Shooting.Sensory/ Motor: Weakness and UPPER THIGHS. ImprovedExacerbating Factors: motion, repetitive motion and stairs.Alleviating Factors: Repositioning, Other: ___.24 Hour Behavior:Symptoms are better in the am.Symptoms are better as the day progresses.Symptoms are better in the pm.Symptoms are better lying down. [facility] [employer] Phone: 01-02-2021 History of Present illness Narrative On a scale of 0 to 10, the patient rates the pain at 2.Pain Location: Low Back Pain.Pain Quality: Aching, Sharp and Shooting.Sensory/ Motor: Weakness and UPPER THIGHS. ImprovedExacerbating Factors: motion, repetitive motion and stairs.Alleviating Factors: Repositioning, Other: ___.24 Hour Behavior:Symptoms are better in the am.Symptoms are better as the day progresses.Symptoms are better in the pm.Symptoms are better lying down. [facility] Phone: 11-15-2020 History of Present illness Narrative On a scale of 0 to 10, the patient rates the pain at 2.Pain Location: Low Back Pain.Pain Quality: Aching, Stabbing and strong ache when standing low period of time; stabbing into buttocks.Pain Radiation: layo buttocks.Sensory/ Motor: Numbness, Pins and Alpha and layo feet.Timing/Duration: Constant and > 12 weeks duration.Exacerbating Factors: standing and bending, standing.Alleviating Factors: Cold Therapy, Moist Heat, Other: ___.24 Hour Behavior:Symptoms are worse in the am.Symptoms are better as the day progresses.Symptoms are the same in the pm. depends on activity.Symptoms are worse when lying down. worse at first, gets better.Effect of Movement on Symptoms:Bending makes symptoms worse.Lying makes symptoms better. after a few minutes.Rising from sitting makes symptoms worse. once in a while it will catch.Sitting makes symptoms better.Standing makes symptoms worse.Rising from supine to sitting doesn't change symptoms.Turning doesn't change symptoms.Walking doesn't change symptoms. if hurrying pain will increase.Twisting doesn't change symptoms.Weather doesn't change symptoms.Coughing/sneezing doesn't change symptoms.Pushing motion makes symptoms worse.Pulling motion makes symptoms worse.Lifting: Worse.Which of these are most important to the patient? daily activity.Psychosocial Factors vs Last Visit:Physical Functioning: Worse.Family Relationships: Same.Social Relationships: Same.Mood: Worse.Sleep Patterns: Worse.Overall Functioning: Worse.Self Management Tools: patient is resting with positive response, patient is using ice compresses with positive response and patient is using heat with positive response.Response to current treatment:. minimal relief.No, I am not experiencing side effects from current pain reliever(s).Goals for Pain Management:ORT =0. [facility] Work Phone: 10-01-2020 History of Present illness Narrative She comes in today 6 weeks status post right total hip replacement, doing very well. PHYSICAL EXAMINATION Wound is healed. No signs of infection. No DVT signs or symptoms. Calves soft. Leg lengths were equal. Excellent range of motion of the right hip. X-RAYS Two views of the right hip replacement reveal a normal-appearing right total hip replacement. IMPRESSION Six weeks right hip replacement. PLAN She will do activities as tolerated. I will see her on a yearly basis. documented in this encounter [facility] 09-01-2020 History of Present illness Narrative Dictation on: 09/01/2020 7:13 PM by: ELMA WHITE [[id number]] documented in this encounter [facility] 08-18-2020 History of Present illness Narrative I spoke w Sonal today. She tells me she awoke at 0400 today w a bad h/a. At 0500 she was still awake so she started her Fosamax. About 20 minutes later she vomited several times- clear fluid. She has since eaten some toast and about 4 oz of fluid w one [place] tab. Her stomach feels much better but still has a h/a. She also tells me that she has had ua incontinence since surgery, no burning, no strong odor to her urine. Per Dr White [facility] will start an IV of 1000cc LR, obtain a BMP and a urine w C&S this morning. Order for IV faxed to [facility] at [phone] documented in this encounter [facility] 08-16-2020 History of Present illness Narrative 08/16/20 New referral for SN and PT received today. Pt lives in [place] which is out of our service area. Notified CM team and they will refer to an agency of pt's choice in her area. RNA referral.little,rn documented in this encounter [facility] 08-05-2020 History of Present illness Narrative Dictation on: 08/05/2020 7:09 PM by: ELMA WHITE [[id number]] documented in this encounter [facility] 08-03-2020 History of Present illness Narrative The CT of Meli's hip is still pending. We have canceled the CT for now and will wait to hear back from the insurance company. I did speak w Meli and we will let her know if she can go ahead w the CT when approved or if not Dr White will do the hip replacement w/o the CT documented in this encounter [facility] 08-03-2020 Miscellaneous Notes Associated Problem(s): Preop cardiovascular exam Cardiac risk factors are age, postmenopausal, family history and hypertension. She has been told she has a good lipid profile. Her examination is unremarkable EKG does show incomplete right bundle branch block however this is a benign finding not indicative of cardiac pathology. She is able to perform greater than 4 metabolic equivalents of activity with no symptoms to suggest ischemic heart disease or congestive heart failure. She had a normal stress test about 5 years ago. She is at a moderate risk for a cardiovascular event with orthopedic surgery and the patient, her and I discussed this. No further cardiac testing is indicated. She should stay on her antihypertensive regimen perioperatively other than aspirin. As we also discussed using aspirin as primary prevention is somewhat controversial due to risk of GI bleeding probably more helpful in women by decreasing stroke risk. I will leave this to her discretion. documented in this encounter [facility] 08-03-2020 History of Present illness Narrative OFFICE CONSULTATION NOTE [facility] [address] [facility] [address] [facility] [id number] Physicians: Sue Wolf MD (Family); Elma White,* (Referring) Subjective: Meli Farias is a 65 y.o. female seen in the office today for Pre-op Exam (Right hip replacement 08/16/20) She is here for cardiac risk assessment prior to right hip surgery because her EKG showed incomplete right bundle branch block. She has no prior cardiovascular history of significance. Decades ago she was told she had mitral valve prolapse but since then no one has heard her murmur. Up till recently when her hip began to bother her she was able to be very active with activities such as gardening with no limitation. At this point in time she is able to do some housework and walking but is limited by hip discomfort. She has shortness of breath with significant exertion. She does not have chest discomfort. She denies PND, orthopnea, palpitations, syncope, presyncope. 5 years ago she did have a stress test at [place] for dizziness and shortness of breath and this was normal. Assessment & Plan: Preop cardiovascular exam Cardiac risk factors are age, postmenopausal, family history and hypertension. She has been told she has a good lipid profile. Her examination is unremarkable EKG does show incomplete right bundle branch block however this is a benign finding not indicative of cardiac pathology. She is able to perform greater than 4 metabolic equivalents of activity with no symptoms to suggest ischemic heart disease or congestive heart failure. She had a normal stress test about 5 years ago. She is at a moderate risk for a cardiovascular event with orthopedic surgery and the patient, her and I discussed this. No further cardiac testing is indicated. She should stay on her antihypertensive regimen perioperatively other than aspirin. As we also discussed using aspirin as primary prevention is somewhat controversial due to risk of GI bleeding probably more helpful in women by decreasing stroke risk. I will leave this to her discretion. Orders placed this encounter: No orders of the defined types were placed in this encounter. Follow Up Ordered: Return if symptoms worsen or fail to improve. Patient's Medications New Prescriptions No medications on file Previous Medications ACETAMINOPHEN (TYLENOL) 500 MG TABLET Take 500 mg by mouth every 6 (six) hours as needed for pain . ASPIRIN 81 MG EC TABLET Take 81 mg by mouth daily . CHOLECALCIFEROL, VITAMIN D3, 1,000 UNIT TABLET Take 2,000 Units by mouth daily . DOCUSATE SODIUM (COLACE) 100 MG CAPSULE Take 100 mg by mouth daily . GABAPENTIN (NEURONTIN) 300 MG CAPSULE 300 mg 2 (two) times a day . HYDROXYCHLOROQUINE (PLAQUENIL) 200 MG TABLET Take 200 mg by mouth daily . IBUPROFEN (ADVIL,MOTRIN) 200 MG TABLET Take 200 mg by mouth every 6 (six) hours as needed for pain . LISINOPRIL-HYDROCHLOROTHIAZIDE (PRINZIDE,ZESTORETIC) 10-12.5 MG PER TABLET daily 1/2 tablet daily . MELOXICAM (MOBIC) 7.5 MG TABLET Take 7.5 mg by mouth daily . PSYLLIUM (METAMUCIL) 3.4 GRAM PACKET Take 1 packet by mouth as needed 2 times a week as needed . Modified Medications No medications on file Discontinued Medications OMEPRAZOLE (PRILOSEC OTC) 20 MG TABLET Take 20 mg by mouth as needed . Histories: Past Medical History: Diagnosis Date Arthritis GERD (gastroesophageal reflux disease) occasional Heart murmur Hypertension Lupus (HCC) Neuropathy PONV (postoperative nausea and vomiting) Sarcoid Past Surgical History: Procedure Laterality Date FOOT SURGERY HYSTERECTOMY (CERVIX REMOVED) MOUTH SURGERY Family History Problem Relation Age of Onset Heart disease Father Coronary artery disease Father 79 cabg x5 Aortic stenosis Father tavr Pacemaker Father Other (Other) Father PAD Hyperlipidemia Sister Heart attack Brother heart attack at 20 bypass at 30 at 50 with heart attack Heart disease Brother Coronary artery disease Brother Social History Tobacco Use Smoking status: Never Smoker Smokeless tobacco: Never Used Vaping Use Vaping Use: Never used Substance Use Topics Alcohol use: Not Currently Comment: rarely less than once in 6 months Drug use: Not Currently No Known Allergies ROS Overview of Problems Addressed: Problem Preop Cardiovascular Exam Objective: Vitals: BP 131/87 Pulse 73 Ht 5' 8 Wt 84.8 kg (187 lb) SpO2 96% BMI 28.43 kg/m BP Readings from Last 3 Encounters: 08/03/20 131/87 07/28/20 115/69 Alert and oriented x3. Sclera nonicteric. Neck supple. Chest clear to auscultation bilaterally. Cardiovascular regular rate and rhythm , no carotid bruits, brisk carotid upstrokes, S1-S2 normal no murmurs, gallops, rubs. Abdomen is soft and nontender. No lower extremity edema. 1. Primary osteoarthritis of right hip 2. Preop cardiovascular exam Results from last 7 days Lab Units 07/28/20 0745 SODIUM mmol/L 136 POTASSIUM mmol/L 3.9 CHLORIDE mmol/L 101 BUN mg/dL 14 CREATININE mg/dL 0.87 GLUCOSE mg/dL 94 CALCIUM mg/dL 9.4 Results from last 7 days Lab Units 07/28/20 0745 WBC K/mcL 6.41 HGB g/dL 13.6 HCT % 42.0 PLT K/mcL 311 Page Washington MD 08/03/2020 documented in this encounter [facility] 08-03-2020 Instructions Page, Lucero Gamble RN - 08/03/2020 9:13 AM EDT ..How to contact your Care Team: Provider: Page Washington MD ____ Nurse: Lucina Cardona RN ____ ____ ____ In case of an emergency please call 911. REFILLS: When in need for refills please call your care team or the office at [phone]. Please include medication name, pharmacy name, and specify 30-day or 90-day supply. Please check with your pharmacy within 24 hours of request for your refill. You must follow up as directed to continue current refills. Thank you documented in this encounter [facility] 07-27-2020 History of Present illness Narrative Meli returns today still complaining of severe right hip pain. She thinks that therapy might have helped the left a little bit, but the right is severely uncomfortable. She has pain walking, going up and down stairs. She has pain walking even on level surfaces as well. She has a constant ache at about a level 5 and severe stabbing pain she rates as an 8. She has been through her physical therapy and range of motion is probably a little bit better on the left side, stairs are difficult. She has trouble walking distances and has enough pain that she wants to go ahead with the total hip replacement on the right side. PAST HISTORY Hypertension, neuropathy. MEDICATIONS Vitamin D, Neurontin, Plaquenil, Prinzide, Mobic, Prilosec. REVIEW OF SYSTEMS No chest pain, shortness of breath. No PND, orthopnea, bowel or bladder symptoms. PHYSICAL EXAM Reveals marked pain with right hip motion. She has limited internal and external rotation. Can get to the figure 4 position, though with a lot of effort on the right side, the left is more mobile. She is neurovascularly intact. IMPRESSION Bilateral hip arthritis. Right is very symptomatic. PLAN Right hip replacement. We will schedule for the end of July, most likely Dr. White to perform. documented in this encounter [facility] 07-25-2020 History of Present illness Narrative [facility] DAILY TREATMENT NOTE Today's Date 07/25/2020 Patient Name: Meli Farias Date of : 1955 Current Visit #: 6 Authorized Visits: 60 Case Name: Bilateral Hip Pain History: Pre-Treatment Pain Scale: 3 Symptoms: stabilized Functional Diagnosis: 1. Primary osteoarthritis of both hips Clinical Information: Subjective: Pt reports hip pain with certain movements and pain is worse in R hip and into groin area but occasional stabbing in buttocks. Objective Treatments: Physical Therapy Exercise Log - 07/25/20 0835 OTHER Notes visit 6: 8:35-9:18 Therapeutic Exercise (65658) Intervention SciFit - 5 min Lvl 3 Parameters HS stretches - 20 sec x3 Intervention supine SKTC and piriformis stretches - 20 sec x3 Parameters bent knee fall outs - 20 sec x3 Intervention standing lunge stretch - 20 sec x3 Parameters Sink ex (abd,ext,HR,TR) - x15 Intervention LAQ, HS curl - x15 RTB Parameters hip abd, add - x10 5 sec ball, RTB Intervention Shuttle squat 50lb x20 Parameters lateral side stteps x4 PT Treatment Times Therex Total Time 43 Direct Treatment Time 43 Total Treatment Time 43 Goals: Physical Therapy Ortho Goals: MOBILITY: Patient will be able to ambulate for >30 minutes in community without difficulty in 4 weeks. MOBILITY: Patient will be able to ascend/descend stairs without difficulty in 4 weeks. IMPAIRMENT: Improve pain from 8/10 to <4/10 during prolonged standing and walking in 4 weeks IMPAIRMENT: Improve MMT of Right Hip Flexion and IR from 4/5 to 4+/5 in 4 weeks IMPAIRMENT: Improve AROM of Right Hip Flexion from 90 degrees to 100 degrees in 4 weeks. OTHER: Patient will be able to properly demonstrate independence with HEP in 1 week. Patient Education: Quality of movement with patient demonstrated understanding. Post-Treatment Pain Scale: 4 Assessment: Patient had an expected response to treatment. Skilled Intervention demonstrated by modifications of treatment per exercise log including increased load and safety interventions per exercise log. Progress towards goals as expected. Plan for Next Visit: Treatment Visit with focus on strengthening Moe Odom PTA STATE LICENSE, [id number] documented in this encounter [facility] 07-22-2020 History of Present illness Narrative [facility] TREATMENT NOTE Today's Date 07/22/2020 Patient Name: Meli Farias Date of : 1955 Current Visit #: 5 Authorized Visits: 60 Case Name: Bilateral Hip Pain History: Pre-Treatment Pain Scale: 0 Symptoms: gradually improved Functional Diagnosis: 1. Primary osteoarthritis of both hips Clinical Information: Subjective: Pt reports hip hurts with different movements and some times when walking. Pt stated R hip is worse than L hip. Objective Treatments: Physical Therapy Exercise Log - 07/22/20 0830 OTHER Notes visit 5: 8:30-9:12 Therapeutic Exercise (62118) Intervention SciFit - 5 min Lvl 3 Parameters HS stretches - 20 sec x3 Intervention supine SKTC and piriformis stretches - 20 sec x3 Parameters bent knee fall outs - 20 sec x3 Intervention standing lunge stretch - 20 sec x3 Parameters Sink ex (abd,ext,HR,TR) - x15 Intervention LAQ, HS curl - x15 RTB Parameters hip abd, add - x10 5 sec ball, RTB Intervention Shuttle squat 50lb x20 Parameters lateral side stteps x2 PT Treatment Times Therex Total Time 42 Direct Treatment Time 42 Total Treatment Time 42 Goals: Physical Therapy Ortho Goals: MOBILITY: Patient will be able to ambulate for >30 minutes in community without difficulty in 4 weeks. MOBILITY: Patient will be able to ascend/descend stairs without difficulty in 4 weeks. IMPAIRMENT: Improve pain from 8/10 to <4/10 during prolonged standing and walking in 4 weeks IMPAIRMENT: Improve MMT of Right Hip Flexion and IR from 4/5 to 4+/5 in 4 weeks IMPAIRMENT: Improve AROM of Right Hip Flexion from 90 degrees to 100 degrees in 4 weeks. OTHER: Patient will be able to properly demonstrate independence with HEP in 1 week. Patient Education: Quality of movement with patient demonstrated understanding. Post-Treatment Pain Scale: 1 Assessment: Patient had an expected response to treatment. Skilled Intervention demonstrated by modifications of treatment per exercise log including increased load and safety interventions per exercise log. Progress towards goals as expected. Plan for Next Visit: Treatment Visit with focus on hip strengthening and flexability Moe Odom PTA STATE LICENSE, [id number] documented in this encounter [facility] 07-20-2020 History of Present illness Narrative [facility] DAILY TREATMENT NOTE Today's Date 07/20/2020 Patient Name: Meli Farias Date of : 1955 Current Visit #: 4 Authorized Visits: 60 Case Name: Bilateral Hip Pain History: Pre-Treatment Pain Scale: 2 Symptoms: gradually improved Functional Diagnosis: 1. Primary osteoarthritis of both hips Clinical Information: Subjective: She notices she's not having as much pain and getting a little stronger. Objective Initiated lateral side steps with fair (+) motor control Treatments: Physical Therapy Exercise Log - 07/20/20 0907 OTHER Notes visit 4: 8:30-9:08 Therapeutic Exercise (42327) Intervention SciFit - 5 min Lvl 3 Parameters HS stretches - 20 sec x3 Intervention supine SKTC and piriformis stretches - 20 sec x3 Parameters bent knee fall outs - 20 sec x3 Intervention standing lunge stretch - 20 sec x3 Parameters Sink ex (abd,ext,HR,TR) - x15 Intervention LAQ, HS curl - x15 RTB Parameters hip abd, add - x10 5 sec ball, RTB Intervention Shuttle squat 50lb x20 Parameters lateral side stteps x2 PT Treatment Times Therex Total Time 38 Direct Treatment Time 38 Total Treatment Time 38 Goals: Physical Therapy Ortho Goals: MOBILITY: Patient will be able to ambulate for >30 minutes in community without difficulty in 4 weeks. MOBILITY: Patient will be able to ascend/descend stairs without difficulty in 4 weeks. IMPAIRMENT: Improve pain from 8/10 to <4/10 during prolonged standing and walking in 4 weeks IMPAIRMENT: Improve MMT of Right Hip Flexion and IR from 4/5 to 4+/5 in 4 weeks IMPAIRMENT: Improve AROM of Right Hip Flexion from 90 degrees to 100 degrees in 4 weeks. OTHER: Patient will be able to properly demonstrate independence with HEP in 1 week. Patient Education: Quality of movement with patient demonstrated understanding. Post-Treatment Pain Scale: 2 Assessment: Patient had an expected response to treatment. Skilled Intervention demonstrated by modifications of treatment per exercise log including increased intensity and safety interventions per exercise log. Progress towards goals as expected. Plan for Next Visit: Treatment Visit with focus on strengthening Elizabeth Jack PTA STATE LICENSE, [id number] documented in this encounter [facility] 07-14-2020 History of Present illness Narrative [facility] DAILY TREATMENT NOTE Today's Date 07/14/2020 Patient Name: Meli Farias Date of : 1955 Current Visit #: 3 Authorized Visits: 60 Case Name: Bilateral Hip Pain History: Pre-Treatment Pain Scale: 1 Symptoms: stabilized Functional Diagnosis: 1. Primary osteoarthritis of both hips Clinical Information: Subjective: Pt reports min soreness after last session. Objective Increased reps with sink ex's, cues to reduce compensation with TR Initiated shuttle squat Treatments: Physical Therapy Exercise Log - 07/14/20 0829 OTHER Notes Visit 3 [id number] Therapeutic Exercise (03291) Intervention SciFit - 5 min Lvl 3 Parameters HS stretches - 20 sec x3 Intervention supine SKTC and piriformis stretches - 20 sec x3 Parameters bent knee fall outs - 20 sec x3 Intervention standing lunge stretch - 20 sec x3 Parameters Sink ex (abd,ext,HR,TR) - x15 Intervention LAQ, HS curl - x15 RTB Parameters hip abd, add - x10 5 sec ball, RTB Intervention Shuttle squat 50lb x20 PT Treatment Times Therex Total Time 45 Direct Treatment Time 45 Total Treatment Time 46 Goals: Physical Therapy Ortho Goals: MOBILITY: Patient will be able to ambulate for >30 minutes in community without difficulty in 4 weeks. MOBILITY: Patient will be able to ascend/descend stairs without difficulty in 4 weeks. IMPAIRMENT: Improve pain from 8/10 to <4/10 during prolonged standing and walking in 4 weeks IMPAIRMENT: Improve MMT of Right Hip Flexion and IR from 4/5 to 4+/5 in 4 weeks IMPAIRMENT: Improve AROM of Right Hip Flexion from 90 degrees to 100 degrees in 4 weeks. OTHER: Patient will be able to properly demonstrate independence with HEP in 1 week. Patient Education: Verbal HEP with patient verbalized understanding. Post-Treatment Pain Scale: 1 Assessment: Patient had an expected response to treatment. Skilled Intervention demonstrated by modifications of treatment per exercise log including assessment of patient's response and safety interventions per exercise log. Progress towards goals as expected. Plan for Next Visit: Treatment Visit with focus on progressing as tolerated Keven Bacon PTA STATE LICENSE, [id number] [facility] [facility] [place] 07-11-2020 History of Present illness Narrative [facility] DAILY TREATMENT NOTE Today's Date 07/11/2020 Patient Name: Meli Farias Date of : 1955 Current Visit #: 2 Authorized Visits: 60 Case Name: Bilateral Hip Pain History: Pre-Treatment Pain Scale: 0 Symptoms: stabilized Functional Diagnosis: 1. Primary osteoarthritis of both hips Clinical Information: Subjective: Pt reports hips feeling good today but stated when she walks around store or fast her hips fatigue quickly. Pt also stated her legs spasm at night. Objective Treatments: Physical Therapy Exercise Log - 07/11/20 1630 OTHER Notes Visit 2: 4:30 - 5:15 Therapeutic Exercise ([id number]) Intervention SciFit - 5 min Lvl 3 Parameters HS stretches - 20 sec x3 Intervention supine SKTC and piriformis stretches - 20 sec x3 Parameters bent knee fall outs - 20 sec x3 Intervention standing lunge stretch - 20 sec x3 Parameters Sink ex - x10 Intervention LAQ, HS curl - x15 RTB Parameters hip abd, add - x10 5 sec ball, RTB PT Treatment Times Therex Total Time 45 Direct Treatment Time 45 Total Treatment Time 45 Goals: Physical Therapy Ortho Goals: MOBILITY: Patient will be able to ambulate for >30 minutes in community without difficulty in 4 weeks. MOBILITY: Patient will be able to ascend/descend stairs without difficulty in 4 weeks. IMPAIRMENT: Improve pain from 8/10 to <4/10 during prolonged standing and walking in 4 weeks IMPAIRMENT: Improve MMT of Right Hip Flexion and IR from 4/5 to 4+/5 in 4 weeks IMPAIRMENT: Improve AROM of Right Hip Flexion from 90 degrees to 100 degrees in 4 weeks. OTHER: Patient will be able to properly demonstrate independence with HEP in 1 week. Patient Education: Quality of movement with patient demonstrated understanding. Post-Treatment Pain Scale: 1 Assessment: Patient had an expected response to treatment. Skilled Intervention demonstrated by modifications of treatment per exercise log including increased load and safety interventions per exercise log. Progress towards goals as expected. Plan for Next Visit: Treatment Visit with focus on strengthening bilat hips Moe Odom PTA STATE LICENSE, [id number] documented in this encounter [facility] [place] 06-27-2020 History of Present illness Narrative Dictation on: 06/27/2020 11:41 AM by: CRISTOBAL RYAN [[id number]] documented in this encounter [facility] [place] 06-08-2020 History of Present illness Narrative had injections wogopi velasquez, saw dr aviles and walking better. doing well.last sle ov was last yearHTN-Takes and tolerates meds without side effects. No alcohol. no tobacco. no exercise. low salt. Reviewed recommendation for 150 minutes of exercise per week including 2 days of weight training if over age 50OA 7.5 meloxicam daily and occ motrinneuropathy- ermias 300 bid, tlerates touching and covers, still with freezing cold to burnig hot at hs.sle on hc at 200mg one a dayleft great toe oa, will screen for tphi and uric acid [facility] Work Phone: 06-08-2020 History of Present illness Narrative Dictation on: 06/08/2020 5:11 PM by: CRISTOBAL RYAN [[id number]] documented in this encounter [facility] [place] 03-23-2020 History of Present illness Narrative [facility] 03/23/[id number] female with neuropathy symptoms with history of lupus and sarcoid. She has been on chronic hydroxychloroquine and had been on prednisone previously.At her last visit we were trying to figure out why she had neuropathy symptoms. She had seen a neurologist previously and had EMG. 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 She had normal vitamin levels and no severe diabetes. All of her blood work was negative. We had also gotten PFTs.In interim she has had right hip replacement. She did not have any problems doing this and healed well. She will use a cane if she is going long distances.She says during the summer she has noticed some increase in redness in her face and may take her Plaquenil twice a day instead of once a day.The gabapentin is helpful for her symptoms then she is taking it twice a day 300 mg. [id number] [address] [place] Work Phone: Evaluation note Diagnosis Primary osteoarthritis of both hips- Primary documented in this encounter [facility] Diagnosis Primary osteoarthritis of both hips- [facility] Diagnosis Primary osteoarthritis of both hips- Primary documented in this [facility] Diagnosis Primary osteoarthritis of right hip- Primary Primary osteoarthritis of both hips Hypertension, unspecified type Primary osteoarthritis of right hip- Primary Primary osteoarthritis of right hip documented in this encounter [facility] Diagnosis Primary osteoarthritis of right hip- Primary Primary osteoarthritis of both hips- Primary Primary osteoarthritis of right hip documented in this encounter [facility] Diagnosis Primary osteoarthritis of right hip- Primary Primary osteoarthritis of both hips- Primary Primary osteoarthritis of right hip [facility] Diagnosis Primary osteoarthritis of right hip- Primary Primary osteoarthritis of both hips- Primary Primary osteoarthritis of right hip documented in this [facility] Diagnosis Primary osteoarthritis of right hip- Primary Primary osteoarthritis of both hips- Primary Primary osteoarthritis of right hip [facility] Diagnosis Primary osteoarthritis of right hip- Primary Primary osteoarthritis of both hips- Primary Primary osteoarthritis of right hip [facility] Diagnosis Primary osteoarthritis of right hip- Primary Primary osteoarthritis of both hips- Primary [facility] Diagnosis Primary osteoarthritis of right hip- Primary Primary osteoarthritis of right hip- Primary [facility] Diagnosis Primary osteoarthritis of right hip- Primary Primary osteoarthritis of right hip- Primary [facility] Diagnosis Primary osteoarthritis of right hip- Primary Primary osteoarthritis of right hip Preop cardiovascular exam Pre-operative cardiovascular examination Primary osteoarthritis of right hip [facility]* Diagnosis Primary osteoarthritis of right hip- Primary Primary osteoarthritis of right hip- Primary Primary osteoarthritis of right hip documented [facility] Diagnosis Primary osteoarthritis of right hip- Primary Primary osteoarthritis of right hip- Primary Primary osteoarthritis of right hip [facility]* Diagnosis Primary osteoarthritis of right hip- Primary Primary osteoarthritis of right hip Primary osteoarthritis of right hip [facility] Diagnosis Primary osteoarthritis of right hip- Primary Primary osteoarthritis of right hip- Primary Primary osteoarthritis of right hip [facility] Diagnosis Status post right hip replacement- Primary [facility] Diagnosis Status post right hip replacement- Primary [facility]* Diagnosis Status post right hip replacement- Primary [facility]* Diagnosis Status post right hip replacement- Primary [facility]* Diagnosis High risk medication use- Primary Encounter for long-term (current) use of other medications Long-term use of Plaquenil Encounter for long-term (current) use of other medications Chalazion of right upper eyelid Chalazion Dermatochalasis of both upper eyelids 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, unspecified laterality (HCC) Systemic lupus erythematosus, unspecified SLE type, unspecified organ involvement status (HCC) Essential hypertension Unspecified essential hypertension documented in this encounter [facility] note* Diagnosis Chalazion of right upper eyelid- Primary Chalazion High risk medication use Encounter for long-term (current) use of other medications Long-term use of Plaquenil Encounter for long-term (current) use of other medications [facility] Diagnosis Routine general medical examination at health care facility- Primary Routine general medical examination at a health care facility Trigger ring finger of right hand Metatarsalgia of right foot Lupus (CMS/HCC) Systemic lupus erythematosus 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, unspecified laterality (CMS/HCC) Peripheral polyneuropathy documented in this encounter [facility] Work Phone: Evaluation note* Diagnosis Mixed hyperlipidemia- Primary Trigger ring finger of right hand Metatarsalgia of right foot Lupus (CMS/HCC) Systemic lupus erythematosus Screening for cardiovascular condition Screening for other and unspecified cardiovascular conditions documented in this encounter [facility] Work Phone: Evaluation note* Diagnosis Long-term use of Plaquenil- Primary Encounter for long-term (current) use of other medications Dry eyes, bilateral Tear film insufficiency, unspecified Combined form of senile cataract of both eyes Posterior vitreous detachment of both eyes Vitreous degeneration Floaters, bilateral Chorioretinal scar of left eye Chorioretinal scar, unspecified Dermatochalasis of both upper eyelids [facility] Diagnosis Screening for cardiovascular condition Screening for other and unspecified cardiovascular conditions documented in this encounter [facility] Work Phone: Evaluation note* Diagnosis Encounter for subsequent annual wellness visit (AWV) in Medicare patient- Primary Lupus (Multi) Systemic lupus erythematosus documented in this encounter [facility] Work Phone: Evaluation note* Diagnosis Systemic lupus erythematosus, unspecified SLE type, unspecified organ involvement status (Multi)- Primary Lupus Systemic lupus erythematosus Metatarsalgia of right foot 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, unspecified laterality (Multi) Primary hypertension Unspecified essential hypertension Peripheral polyneuropathy documented in this encounter [facility] Work Phone: Evaluation note* Diagnosis 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, unspecified laterality (Multi)- Primary Primary hypertension Unspecified essential hypertension documented in this encounter [facility] Work Phone: Evaluation note* Diagnosis Long-term use of Plaquenil- Primary Encounter for long-term (current) use of other medications Combined form of senile cataract of both eyes Posterior vitreous detachment of both eyes Vitreous degeneration Dry eyes, bilateral Tear film insufficiency, unspecified Dermatochalasis of both upper eyelids [facility] noteNo assessment information availableWJ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, unspecified laterality (Multi) Primary hypertension Unspecified essential hypertension Lumbosacral radiculopathy at L5 Peripheral polyneuropathy Encounter for screening breast examination Encounter for screening mammogram for malignant neoplasm of breast documented in this encounter [facility] Work Phone: Evaluation note* Diagnosis Routine general medical examination at health care facility- Primary Routine general medical examination at a health care facility Systemic lupus erythematosus, unspecified SLE type, unspecified organ involvement status (Multi) Metatarsalgia of right foot 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, unspecified laterality (Multi) Primary hypertension Unspecified essential hypertension Lumbosacral radiculopathy at L5 Peripheral polyneuropathy Encounter for screening breast examination Encounter for screening mammogram for malignant neoplasm of breast Elevated liver enzymes Other nonspecific abnormal serum enzyme levels documented in this encounter [facility] Work Phone: Evaluation note* Diagnosis Routine general medical examination at health care facility- Primary Routine general medical examination at a health care facility Systemic lupus erythematosus, unspecified SLE type, unspecified organ involvement status (Multi) Metatarsalgia of right foot 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, unspecified laterality (Multi) Primary hypertension Unspecified essential hypertension Lumbosacral radiculopathy at L5 Peripheral polyneuropathy Encounter for screening breast examination Encounter for screening mammogram for malignant neoplasm of breast Encounter for screening breast examination Encounter for screening mammogram for malignant neoplasm of breast documented in this encounter [facility] Work Phone: Evaluation note* Diagnosis Primary osteoarthritis of right hip Preop cardiovascular exam Pre-operative cardiovascular examination Primary osteoarthritis of left knee- Primary [facility] Diagnosis Routine general medical examination at health care facility- Primary Routine general medical examination at a health care facility Systemic lupus erythematosus, unspecified SLE type, unspecified organ involvement status (Multi) Metatarsalgia of right foot 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, unspecified laterality (Multi) Primary hypertension Unspecified essential hypertension Lumbosacral radiculopathy at L5 Peripheral polyneuropathy Encounter for screening breast examination Encounter for screening mammogram for malignant neoplasm of breast Urinary frequency documented in this encounter [facility] Work Phone: Evaluation note* Diagnosis Primary osteoarthritis of right hip Preop cardiovascular exam Pre-operative cardiovascular examination Primary osteoarthritis of left knee- Primary [facility]* Diagnosis Routine general medical examination at health care facility- Primary Routine general medical examination at a health care facility Systemic lupus erythematosus, unspecified SLE type, unspecified organ involvement status (Multi) Metatarsalgia of right foot 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, unspecified laterality (Multi) Primary hypertension Unspecified essential hypertension Lumbosacral radiculopathy at L5 Peripheral polyneuropathy Encounter for screening breast examination Encounter for screening mammogram for malignant neoplasm of breast Rash- Primary Rash and other nonspecific skin eruption Systemic lupus erythematosus, unspecified SLE type, unspecified organ involvement status (Multi) Thrush Candidiasis of mouth documented in this encounter [facility] Work Phone: Evaluation note* Diagnosis Routine general medical examination at health care facility- Primary Routine general medical examination at a health care facility Systemic lupus erythematosus, unspecified SLE type, unspecified organ involvement status (Multi) Metatarsalgia of right foot 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, unspecified laterality (Multi) Primary hypertension Unspecified essential hypertension Lumbosacral radiculopathy at L5 Peripheral polyneuropathy Encounter for screening breast examination Encounter for screening mammogram for malignant neoplasm of breast 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 chiro has helped. * Lupus rheum in HC to bid.has been once a day and can take asymmetric prn sx flare . inc vit D to 2k. * PN-ermias at bid has helped the sensitivity in feet * HTN-Takes and tolerates meds without side effects. No alcohol. no tobacco. no exercise. low salt. Reviewed recommendation for 150 minutes of exercise per week including 2 days of weight training if over age 50 [facility] Work Phone: History of Present illness Narrative* LE * sees eye dr and treated malcolm, also had ana tub on breast which has cleared concomitant and reviewed staph * HTN-Takes and tolerates meds without side effects. No alcohol. no tobacco. some exercise. low salt.Reviewed recommendation for 150 minutes of exercise per week including 2 days of weight training ifover age 50 * neuropathy 300 bid, generally effective. * getting up toward knee but not in fingers, tho fingers were more sensitive to heat while derrell. feeti worse in am for a few steps [facility] Work Phone: reason for referral (narrative)* Consultation (Routine) - Authorized Specialty Diagnoses / Procedures Referred By Cristian cameron Referred To Contact Primary Care Diagnoses Trigger ring finger of right hand Metatarsalgia of right foot Lupus (CMS/HCC) Procedures Follow Up In Primary Care Sue Wolf MD [address] [id number] Referral ID Status Reason Start Date Expiration Date V isits Requested Visits Authorized [id number] Authorized 06/15/2022 12/12/2022 1 1 * Imaging (Routine) - Authorized Specialty Diagnoses / Procedures Referred By Cristian cameron Referred To Contact Radiology Diagnoses Metatarsalgia of right foot Procedures XR foot right 3+ views Sue Wolf MD [address] [place] [address] Referral ID Status Reason Start Date Expiration Date Visits Requested Visits Authorized [id number] Authorized Perform Procedure 06/15/2022 12/12/2022 1 1 * Consultation (Routine) - Authorized Specialty Diagnoses / Procedures Referred By Contac t Referred To Contact Orthopaedic Surgery / Orthopedic Surgery Diagnoses Trigger ring finger of right hand Sue Wolf MD [address] [place] [address] Do [id number] [address] [facility] [address] [place] [address] Referral ID Status Reason Start Date Expiration Date Visits Requested Visits Authorized [id number] Authorized Specialty Services Required 06/15/2022 12/12/2022 1 1 [facility] Work Phone: reason for referral (narrative)* Consultation (Routine) - Authorized Specialty Diagnoses / Procedures Referred By Contac t Referred To Contact Primary Care Diagnoses Lupus (Multi) Procedures Follow Up In Primary Care Sue Wolf MD [address] [place] [address] Referral ID Status Reason Start Date Expiration Date V isits Requested Visits Authorized [id number] Authorized 05/31/2023 05/30/2024 1 1 [facility] Work Phone: reason for referral (narrative)* Consultation (Routine) - Authorized Specialty Diagnoses / Procedures Referred By Contmelania t Referred To Contact Primary Care Diagnoses Systemic lupus erythematosus, unspecified SLE type, unspecified organ involvement status (Multi) Metatarsalgia of right foot 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 Work Phone: Reason for visit Narrative* Imaging (Routine) - Authorized Specialty Diagnoses / Procedures Referred By Contac t Referred To Contact Radiology Diagnoses Elevated liver enzymes Procedures US abdomen limited liver Sylvie Orosco MD [address] [facility] [address] [place] [address] Phone: tel: fax: Referral ID Status Reason Start Date Expiration Date Visits Requested Visits Authorized [id number] Authorized Perform Procedure 05/26/2024 05/26/2025 1 1 [facility] Work Phone: Reaphx for visit Narrative* Imaging (Routine) - Authorized Specialty Diagnoses / Procedures Referred By Contac t Referred To Contact Radiology Diagnoses Encounter for screening breast examination Encounter for screening mammogram for malignant neoplasm of breast Procedures BI mammo bilateral screening tomosynthesis Sue Wolf MD [address] [address] Phone: tel: fax: Referral ID Status Reason Start Date Expiration Date Visits Requested Visits Authorized [id number] Authorized Perform Procedure 06/02/2024 06/02/2025 1 1 [facility] Work Phone: Summary Purpose Family History No Family History Records Found Mother Name Dates Details Family history of leukemia(V 16.6, Z80.6) Status:Active Father Name Dates Details Family history of malignant neoplasm of skin(V16.8, Z80.8) Status:Active Family history of coronary a rtery disease(V17.3, Z82.49) Status:Active Family history of hypertensi on(V17.49, Z82.49) Status:Active Family history of pulmonary fibrosis(V17.6, Z83.6) Status:Active Sister Name Dates Details Family history of hypertensi on(V17.49, Z82.49) Status:Active Brother Name Dates Details Family history of myocardial infarction(V17.3, Z82.49) Status:Active Mother Name Dates Details Family history of leukemia(V 16.6, Z80.6) Status:Active Father Name Dates Details Family history of malignant neoplasm of skin(V16.8, Z80.8) Status:Active Family history of coronary a rtery disease(V17.3, Z82.49) Status:Active Family history of hypertensi on(V17.49, Z82.49) Status:Active Family history of pulmonary fibrosis(V17.6, Z83.6) Status:Active Sister Name Dates Details Family history of hypertensi on(V17.49, Z82.49) Status:Active Brother Name Dates Details Family history of myocardial infarction(V17.3, Z82.49) Status:Active Mother Name Dates Details Family history of leukemia(V 16.6, Z80.6) Status:Active Father Name Dates Details Family history of malignant neoplasm of skin(V16.8, Z80.8) Status:Active Family history of hypertensi on(V17.49, Z82.49) Status:Active Family history of coronary a rtery disease(V17.3, Z82.49) Status:Active Family history of cerebrovas cular accident (CVA)(V17.1, Z82.3) Status:Active Family history of pulmonary fibrosis(V17.6, Z83.6) Status:Active Sister Name Dates Details Family history of hypertensi on(V17.49, Z82.49) Status:Active Brother Name Dates Details Family history of myocardial infarction(V17.3, Z82.49) Status:Active Family history of coronary a rtery disease(V17.3, Z82.49) Status:Active Mother Name Dates Details Family history of leukemia(V 16.6, Z80.6) Status:Active Father Name Dates Details Family history of malignant neoplasm of skin(V16.8, Z80.8) Status:Active Family history of hypertensi on(V17.49, Z82.49) Status:Active Family history of pulmonary fibrosis(V17.6, Z83.6) Status:Active Family history of coronary a rtery disease(V17.3, Z82.49) Status:Active Family history of cerebrovas cular accident (CVA)(V17.1, Z82.3) Status:Active Sister Name Dates Details Family history of hypertensi on(V17.49, Z82.49) Status:Active Brother Name Dates Details Family history of myocardial infarction(V17.3, Z82.49) Status:Active Family history of coronary a rtery disease(V17.3, Z82.49) Status:Active Mother Name Dates Details Family history of leukemia(V 16.6, Z80.6) Status:Active Father Name Dates Details Family history of malignant neoplasm of skin(V16.8, Z80.8) Status:Active Family history of hypertensi on(V17.49, Z82.49) Status:Active Family history of pulmonary fibrosis(V17.6, Z83.6) Status:Active Family history of coronary a rtery disease(V17.3, Z82.49) Status:Active Family history of cerebrovas cular accident (CVA)(V17.1, Z82.3) Status:Active Sister Name Dates Details Family history of hypertensi on(V17.49, Z82.49) Status:Active Brother Name Dates Details Family history of myocardial infarction(V17.3, Z82.49) Status:Active Family history of coronary a rtery disease(V17.3, Z82.49) Status:Active Unknown Family Member Name Dates Details Family history of leukemia: Mother(V16.6, Z80.6) Status:Active Family history of malignant neoplasm of skin: Father(V16.8, Z80.8) Status:Active Family history of myocardial infarction: Brother(V17.3, Z82.49) Status:Active Family history of hypertensi on: Father, Sister(V17.49, Z82.49) Status:Active Family history of pulmonary fibrosis: Father(V17.6, Z83.6) Status:Active Family history of coronary a rtery disease: Father, Brother(V17.3, Z82.49) Status:Active Family history of cerebrovas cular accident (CVA): Father(V17.1, Z82.3) Status:Active Unknown Family Member Name Dates Details Family history of leukemia: Mother(V16.6, Z80.6) Status:Active Family history of malignant neoplasm of skin: Father(V16.8, Z80.8) Status:Active Family history of myocardial infarction: Brother(V17.3, Z82.49) Status:Active Family history of hypertensi on: Father, Sister(V17.49, Z82.49) Status:Active Family history of pulmonary fibrosis: Father(V17.6, Z83.6) Status:Active Family history of coronary a rtery disease: Father, Brother(V17.3, Z82.49) Status:Active Family history of cerebrovas cular accident (CVA): Father(V17.1, Z82.3) Status:Active Unknown Family Member Name Dates Details Family history of leukemia: Mother(V16.6, Z80.6) Status:Active Family history of malignant neoplasm of skin: Father(V16.8, Z80.8) Status:Active Family history of myocardial infarction: Brother(V17.3, Z82.49) Status:Active Family history of hypertensi on: Father, Sister(V17.49, Z82.49) Status:Active Family history of pulmonary fibrosis: Father(V17.6, Z83.6) Status:Active Family history of coronary a rtery disease: Father, Brother(V17.3, Z82.49) Status:Active Family history of cerebrovas cular accident (CVA): Father(V17.1, Z82.3) Status:Active Unknown Family Member Name Dates Details Family history of leukemia: Mother(V16.6, Z80.6) Status:Active Family history of malignant neoplasm of skin: Father(V16.8, Z80.8) Status:Active Family history of myocardial infarction: Brother(V17.3, Z82.49) Status:Active Family history of hypertensi on: Father, Sister(V17.49, Z82.49) Status:Active Family history of pulmonary fibrosis: Father(V17.6, Z83.6) Status:Active Family history of coronary a rtery disease: Father, Brother(V17.3, Z82.49) Status:Active Family history of cerebrovas cular accident (CVA): Father(V17.1, Z82.3) Status:Active Unknown Family Member Name Dates Details Family history of leukemia: Mother(V16.6, Z80.6) Status:Active Family history of malignant neoplasm of skin: Father(V16.8, Z80.8) Status:Active Family history of myocardial infarction: Brother(V17.3, Z82.49) Status:Active Family history of hypertensi on: Father, Sister(V17.49, Z82.49) Status:Active Family history of pulmonary fibrosis: Father(V17.6, Z83.6) Status:Active Family history of coronary a rtery disease: Father, Brother(V17.3, Z82.49) Status:Active Family history of cerebrovas cular accident (CVA): Father(V17.1, Z82.3) Status:Active Unknown Family Member Name Dates Details Family history of leukemia: Mother(V16.6, Z80.6) Status:Active Family history of malignant neoplasm of skin: Father(V16.8, Z80.8) Status:Active Family history of myocardial infarction: Brother(V17.3, Z82.49) Status:Active Family history of hypertensi on: Father, Sister(V17.49, Z82.49) Status:Active Family history of pulmonary fibrosis: Father(V17.6, Z83.6) Status:Active Family history of coronary a rtery disease: Father, Brother(V17.3, Z82.49) Status:Active Family history of cerebrovas cular accident (CVA): Father(V17.1, Z82.3) Status:Active Unknown Family Member Name Dates Details Family history of leukemia: Mother(V16.6, Z80.6) Status:Active Family history of malignant neoplasm of skin: Father(V16.8, Z80.8) Status:Active Family history of myocardial infarction: Brother(V17.3, Z82.49) Status:Active Family history of hypertensi on: Father, Sister(V17.49, Z82.49) Status:Active Family history of coronary a rtery disease: Father, Brother(V17.3, Z82.49) Status:Active Family history of cerebrovas cular accident (CVA): Father(V17.1, Z82.3) Status:Active Family history of pulmonary fibrosis: Father(V17.6, Z83.6) Status:Active Unknown Family Member Name Dates Details Family history of leukemia: Mother(V16.6, Z80.6) Status:Active Family history of malignant neoplasm of skin: Father(V16.8, Z80.8) Status:Active Family history of myocardial infarction: Brother(V17.3, Z82.49) Status:Active Family history of hypertensi on: Father, Sister(V17.49, Z82.49) Status:Active Family history of pulmonary fibrosis: Father(V17.6, Z83.6) Status:Active Family history of coronary a rtery disease: Father, Brother(V17.3, Z82.49) Status:Active Family history of cerebrovas cular accident (CVA): Father(V17.1, Z82.3) Status:Active Unknown Family Member Name Dates Details Family history of leukemia: Mother(V16.6, Z80.6) Status:Active Family history of malignant neoplasm of skin: Father(V16.8, Z80.8) Status:Active Family history of myocardial infarction: Brother(V17.3, Z82.49) Status:Active Family history of hypertensi on: Father, Sister(V17.49, Z82.49) Status:Active Family history of pulmonary fibrosis: Father(V17.6, Z83.6) Status:Active Family history of coronary a rtery disease: Father, Brother(V17.3, Z82.49) Status:Active Family history of cerebrovas cular accident (CVA): Father(V17.1, Z82.3) Status:Active Unknown Family Member Name Dates Details Family history of leukemia: Mother(V16.6, Z80.6) Status:Active Family history of malignant neoplasm of skin: Father(V16.8, Z80.8) Status:Active Family history of myocardial infarction: Brother(V17.3, Z82.49) Status:Active Family history of hypertensi on: Father, Sister(V17.49, Z82.49) Status:Active Family history of pulmonary fibrosis: Father(V17.6, Z83.6) Status:Active Family history of coronary a rtery disease: Father, Brother(V17.3, Z82.49) Status:Active Family history of cerebrovas cular accident (CVA): Father(V17.1, Z82.3) Status:Active Unknown Family Member Name Dates Details Family history of leukemia: Mother(V16.6, Z80.6) Status:Active Family history of malignant neoplasm of skin: Father(V16.8, Z80.8) Status:Active Family history of myocardial infarction: Brother(V17.3, Z82.49) Status:Active Family history of hypertensi on: Father, Sister(V17.49, Z82.49) Status:Active Family history of pulmonary fibrosis: Father(V17.6, Z83.6) Status:Active Family history of coronary a rtery disease: Father, Brother(V17.3, Z82.49) Status:Active Family history of cerebrovas cular accident (CVA): Father(V17.1, Z82.3) Status:Active Unknown Family Member Name Dates Details Family history of leukemia: Mother(V16.6, Z80.6) Status:Active Family history of malignant neoplasm of skin: Father(V16.8, Z80.8) Status:Active Family history of myocardial infarction: Brother(V17.3, Z82.49) Status:Active Family history of hypertensi on: Father, Sister(V17.49, Z82.49) Status:Active Family history of pulmonary fibrosis: Father(V17.6, Z83.6) Status:Active Family history of coronary a rtery disease: Father, Brother(V17.3, Z82.49) Status:Active Family history of cerebrovas cular accident (CVA): Father(V17.1, Z82.3) Status:Active Unknown Family Member Name Dates Details Family history of leukemia: Mother(V16.6, Z80.6) Status:Active Family history of malignant neoplasm of skin: Father(V16.8, Z80.8) Status:Active Family history of myocardial infarction: Brother(V17.3, Z82.49) Status:Active Family history of hypertensi on: Father, Sister(V17.49, Z82.49) Status:Active Family history of pulmonary fibrosis: Father(V17.6, Z83.6) Status:Active Family history of coronary a rtery disease: Father, Brother(V17.3, Z82.49) Status:Active Family history of cerebrovas cular accident (CVA): Father(V17.1, Z82.3) Status:Active Unknown Family Member Name Dates Details Family history of leukemia: Mother(V16.6, Z80.6) Status:Active Family history of malignant neoplasm of skin: Father(V16.8, Z80.8) Status:Active Family history of myocardial infarction: Brother(V17.3, Z82.49) Status:Active Family history of hypertensi on: Father, Sister(V17.49, Z82.49) Status:Active Family history of pulmonary fibrosis: Father(V17.6, Z83.6) Status:Active Family history of coronary a rtery disease: Father, Brother(V17.3, Z82.49) Status:Active Family history of cerebrovas cular accident (CVA): Father(V17.1, Z82.3) Status:Active Unknown Family Member Name Dates Details Family history of leukemia: Mother(V16.6, Z80.6) Status:Active Family history of malignant neoplasm of skin: Father(V16.8, Z80.8) Status:Active Family history of myocardial infarction: Brother(V17.3, Z82.49) Status:Active Family history of hypertensi on: Father, Sister(V17.49, Z82.49) Status:Active Family history of pulmonary fibrosis: Father(V17.6, Z83.6) Status:Active Family history of coronary a rtery disease: Father, Brother(V17.3, Z82.49) Status:Active Family history of cerebrovas cular accident (CVA): Father(V17.1, Z82.3) Status:Active Unknown Family Member Name Dates Details Family history of leukemia: Mother(V16.6, Z80.6) Status:Active Family history of malignant neoplasm of skin: Father(V16.8, Z80.8) Status:Active Family history of myocardial infarction: Brother(V17.3, Z82.49) Status:Active Family history of hypertensi on: Father, Sister(V17.49, Z82.49) Status:Active Family history of pulmonary fibrosis: Father(V17.6, Z83.6) Status:Active Family history of coronary a rtery disease: Father, Brother(V17.3, Z82.49) Status:Active Family history of cerebrovas cular accident (CVA): Father(V17.1, Z82.3) Status:Active Unknown Family Member Name Dates Details Family history of leukemia: Mother(V16.6, Z80.6) Status:Active Family history of malignant neoplasm of skin: Father(V16.8, Z80.8) Status:Active Family history of myocardial infarction: Brother(V17.3, Z82.49) Status:Active Family history of hypertensi on: Father, Sister(V17.49, Z82.49) Status:Active Family history of pulmonary fibrosis: Father(V17.6, Z83.6) Status:Active Family history of coronary a rtery disease: Father, Brother(V17.3, Z82.49) Status:Active Family history of cerebrovas cular accident (CVA): Father(V17.1, Z82.3) Status:Active Unknown Family Member Name Dates Details Family history of leukemia: Mother(V16.6, Z80.6) Status:Active Family history of malignant neoplasm of skin: Father(V16.8, Z80.8) Status:Active Family history of myocardial infarction: Brother(V17.3, Z82.49) Status:Active Family history of hypertensi on: Father, Sister(V17.49, Z82.49) Status:Active Family history of pulmonary fibrosis: Father(V17.6, Z83.6) Status:Active Family history of coronary a rtery disease: Father, Brother(V17.3, Z82.49) Status:Active Family history of cerebrovas cular accident (CVA): Father(V17.1, Z82.3) Status:Active Unknown Family Member Name Dates Details Family history of leukemia: Mother(V16.6, Z80.6) Status:Active Family history of malignant neoplasm of skin: Father(V16.8, Z80.8) Status:Active Family history of myocardial infarction: Brother(V17.3, Z82.49) Status:Active Family history of hypertensi on: Father, Sister(V17.49, Z82.49) Status:Active Family history of pulmonary fibrosis: Father(V17.6, Z83.6) Status:Active Family history of coronary a rtery disease: Father, Brother(V17.3, Z82.49) Status:Active Family history of cerebrovas cular accident (CVA): Father(V17.1, Z82.3) Status:Active Unknown Family Member Name Dates Details Family history of leukemia: Mother(V16.6, Z80.6) Status:Active Family history of malignant neoplasm of skin: Father(V16.8, Z80.8) Status:Active Family history of myocardial infarction: Brother(V17.3, Z82.49) Status:Active Family history of hypertensi on: Father, Sister(V17.49, Z82.49) Status:Active Family history of pulmonary fibrosis: Father(V17.6, Z83.6) Status:Active Family history of coronary a rtery disease: Father, Brother(V17.3, Z82.49) Status:Active Family history of cerebrovas cular accident (CVA): Father(V17.1, Z82.3) Status:Active Advance Directives No Advanced Directives Records FoundDocuments on File Type Date Recorded 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 Advance Directives and Living Will Documents on File Type Date Recorded 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 Advance Directives and Living Will Documents on File Type Date Recorded 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 Advance Directives and Livin g Will 07/26/2020 11:51 AM Documents on File Type Date Recorded 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 Advance Directives and Livin g Will 07/28/2020 11:51 AM Documents on File Type Date Recorded 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 Advance Directives and Livin g Will 07/28/2020 11:51 AM Documents on File Type Date Recorded 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 Advance Directives and Livin g Will 08/03/2020 11:51 AM Documents on File Type Date Recorded 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 Advance Directives and Livin g Will 08/11/2020 8:42 AM Documents on File Type Date Recorded 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 Advance Directives and Livin g Will 08/11/2020 8:42 AM Documents on File Type Date Recorded 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 Advance Directives and Livin g Will 08/16/2020 5:56 AM Advance Directives and Livin g Will 08/16/2020 7:31 AM Power of Cyber Legal Advisor 08/16/2020 7:31 AM Latest Code Status on File Code Status Date Activated Date Inactivated Comments Full Code 08/16/2020 9:55 AM Latest Code Status on File Code Status Date Activated Date Inactivated Comments Full Code 08/16/2020 9:55 AM 08/16/2020 7:49 PM Documents on File Type Date Recorded 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 Advance Directives and Livin g Will 08/16/2020 7:31 AM Power of Cyber Legal Advisor 08/16/2020 7:31 AM Date Activated Date Inactivated Comments 08/16/2020 9:55 AM 08/16/2020 7:49 PM Reason for Referral Status Reason Specialty Diagnoses / Procedures Referred By Contact Referred To Contact Authorized Specialty Services Required/[facility] Rehabilitation Diagnoses Primary osteoarthritis of both hips Cristobal Ryan MD [address] [place] [address] [address] [id number] [place] [address] Status Reason Specialty Diagnoses / Procedures Re ferred By Contact Referred To Contact Pending Review Radiology Diagnoses Primary osteoarthritis of right hip Procedures CT Hip Right Without Contrast Elma White MD [address] [place], [place] [id number] Status Reason Specialty Diagnoses / Procedures Referred By Contact Referred To Contact Authorized Specialty Services Required/Patie nt[facility] Cardiology Diagnoses Primary osteoarthritis of right hip Elma White MD [address] [place], [place] [id number] [facility] [address] [place] [address] Status Reason Specialty Diagnoses / Procedures Referre d By Contact Referred To Contact Closed Radiology Diagnoses Primary osteoarthritis of right hip Procedures CT Hip Right Without Contrast Elma White MD [address] [place] [id number] Specialty Diagnoses / Procedures Referred By Contac t Referred To Contact Radiology Diagnoses Screening for cardiovascular condition Procedures CT cardiac scoring wo IV contrast Sue Wolf MD [address] [place] [address] Referral ID Status Reason Start Date Expiration Date Visits Requested Visits Authorized [id number] Pending Review Perform Procedure 3 05/27/2023 1 1 Specialty Diagnoses / Procedures Referred By Contac t Referred To Contact Primary Care Diagnoses Lupus (CMS/HCC) Procedures Follow Up In Primary Care Sue Wolf MD [address] [place] [address] Referral ID Status Reason Start Date Expiration Date V isits Requested Visits Authorized [id number] Authorized 11/28/2022 05/27/2023 1 1 Referral ID Status Reason Start Date Expiration Date Visits Requested Visits Authorized [id number] Authorized Perform Procedure 3 05/27/2023 1 1 Chief Complaint * 6 month follow up * Right hip replacement 5 weeks ago NPV for mid low back pain with occasional radiation across whole lower back. Patient also states occasional radiation to layo buttocks. -03/30 sitting. Pain increases with activity or standing still for a long period of time. She has had a recent CT at 07/2020, CXR at [facility] 03/2020, Lumbar xray at [facility] 05/2020, MRI at 12/2019, Patient has hx of R hip replacement 08/16/20. 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 She states that 3-4 yrs ago she started having R hip pain and started on Mobic which she continues today. One year ago she had PT which she states was not effective and actually made the pain worse. Pain in back has increased since that time. Ice and heat will give some relief for a short period of time.6 MO FU LIMBAR PAIN, LUPUS CKF/U BILATERAL L5 TFESI 50%, SHE HASN'T HAS SHOOTING PAINS INTO THE LEFT SIDE OF HER BUTTOCK JUST INTHE RIGHT WHEN SHE GOES TO STEP UP INTO THE TRUCK, OR WHEN SHE BENDS, OR GOES FROM SITTING TO STANDING, NOT OFTEN SINCE INJECTION,SHE ISN'T UNSTEADY WITH HER GAIT BEFORE, SHE HAD A CHIROPRACTIC ADJUSTMENT PRIOR TO THE INJECTION WHICH HAS GIVEN HER RELIEF WELL, SCORE 2/10* F/U BILATERAL L5 TFESI 50%, SHE HASN'T HAS SHOOTING PAINS INTO THE LEFT SIDE OF HER BUTTOCK JUST INTHE RIGHT WHEN SHE GOES TO STEP UP INTO THE TRUCK, OR WHEN SHE BENDS, OR GOES FROM SITTING TO STANDING, NOT OFTEN SINCE INJECTION,SHE ISN'T UNSTEADY WITH HER GAIT BEFORE, SHE HAD A CHIROPRACTIC ADJUSTMENT PRIOR TO THE INJECTION WHICH HAS GIVEN HER RELIEF WELL, SCORE 2/10 * This is a 65-year-old female here for a follow-up appointment for chief complaint of low back and leg pain. At her last visit she underwent a bilateral L5 transforaminal epidural steroid injection. She reports 50 to 60% pain relief. Her physical functioning has improved as a result. She is also doing chiropractic manipulations and exercises which are also helping. She reports that overall she is doing well. She denies new neurologic symptoms or issues with bladder or bowel control. * The patient's past medical, social, and family history along with medications and allergies are available and were reviewed. 6 MO FU. REV LABS6 MO FU* PATIENT PRESENTS TO OFFICE FOR : Right Ring Trigger finger * ONSET: 3 YRS * DOI / DOS: NA * IMPROVED: NO * PAIN: 10 UPON USE * PAIN MEDS TAKEN: GABAPENTIN * ROM: NORM * ICE / HEAT APPLIED: NO * BRACE WORN: NO * LAST INJECTION: NO * REFERRAL: DR SALAS * ACCOMPANIED BY: TWIN Medications Administered Section Active Administered Medications - up to 3 most recent administrations Medication Order MAR Action Action Date Dose Rate Site PHENYLephrine 2.5 % 1 Drop (AK-DILATE, ELAINA-SYNEPHRINE) 1 Drop, BOTH EYES, DIRECTED, Starting on Sat11/14/21 at 1500, Until Sat11/15/21 at 025, Administer for dilation PROTECT FROM LIGHT Given 11/14/2021 3:00 PM EDT 1 Drop proparacaine 0.5 % 1 Drop (ALCAINE) 1 Drop, BOTH EYES, DIRECTED, Starting on Sat11/14/21 at 1500, Until Sat11/15/21 at 0259, Administer for pneumo tonometry, tonopen tonometry, or pachymetry. In the event of a proparacaine shortage, administer tetracaine 0.5% ophthalmic drops 1 drop in the left eye as directed for pneumo tonometry, tonopen tonometry, or pachymetry Given 11/14/2021 3:00 PM EDT 1 Drop tropicamide 1 % 1 Drop (MYDRIACYL) 1 Drop, BOTH EYES, DIRECTED, Starting on Sat11/14/21 at 1500, Until Sat11/15/21 at 0259, Administer for dilation Given 11/14/2021 3:00 PM EDT 1 Drop Active Administered Medications - up to 3 most recent administrations Medication Order MAR Action Action Date Dose Rate Site PHENYLephrine 2.5 % 1 Drop (AK-DILATE, ELAINA-SYNEPHRINE) 1 Drop, BOTH EYES, DIRECTED, Starting on Sat12/04/22 at 1330, Until Sat12/05/22 at 0129, Administer for dilation PROTECT FROM LIGHT Given 12/04/2022 1:30 PM EDT 1 Drop proparacaine 0.5 % 1 Drop (ALCAINE) 1 Drop, BOTH EYES, DIRECTED, Starting on Sat12/04/22 at 1330, Until Sat12/05/22 at 0129, Administer for pneumo tonometry, tonopen tonometry, or pachymetry. In the event of a proparacaine shortage, administer tetracaine 0.5% ophthalmic drops 1 drop in the left eye as directed for pneumo tonometry, tonopen tonometry, or pachymetry Given 12/04/2022 1:30 PM EDT 1 Drop tropicamide 1 % 1 Drop (MYDRIACYL) 1 Drop, BOTH EYES, DIRECTED, Starting on Sat12/04/22 at 1330, Until Sat12/05/22 at 0129, Administer for dilation Given 12/04/2022 1:30 PM EDT 1 Drop Chief Complaint and Reason for Visit Chief Complaint Admit Date LABS AND XRAY- PAIN- COPY PCP April 8:53am Chief Complaint Admit Date LABS AND XRAY- PAIN- COPY PCP April 8:53am [facility] May 13 11:10am Chief Complaint Admit Date LABS AND XRAY- PAIN- COPY PCP April 8:53am [facility] May 13 11:10am PAIN- COPY PCP August 11, 2024 7:56 am Chief Complaint Admit Date PAIN- COPY PCP August 11, 2024 7:56 am PAIN- COPY PCP November 11, 2024 10:42am Additional Source Comments INFORMATION SOURCE (unrecogn ized section and content) DATE CREATED AUTHOR 07/30/2018 [facility] DATE CREATED AUTHOR AUTHOR'S ORGANIZ ATION 08/17/2020 [facility] DATE CREATED AUTHOR AUTHOR'S ORGANIZ ATION 08/28/2020 [facility] DATE CREATED AUTHOR AUTHOR'S ORGANIZ ATION 09/02/2020 [facility] DATE CREATED AUTHOR AUTHOR'S ORGANIZ ATION 07/31/2022 [facility] DATE CREATED AUTHOR AUTHOR'S ORGANIZ ATION 07/31/2022 [facility] DATE CREATED AUTHOR AUTHOR'S ORGANIZ ATION 07/31/2022 [facility] DATE CREATED AUTHOR AUTHOR'S ORGANIZ ATION 05/28/2023 [facility] DATE CREATED AUTHOR AUTHOR'S ORGANIZ ATION 03/27/2024 [facility] DATE CREATED AUTHOR AUTHOR'S ORGANIZ ATION 06/12/2024 [facility] DATE CREATED AUTHOR AUTHOR'S ORGANIZ ATION 11/24/2024 [facility] DATE CREATED AUTHOR AUTHOR'S ORGANIZ ATION 11/25/2024 [facility] DATE CREATED AUTHOR AUTHOR'S ORGANIZ ATION 12/15/2024 [facility] DATE CREATED AUTHOR AUTHOR'S ORGANIZ ATION 12/26/2024 [facility] Reason for Visit (unrecogniz ed section and content) Reason Comments Pain Reason Comments Physical Therapy Status Reason Specialty Diagnoses / Procedures Referred By Contact Referred To Contact Authorized Specialty Services Required/Isamar ent's Best Interest Rehabilitation Diagnoses Primary osteoarthritis of both hips Cristobal Ryan MD [address] [place] [address] [facility] [place] [address] [place] [address] Reason Comments Follow-up Reason Comments Pre-op Exam Right hip replacemen t 08/16/20 Status Reason Specialty Diagnoses / Procedures Referred By Contact Referred To Contact Closed Specialty Services Required/Patien t's Best Interest Cardiology Diagnoses Primary osteoarthritis of right hip Elma White MD [address] [place] [address] [address] [place] [address] Reason Comments Pre-op Exam right hip Status Reason Specialty Diagnoses / Procedures Referre d By Contact Referred To Contact Closed Radiology Diagnoses Primary osteoarthritis of right hip Procedures CT Hip Right Without Contrast Elma White MD [address] [id number] Reason Comments Suture / Staple Removal Wound Check Reason Onset Date Comments Medication Refill 09/26/2020 Reason Onset Date Comments Medication Refill 08/10/2021 Reason Comments Eye irritation left eye Tearing Left Eye Eye Lid Swelling Left eye Follow tx of high risk med terminal [facility]man use of plaquenil for rheumatoid arthritis and lupus Reason Comments [facility] Follow Up Right upper eyelid Reason Comments Medicare Annual Wellness Visit Initial 6 mo fu rev labs, feels like there is a polyp, feet check, bump on palm of hand below ring finger Reason Comments 6 MO F/U Specialty Diagnoses / Procedures Referred By Contac t Referred To Contact Primary Care Diagnoses Trigger ring finger of right hand Metatarsalgia of right foot Lupus (CMS/HCC) Procedures Follow Up In Primary Care uSe Wofl MD [address] [id number] Referral ID Status Reason Start Date Expiration Date V isits Requested Visits Authorized [id number] Authorized 06/15/2022 12/12/2022 1 1 Reason Comments Monitor current high risk meds Plaquenil use for lupus and rheumatoid arthritis Specialty Diagnoses / Procedures Referred By Contac t Referred To Contact Radiology Diagnoses Screening for cardiovascular condition Procedures CT cardiac scoring wo IV contrast Sue Wolf MD [address] [place] [address] Referral ID Status Reason Start Date Expiration Date Visits Requested Visits Authorized [id number] Authorized Perform Procedure 05/27/2023 1 1 Reason Comments Medicare Annual Wellness Visit Subsequen t Rev labs Specialty Diagnoses / Procedures Referred By Cristian cameron Referred To Contact Primary Care Diagnoses Lupus (Multi) Procedures Follow Up In Primary Care Sue Wolf MD [address] [place] [address] Referral ID Status Reason Start Date Expiration Date Visits Re quested Visits Authorized [id number] Closed 11/28/2022 05/27/2023 1 1 Reason Comments Follow-up 6 mo Specialty Diagnoses / Procedures Referred By Cristian cameron Referred To Contact Primary Care Diagnoses Lupus Procedures Follow Up In Primary Care Sue Wolf MD [address] [place] [address] Referral ID Status Reason Start Date Expiration Date V isits Requested Visits Authorized [id number] Authorized 05/31/2023 05/30/2024 1 1 Reason Comments neuropathy in feet Reason Comments Plaquenil Check Patient has been david ing since 1988 Reason Comments Medicare Annual Wellness Visit Subsequen t 6 mo Specialty Diagnoses / Procedures Referred By Cristian cameron Referred To Contact Primary Care Diagnoses Systemic lupus erythematosus, unspecified SLE type, unspecified organ involvement status (Multi) Metatarsalgia of right foot 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 [address] dominique she has tried abx over the past month but sx return Reason Comments Rash Left armpit x1 mo Reason Comments Follow-up 6 mo Care Teams (unrecognized sec tion and content) Agricultural Chemicals Inspector Relationship Specialty Start Date End Date Sue Wolf MD [address] [place] [address] PCP - General Family Medicine 06/07/20 Agricultural Chemicals Inspector Relationship Specialty Start Date End Date Sue Wolf [address] [place] [address] PCP - General 05/29/00 Agricultural Chemicals Inspector Relationship Specialty Start Date End Date Sue Wolf [address] [place] [address] PCP - General 05/29/00 Agricultural Chemicals Inspector Relationship Specialty Start Date End Date Sue Wolf MD [address] [place] [address] PCP - General 10/21/18 Agricultural Chemicals Inspector Relationship Specialty Start Date End Date Sue Wolf MD [address] [place] [address] PCP - General 10/21/18 Sue Wolf MD [address] [place] [address] PCP - [employer] PCP 05/19/22 Agricultural Chemicals Inspector Relationship Specialty Start Date End Date Sue Wolf MD [address] [place] [address] PCP - General 05/29/00 Agricultural Chemicals Inspector Relationship Specialty Start Date End Date Sue Wolf MD [address] [place] [address] PCP - General 10/21/18 Sue Wolf MD [address] [place] [address] PCP - [employer] PCP 05/19/22 Agricultural Chemicals Inspector Relationship Specialty Start Date End Date Sue Wolf MD [address] [place] [address] PCP - General 10/21/18 Sue Wolf MD [address] [place] [address] PCP - [employer] PCP 05/19/22 Agricultural Chemicals Inspector Relationship Specialty Start Date End Date Sue Wolf MD [address] [place] [address] PCP - General 10/21/18 Agricultural Chemicals Inspector Relationship Specialty Start Date End Date Sue Wolf MD [address] [place] [address] PCP - General 10/21/18 Agricultural Chemicals Inspector Relationship Specialty Start Date End Date Sue Wolf MD [address] [facility] [place] [address] PCP - General 05/29/00 Team Status: Active Member Role Status Dates Dr. Sue Wolf MD Primary Care Provider Active Team Status: Inactive Member Role Status Dates Dr. Sue Wolf MD Primary Care Provider Active Start: April 27, 2024 End: April 27, 2024 Dr. Sylvie Orosco MD Attending Provider Active Start: April 27, 2024 End: April 27, 2024 Dr. Sylvie Orosco MD Referring Provider Active Start: April 27, 2024 End: April 27, 2024 Team Status: Inactive Member Role Status Dates Dr. Sue Wolf MD Primary Care Provider Active Start: May 13, 2024 End: May 13, 2024 Dr. Sylvie Orosco MD Attending Provider Active Start: May 13, 2024 End: May 13, 2024 Dr. Sylvie Orosco MD Referring Provider Active Start: May 13, 2024 End: May 13, 2024 Agricultural Chemicals Inspector Relationship Specialty Start Date End Date Sue Wolf MD [address] [address] PCP - General 10/21/18 Agricultural Chemicals Inspector Relationship Specialty Start Date End Date Sue Wolf MD [address] [address] PCP - General 10/21/18 Agricultural Chemicals Inspector Relationship Specialty Start Date End Date Sue Wolf MD [address] [address] PCP - General 10/21/18 Agricultural Chemicals Inspector Relationship Specialty Start Date End Date Sue Wolf MD [address] [place] [address] PCP - General Family Medicine 06/07/20 Team Status: Active Member Role/Relationship Status Dates Dr. Sue Wolf MD Primary Care Provider Active Team Status: Inactive Member Role/Relationship Status Dates Dr. Sue Wolf MD Primary Care Provider Active Start: April 27, 2024 End: April 27, 2024 Dr. Sylvie Orosco MD Attending Provider Active Start: April 27, 2024 End: April 27, 2024 Dr. Sylvie Orosco MD Referring Provider Active Start: April 27, 2024 End: April 27, 2024 Team Status: Inactive Member Role/Relationship Status Dates Dr. Sue Wolf MD Primary Care Provider Active Start: May 13, 2024 End: May 13, 2024 Dr. Sylvie Orosco MD Attending Provider Active Start: May 13, 2024 End: May 13, 2024 Dr. Sylvie Orosco MD Referring Provider Active Start: May 13, 2024 End: May 13, 2024 Team Status: Inactive Member Role/Relationship Status Dates Dr. Sue Wolf MD Primary Care Provider Active Start: August 11, 2024 End: August 11, 2024 Dr. Sylvie Orosco MD Attending Provider Active Start: August 11, 2024 End: August 11, 2024 Dr. Sylvie Orosco MD Referring Provider Active Start: August 11, 2024 End: August 11, 2024 Team Status: Active Member Role/Relationship Status Dates Dr. Sue Wolf MD Primary care physician Active Team Status: Inactive Member Role/Relationship Status Dates Dr. Sue Wolf MD Primary care physician Active Start: August 11, 2024 End: August 11, 2024 Dr. Sylvie Orosco MD Attending physician Active Start: August 11, 2024 End: August 11, 2024 Dr. Sylvie Orosco MD Referring Provider Active Start: August 11, 2024 End: August 11, 2024 Team Status: Inactive Member Role/Relationship Status Dates Dr. Sue Wolf MD Primary care physician Active Start: November 11, 2024 End: November 11, 2024 Dr. Sylvie Orosco MD Attending physician Active Start: November 11, 2024 End: November 11, 2024 Dr. Sylvie Orosco MD Referring Provider Active Start: November 11, 2024 End: November 11, 2024 Agricultural Chemicals Inspector Relationship Specialty Start Date End Date Sue Wolf MD [address] [place] [address] PCP - General 10/21/18 Agricultural Chemicals Inspector Relationship Specialty Start Date End Date Sue Wolf MD [address] [place], [place] [id number] PCP - General Family Medicine 06/07/20 Agricultural Chemicals Inspector Relationship Specialty Start Date End Date Sue Wolf MD [address] [id number] PCP - General 10/21/18 Agricultural Chemicals Inspector Relationship Specialty Start Date End Date Sue Wolf MD [address] [place] [address] PCP - General 10/21/18 Source Comments (unrecognize d section and content) In the event this informatio n is protected by the Federal Confidentiality of Alcohol and Drug Abuse Patient Records regulations: The Federal rules restrict any use of the information to criminally investigate or prosecute any alcohol or drug abuse patient.[facility] the event this information is protected by the Federal Confidentiality of Alcohol and Drug Abuse Patient Records regulations: The Federal rules restrict any use of the information to criminally investigate or prosecute any alcohol or drug abuse patient.[facility] the event this information is protected by the Federal Confidentiality of Alcohol and Drug Abuse Patient Records regulations: The Federal rules restrict any use of the information to criminally investigate or prosecute any alcohol or drug abuse patient.[facility] the event this information is protected by the Federal Confidentiality of Alcohol and Drug Abuse Patient Records regulations: The Federal rules restrict any use of the information to criminally investigate or prosecute any alcohol or drug abuse patient.[facility] Goals (unrecognized section and content) Goals may be documented in a n alternate sectionGoals may be documented in an alternate sectionGoals may be documented in an alternate sectionGoals may be documented in an alternate section FOR RECORDS PERTAINING TO PATIENTS WHO ARE OR HAVE BEEN ENROLLED IN A CHEMICAL DEPENDENCY/SUBSTANCEABUSE PROGRAM, SOME INFORMATION MAY BE OMITTED. This clinical summary was aggregated from multiple sources. Caution should be exercised in using it in the provision of clinical care. This summary normalizes information from multiple sources, and as a consequence, information in this document may materially change the coding, format and clinical context of patient data. In addition, data may be omitted in some cases. CLINICAL DECISIONS SHOULD BE BASED ON THE PRIMARY CLINICAL RECORDS. [facility] [employer] [facility]. provides no warranty or guarantee of the accuracy or completeness of information in this document.
== END | disposition home or self-care (01) ==
LOC: US 08:49
PROVIDERS: PCP Family Medicine; Referring Provider Family Medicine; Visit Provider Family Medicine
DX: K76.0 Fatty (change of) liver, not elsewhere classified (principal)
CPT/HCPCS: 76705; 76981